=== PATIENT | male | born 1960 | race African-American/Black ===

== ENCOUNTER 2017-01-01 17:45 | Inpatient (IN) | payer BC, OTHER ==
[~2017-01-01] VITALS: Ht 170.2 cm; Wt 61.2 kg
[2017-01-01] MEDS ORDERED: ALBUTEROL 0.5% (NEB) 2.5 MG/0.5 ML AMP INH STA (18:22)
[2017-01-01] MEDS ORDERED: SOD CHLORIDE 0.9% 1,000 ML IV STA (18:22)
[2017-01-01 18:44] LABS: AADO2 Arterial 109.5 mmHg (7.0-24.0); Allen Test ACCEPTAB; Arterial Base Excess -2.8 mmol/L (-3.0-3); Arterial COHb 2.3 % (0.0-3.0); Arterial HCO3 20.5 mmol/L (22.0-26.0); Arterial MetHb 0.3 % (0.0-1.5); Arterial Total Hemglobin 8.3 g/dl (12.0-18.0); MODE NASAL CANNULA
[2017-01-01 18:56] LABS: BASOPHIL # 0.1 10^3/ul (0.0-0.1); BASOPHILS % 0.5 % (0.0-2.0); EOSINOPHILS # 1.6 10^3/ul (0.0-0.5); EOSINOPHILS % 9.8 % (0.0-7.0); HEMATOCRIT 24.6 % (42.0-52.0); HEMOGLOBIN 7.2 g/dl (14.0-18.0); LYMPHOCYTES # 1.1 10^3/ul (0.8-2.9); LYMPHOCYTES % 6.4 % (15.0-51.0); MEAN CORPUSCULAR HGB CONC 29.3 g/dl (32.0-37.0); MEAN CORPUSCULAR VOLUME 65.1 fl (82.0-101.0); MEAN PLATELET VOLUME 8.7 fl (7.4-10.4); MONOCYTE # 0.8 10^3/ul (0.3-0.9); MONOCYTES % 4.8 % (0.0-11.0); NEUTROPHIL # 13.1 10^3/ul (1.6-7.5); NUCLEATED RED BLOOD CELLS% 0.2 /100WBC (0.0-0.0); PLATELET COUNT 503 10^3/UL (140-415); RED BLOOD COUNT 3.78 10^6/ul (4.70-6.10); WHITE BLOOD COUNT 16.8 10^3/ul (4.8-10.8)
--- NOTE | 2017-01-01 19:08 | RADRPT ---
PROCEDURE: US DVT. CLINICAL INDICATION: Right lower extremity pain and swelling. TECHNIQUE: Multiple longitudinal and transverse images of the right lower extremity veins were obt ained with hare scale and color Doppler imaging. 2D grayscale measurements with compression, color Doppler flow, and augmentation was performed. The calf veins were interrogated as well. COMPARISON: No prior studies are available for comparison. FINDINGS: The right common femoral, superficial femoral and popliteal veins are normally compressible througho ut. Color flow demonstrates normal filling of the vessel. Normal waveforms are visualized and ther e is normal response to augmentation. The calf veins are visualized and are equally unremarkable. IMPRESSION: 1. No evidence of a deep vein thrombosis involving the right lower extremity. RPTAT: HFN .Noam Kirkpatrick MD, Date Time Electronically viewed and signed by .Noam Kirkpatrick MD, MD on 01/01/2017 19:07 .N/
[2017-01-01 19:10] LABS: INR 1.03; PROTIME 13.5 Sec (12.2-14.2); PT RATIO 1.1
[2017-01-01 19:15] LABS: ALANINE AMINOTRANSFERASE 25 IU/L (13-69); ALBUMIN 3.2 g/dl (3.3-4.9); ALKALINE PHOSPHATASE 98 IU/L (42-121); ANION GAP 13 (8-16); ASPARTATE AMINO TRANSFERASE 24 IU/L (15-46); BILIRUBIN,INDIRECT 0.1 mg/dl (0-1.1); BILIRUBIN,TOTAL 0.1 mg/dl (0.2-1.3); BLOOD UREA NITROGEN 18 mg/dl (7-20); CALCIUM 8.8 mg/dl (8.4-10.2); CARBON DIOXIDE 22 mmol/L (21-31); CHLORIDE 104 mmol/L (97-110); CREATININE 0.94 mg/dl (0.61-1.24); GLUCOSE 118 mg/dl (70-220); POTASSIUM 4.9 mmol/L (3.5-5.1); SODIUM 134 mmol/L (135-144); TOTAL PROTEIN 7.2 g/dl (6.1-8.1)
[2017-01-01 19:26] LABS: B-TYPE NATRIURETIC PEPTIDE 937 PG/ML (0-125)
[2017-01-01 19:27] LABS: TROPONIN-I < 0.012 ng/ml (0.00-0.12)
--- NOTE | 2017-01-01 19:37 | RADRPT ---
PROCEDURE: XR Chest. CLINICAL INDICATION: Dyspnea and asthma TECHNIQUE: Single frontal view of the chest COMPARISON: None. FINDINGS: Question left central venous line with tip in superior vena cava. Bilateral pneumothoraces amount 40% on the right and 30% on the right. There may be bilateral apical bulla. This is not clear. There is bilateral atelectasis in the lungs, with somewhat nodular featur es, likely a sequela of pneumothoraces. Recommend repeat frontal view of the chest after placement o f chest tubes. The osseous structures and soft tissues are unremarkable. IMPRESSION: Bilateral pneumothoraces. These findings and impression were discussed with Dr. Lentz of the [facility] emergency department at the conclusion of this examination by the undersigned interpreting radiologi st on 01/01/2017 and 1932 hours. RPTAT: [facility]U Physician Hiram Date Time Electronically viewed and signed by Physician Hiram on 01/01/2017 19:37 RS/
[2017-01-01] MEDS ORDERED: CEFTRIAXONE 1 GM/50 ML (PMX) 50 ML IVPB ONE (20:00)
[2017-01-01] MEDS ORDERED: VANCOMYCIN 1 GM (PMX) 250 ML IVPB SCH (20:00)
[2017-01-01] MEDS ORDERED: PIPER-TAZO 3.375 GM IV (PMX) 100 ML IVPB ONE (20:00)
[2017-01-01] MEDS ORDERED: SOD CHLORIDE 0.9% 1,000 ML IV ONE ×2 (20:00→21:30)
[2017-01-01] MEDS ORDERED: PROPOFOL 100 ML IV ONE (20:00)
[2017-01-01] MEDS ORDERED: FENTAnyl 50 MCG/ML VIAL IV ONE (20:00)
[2017-01-01] MEDS ORDERED: LORAZEPAM 2 MG INJ ONE (20:11)
--- NOTE | 2017-01-01 22:25 | RADRPT ---
PROCEDURE: XR Chest. CLINICAL INDICATION: Chest tubes TECHNIQUE: Single frontal view of the chest. COMPARISON: Today, about 3 hours ago. FINDINGS: New endotracheal intubation is seen with tip about 6 cm above the katherine. New right central venous l ine in place with tip in superior vena cava. Narrow caliber port in place on the left with tip in brown perior vena cava. New bilateral chest tubes in place with interval resolution of bilateral pneumothoraces. The cardiomediastinal silhouette is within normal limits. The lungs are clear. No signs of pleural f luid or pneumothorax are seen. The osseous structures and soft tissues are unremarkable. IMPRESSION: 1. New endotracheal intubation is seen with tip about 6 cm above the katherine. 2. Left central venous port in place with tip in superior vena cava. 3. New right central venous line in place with tip in superior vena cava. 4. New bilateral chest tubes in place with interval resolution of bilateral pneumothoraces. RPTAT: UU Physician Hiram Date Time Electronically viewed and signed by Physician Hiram on 01/01/2017 22:25 RS/
[2017-01-01] MEDS ORDERED: LIDOCAINE 2%/EPI MPF (SDV) 20 ML VIAL INJ ONE (22:30)
--- NOTE | 2017-01-01 22:48 | ERA ---
ER Documentation Chief Complaint Date/Time DATE: 01/01/17 TIME: 22:22 Chief Complaint sobx 4 days HPI 56-year-old man complains of shortness of breath 4 days, he states shortness of breath began suddenly on Thursday and has gradually gotten worse. Patient has a long history of HIV and does not know his CD4 count but states his clinic doctor told him his blood work was recently alarming. 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 Patient denies fevers or chills, no abdominal pain, no headache or blurry vision, no neck stiffness, no recent travel. HPI was limited. ROS All systems reviewed and are negative except as per history of present illness. Allergies Allergies: Coded Allergies: No Known Allergy (Unverified , 01/01/17) PMhx/Soc Hypertension, Kaposi's sarcoma, HIV, current tobacco smoker History of Surgery: Yes (port-a-cath placement) Anesthesia Reaction: No Hx 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 Disorder: No Hx Respiratory Disorders: No Hx Cardiac Disorders: Yes (HTN) Hx Psychiatric Problems: No Hx Miscellaneous Medical Probl: Yes (DM2, kaposi's sarcoma wound to R leg, HIV) Hx Alcohol Use: No Hx Substance Use: No Hx Tobacco Use: No Smoking Status: Never smoker FmHx Family History: No diabetes Physical Exam Vitals Vital Signs Date Time Temp Pulse Resp B/P Pulse Ox O2 Delivery O2 Flow Rate FiO2 01/01/17 21:00 132 14 100 100 01/01/17 19:18 Nasal Cannula 2.0 01/01/17 19:05 98.6 116 22 140/68 96 Nasal Cannula 01/01/17 19:00 115 24 99 Nasal Cannula 3.0 01/01/17 18:00 98.7 120 20 113/61 95 01/01/17 18:00 Nasal Cannula 2 Physical Exam GENERAL: Well-developed, appears dehydrated, tachypneic, dyspneic, afebrile HEENT: Moist mucous membranes, pink conjunctiva, no cervical spine tenderness or step-off deformities, no goiter, no jaundice or icterus, extraocular movements intact without pain. No submandibular induration, and no pharyngeal erythema NEURO: Alert and oriented 3, cranial nerves II through XII intact bilaterally, pupils equal round reactive to light, no focal deficits or facial asymmetry, sensation intact distally Strength 5/5 in upper and lower extremities bilaterally CARDIAC: Tachycardic and regular, no murmurs rubs or gallops LUNGS: Poor breath sounds bilaterally, no crackles or wheezing ABDOMEN: Soft nontender, no guarding, no rigidity, no rebound, no psoas sign no obturator sign. Normoactive bowel sounds SKIN: Warm and dry to touch, deep purulent malodorous skin ulcerations to the right thigh and lower leg EXTREMITIES: Swollen edematous right lower extremity with large diffuse deep purulent ulcerations to the right thigh and leg mostly medially, malodorous discharge, purulent, with surrounding erythematous skin. No eschar formation distal pulses equal and bilateral PSYCH: Normal affect without agitation or irritability Result Diagram: 01/01/17182901/01/171829 Results 24 hrs Laboratory Tests Test 01/01/17 18:20 01/01/17 18:30 Blood Gas Specimen Source Blood arterial Arterial Blood Date Drawn 01/01/2017 6:31:08 PM Arterial Blood pH (Temp corrected) 7.460 Arterial Blood pCO2 (Temp correct) 29.5mmhg Arterial Blood pO2 (Temp corrected) 69.7mmHG Arterial Blood HCO3 20.5mmol/L Arterial Blood Base Excess -2.8mmol/L Arterial Blood Oxygen Saturation 94.5mmHG [place] Test ACCEPTAB Arterial Blood Gas Puncture Site Right Radial Arterial Blood Carboxyhemoglobin 2.3% Arterial Blood Methemoglobin 0.3% Blood Gas A-a O2 Differential 109.5mmHg Oxyhemoglobin Percent 92.0% Total Hemoglobin 8.3g/dl Blood Gas Temperature 37.0C Blood Gas Modality NASAL CANNULA FiO2 30.0% Blood Gas Notified Whom Sadi Blood Gas Notified Time 01/01/2017 6:43:54 PM White Blood Count 16.810^3/ul Red Blood Count 3.7810^6/ul Hemoglobin 7.2g/dl Hematocrit 24.6% Mean Corpuscular Volume 65.1fl Mean Corpuscular Hemoglobin 19.0pg Mean Corpuscular Hemoglobin Concent 29.3g/dl Red Cell Distribution Width 19.0% Platelet Count 56105^3/UL Mean Platelet Volume 8.7fl Neutrophils % 78.0% Lymphocytes % 6.4% Monocytes % 4.8% Eosinophils % 9.8% Basophils % 0.5% Nucleated Red Blood Cells % 0.2/100WBC Neutrophils # 13.110^3/ul Lymphocytes # 1.110^3/ul Monocytes # 0.810^3/ul Eosinophils # 1.610^3/ul Basophils # 0.110^3/ul Nucleated Red Blood Cells # 0.010^3/ul Prothrombin Time 13.5Sec Prothrombin Time Ratio 1.1 INR International Normalized Ratio 1.03 Sodium Level 134mmol/L Potassium Level 4.9mmol/L Chloride Level 104mmol/L Carbon Dioxide Level 22mmol/L Anion Gap 13 Blood Urea Nitrogen 18mg/dl Creatinine 0.94mg/dl Glucose Level 118mg/dl Calcium Level 8.8mg/dl Total Bilirubin 0.1mg/dl Direct Bilirubin 0.00mg/dl Indirect Bilirubin 0.1mg/dl Aspartate Amino Transf (AST/SGOT) 24IU/L Alanine Aminotransferase (ALT/SGPT) 25IU/L Alkaline Phosphatase 98IU/L Troponin I < 0.012ng/ml B-Type Natriuretic Peptide 937PG/ML Total Protein 7.2g/dl Albumin 3.2g/dl Globulin 4.00g/dl Albumin/Globulin Ratio 0.80 Lipase 26U/L Current Medications Medications (Trade) Dose Ordered Sig/Sathish Route PRN Reason Start Time Stop Time Status Last Admin Dose Admin Sodium Chloride (NS) 1,000 ml @ 1,000 mls/hr Q1H STAT IV 01/01/17 18:22 01/01/17 19:21 DC 01/01/17 19:17 Albuterol 10 mg 10 mg ONCE STAT INH 01/01/17 18:22 01/01/17 18:26 DC 01/01/17 19:00 Propofol (Diprivan) 100 ml @ 0 mls/hr TITRATE ONCE IV 01/01/17 20:00 01/01/17 20:01 DC Fentanyl 100 mcg 100 mcg ONCE ONCE IV 01/01/17 20:00 01/01/17 20:01 DC Piperacillin Sod/ Tazobactam Sod 100 ml @ 200 mls/hr ONCE ONCE IVPB 01/01/17 20:00 01/01/17 20:29 DC Ceftriaxone Sodium 50 ml @ 100 mls/hr ONCE ONCE IVPB 01/01/17 20:00 01/01/17 20:29 DC Vancomycin HCl 250 ml @ 125 mls/hr ONCE IVPB 10/12/17 20:00 01/01/17 21:59 DC Sodium Chloride (NS) 1,000 ml @ 1,000 mls/hr Q1H ONCE IV 01/01/17 20:00 01/01/17 20:59 DC Lorazepam 2 mg 2 mg STK-MED ONCE .ROUTE 01/01/17 20:11 01/01/17 20:12 DC Sodium Chloride (NS) 1,000 ml @ 1,000 mls/hr Q1H ONCE IV 01/01/17 21:30 01/01/17 22:29 Procedures/MDM IV line was established patient was placed on monitoring and evaluation advisor rhythm strip revealed a sinus tachycardia at 120 bpm. Respiratory rate was 40 breaths per minute. Patient was afebrile. I do not suspect sepsis. EKG performed, read by me revealed a sinus tachycardia at 116 bpm, normal axis, narrow QRS complex, no concerning ST elevations or depressions noted. Right lower extremity Doppler ultrasound was performed it was negative for deep vein thrombosis. I initially treated the patient with albuterol 10 mg via nebulizer, he also received lorazepam 0.5 mg IV for anxiety. One view chest x-ray performed, read by me there is atelectatic changes bilaterally and large bilateral pneumothoraces. I administered 2 L normal saline intravenously, ceftriaxone 1 g IV, Zosyn 3.375 g IV, vancomycin 1 g IV. Endotracheal Intubation by me: Pre assessment performed. Etomidate and rocuronium for sedation and paralysis Pre-oxygenation performed with 100% oxygen RSI: Performed w/o complication or hypoxic events. Medications as ordered. Blade: Mac 4 ET Tube: 7.5 cm Depth: 24 cm at the lip Intubation confirmed by colorimetric CO2, equal breath sounds, quiet over the stomach. Right sided chest Tube Placement by me: Patient consented, sterilely draped, full prep, gown, glove, mask, time out performed. Anesthesia: 1% lidocaine locally Location: Mid-Anterior Axillary Line, approximate 5th intercostal Device: 32 [place] chest tube Technique: Vertical incision, blunt dissection above the superior rib border , tactile confirmation Results: Chest tube fogging Secured with suture and taping. No complications. Attached to waterseal. Left sided chest Tube Placement by me: Patient consented, sterilely draped, full prep, gown, glove, mask, time out performed. Anesthesia: 1% lidocaine locally Location: Mid-Anterior Axillary Line, approximate 5th intercostal Device: 32 [place] chest tube Technique: Vertical incision, blunt dissection above the superior rib border , tactile confirmation Results: Chest tube fogging Secured with suture and taping. No complications. Attached to waterseal. Central Line Placement by me: Patient consented, sterilely draped, full prep, gown, glove, mask, time out performed. Anesthesia: 1% lidocaine locally Location: Right subclavian vein Device: Multiple lumen Technique: Seldinger technique. Secured with suture. Results: Venous return from all ports with easy saline flush. No complications. The entire Guide wire retrieved and disposed of. Repeat chest X-ray 1V Interpreted by me: Central line in SVC appears to be in place. There is bilateral pulmonary expansion with bilateral chest tubes in place both of which are directed caudad above the diaphragm. ET tube in place in the trachea about 4 cm above katherine. There is atelectatic changes bilaterally. Critical Care: Time: 58 minutes, this was time separate from other billable procedures. Treatments/Evaluations: Close monitoring and treatment of unstable vital signs, cardiorespiratory, and neurologic status, while maintaining tight balance of fluid, respiratory, and cardiac interventions. Patient was placed on propofol drip for continued sedation CBC revealed a leukocytosis of 17, anemia with hemoglobin of 7.2, electrolytes were unremarkable, liver function tests normal, troponin negative. BNP was elevated above 900. I order transfusion 1 unit PRBC IV as the patient did lose some blood with bilateral chest tube placement and has continued dyspnea and tachycardia. ABG performed, read by me revealed a pH of 7.46, p.o. CO2 30, PO2 70 revealing respiratory alkalosis. Minute intensive care unit for continued medical management, infectious disease and pulmonary management. Departure Diagnosis: Primary Impression: Acute respiratory failure Qualified Code: J96.01 - Acute respiratory failure with hypoxia and hypercapnia Additional Impressions: Bilateral pneumothorax Kaposis sarcoma HIV (human immunodeficiency virus infection) Heavy tobacco smoker Ulcer of right lower extremity Qualified Code: L97.912 - Ulcer of right lower extremity with fat layer exposed Cellulitis of right lower extremity Anemia Qualified Code: D64.9 - Anemia, unspecified type Condition: Serious LEON CARRERO MD Jan 01, 2017 22:32
[2017-01-01 22:59] LABS: AADO2 Arterial 506.3 mmHg (7.0-24.0); Arterial Base Excess -7.2 mmol/L (-3.0-3); Arterial COHb 1.1 % (0.0-3.0); Arterial Fraction of Oxyhgb 97.9 % (93.0-99.0); Arterial HCO3 18.7 mmol/L (22.0-26.0); Arterial MetHb 0 % (0.0-1.5); Arterial Total Hemglobin 8.4 g/dl (12.0-18.0); MODE VENT - AC
[2017-01-01] MEDS ORDERED: GABA300C16 PO (23:10)
[2017-01-01] MEDS ORDERED: BUPR1TAB34 SL (23:10)
[2017-01-01] MEDS ORDERED: NAPR-688 PO (23:10)
[2017-01-01] MEDS ORDERED: TEMA7.5C PO (23:10)
[2017-01-01] MEDS ORDERED: DULO30CA47 PO (23:10)
[2017-01-01] MEDS ORDERED: [UNRECOGNIZED DRUG - CODE] PO (23:10)
[2017-01-01] MEDS ORDERED: MORP15TA92 PO (23:10)
[2017-01-01] MEDS ORDERED: ABAC1TAB12 PO (23:10)
[2017-01-01] MEDS ORDERED: NAPR-260 PO (23:10)
[2017-01-01 23:59] VITALS: TEMP 98.6
[2017-01-02] VITALS (50 sets, daily range): BP systolic 96–136; BP diastolic 48–84; PULSE 93–113; RESP 18–34; Ht 170.2 cm; Wt 61.2 kg
[2017-01-02] MEDS ORDERED: ONDANSETRON 4 MG INJ IV PRN
[2017-01-02] MEDS ORDERED: morphine 2 MG INJ IV PRN
[2017-01-02] MEDS ORDERED: ACETAMINOPHEN 650 MG SUPP PR PRN
[2017-01-02] MEDS ORDERED: LORAZEPAM 2 MG INJ IV PRN
[2017-01-02] MEDS ORDERED: IPRATROPIUM (HFA) 12.9 GM INHALER INH PRN
[2017-01-02] MEDS ORDERED: ALBUTEROL 18 GM INHALER INH PRN
[2017-01-02] MEDS ORDERED: morphine 2 MG INJ ONE (00:54)
[2017-01-02] MEDS ORDERED: FENTAnyl (DRIP) 1000 mcg/100mL 100 ML IV ONE (01:09)
[2017-01-02] MEDS: FENTAnyl (DRIP) 1000 mcg/100mL 100 ML IV SCH ×3 (01:22→23:53)
[2017-01-02] MEDS: DEXTROSE 5%-0.45% NACL 1,000 ML IV SCH ×3 (01:43→19:30)
[2017-01-02] MEDS: MIDAZOLAM (DRIP) 50 mg/50 mL 50 ML IV SCH ×4 (02:43→19:15)
[2017-01-02] MEDS: PROPOFOL 100 ML IV SCH ×5 (05:10→23:53)
[2017-01-02 05:36] LABS: Allen Test ACCEPTAB; Arterial Base Excess -2.3 mmol/L (-3.0-3); Arterial COHb 1.1 % (0.0-3.0); Arterial Fraction of Oxyhgb 98.4 % (93.0-99.0); Arterial HCO3 22.6 mmol/L (22.0-26.0); Arterial MetHb 0.2 % (0.0-1.5); Arterial Total Hemglobin 6.9 g/dl (12.0-18.0); MODE VENT - AC
--- NOTE | 2017-01-02 05:46 | HP ---
Date/Time of Note Date/Time of Note DATE: 01/02/17 TIME: 05:26 Assessment/Plan VTE Prophylaxis VTE Prophylaxis Intervention: SCD's Lines/Catheters IV Catheter Type (from Nrs): Central Line Central line still needed: Yes Urinary Cath still in place: Yes Reason Cath still needed: terminal illness/intractable pain Assessment/Plan Assessment/Plan 1. Bilateral pneumothoraces - s/p bilateral chest tube placement with resolution of pneumothoraces -Pulmonary consult 2. Acute hypoxic respiratory failure, secondary to above, s/p intubation -Continue vent support -Repeat ABG -Breathing treatments -Pulmonary consult 3. Sepsis, as evidenced by leukocytosis and tachycardia, secondary to right foot wound/infection -IV antibiotic -Follow-up culture results -ID consult 4. Kaposi's sarcoma of right lower extremity -Continue HIV medications -Oncology consult 5. History of HIV -Check CD4 count and viral load -Continue home meds 6. Microcytic anemia -Evaluate for iron deficiency and GI bleed -GI consult 7. Probable history of type 2 diabetes -Check A1c -ISS for now HPI/ROS Admit Date/Time Admit Date/Time Jan 01, 2017 at 21:48 Hx of Present Illness This is a 56-year-old male with a history of HIV, Kaposi's sarcoma right foot wound and probable type 2 diabetes who presented to the ER complaining of progressively worsening shortness of breath. When he presented to the ER, chest x-ray showed bilateral pneumothoraces, 40% on the right and 30% on the left with probable bilateral apical bulla. Bilateral chest tube was placed with repeat chest x-ray showing resolution of pneumothoraces. Patient is currently intubated and as such information was gathered from chart review and ER physician. Reportedly when he initially presented to the ER he was alert and oriented 4 with obvious sign of respiratory distress. Labs shows WBC of 17 ,000, hemoglobin 7.2 with MCV of 65. Currently he is receiving a blood transfusion. PMH/Family/Social Social History Smoking Status: Never smoker Exam/Review of Systems Vital Signs Vitals Vital Signs Date Time Temp Pulse Resp B/P Pulse Ox O2 Delivery O2 Flow Rate FiO2 01/02/17 04:00 96 01/02/17 03:00 25 129/72 100 Mechanical Ventilator 01/02/17 02:00 97.7 01/02/17 01:30 100 01/01/17 23:59 15.0 Intake and Output 01/01/17 01/01/17 01/02/17 15:00 23:00 07:00 Intake Total 0 ml Output Total 570 ml Balance -570 ml Exam Constitutional: other (Intubated, looks comfortable on vent) Head: atraumatic, normocephalic Eyes: PERRL Respiratory: diminished breath sounds Cardiovascular: other (Tachycardic with regular rhythm) Gastrointestinal: soft Extremities: other (There is a foul-smelling wound on the distal part of the right lower extremity with swelling of the right foot) Labs Result Diagram: 01/01/17 1830 01/01/17 1830 Medications Medications Current Medications Dextrose/Sodium Chloride (D5-1/2ns) 1,000 ml @ 100 mls/hr Q10H IV Last administered on 01/02/17 01:43; Admin Dose 100 MLS/HR; Start 01/01/17 at 23: 31 Ondansetron HCl (Zofran Inj) 4 mg Q6H PRN IV NAUSEA AND/OR VOMITING Last administered on 01/02/17 01:44; Admin Dose 4 MG; Start 01/02/17 at 00:00 Acetaminophen (Tylenol Liquid) 650 mg Q6H PRN PO PAIN LEVEL 1-3 OR FEVER; Start 01/02/17 at 00:00 Acetaminophen (Tylenol Supp) 650 mg Q4H PRN OR PAIN LEVEL 1-3 OR FEVER; Start 01/02/17 at 00:00 Morphine Sulfate (morphine) 2 mg Q4H PRN IV PAIN LEVEL 7-10 Last administered on 01/02/17 01:44; Admin Dose 2 MG; Start 01/02/17 at 00:00 Lorazepam (Ativan) 1 mg Q2H PRN IV ANXIETY; Start 01/02/17 at 00:00 Pantoprazole 40 mg 40 mg DAILY@06 IV ; Start 01/02/17 at 06:00 Fentanyl 100 ml @ 2.5 mls/hr TITRATE IV Last administered on 01/02/17 01:22 ; Admin Dose 2.5 MLS/HR; Start 01/02/17 at 01:30 Midazolam HCl 50 ml @ 1 mls/hr TITRATE IV Last administered on 01/02/17 02:43 ; Admin Dose 1 MLS/HR; Start 01/02/17 at 01:30 Propofol (Diprivan) 100 ml @ 2.045 mls/ hr Q12H IV Last administered on 05:10; Admin Dose 16.363 MLS/HR; Start 01/02/17 at 02:30 NICHOLE GARCIA MD Jan 02, 2017 05:39
[2017-01-02] MEDS ORDERED: VANCOMYCIN IV PER PHARMACY XX SCH (06:00)
[2017-01-02] MEDS ORDERED: PANTOPRAZOLE 40 MG INJ IV SCH (06:00)
[2017-01-02 06:39] LABS: ABNORMAL IP MESSAGE 1; BASOPHILS % 0.3 % (0.0-2.0); EOSINOPHILS # 0.6 10^3/ul (0.0-0.5); EOSINOPHILS % 4.7 % (0.0-7.0); HEMATOCRIT 20.6 % (42.0-52.0); LYMPHOCYTES # 0.8 10^3/ul (0.8-2.9); LYMPHOCYTES % 5.9 % (15.0-51.0); MEAN CORPUSCULAR HEMOGLOBIN 20.9 pg (29.0-33.0); MEAN CORPUSCULAR HGB CONC 30.1 g/dl (32.0-37.0); MEAN CORPUSCULAR VOLUME 69.6 fl (82.0-101.0); MEAN PLATELET VOLUME 8.2 fl (7.4-10.4); MONOCYTES % 7.6 % (0.0-11.0); NEUTROPHIL # 10.6 10^3/ul (1.6-7.5); NEUTROPHILS % 80.9 % (39.0-77.0); PLATELET COUNT 320 10^3/UL (140-415); POSITIVE DIFF @See below; RED BLOOD COUNT 2.96 10^6/ul (4.70-6.10); RED CELL DISTRIBUTION WIDTH 20.6 % (11.5-14.5); WHITE BLOOD COUNT 13.2 10^3/ul (4.8-10.8)
[2017-01-02 06:43] LABS: HEMOGLOBIN 6.2 g/dl (14.0-18.0)
[2017-01-02 06:44] LABS: PATH REVIEW? YES
[2017-01-02 07:04] LABS: ALBUMIN 2.3 g/dl (3.3-4.9); ALBUMIN/GLOBULIN RATIO 0.71; BILIRUBIN,INDIRECT 0.1 mg/dl (0-1.1); BILIRUBIN,TOTAL 0.1 mg/dl (0.2-1.3); CREATININE 0.78 mg/dl (0.61-1.24); POTASSIUM 4.8 mmol/L (3.5-5.1); TOTAL PROTEIN 5.5 g/dl (6.1-8.1)
[2017-01-02 07:06] LABS: IRON 14 ug/dl (35-150)
[2017-01-02 07:16] LABS: TOTAL IRON BINDING CAPACITY 188 ug/dl (241-421)
[2017-01-02 07:19] LABS: ANISOCYTOSIS 1+ (0-0); EOSINOPHILS % (M) 1 % (0-7); HYPOCHROMASIA 3+ (0-0); MICROCYTOSIS 1+ (0-0); MONOCYTES % (M) 2 % (0-11); PLATELET ESTIMATE NORMAL; POLYCHROMASIA 3+ (0-0)
--- NOTE | 2017-01-02 08:56 | CONS ---
Date/Time of Note Date/Time of Note DATE: 01/02/17 TIME: 08:50 Assessment/Plan Assessment/Plan Additional Assessment/Plan Respiratory failure Bilateral pneumothorax History of Kaposi's sarcoma HIV Anemia chronic disease Possible pneumocystis pneumonia Incomplete database That is post placement and Port-A-Cath prior to this admission We will continue with current pain control and sedation .I will not address issues of palliative care with family members primarily because patient is expected to improve and I will refrain from speaking with anyone else other than patient at this time. Consultation Date/Type/Reason Admit Date/Time Jan 01, 2017 at 21:48 Reason for Consultation Pain management/ Hx of Present Illness Brief pain management note 56-year-old gentleman admitted to the intensive care unit with a history of HIV , [place], increasing shortness of breath now with bilateral chest tubes placed secondary to 30% and 40% pneumothorax. We do not have a complete database and there are no family members available at this time. Further I will not contact family members until patient is awake and unless patient has a deterioration in his overall clinical condition. Patient was found to have a Port-A-Cath placed currently is nonverbal sedated and on propofol and fentanyl drips per protocol. Social History Smoking Status: Never smoker Exam/Review of Systems Vital Signs Vitals Vital Signs Date Time Temp Pulse Resp B/P Pulse Ox O2 Delivery O2 Flow Rate FiO2 01/02/17 07:00 97 18 104/67 100 Mechanical Ventilator 01/02/17 05:47 50 01/02/17 04:00 98.1 01/01/17 23:59 15.0 Intake and Output 01/01/17 01/01/17 01/02/17 15:00 23:00 07:00 Intake Total 1065.126 ml Output Total 940 ml Balance 125.126 ml Results Result Diagram: 01/02/17 0624 01/02/17 0624 Results 24 hrs Laboratory Tests Test 01/01/17 18:20 01/01/17 18:30 01/01/17 22:29 01/02/17 05:30 Blood Gas Specimen Source Blood arterial Blood arterial Blood arterial Arterial Blood Date Drawn 01/01/2017 6:31:08 PM 01/01/2017 10:45:25 PM 01/02/2017 5:28:17 AM Arterial Blood pH (Temp corrected) 7.460 H 7.300 L 7.380 Arterial Blood pCO2 (Temp correct) 29.5 L 38.8 39.1 Arterial Blood pO2 (Temp corrected) 69.7 L 167.9 H 418.9 H Arterial Blood HCO3 20.5 L 18.7 L 22.6 Arterial Blood Base Excess -2.8 -7.2 L -2.3 Arterial Blood Oxygen Saturation 94.5 L 99.0 H 99.7 H Austin Test ACCEPTAB N/A ACCEPTAB Arterial Blood Gas Puncture Site Right Radial Right Brachial Right Radial Arterial Blood Carboxyhemoglobin 2.3 1.1 1.1 Arterial Blood Methemoglobin 0.3 0 0.2 Blood Gas A-a O2 Differential 109.5 H 506.3 H 255.0 H Oxyhemoglobin Percent 92.0 L 97.9 98.4 Total Hemoglobin 8.3 L 8.4 L 6.9 L Blood Gas Temperature 37.0 37.0 37.0 Blood Gas Modality NASAL CANNULA VENT - AC VENT - AC FiO2 30.0 100.0 100.0 Blood Gas Notified Michell ROONEY Blood Gas Notified Time 01/01/2017 6:43:54 PM 01/01/2017 10:59:22 PM 01/02/2017 5:35:59 AM White Blood Count 16.8 H Red Blood Count 3.78 L Hemoglobin 7.2 L Hematocrit 24.6 L Mean Corpuscular Volume 65.1 L Mean Corpuscular Hemoglobin 19.0 L Mean Corpuscular Hemoglobin Concent 29.3 L Red Cell Distribution Width 19.0 H Platelet Count 503 H Mean Platelet Volume 8.7 Neutrophils % 78.0 H Lymphocytes % 6.4 L Monocytes % 4.8 Eosinophils % 9.8 H Basophils % 0.5 Nucleated Red Blood Cells % 0.2 H Neutrophils # 13.1 H Lymphocytes # 1.1 Monocytes # 0.8 Eosinophils # 1.6 H Basophils # 0.1 Nucleated Red Blood Cells # 0.0 Prothrombin Time 13.5 Prothrombin Time Ratio 1.1 INR International Normalized Ratio 1.03 Sodium Level 134 L Potassium Level 4.9 Chloride Level 104 Carbon Dioxide Level 22 Anion Gap 13 Blood Urea Nitrogen 18 Creatinine 0.94 Glucose Level 118 Calcium Level 8.8 Total Bilirubin 0.1 L Direct Bilirubin 0.00 Indirect Bilirubin 0.1 Aspartate Amino Transf (AST/SGOT) 24 Alanine Aminotransferase (ALT/SGPT) 25 Alkaline Phosphatase 98 Troponin I < 0.012 B-Type Natriuretic Peptide 937 H Total Protein 7.2 Albumin 3.2 L Globulin 4.00 H Albumin/Globulin Ratio 0.80 Lipase 26 Blood Gas Respiration Rate 14.0 14.0 Blood Gas Actual Respiration Rate 22 23 Blood Gas Tidal Volume 500.0 500.0 Blood Gas Low PEEP Setting 5.0 5.0 Blood Gas Inspiratory Pressure 22.0 21.0 Test 01/02/17 06:24 01/02/17 06:59 White Blood Count 13.2 #H Red Blood Count 2.96 #L Hemoglobin 6.2 *L Hematocrit 20.6 L Mean Corpuscular Volume 69.6 L Mean Corpuscular Hemoglobin 20.9 L Mean Corpuscular Hemoglobin Concent 30.1 L Red Cell Distribution Width 20.6 H Platelet Count 320 # Mean Platelet Volume 8.2 Neutrophils % 80.9 H Segmented Neutrophils % (Manual) 83 H Band Neutrophils % (Manual) 8 H Lymphocytes % 5.9 L Lymphocytes % (Manual) 6 L Monocytes % 7.6 Monocytes % (Manual) 2 Eosinophils % 4.7 Eosinophils % (Manual) 1 Basophils % 0.3 Nucleated Red Blood Cells % 0.0 Neutrophils # 10.6 H Neutrophils # (Manual) 11.1 H Band Neutrophils # 1.0 H Absolute Lymphocytes (Manual) 0.7 L Lymphocytes # 0.8 Monocytes # 1.0 H Absolute Monocytes (Manual) 0.2 L Eosinophils # 0.6 H Basophils # 0.0 Nucleated Red Blood Cells # 0.0 Pathologist Review (Hematology) YES Platelet Estimate NORMAL Polychromasia 3+ Hypochromasia 3+ Anisocytosis 1+ Microcytosis 1+ Sodium Level 138 Potassium Level 4.8 Chloride Level 110 Carbon Dioxide Level 23 Anion Gap 10 Blood Urea Nitrogen 14 Creatinine 0.78 Glucose Level 156 Lactic Acid Level 0.9 Calcium Level 8.0 L Iron Level 14 L Total Iron Binding Capacity 188 L Percent Iron Saturation 7 L Ferritin 165.0 Total Bilirubin 0.1 L Direct Bilirubin 0.00 Indirect Bilirubin 0.1 Aspartate Amino Transf (AST/SGOT) 20 Alanine Aminotransferase (ALT/SGPT) 25 Alkaline Phosphatase 67 Lactate Dehydrogenase 1041 H Total Protein 5.5 #L Albumin 2.3 L Globulin 3.20 Albumin/Globulin Ratio 0.71 Bedside Glucose 169 Medications Medications Current Medications Dextrose/Sodium Chloride (D5-1/2ns) 1,000 ml @ 100 mls/hr Q10H IV Last administered on 01/02/17 01:43; Admin Dose 100 MLS/HR; Start 01/01/17 at 23: 31 Ondansetron HCl (Zofran Inj) 4 mg Q6H PRN IV NAUSEA AND/OR VOMITING Last administered on 01/02/17 01:44; Admin Dose 4 MG; Start 01/02/17 at 00:00 Acetaminophen (Tylenol Liquid) 650 mg Q6H PRN PO PAIN LEVEL 1-3 OR FEVER; Start 01/02/17 at 00:00 Acetaminophen (Tylenol Supp) 650 mg Q4H PRN [place] PAIN LEVEL 1-3 OR FEVER; Start 01/02/17 at 00:00 Morphine Sulfate (morphine) 2 mg Q4H PRN IV PAIN LEVEL 7-10 Last administered on 01/02/17 01:44; Admin Dose 2 MG; Start 01/02/17 at 00:00 Lorazepam (Ativan) 1 mg Q2H PRN IV ANXIETY; Start 01/02/17 at 00:00 Pantoprazole 40 mg 40 mg DAILY@06 IV Last administered on 01/02/17 06:20; Admin Dose 40 MG; Start 01/02/17 at 06:00 Fentanyl 100 ml @ 2.5 mls/hr TITRATE IV Last administered on 01/02/17 01:22 ; Admin Dose 2.5 MLS/HR; Start 01/02/17 at 01:30 Midazolam HCl 50 ml @ 1 mls/hr TITRATE IV Last administered on 01/02/17 06:20 ; Admin Dose 8 MLS/HR; Start 01/02/17 at 01:30 Propofol 100 ml @ 2.045 mls/ hr Q12H IV Last administered on 01/02/17 05:10 ; Admin Dose 16.363 MLS/HR; Start 01/02/17 at 02:30 Cefepime HCl 50 ml @ 100 mls/hr Q12 IVPB ; Start 01/02/17 at 09:00 Vancomycin HCl (Vancocin) 250 ml @ 125 mls/hr Q12H IVPB ; Start 01/02/17 at 10 :00 PETER DIAS Jan 02, 2017 08:56
[2017-01-02 08:57] LABS: HEMATOCRIT 20.1 % (42.0-52.0)
--- NOTE | 2017-01-02 09:04 | RADRPT ---
PROCEDURE: XR Chest. CLINICAL INDICATION: ETT placement TECHNIQUE: AP view of the chest were obtained. COMPARISON: Prior day FINDINGS: The endotracheal tube is in the junction of the trachea and left mainstem bronchus and should be pul led back 3 cm. There is a right-sided central venous catheter with the tip in the SVC. There is mult ifocal bilateral airspace disease. There is a right-sided chest tube without evidence of pneumothora x. There is a small left-sided effusion. IMPRESSION: Endotracheal tube at the junction of the trachea and left mainstem bronchus and should be pulled verenice k 3 cm. Right-sided central venous catheter with the tip in the SVC. Right-sided chest tube without evidence of pneumothorax. Multifocal bilateral airspace disease. Small left-sided effusion. RPTAT: GG .Sonu Nix MD, MD Date Time Electronically viewed and signed by .Sonu Nix MD, on 01/02/2017 09:04 .G/
[2017-01-02] MEDS: CEFEPIME 1GM/50 ML (PMX) 50 ML IVPB SCH ×2 (09:33→20:58)
[2017-01-02] MEDS: VANCOMYCIN 1 GM in NS 250 ML IVPB SCH ×2 (09:33→22:52)
[2017-01-02 09:48] LABS: HEMOGLOBIN 6.1 g/dl (14.0-18.0)
--- NOTE | 2017-01-02 10:27 | RADRPT ---
PROCEDURE: Chest radiograph CLINICAL INDICATION: Endotracheal tube placement. COMPARISON: Radiograph 01/02/2017. TECHNIQUE: Single frontal chest radiograph. FINDINGS: The endotracheal tube terminates approximately at the centimeter above the katherine. The right subclavian line terminates in the superior vena cava. Right external jugular venous catheter. The left subclavian port catheter terminates in the superior vena cava. Right chest tube terminates on the mediastinal pleura at the right lung base. Left chest tube terminates along the lateral pleura of the left lung base. Bilateral pneumothoraces, left greater than right. Bilateral upper and lower lobe are alveolar opacities. Small left pleural effusion. The cardiomediastinal silhouette is normal. No suspicious bone lesion. IMPRESSION: 1. The endotracheal tube terminates approximately 1/2 cm of the katherine. Repositioning should be con sidered. 2. Bilateral pneumothoraces which are similar to 01/01/2017. 3. Bilateral upper and lower lobe opacities. While this could represent a pneumonia, given the hist ory of Kaposi sarcoma metastases is also on the differential. Chest CT could be considered for furth er evaluation. RPTAT: AA Physician James Date Time Electronically viewed and signed by Physician James on 01/02/2017 10:27 LG/
[2017-01-02] MEDS ORDERED: SOD CHLORIDE 0.9% 250 ML IV* ONE (11:00)
--- NOTE | 2017-01-02 11:14 | CONS ---
Date/Time of Note Date/Time of Note DATE: 01/02/17 TIME: 11:08 Assessment/Plan Assessment/Plan Additional Assessment/Plan Chest x-ray was reviewed from admission which is showing bilateral pneumothoraces. Postintubation and post-chest tube placement x-ray showing bilateral lung reexpansion. Endotracheal tube is at an adequate level. No acute infiltrates identified. Patient is currently on fentanyl 50 mics per hour, propofol 40 mics per kilogram per minute. Current ventilator setting; AC of 14, tidal volume 500, PEEP of 5, 50% FiO2. Assessment and recommendations; 1. Patient admitted with bilateral pneumothoraces likely from underlying COPD. 2. Respiratory failure. 3. HIV. 4. Kaposi's sarcoma with right lower extremity involvement. 5. Severe anemia. 6. Sepsis. Continue current supportive care. Transfuse packed RBCs. Continue current antibiotics. Once clinically stable patient will need to have a CT of the chest done. Consultation Date/Type/Reason Admit Date/Time Jan 01, 2017 at 21:48 Date of Consultation: Jan 02, 2017 Type of Consultation: Pulmonary/critical care Reason for Consultation Pulmonary consultation requested for evaluation of respiratory failure. History of presenting illness; patient is a 56-year-old male who came into the emergency room with complaints of shortness of breath. Upon evaluation chest x- ray was done which showed bilateral pneumothoraces. Patient underwent bilateral chest tube placement as well as intubation for respiratory failure. By the time I saw the patient in ICU, the patient is orally intubated sedated. History was obtained from medical records. Past medical history; 1. Patient with history of AIDS. 2. History of Kaposi's sarcoma involving right lower extremity. Medications; reviewed. Allergies; none. Social history; no show any smoking. Family history: Not available. Occupation history; patient apparently on disability. Next Review systems; unable to be obtained. General exam; middle-aged male, orally intubated, sedated, currently in no distress. Social History Smoking Status: Never smoker Exam/Review of Systems Vital Signs Vitals Vital Signs Date Time Temp Pulse Resp B/P Pulse Ox O2 Delivery O2 Flow Rate FiO2 01/02/17 10:00 102 21 122/59 100 Mechanical Ventilator 01/02/17 08:00 50 01/02/17 08:00 97.6 01/01/17 23:59 15.0 Intake and Output 01/01/17 01/01/17 01/02/17 15:00 23:00 07:00 Intake Total 1065.126 ml Output Total 940 ml Balance 125.126 ml Exam HEENT exam; supple neck, no JVD. No lymphadenopathy. Midline trachea. No thyromegaly. Patient has multiple carious teeth. Pupils are equal and reactive to light. Orally intubated. Chest exam; diminished breath sounds bilaterally. Bilateral chest tubes in place. S1-S2 audible, no murmurs. Regular rhythm. Abdomen exam; soft, nondistended. Bowel sounds are sluggish. No organomegaly. Extremity exam; there is a dressing applied over the right lower extremity. No significant edema present. Left lower extremity without any peripheral edema. 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 Results Result Diagram: 01/02/17 0837 01/02/17 0624 Results 24 hrs Laboratory Tests Test 01/01/17 18:20 01/01/17 18:30 01/01/17 22:29 01/02/17 05:30 Blood Gas Specimen Source Blood arterial Blood arterial Blood arterial Arterial Blood Date Drawn 01/01/2017 6:31:08 PM 01/01/2017 10:45:25 PM 01/02/2017 5:28:17 AM Arterial Blood pH (Temp corrected) 7.460 H 7.300 L 7.380 Arterial Blood pCO2 (Temp correct) 29.5 L 38.8 39.1 Arterial Blood pO2 (Temp corrected) 69.7 L 167.9 H 418.9 H Arterial Blood HCO3 20.5 L 18.7 L 22.6 Arterial Blood Base Excess -2.8 -7.2 L -2.3 Arterial Blood Oxygen Saturation 94.5 L 99.0 H 99.7 H Austin Test ACCEPTAB N/A ACCEPTAB Arterial Blood Gas Puncture Site Right Radial Right Brachial Right Radial Arterial Blood Carboxyhemoglobin 2.3 1.1 1.1 Arterial Blood Methemoglobin 0.3 0 0.2 Blood Gas A-a O2 Differential 109.5 H 506.3 H 255.0 H Oxyhemoglobin Percent 92.0 L 97.9 98.4 Total Hemoglobin 8.3 L 8.4 L 6.9 L Blood Gas Temperature 37.0 37.0 37.0 Blood Gas Modality NASAL CANNULA VENT - AC VENT - AC FiO2 30.0 100.0 100.0 Blood Gas Notified Whom M.D. AA BR Blood Gas Notified Time 01/01/2017 6:43:54 PM 01/01/2017 10:59:22 PM 01/02/2017 5:35:59 AM White Blood Count 16.8 H Red Blood Count 3.78 L Hemoglobin 7.2 L Hematocrit 24.6 L Mean Corpuscular Volume 65.1 L Mean Corpuscular Hemoglobin 19.0 L Mean Corpuscular Hemoglobin Concent 29.3 L Red Cell Distribution Width 19.0 H Platelet Count 503 H Mean Platelet Volume 8.7 Neutrophils % 78.0 H Lymphocytes % 6.4 L Monocytes % 4.8 Eosinophils % 9.8 H Basophils % 0.5 Nucleated Red Blood Cells % 0.2 H Neutrophils # 13.1 H Lymphocytes # 1.1 Monocytes # 0.8 Eosinophils # 1.6 H Basophils # 0.1 Nucleated Red Blood Cells # 0.0 Prothrombin Time 13.5 Prothrombin Time Ratio 1.1 INR International Normalized Ratio 1.03 Sodium Level 134 L Potassium Level 4.9 Chloride Level 104 Carbon Dioxide Level 22 Anion Gap 13 Blood Urea Nitrogen 18 Creatinine 0.94 Glucose Level 118 Calcium Level 8.8 Total Bilirubin 0.1 L Direct Bilirubin 0.00 Indirect Bilirubin 0.1 Aspartate Amino Transf (AST/SGOT) 24 Alanine Aminotransferase (ALT/SGPT) 25 Alkaline Phosphatase 98 Troponin I < 0.012 B-Type Natriuretic Peptide 937 H Total Protein 7.2 Albumin 3.2 L Globulin 4.00 H Albumin/Globulin Ratio 0.80 Lipase 26 Blood Gas Respiration Rate 14.0 14.0 Blood Gas Actual Respiration Rate 22 23 Blood Gas Tidal Volume 500.0 500.0 Blood Gas Low PEEP Setting 5.0 5.0 Blood Gas Inspiratory Pressure 22.0 21.0 Test 01/02/17 06:24 01/02/17 06:59 01/02/17 08:37 White Blood Count 13.2 #H Red Blood Count 2.96 #L Hemoglobin 6.2 *L 6.1 *L Hematocrit 20.6 L 20.1 L Mean Corpuscular Volume 69.6 L Mean Corpuscular Hemoglobin 20.9 L Mean Corpuscular Hemoglobin Concent 30.1 L Red Cell Distribution Width 20.6 H Platelet Count 320 # Mean Platelet Volume 8.2 Neutrophils % 80.9 H Segmented Neutrophils % (Manual) 83 H Band Neutrophils % (Manual) 8 H Lymphocytes % 5.9 L Lymphocytes % (Manual) 6 L Monocytes % 7.6 Monocytes % (Manual) 2 Eosinophils % 4.7 Eosinophils % (Manual) 1 Basophils % 0.3 Nucleated Red Blood Cells % 0.0 Neutrophils # 10.6 H Neutrophils # (Manual) 11.1 H Band Neutrophils # 1.0 H Absolute Lymphocytes (Manual) 0.7 L Lymphocytes # 0.8 Monocytes # 1.0 H Absolute Monocytes (Manual) 0.2 L Eosinophils # 0.6 H Basophils # 0.0 Nucleated Red Blood Cells # 0.0 Pathologist Review (Hematology) YES Platelet Estimate NORMAL Polychromasia 3+ Hypochromasia 3+ Anisocytosis 1+ Microcytosis 1+ Sodium Level 138 Potassium Level 4.8 Chloride Level 110 Carbon Dioxide Level 23 Anion Gap 10 Blood Urea Nitrogen 14 Creatinine 0.78 Glucose Level 156 Lactic Acid Level 0.9 Calcium Level 8.0 L Iron Level 14 L Total Iron Binding Capacity 188 L Percent Iron Saturation 7 L Ferritin 165.0 Total Bilirubin 0.1 L Direct Bilirubin 0.00 Indirect Bilirubin 0.1 Aspartate Amino Transf (AST/SGOT) 20 Alanine Aminotransferase (ALT/SGPT) 25 Alkaline Phosphatase 67 Lactate Dehydrogenase 1041 H Total Protein 5.5 #L Albumin 2.3 L Globulin 3.20 Albumin/Globulin Ratio 0.71 Bedside Glucose 169 Medications Medications Current Medications Dextrose/Sodium Chloride (D5-1/2ns) 1,000 ml @ 100 mls/hr Q10H IV Last administered on 01/02/17 01:43; Admin Dose 100 MLS/HR; Start 01/01/17 at 23: 31 Ondansetron HCl (Zofran Inj) 4 mg Q6H PRN IV NAUSEA AND/OR VOMITING Last administered on 01/02/17 01:44; Admin Dose 4 MG; Start 01/02/17 at 00:00 Acetaminophen (Tylenol Liquid) 650 mg Q6H PRN PO PAIN LEVEL 1-3 OR FEVER; Start 01/02/17 at 00:00 Acetaminophen (Tylenol Supp) 650 mg Q4H PRN [place] PAIN LEVEL 1-3 OR FEVER; Start 01/02/17 at 00:00 Pantoprazole 40 mg 40 mg DAILY@06 IV Last administered on 01/02/17 06:20; Admin Dose 40 MG; Start 01/02/17 at 06:00 Fentanyl 100 ml @ 2.5 mls/hr TITRATE IV Last administered on 01/02/17 01:22 ; Admin Dose 2.5 MLS/HR; Start 01/02/17 at 01:30 Midazolam HCl 50 ml @ 1 mls/hr TITRATE IV Last administered on 01/02/17 06:20 ; Admin Dose 8 MLS/HR; Start 01/02/17 at 01:30 Propofol 100 ml @ 2.045 mls/ hr Q12H IV Last administered on 01/02/17 10:26 ; Admin Dose 16.363 MLS/HR; Start 01/02/17 at 02:30 Cefepime HCl 50 ml @ 100 mls/hr Q12 IVPB Last administered on 01/02/17 09:33 ; Admin Dose 100 MLS/HR; Start 01/02/17 at 09:00 Vancomycin HCl (Vancocin) 250 ml @ 125 mls/hr Q12H IVPB Last administered on 01/02/17 09:33; Admin Dose 125 MLS/HR; Start 01/02/17 at 10:00 Miscellaneous Information (*Rx Drug Level Order Reminder*) VANCO TROUGH @ 0, 900 ON ... ONCE ONCE XX ; Start 01/03/17 at 09:00; Stop 01/03/17 at 09:01 Diagnostic Test (Pha) (Accu-Chek) 1 ea 02 XX ; Start 01/03/17 at 02:00 Insulin Aspart (Novolog Insulin Pen) NOVOLOG *MILD* ALGORI... Q4 SC ; Start at 13:00 Miscellaneous Information 1 ea NOTE XX ; Start 01/02/17 at 11:30 Glucose (Glutose) 15 gm Q15M PRN PO DECREASED GLUCOSE; Start 01/02/17 at 11:30 Glucose (Glutose) 22.5 gm Q15M PRN PO DECREASED GLUCOSE; Start 01/02/17 at 11: 30 Dextrose (D50w Syringe) 25 ml Q15M PRN IV DECREASED GLUCOSE; Start 01/02/17 at 11:30 Dextrose (D50w Syringe) 50 ml Q15M PRN IV DECREASED GLUCOSE; Start 01/02/17 at 11:30 Glucagon (Glucagen) 1 mg Q15M PRN IM DECREASED GLUCOSE; Start 01/02/17 at 11: 30 Glucose (Glutose) 15 gm Q15M PRN BUCCAL DECREASED GLUCOSE; Start 01/02/17 at 11:30 FRANCES HATFIELD Jan 02, 2017 11:14
[2017-01-02] MEDS ORDERED: GLUCOSE GEL 15 GRAM TUBE PO PRN ×2 (11:30)
[2017-01-02] MEDS ORDERED: DEXTROSE 50% 50 ML SYRINGE IV PRN ×2 (11:30)
[2017-01-02] MEDS ORDERED: GLUCOSE GEL 15 GRAM TUBE BUCCAL PRN (11:30)
[2017-01-02] MEDS ORDERED: GLUCAGON 1 MG INJ IM PRN (11:30)
[2017-01-02] MEDS: INSULIN ASPART [NOVOLOG] 3 ML PEN SC SCH ×3 (13:00→21:00)
--- NOTE | 2017-01-02 18:09 | CONS ---
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 Padron Chief Complaint/Reason for Visit: Severe anemia HGB 6.1 (after transfusion) History of Present Illness: 56-year-old male presented to the emergency department for shortness of breath. Chest x-ray was done which showed bilateral pneumothoraces, bilateral chest tubes were placed, and currently draining sanguineous fluid. Upon admission HGB 7.2 1 unit of blood given hgb rechecked and dropped to 6.2. Patient has not had any overt signs of GI bleed, melena, diarrhea, or hematemesis as reported by nurse. Pt is currently in the ICU sedated and intubated. History was obtained from medical records. Past Medical History: HIV Kaposi's Sarcoma HTN Allergies: No known allergies Problems: Consultation Date/Type/Reason Admit Date/Time Jan 01, 2017 at 21:48 Date of Consultation: Jan 02, 2017 Reason for Consultation Severe anemia Hx of Present Illness Not obtainable Subjective hx not possible: pt critical Social History Smoking Status: Never smoker Exam/Review of Systems Vital Signs Vitals Vital Signs Date Time Temp Pulse Resp B/P Pulse Ox O2 Delivery O2 Flow Rate FiO2 01/02/17 16:00 106 01/02/17 16:00 98.1 21 118/68 100 Mechanical Ventilator 01/02/17 15:30 50 01/01/17 23:59 15.0 Intake and Output 01/01/17 01/01/17 01/02/17 15:00 23:00 07:00 Intake Total 1065.126 ml Output Total 940 ml Balance 125.126 ml Exam Constitutional: other (Intubated and sedated) Head: atraumatic, normocephalic Respiratory: crackles/rales Gastrointestinal: bowel sounds, nl liver, spleen, soft, No ascites, No distended, No firm, No mass, No non-tender, No rebound or guarding Musculoskeletal: nl extremities to inspection Lymph: No enlarged, No nl lymph nodes, No nontender, No other Results Result Diagram: 01/02/17 0837 01/02/17 0624 Results 24 hrs Laboratory Tests Test 01/01/17 18:20 01/01/17 18:30 01/01/17 22:29 01/02/17 05:30 Blood Gas Specimen Source Blood arterial Blood arterial Blood arterial Arterial Blood Date Drawn 01/01/2017 6:31:08 PM 01/01/2017 10:45:25 PM 01/02/2017 5:28:17 AM Arterial Blood pH (Temp corrected) 7.460 H 7.300 L 7.380 Arterial Blood pCO2 (Temp correct) 29.5 L 38.8 39.1 Arterial Blood pO2 (Temp corrected) 69.7 L 167.9 H 418.9 H Arterial Blood HCO3 20.5 L 18.7 L 22.6 Arterial Blood Base Excess -2.8 -7.2 L -2.3 Arterial Blood Oxygen Saturation 94.5 L 99.0 H 99.7 H Austin Test ACCEPTAB N/A ACCEPTAB Arterial Blood Gas Puncture Site Right Radial Right Brachial Right Radial Arterial Blood Carboxyhemoglobin 2.3 1.1 1.1 Arterial Blood Methemoglobin 0.3 0 0.2 Blood Gas A-a O2 Differential 109.5 H 506.3 H 255.0 H Oxyhemoglobin Percent 92.0 L 97.9 98.4 Total Hemoglobin 8.3 L 8.4 L 6.9 L Blood Gas Temperature 37.0 37.0 37.0 Blood Gas Modality NASAL CANNULA VENT - AC VENT - AC FiO2 30.0 100.0 100.0 Blood Gas Notified Michell ROONEY Blood Gas Notified Time 01/01/2017 6:43:54 PM 01/01/2017 10:59:22 PM 01/02/2017 5:35:59 AM White Blood Count 16.8 H Red Blood Count 3.78 L Hemoglobin 7.2 L Hematocrit 24.6 L Mean Corpuscular Volume 65.1 L Mean Corpuscular Hemoglobin 19.0 L Mean Corpuscular Hemoglobin Concent 29.3 L Red Cell Distribution Width 19.0 H Platelet Count 503 H Mean Platelet Volume 8.7 Neutrophils % 78.0 H Lymphocytes % 6.4 L Monocytes % 4.8 Eosinophils % 9.8 H Basophils % 0.5 Nucleated Red Blood Cells % 0.2 H Neutrophils # 13.1 H Lymphocytes # 1.1 Monocytes # 0.8 Eosinophils # 1.6 H Basophils # 0.1 Nucleated Red Blood Cells # 0.0 Prothrombin Time 13.5 Prothrombin Time Ratio 1.1 INR International Normalized Ratio 1.03 Sodium Level 134 L Potassium Level 4.9 Chloride Level 104 Carbon Dioxide Level 22 Anion Gap 13 Blood Urea Nitrogen 18 Creatinine 0.94 Glucose Level 118 Calcium Level 8.8 Total Bilirubin 0.1 L Direct Bilirubin 0.00 Indirect Bilirubin 0.1 Aspartate Amino Transf (AST/SGOT) 24 Alanine Aminotransferase (ALT/SGPT) 25 Alkaline Phosphatase 98 Troponin I < 0.012 B-Type Natriuretic Peptide 937 H Total Protein 7.2 Albumin 3.2 L Globulin 4.00 H Albumin/Globulin Ratio 0.80 Lipase 26 Blood Gas Respiration Rate 14.0 14.0 Blood Gas Actual Respiration Rate 22 23 Blood Gas Tidal Volume 500.0 500.0 Blood Gas Low PEEP Setting 5.0 5.0 Blood Gas Inspiratory Pressure 22.0 21.0 Test 01/02/17 06:24 01/02/17 06:59 01/02/17 08:37 01/02/17 13:24 White Blood Count 13.2 #H Red Blood Count 2.96 #L Hemoglobin 6.2 *L 6.1 *L Hematocrit 20.6 L 20.1 L Mean Corpuscular Volume 69.6 L Mean Corpuscular Hemoglobin 20.9 L Mean Corpuscular Hemoglobin Concent 30.1 L Red Cell Distribution Width 20.6 H Platelet Count 320 # Mean Platelet Volume 8.2 Neutrophils % 80.9 H Segmented Neutrophils % (Manual) 83 H Band Neutrophils % (Manual) 8 H Lymphocytes % 5.9 L Lymphocytes % (Manual) 6 L Monocytes % 7.6 Monocytes % (Manual) 2 Eosinophils % 4.7 Eosinophils % (Manual) 1 Basophils % 0.3 Nucleated Red Blood Cells % 0.0 Neutrophils # 10.6 H Neutrophils # (Manual) 11.1 H Band Neutrophils # 1.0 H Absolute Lymphocytes (Manual) 0.7 L Lymphocytes # 0.8 Monocytes # 1.0 H Absolute Monocytes (Manual) 0.2 L Eosinophils # 0.6 H Basophils # 0.0 Nucleated Red Blood Cells # 0.0 Pathologist Review (Hematology) YES Platelet Estimate NORMAL Polychromasia 3+ Hypochromasia 3+ Anisocytosis 1+ Microcytosis 1+ Sodium Level 138 Potassium Level 4.8 Chloride Level 110 Carbon Dioxide Level 23 Anion Gap 10 Blood Urea Nitrogen 14 Creatinine 0.78 Glucose Level 156 Lactic Acid Level 0.9 Calcium Level 8.0 L Iron Level 14 L Total Iron Binding Capacity 188 L Percent Iron Saturation 7 L Ferritin 165.0 Total Bilirubin 0.1 L Direct Bilirubin 0.00 Indirect Bilirubin 0.1 Aspartate Amino Transf (AST/SGOT) 20 Alanine Aminotransferase (ALT/SGPT) 25 Alkaline Phosphatase 67 Lactate Dehydrogenase 1041 H Total Protein 5.5 #L Albumin 2.3 L Globulin 3.20 Albumin/Globulin Ratio 0.71 Bedside Glucose 169 118 Test 01/02/17 17:11 Bedside Glucose 139 Medications Medications Current Medications Dextrose/Sodium Chloride (D5-1/2ns) 1,000 ml @ 100 mls/hr Q10H IV Last administered on 01/02/17 01:43; Admin Dose 100 MLS/HR; Start 01/01/17 at 23: 31 Ondansetron HCl (Zofran Inj) 4 mg Q6H PRN IV NAUSEA AND/OR VOMITING Last administered on 01/02/17 01:44; Admin Dose 4 MG; Start 01/02/17 at 00:00 Acetaminophen (Tylenol Liquid) 650 mg Q6H PRN PO PAIN LEVEL 1-3 OR FEVER; Start 01/02/17 at 00:00 Acetaminophen 650 mg 650 mg Q4H PRN DE PAIN LEVEL 1-3 OR FEVER; Start at 00:00 Fentanyl 100 ml @ 2.5 mls/hr TITRATE IV Last administered on 01/02/17 11:11 ; Admin Dose 8 MLS/HR; Start 01/02/17 at 01:30 Midazolam HCl 50 ml @ 1 mls/hr TITRATE IV Last administered on 01/02/17 13:28 ; Admin Dose 8 MLS/HR; Start 01/02/17 at 01:30 Propofol 100 ml @ 2.045 mls/ hr Q12H IV Last administered on 01/02/17 16:37 ; Admin Dose 16.363 MLS/HR; Start 01/02/17 at 02:30 Cefepime HCl 50 ml @ 100 mls/hr Q12 IVPB Last administered on 10/13/17at 09:33 ; Admin Dose 100 MLS/HR; Start 01/02/17 at 09:00 Vancomycin HCl (Vancocin) 250 ml @ 125 mls/hr Q12H IVPB Last administered on 01/02/17t 09:33; Admin Dose 125 MLS/HR; Start 01/02/17 at 10:00 Miscellaneous Information (*Rx Drug Level Order Reminder*) VANCO TROUGH @ 0, 900 ON ... ONCE ONCE XX ; Start 01/03/17 at 09:00; Stop 01/03/17 at 09:01 Diagnostic Test (Pha) (Accu-Chek) 1 ea 02 XX ; Start 01/03/17 at 02:00 Insulin Aspart (Novolog Insulin Pen) NOVOLOG *MILD* ALGORI... Q4 SC ; Start at 13:00 Miscellaneous Information 1 ea NOTE XX ; Start 01/02/17 at 11:30 Glucose (Glutose) 15 gm Q15M PRN PO DECREASED GLUCOSE; Start 01/02/17 at 11:30 Glucose (Glutose) 22.5 gm Q15M PRN PO DECREASED GLUCOSE; Start 01/02/17 at 11: 30 Dextrose (D50w Syringe) 25 ml Q15M PRN IV DECREASED GLUCOSE; Start 01/02/17 at 11:30 Dextrose (D50w Syringe) 50 ml Q15M PRN IV DECREASED GLUCOSE; Start 01/02/17 at 11:30 Glucagon (Glucagen) 1 mg Q15M PRN IM DECREASED GLUCOSE; Start 01/02/17 at 11: 30 Glucose (Glutose) 15 gm Q15M PRN BUCCAL DECREASED GLUCOSE; Start 01/02/17 at 11:30 Famotidine (Pepcid Iv) 20 mg BID IV ; Start 01/03/17 at 09:00 Copies To: CC: SANDI PADRON MD, VICTORIA Jan 02, 2017 17:53
--- NOTE | 2017-01-02 18:50 | CONS ---
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 Padron Consultation Date/Type/Reason Admit Date/Time Jan 01, 2017 at 21:48 Date of Consultation: Jan 02, 2017 Type of Consultation: GI Reason for Consultation Anemia Hx of Present Illness 56-year-old male presented to the emergency department for shortness of breath. Chest x-ray was done which showed bilateral pneumothoraces, bilateral chest tubes were placed, and currently draining sanguineous fluid. Upon admission HGB 7.2 1 unit of blood given hgb rechecked and dropped to 6.2. Patient has not had any overt signs of GI bleed, melena, diarrhea, or hematemesis as reported by nurse. Pt is currently in the ICU sedated and intubated. History was obtained from medical records. Not obtainable Past Medical History HIV Kaposi's Sarcoma HTN Past Surgical History Past Surgical Hx: no surgical history Family History Significant Family History: no pertinent family hx Social History Smoking Status: Never smoker Drug Use: none Exam/Review of Systems Vital Signs Vitals Vital Signs Date Time Temp Pulse Resp B/P Pulse Ox O2 Delivery O2 Flow Rate FiO2 01/02/17 17:30 107 20 100 50 01/02/17 17:30 120/56 01/02/17 17:00 Mechanical Ventilator 01/02/17 16:00 98.1 01/01/17 23:59 15.0 Intake and Output 01/01/17 01/01/17 01/02/17 15:00 23:00 07:00 Intake Total 1065.126 ml Output Total 940 ml Balance 125.126 ml Exam PHYSICAL EXAMINATION: GENERAL: Well developed, well nourished, intubated and sedated SKIN: KS lesions present. Otherwise no lesions, no stigmata chronic liver disease, no evidence of bleeding diathesis LYMPHATIC: No palpable lymphadenopathy. HEAD: Normocephalic, atraumatic, no tenderness. NECK: Supple, no masses, thyroid normal, JVP within normal limits, carotids normal without bruits. CHEST: Bilateral chest tubes CARDIOVASCULAR: Heart: Regular rate and rhythm, no murmurs, gallops or rubs. Peripheral pulses present within normal limits, no cyanosis, clubbing or edemas. No pulsatile abdominal mass RESPIRATORY: R crackles, decreased breath sounds bilaterally GASTROINTESTINAL AND LIVER: Abdomen: Soft, non tenderness, non-distended, no hernias, no masses, no organomegaly, no ascites, no guarding, no rebound tenderness, normoactive bowel sounds. Rectal: Deferred. GENITOURINARY: [Male genitalia within normal limits.] EXTREMITIES: No cyanosis, clubbing or edema. Results Result Diagram: 01/02/17 0837 01/02/17 0624 Results 24 hrs Laboratory Tests Test 01/01/17 22:29 01/02/17 05:30 01/02/17 06:24 01/02/17 06:59 Blood Gas Specimen Source Blood arterial Blood arterial Arterial Blood Date Drawn 01/01/2017 10:45:25 PM 01/02/2017 5:28:17 AM Arterial Blood pH (Temp corrected) 7.300 L 7.380 Arterial Blood pCO2 (Temp correct) 38.8 39.1 Arterial Blood pO2 (Temp corrected) 167.9 H 418.9 H Arterial Blood HCO3 18.7 L 22.6 Arterial Blood Base Excess -7.2 L -2.3 Arterial Blood Oxygen Saturation 99.0 H 99.7 H Austin Test N/A ACCEPTAB Arterial Blood Gas Puncture Site Right Brachial Right Radial Arterial Blood Carboxyhemoglobin 1.1 1.1 Arterial Blood Methemoglobin 0 0.2 Blood Gas A-a O2 Differential 506.3 H 255.0 H Oxyhemoglobin Percent 97.9 98.4 Total Hemoglobin 8.4 L 6.9 L Blood Gas Temperature 37.0 37.0 Blood Gas Respiration Rate 14.0 14.0 Blood Gas Actual Respiration Rate 22 23 Blood Gas Modality VENT - AC VENT - AC FiO2 100.0 100.0 Blood Gas Tidal Volume 500.0 500.0 Blood Gas Low PEEP Setting 5.0 5.0 Blood Gas Inspiratory Pressure 22.0 21.0 Blood Gas Notified Whom AA BR Blood Gas Notified Time 01/01/2017 10:59:22 PM 01/02/2017 5:35:59 AM White Blood Count 13.2 #H Red Blood Count 2.96 #L Hemoglobin 6.2 *L Hematocrit 20.6 L Mean Corpuscular Volume 69.6 L Mean Corpuscular Hemoglobin 20.9 L Mean Corpuscular Hemoglobin Concent 30.1 L Red Cell Distribution Width 20.6 H Platelet Count 320 # Mean Platelet Volume 8.2 Neutrophils % 80.9 H Segmented Neutrophils % (Manual) 83 H Band Neutrophils % (Manual) 8 H Lymphocytes % 5.9 L Lymphocytes % (Manual) 6 L Monocytes % 7.6 Monocytes % (Manual) 2 Eosinophils % 4.7 Eosinophils % (Manual) 1 Basophils % 0.3 Nucleated Red Blood Cells % 0.0 Neutrophils # 10.6 H Neutrophils # (Manual) 11.1 H Band Neutrophils # 1.0 H Absolute Lymphocytes (Manual) 0.7 L Lymphocytes # 0.8 Monocytes # 1.0 H Absolute Monocytes (Manual) 0.2 L Eosinophils # 0.6 H Basophils # 0.0 Nucleated Red Blood Cells # 0.0 Pathologist Review (Hematology) YES Platelet Estimate NORMAL Polychromasia 3+ Hypochromasia 3+ Anisocytosis 1+ Microcytosis 1+ Sodium Level 138 Potassium Level 4.8 Chloride Level 110 Carbon Dioxide Level 23 Anion Gap 10 Blood Urea Nitrogen 14 Creatinine 0.78 Glucose Level 156 Lactic Acid Level 0.9 Calcium Level 8.0 L Iron Level 14 L Total Iron Binding Capacity 188 L Percent Iron Saturation 7 L Ferritin 165.0 Total Bilirubin 0.1 L Direct Bilirubin 0.00 Indirect Bilirubin 0.1 Aspartate Amino Transf (AST/SGOT) 20 Alanine Aminotransferase (ALT/SGPT) 25 Alkaline Phosphatase 67 Lactate Dehydrogenase 1041 H Total Protein 5.5 #L Albumin 2.3 L Globulin 3.20 Albumin/Globulin Ratio 0.71 Bedside Glucose 169 Test 01/02/17 08:37 01/02/17 13:24 01/02/17 17:11 Hemoglobin 6.1 *L Hematocrit 20.1 L Bedside Glucose 118 139 Medications Medications Current Medications Dextrose/Sodium Chloride (D5-1/2ns) 1,000 ml @ 100 mls/hr Q10H IV Last administered on 01/02/17 01:43; Admin Dose 100 MLS/HR; Start 01/01/17 at 23: 31 Ondansetron HCl (Zofran Inj) 4 mg Q6H PRN IV NAUSEA AND/OR VOMITING Last administered on 01/02/17 01:44; Admin Dose 4 MG; Start 01/02/17 at 00:00 Acetaminophen (Tylenol Liquid) 650 mg Q6H PRN PO PAIN LEVEL 1-3 OR FEVER; Start 01/02/17 at 00:00 Acetaminophen 650 mg [address] PAIN LEVEL 1-3 OR FEVER; Start at 00:00 Fentanyl 100 ml @ 2.5 mls/hr TITRATE IV Last administered on 01/02/17 11:11 ; Admin Dose 8 MLS/HR; Start 01/02/17 at 01:30 Midazolam HCl 50 ml @ 1 mls/hr TITRATE IV Last administered on 01/02/17 13:28 ; Admin Dose 8 MLS/HR; Start 01/02/17 at 01:30 Propofol 100 ml @ 2.045 mls/ hr Q12H IV Last administered on 01/02/17 16:37 ; Admin Dose 16.363 MLS/HR; Start 01/02/17 at 02:30 Cefepime HCl 50 ml @ 100 mls/hr Q12 IVPB Last administered on 01/02/17 09:33 ; Admin Dose 100 MLS/HR; Start 01/02/17 at 09:00 Vancomycin HCl (Vancocin) 250 ml @ 125 mls/hr Q12H IVPB Last administered on 01/02/17 09:33; Admin Dose 125 MLS/HR; Start 01/02/17 at 10:00 Miscellaneous Information (*Rx Drug Level Order Reminder*) VANCO TROUGH @ 0, 900 ON ... ONCE ONCE XX ; Start 01/03/17 at 09:00; Stop 01/03/17 at 09:01 Diagnostic Test (Pha) (Accu-Chek) 1 ea 02 XX ; Start 01/03/17 at 02:00 Insulin Aspart (Novolog Insulin Pen) NOVOLOG *MILD* ALGORI... Q4 SC ; Start at 13:00 Miscellaneous Information 1 ea NOTE XX ; Start 01/02/17 at 11:30 Glucose (Glutose) 15 gm Q15M PRN PO DECREASED GLUCOSE; Start 01/02/17 at 11:30 Glucose (Glutose) 22.5 gm Q15M PRN PO DECREASED GLUCOSE; Start 01/02/17 at 11: 30 Dextrose (D50w Syringe) 25 ml Q15M PRN IV DECREASED GLUCOSE; Start 01/02/17 at 11:30 Dextrose (D50w Syringe) 50 ml Q15M PRN IV DECREASED GLUCOSE; Start 01/02/17 at 11:30 Glucagon (Glucagen) 1 mg Q15M PRN IM DECREASED GLUCOSE; Start 01/02/17 at 11: 30 Glucose (Glutose) 15 gm Q15M PRN BUCCAL DECREASED GLUCOSE; Start 01/02/17 at 11:30 Famotidine (Pepcid Iv) 20 mg BID IV ; Start 01/03/17 at 09:00 Pantoprazole (Protonix Iv) 40 mg DAILY@06 IV ; Start 01/03/17 at 06:00 SANDI PADRON MD Jan 02, 2017 18:50
[2017-01-03] VITALS (58 sets, daily range): BP systolic 93–141; BP diastolic 52–75; PULSE 95–108; RESP 14–25
[2017-01-03] MEDS: INSULIN ASPART [NOVOLOG] 3 ML PEN SC SCH ×6 (00:05→22:15)
[2017-01-03 01:24] LABS: HEMATOCRIT 24.6 % (42.0-52.0); HEMOGLOBIN 7.7 g/dl (14.0-18.0)
[2017-01-03] MEDS: MIDAZOLAM (DRIP) 50 mg/50 mL 50 ML IV SCH ×4 (02:26→19:37)
[2017-01-03] MEDS: ACCU-CHEK XX SCH (02:34)
[2017-01-03] MEDS: PROPOFOL 100 ML IV SCH ×5 (04:30→23:35)
[2017-01-03] MEDS: DEXTROSE 5%-0.45% NACL 1,000 ML IV SCH ×2 (05:30→16:06)
--- NOTE | 2017-01-03 05:39 | CONS ---
DATE OF ADMISSION: 01/01/2017 DATE OF CONSULTATION: 01/02/2017 TYPE OF CONSULTATION: Infectious disease. REASON FOR CONSULTATION: Antibiotic management. HISTORY OF PRESENT ILLNESS: Hudson Jo is a 56-year-old male with a history of HIV and Kaposi sarcoma of the right foot, who presents to the emergency room complaining of progressive shortness of breath. His past problems include: 1. HIV. 2. Kaposi sarcoma of the right foot. 2. Adult onset diabetes mellitus. Acutely, his chest x-ray showed bilateral pneumothoraces, 40% on the right and 30% on the left with probable bilateral apical bullae, bilateral chest tubes were placed with chest x-ray showing resolut ion of pneumothoraces. He is intubated on a respirator. He was alert and oriented x4 in the emerge ncy room. On admission, his white count was 16.8, H and H is up and going to 24.6, platelet count 5 03,000. BUN and creatinine 18/0.94. PAST MEDICAL HISTORY: Operations as outlined. FAMILY HISTORY: Noncontributory. SOCIAL HISTORY: Is not obtainable. MEDICATIONS: Per chart review. REVIEW OF SYSTEMS: As per HPI. PHYSICAL EXAMINATION: GENERAL: The patient is intubated on a respirator. VITAL SIGNS: Stable. He is afebrile. SKIN: Without generalized rash. HEENT: Within normal limits. NECK: Supple. LYMPH NODES: None palpable. CHEST: Decreased breath sounds at the bases. HEART: Tachycardic with regular rhythm. ABDOMEN: Soft, nontender, without organosplenomegaly or masses. EXTREMITIES: There is foul smelling wound on the distal part of the right lower extremity with swel ling of the right foot. RECTAL AND GENITAL: Deferred. NEUROLOGIC: The patient is currently intubated on a respirator. His DVT study is negative. Chest x-ray: Endotracheal tube is in place, bilateral pneumothoraces, b ilateral upper and lower lobe opacities which could represent pneumonia or Kaposi sarcoma. A CT sca n should be considered. IMPRESSION AND PLAN: The patient was started on vancomycin and cefepime. He is on propofol as well . He has MRSA screen, respiratory culture, wound cultures pending. We will continue him on current therapy. I will dictate my findings to the hospitalist and also to Dr. Clay and Dr. Phillips. We have to also find out what his CD4 count is, what his viral load is and also what medication he is taking, which we should be able to get the information as soon as he is off the respirator. Dictated By: SOLE CHILD MD, JD/MELANIE Conf#: [id number] DID#: [id number]
[2017-01-03 05:52] LABS: BASOPHIL # 0.1 10^3/ul (0.0-0.1); BASOPHILS % 0.6 % (0.0-2.0); EOSINOPHILS # 1.6 10^3/ul (0.0-0.5); EOSINOPHILS % 12.7 % (0.0-7.0); LYMPHOCYTES # 1.2 10^3/ul (0.8-2.9); LYMPHOCYTES % 9.3 % (15.0-51.0); MEAN CORPUSCULAR HEMOGLOBIN 23.1 pg (29.0-33.0); MEAN PLATELET VOLUME 8.8 fl (7.4-10.4); MONOCYTE # 1.3 10^3/ul (0.3-0.9); MONOCYTES % 9.9 % (0.0-11.0); NEUTROPHIL # 8.4 10^3/ul (1.6-7.5); NEUTROPHILS % 66.6 % (39.0-77.0); NUCLEATED RED BLOOD CELLS% 0.2 /100WBC (0.0-0.0); PLATELET COUNT 335 10^3/UL (140-415); RED BLOOD COUNT 3.47 10^6/ul (4.70-6.10); RED CELL DISTRIBUTION WIDTH 20.9 % (11.5-14.5); WHITE BLOOD COUNT 12.6 10^3/ul (4.8-10.8)
[2017-01-03] MEDS ORDERED: PENDING SANTYL ORDER FOR WOUND CARE XX PRN (06:00)
[2017-01-03 06:40] LABS: CREATININE 0.75 mg/dl (0.61-1.24); PHOSPHORUS 3.1 mg/dl (2.5-4.9); POTASSIUM 4.1 mmol/L (3.5-5.1)
[2017-01-03] MEDS: PANTOPRAZOLE 40 MG INJ IV SCH (07:02)
[2017-01-03] MEDS: CEFEPIME 1GM/50 ML (PMX) 50 ML IVPB SCH ×2 (08:16→22:07)
[2017-01-03] MEDS ORDERED: FAMOTIDINE 20 MG INJ IV SCH (09:00)
--- NOTE | 2017-01-03 09:09 | CONS ---
Date/Time of Note Date/Time of Note DATE: 01/03/17 TIME: 09:09 Assessment/Plan Assessment/Plan Chief Complaint/Hosp Course ID PROGRESS NOTE CURRENT ABX: DAY # => Vanco IV, Cefepime 24H INTERVAL SUMMARY * Non-communicative on the Vent, restless, bilateral chest tubes * Respiratory cx: RESPIRATORY CULTURE Preliminary NO GROWTH AFTER 1 DAY * CXR 01/02/17: IMPRESSION: * 1. The endotracheal tube terminates approximately 1/2 cm of the katherine. Repositioning should be considered. 2. Bilateral pneumothoraces which are similar to 01/01/2017. * 3. Bilateral upper and lower lobe opacities. While this could represent a pneumonia, given the history of Kaposi sarcoma metastases is also on the differential. Chest CT could be considered for further evaluation. Physical Exam Physical Exam Constitutional: Critically ill, orally intubated/vented, somewhat restless, non- communicative, HEENT: ETT-> Secure to Vent Neck: Supple, no JVD Respiratory: Equal chest rise bilaterally, coarse Cardiovascular: nl pulses, regular rate and rhythm, tachy Gastrointestinal: Soft, NT Extremities: Warm, extensive RLEXT open wound thigh to foot ID ASSESSMENT 56 yo M admit with: 1. HIV(+) => AIDS * Current ARV medications unknown ? * Per admission notes patient was told by HIV provider that his "blood work was alarming" => QUERY ARV MED RESISTANCE 2. Bilateral pneumothoraces => CXR w/suspicion Kaposi's metastases to lung * - s/p bilateral chest tube placement with resolution of pneumothoraces 3. Acute hypoxic respiratory failure, secondary to above, s/p intubation 4. Sepsis, as evidenced by leukocytosis w/bandemia, tachycardia, secondary to right foot wound/infection 5. RLEXT cellulitis w/extensive diabetic RLEXT & foot ulcer w/exposed fat 6. Kaposi's sarcoma of right lower extremity 7. Probable history of type 2 diabetes 8. Microcytic anemia -> s/p PRBCs Tx 9. COPD 10. Heavy Tobacco user (- )MRSA Nares INVASIVES: Port-A-Cath, ETT, OGT, FC, bilateral chest tubes ABX ALLERGIES: Sulfa/Iodine CURRENT ABX: DAY # => Vanco IV, Cefepime ID RECOMMENDATIONS 1. Continue current ABX 2. Recommend obtain medical record from [facility] -- including current ARV medications, Advanced Directive may be on file there. * Per notes, patient reported his HIV provider told him "blood work was alarming" => QUERY ARV MED RESISTANCE 3. Swab wound for C&S 4. Sputum for C&S 5. Check CD4# & HIV VL 6. KEEP OFF ARV MEDS until his current ARV medications from his HIV Provider can be obtained * AIDS, suspect ARV med resistance, not in his best interest to start empiric ARV meds unless his HIV resistance panel, integrase inhibitor genotype is known. 7. Obtain names of ARV meds if possible. 8. Send pleural fluid for cytology ? . Problems: Consultation Date/Type/Reason Admit Date/Time Jan 01, 2017 at 21:48 Initial Consult Date 01/02/17 Type of Consultation: ID Exam/Review of Systems Vital Signs Vitals Vital Signs Date Time Temp Pulse Resp B/P Pulse Ox O2 Delivery O2 Flow Rate FiO2 01/03/17 08:00 102 01/03/17 07:00 21 134/62 99 Mechanical Ventilator 01/03/17 05:49 35 01/03/17 04:00 99.0 01/01/17 23:59 15.0 Intake and Output 01/02/17 01/02/17 01/03/17 15:00 23:00 07:00 Intake Total 1358.88 ml 1477.08 ml 1209.3 ml Output Total 585 ml 445 ml 315 ml Balance 773.88 ml 1032.08 ml 894.3 ml Results Result Diagram: 01/03/17 0430 01/03/17 0430 Results 24 hrs Laboratory Tests Test 01/02/17 13:24 01/02/17 17:11 01/02/17 20:53 01/02/17 23:58 Bedside Glucose 118 139 174 152 Test 01/03/17 00:28 01/03/17 02:32 01/03/17 04:30 01/03/17 05:02 Hemoglobin 7.7 #L 8.0 L Hematocrit 24.6 #L 25.0 L Bedside Glucose 99 White Blood Count 12.6 H Red Blood Count 3.47 L Mean Corpuscular Volume 72.0 L Mean Corpuscular Hemoglobin 23.1 L Mean Corpuscular Hemoglobin Concent 32.0 Red Cell Distribution Width 20.9 H Platelet Count 335 Mean Platelet Volume 8.8 Neutrophils % 66.6 Lymphocytes % 9.3 L Monocytes % 9.9 Eosinophils % 12.7 H Basophils % 0.6 Nucleated Red Blood Cells % 0.2 H Neutrophils # 8.4 H Lymphocytes # 1.2 Monocytes # 1.3 H Eosinophils # 1.6 H Basophils # 0.1 Nucleated Red Blood Cells # 0.0 Sodium Level 137 Potassium Level 4.1 Chloride Level 109 Carbon Dioxide Level 24 Anion Gap 8 Blood Urea Nitrogen 7 Creatinine 0.75 Glucose Level 136 Calcium Level 8.0 L Phosphorus Level 3.1 Magnesium Level 2.0 Lab Scanned Report BLOOD TRANSFUSION Test 01/03/17 05:45 01/03/17 08:14 Bedside Glucose 137 96 Medications Medications Current Medications Dextrose/Sodium Chloride (D5-1/2ns) 1,000 ml @ 100 mls/hr Q10H IV Last administered on 01/03/17 05:30; Admin Dose 100 MLS/HR; Start 01/01/17 at 23: 31 Ondansetron HCl (Zofran Inj) 4 mg Q6H PRN IV NAUSEA AND/OR VOMITING Last administered on 01/02/17 01:44; Admin Dose 4 MG; Start 01/02/17 at 00:00 Acetaminophen (Tylenol Liquid) 650 mg Q6H PRN PO PAIN LEVEL 1-3 OR FEVER; Start 01/02/17 at 00:00 Acetaminophen 650 mg 650 mg Q4H PRN [place] PAIN LEVEL 1-3 OR FEVER; Start at 00:00 Fentanyl 100 ml @ 2.5 mls/hr TITRATE IV Last administered on 01/02/17 23:53 ; Admin Dose 8 MLS/HR; Start 01/02/17 at 01:30 Midazolam HCl 50 ml @ 1 mls/hr TITRATE IV Last administered on 01/03/17 08:15 ; Admin Dose 9 MLS/HR; Start 01/02/17 at 01:30 Propofol 100 ml @ 2.045 mls/ hr Q12H IV Last administered on 01/03/17 04:30 ; Admin Dose 20.454 MLS/HR; Start 01/02/17 at 02:30 Cefepime HCl 50 ml @ 100 mls/hr Q12 IVPB Last administered on 01/03/17 08:16 ; Admin Dose 100 MLS/HR; Start 01/02/17 at 09:00 Vancomycin HCl (Vancocin) 250 ml @ 125 mls/hr Q12H IVPB Last administered on 01/02/17 22:52; Admin Dose 125 MLS/HR; Start 01/02/17 at 10:00 Diagnostic Test (Pha) (Accu-Chek) 1 ea 02 XX Last administered on 01/03/17 02 :34; Admin Dose 1 EA; Start 01/03/17 at 02:00 Insulin Aspart (Novolog Insulin Pen) NOVOLOG *MILD* ALGORI... Q4 SC Last administered on 01/03/17 00:05; Admin Dose 1 UNIT; Start 01/02/17 at 13:00 Miscellaneous Information 1 ea NOTE XX ; Start 01/02/17 at 11:30 Glucose (Glutose) 15 gm Q15M PRN PO DECREASED GLUCOSE; Start 01/02/17 at 11:30 Glucose (Glutose) 22.5 gm Q15M PRN PO DECREASED GLUCOSE; Start 01/02/17 at 11: 30 Dextrose (D50w Syringe) 25 ml Q15M PRN IV DECREASED GLUCOSE; Start 01/02/17 at 11:30 Dextrose (D50w Syringe) 50 ml Q15M PRN IV DECREASED GLUCOSE; Start 01/02/17 at 11:30 Glucagon (Glucagen) 1 mg Q15M PRN IM DECREASED GLUCOSE; Start 01/02/17 at 11: 30 Glucose (Glutose) 15 gm Q15M PRN BUCCAL DECREASED GLUCOSE; Start 01/02/17 at 11:30 Famotidine (Pepcid Iv) 20 mg BID IV ; Start 01/03/17 at 09:00 Pantoprazole (Protonix Iv) 40 mg DAILY@06 IV Last administered on 01/03/17 07 :02; Admin Dose 40 MG; Start 01/03/17 at 06:00 Miscellaneous Information (Pending [facility]yl Order For Wound Care) This patient morley... PRN PRN XX WOUND CARE; Start 01/03/17 at 06:00 SABINE LUNA NP Jan 03, 2017 09:09
--- NOTE | 2017-01-03 10:01 | CONS ---
Date/Time of Note Date/Time of Note DATE: 01/03/17 TIME: 10:00 Consultation Date/Type/Reason Admit Date/Time Jan 01, 2017 at 21:48 Initial Consult Date 01/02/17 Type of Consultation: pulm/cc 24 HR Interval Summary Free Text/Dictation dictated [id number] Exam/Review of Systems Vital Signs Vitals Vital Signs Date Time Temp Pulse Resp B/P Pulse Ox O2 Delivery O2 Flow Rate FiO2 01/03/17 08:00 102 01/03/17 07:00 21 134/62 99 Mechanical Ventilator 01/03/17 05:49 35 01/03/17 04:00 99.0 01/01/17 23:59 15.0 Intake and Output 01/02/17 01/02/17 01/03/17 15:00 23:00 07:00 Intake Total 1358.88 ml 1477.08 ml 1209.3 ml Output Total 585 ml 445 ml 315 ml Balance 773.88 ml 1032.08 ml 894.3 ml Results Result Diagram: 01/03/17 0430 01/03/17 0430 Results 24 hrs Laboratory Tests Test 01/02/17 13:24 01/02/17 17:11 01/02/17 20:53 01/02/17 23:58 Bedside Glucose 118 139 174 152 Test 01/03/17 00:28 01/03/17 02:32 01/03/17 04:30 01/03/17 05:02 Hemoglobin 7.7 #L 8.0 L Hematocrit 24.6 #L 25.0 L Bedside Glucose 99 White Blood Count 12.6 H Red Blood Count 3.47 L Mean Corpuscular Volume 72.0 L Mean Corpuscular Hemoglobin 23.1 L Mean Corpuscular Hemoglobin Concent 32.0 Red Cell Distribution Width 20.9 H Platelet Count 335 Mean Platelet Volume 8.8 Neutrophils % 66.6 Lymphocytes % 9.3 L Monocytes % 9.9 Eosinophils % 12.7 H Basophils % 0.6 Nucleated Red Blood Cells % 0.2 H Neutrophils # 8.4 H Lymphocytes # 1.2 Monocytes # 1.3 H Eosinophils # 1.6 H Basophils # 0.1 Nucleated Red Blood Cells # 0.0 Sodium Level 137 Potassium Level 4.1 Chloride Level 109 Carbon Dioxide Level 24 Anion Gap 8 Blood Urea Nitrogen 7 Creatinine 0.75 Glucose Level 136 Calcium Level 8.0 L Phosphorus Level 3.1 Magnesium Level 2.0 Lab Scanned Report BLOOD TRANSFUSION Test 01/03/17 05:45 01/03/17 08:14 01/03/17 09:00 Bedside Glucose 137 96 Vancomycin Level Trough 10.2 Medications Medications Current Medications Dextrose/Sodium Chloride (D5-1/2ns) 1,000 ml @ 100 mls/hr Q10H IV Last administered on 01/03/17 05:30; Admin Dose 100 MLS/HR; Start 01/01/17 at 23: 31 Ondansetron HCl (Zofran Inj) 4 mg Q6H PRN IV NAUSEA AND/OR VOMITING Last administered on 01/02/17 01:44; Admin Dose 4 MG; Start 01/02/17 at 00:00 Acetaminophen (Tylenol Liquid) 650 mg Q6H PRN PO PAIN LEVEL 1-3 OR FEVER; Start 01/02/17 at 00:00 Acetaminophen 650 mg 650 mg Q4H PRN [place] PAIN LEVEL 1-3 OR FEVER; Start at 00:00 Fentanyl 100 ml @ 2.5 mls/hr TITRATE IV Last administered on 01/02/17 23:53 ; Admin Dose 8 MLS/HR; Start 01/02/17 at 01:30 Midazolam HCl 50 ml @ 1 mls/hr TITRATE IV Last administered on 01/03/17 08:15 ; Admin Dose 9 MLS/HR; Start 01/02/17 at 01:30 Propofol 100 ml @ 2.045 mls/ hr Q12H IV Last administered on 01/03/17 04:30 ; Admin Dose 20.454 MLS/HR; Start 01/02/17 at 02:30 Cefepime HCl 50 ml @ 100 mls/hr Q12 IVPB Last administered on 01/03/17 08:16 ; Admin Dose 100 MLS/HR; Start 01/02/17 at 09:00 Vancomycin HCl (Vancocin) 250 ml @ 125 mls/hr Q12H IVPB Last administered on 01/02/17 22:52; Admin Dose 125 MLS/HR; Start 01/02/17 at 10:00 Diagnostic Test (Pha) (Accu-Chek) 1 ea 02 XX Last administered on 01/03/17 02 :34; Admin Dose 1 EA; Start 01/03/17 at 02:00 Insulin Aspart (Novolog Insulin Pen) NOVOLOG *MILD* ALGORI... Q4 SC Last administered on 01/03/17 00:05; Admin Dose 1 UNIT; Start 01/02/17 at 13:00 Miscellaneous Information 1 ea NOTE XX ; Start 01/02/17 at 11:30 Glucose (Glutose) 15 gm Q15M PRN PO DECREASED GLUCOSE; Start 01/02/17 at 11:30 Glucose (Glutose) 22.5 gm Q15M PRN PO DECREASED GLUCOSE; Start 01/02/17 at 11: 30 Dextrose (D50w Syringe) 25 ml Q15M PRN IV DECREASED GLUCOSE; Start 01/02/17 at 11:30 Dextrose (D50w Syringe) 50 ml Q15M PRN IV DECREASED GLUCOSE; Start 01/02/17 at 11:30 Glucagon (Glucagen) 1 mg Q15M PRN IM DECREASED GLUCOSE; Start 01/02/17 at 11: 30 Glucose (Glutose) 15 gm Q15M PRN BUCCAL DECREASED GLUCOSE; Start 01/02/17 at 11:30 Famotidine (Pepcid Iv) 20 mg BID IV ; Start 01/03/17 at 09:00 Pantoprazole (Protonix Iv) 40 mg DAILY@06 IV Last administered on 01/03/17 07 :02; Admin Dose 40 MG; Start 01/03/17 at 06:00 [facility] This patient morley... PRN PRN XX WOUND CARE; Start 01/03/17 at 06:00 FRANCES HATFIELD Jan 03, 2017 10:01
[2017-01-03] MEDS: VANCOMYCIN 1 GM in NS 250 ML IVPB SCH ×2 (10:38→22:07)
[2017-01-03] MEDS: METHYLPREDNISOLONE 40 MG INJ IV SCH ×2 (11:31→17:43)
--- NOTE | 2017-01-03 12:18 | RADRPT ---
PROCEDURE: XR Chest. CLINICAL INDICATION: Respiratory distress. TECHNIQUE: AP view of the chest was performed. COMPARISON: January 02, 2017 FINDINGS: There is an ET tube of 5 cm above the katherine. There is an NG tube with the port at the GE junction, and tip in the body of the stomach. The right PICC line remains in good positioning. The left Port-A -Cath is also stable. There are stable, trace, bilateral pneumothoraces. Bilateral, diffuse lung infiltrates also appear u nchanged. The heart size is stable. IMPRESSION: Support lines and tubes in good positioning. Stable, trace, bilateral pneumothoraces and bilateral d iffuse lung infiltrates. Overall, no interval change. RPTAT: QQ. .Stephanie Concepcion MD, Date Time Electronically viewed and signed by .Stephanie Concepcion MD, on 01/03/2017 12:18 .F/
[2017-01-03 12:21] LABS: HEMATOCRIT 25.9 % (42.0-52.0); HEMOGLOBIN 8.2 g/dl (14.0-18.0)
[2017-01-03 12:36] LABS: LYMPHOCYTE - % CD4 (HELPER) 9 % (30-61); LYMPHOCYTE - %CD8 (SUPPRESSOR) 47 % (12-42); LYMPHOCYTE - ABSOLUTE CD4 69 cells/uL (490-1740); LYMPHOCYTE - ABSOLUTE CD8 384 cells/uL (180-1170); LYMPHOCYTE - CD4/CD8 RATIO 0.18 (0.86-5.00)
[2017-01-03] MEDS: FENTAnyl (DRIP) 1000 mcg/100mL 100 ML IV SCH (12:40)
--- NOTE | 2017-01-03 13:37 | PN ---
Date/Time of Note Date/Time of Note DATE: 01/03/17 TIME: 13:34 Assessment/Plan VTE Prophylaxis VTE Prophylaxis Intervention: SCD's Lines/Catheters IV [facility] Saline Lock Assessment/Plan Chief Complaint/Hosp Course 1. Bilateral pneumothoraces - s/p bilateral chest tube placement with resolution of pneumothoraces -Pulmonary consult appreciated 2. Acute hypoxic respiratory failure, secondary to above, s/p intubation -Continue vent support 3. Sepsis, as evidenced by leukocytosis and tachycardia, secondary to right foot wound/infection -IV antibiotic -Follow-up culture results -ID consult 4. Kaposi's sarcoma of right lower extremity -Continue HIV medications -Oncology consult 5. History of HIV-patient has AIDS based on CD4 level -CD4 level at 69, follow-up on viral load -ID consultation appreciated 6. Microcytic anemia secondary to anemia of chronic disease-improved with 2 units of packed red blood cells -Follow-up on stool occult blood to rule out GI bleed, there is no evidence of GI bleed at this time 7. Probable history of type 2 diabetes -Check A1c -ISS for now Prophylaxis: SCDs Problems: Subjective 24 Hr Interval Summary Subjective hx not possible: pt non-verbal Exam/Review of Systems Vital Signs Vitals Vital Signs Date Time Temp Pulse Resp B/P Pulse Ox O2 Delivery O2 Flow Rate FiO2 01/03/17 12:00 99 01/03/17 11:00 21 125/62 100 01/03/17 08:00 97.7 Mechanical Ventilator 01/03/17 08:00 35 01/01/17 23:59 15.0 Intake and Output 01/02/17 01/02/17 01/03/17 15:00 23:00 07:00 Intake Total 1358.88 ml 1477.08 ml 1346.7 ml Output Total 585 ml 445 ml 365 ml Balance 773.88 ml 1032.08 ml 981.7 ml Exam Constitutional: non-verbal ENMT: intubated Respiratory: clear to auscultation Cardiovascular: regular rate and rhythm Gastrointestinal: soft, No distended Musculoskeletal: No nl extremities to inspection Results Result Diagram: 01/03/17 1212 01/03/17 0430 Results 24 hrs Laboratory Tests Test 01/02/17 17:11 01/02/17 20:53 01/02/17 23:58 01/03/17 00:28 Bedside Glucose 139 174 152 Hemoglobin 7.7 #L Hematocrit 24.6 #L Test 01/03/17 02:32 01/03/17 04:30 01/03/17 05:02 01/03/17 05:45 Bedside Glucose 99 137 White Blood Count 12.6 H Red Blood Count 3.47 L Hemoglobin 8.0 L Hematocrit 25.0 L Mean Corpuscular Volume 72.0 L Mean Corpuscular Hemoglobin 23.1 L Mean Corpuscular Hemoglobin Concent 32.0 Red Cell Distribution Width 20.9 H Platelet Count 335 Mean Platelet Volume 8.8 Neutrophils % 66.6 Lymphocytes % 9.3 L Monocytes % 9.9 Eosinophils % 12.7 H Basophils % 0.6 Nucleated Red Blood Cells % 0.2 H Neutrophils # 8.4 H Lymphocytes # 1.2 Monocytes # 1.3 H Eosinophils # 1.6 H Basophils # 0.1 Nucleated Red Blood Cells # 0.0 Sodium Level 137 Potassium Level 4.1 Chloride Level 109 Carbon Dioxide Level 24 Anion Gap 8 Blood Urea Nitrogen 7 Creatinine 0.75 Glucose Level 136 Calcium Level 8.0 L Phosphorus Level 3.1 Magnesium Level 2.0 Lab Scanned Report BLOOD TRANSFUSION Test 01/03/17 08:14 01/03/17 09:00 01/03/17 12:12 01/03/17 12:33 Bedside Glucose 96 76 Vancomycin Level Trough 10.2 Hemoglobin 8.2 L Hematocrit 25.9 L Medications Medications Current Medications Dextrose/Sodium Chloride (D5-1/2ns) 1,000 ml @ 100 mls/hr Q10H IV Last administered on 01/03/17 05:30; Admin Dose 100 MLS/HR; Start 01/01/17 at 23: 31 Ondansetron HCl (Zofran Inj) 4 mg Q6H PRN IV NAUSEA AND/OR VOMITING Last administered on 01/02/17 01:44; Admin Dose 4 MG; Start 01/02/17 at 00:00 Acetaminophen (Tylenol Liquid) 650 mg Q6H PRN PO PAIN LEVEL 1-3 OR FEVER; Start 01/02/17 at 00:00 Acetaminophen 650 mg 650 mg Q4H PRN [place] PAIN LEVEL 1-3 OR FEVER; Start at 00:00 Fentanyl 100 ml @ 2.5 mls/hr TITRATE IV Last administered on 01/03/17 12:40 ; Admin Dose 8 MLS/HR; Start 01/02/17 at 01:30 Midazolam HCl 50 ml @ 1 mls/hr TITRATE IV Last administered on 01/03/17 08:15 ; Admin Dose 9 MLS/HR; Start 01/02/17 at 01:30 Propofol 100 ml @ 2.045 mls/ hr Q12H IV Last administered on 01/03/17 11:31 ; Admin Dose 20.454 MLS/HR; Start 01/02/17 at 02:30 Cefepime HCl 50 ml @ 100 mls/hr Q12 IVPB Last administered on 01/03/17 08:16 ; Admin Dose 100 MLS/HR; Start 01/02/17 at 09:00 Vancomycin HCl (Vancocin) 250 ml @ 125 mls/hr Q12H IVPB Last administered on 01/03/17 10:38; Admin Dose 125 MLS/HR; Start 01/02/17 at 10:00 Diagnostic Test (Pha) (Accu-Chek) 1 ea 02 XX Last administered on 01/03/17 02 :34; Admin Dose 1 EA; Start 01/03/17 at 02:00 Insulin Aspart (Novolog Insulin Pen) NOVOLOG *MILD* ALGORI... Q4 SC Last administered on 01/03/17 00:05; Admin Dose 1 UNIT; Start 01/02/17 at 13:00 Miscellaneous Information 1 ea NOTE XX ; Start 01/02/17 at 11:30 Glucose (Glutose) 15 gm Q15M PRN PO DECREASED GLUCOSE; Start 01/02/17 at 11:30 Glucose (Glutose) 22.5 gm Q15M PRN PO DECREASED GLUCOSE; Start 01/02/17 at 11: 30 Dextrose (D50w Syringe) 25 ml Q15M PRN IV DECREASED GLUCOSE; Start 01/02/17 at 11:30 Dextrose (D50w Syringe) 50 ml Q15M PRN IV DECREASED GLUCOSE; Start 01/02/17 at 11:30 Glucagon (Glucagen) 1 mg Q15M PRN IM DECREASED GLUCOSE; Start 01/02/17 at 11: 30 Glucose (Glutose) 15 gm Q15M PRN BUCCAL DECREASED GLUCOSE; Start 01/02/17 at 11:30 Famotidine (Pepcid Iv) 20 mg BID IV ; Start 01/03/17 at 09:00 Pantoprazole (Protonix Iv) 40 mg DAILY@06 IV Last administered on 01/03/17 07 :02; Admin Dose 40 MG; Start 01/03/17 at 06:00 Misc[facility] This patient morley... PRN PRN XX WOUND CARE; Start 01/03/17 at 06:00 Methylprednisolone Sodium Succinate (Solu-Medrol) 40 mg Q6 IV Last administered on 01/03/17 11:31; Admin Dose 40 MG; Start 01/03/17 at 12:00 ALBERT NGUYỄN Jan 03, 2017 13:37
--- NOTE | 2017-01-03 14:09 | CONS ---
DATE OF ADMISSION: 01/01/2017 DATE OF CONSULTATION: 01/03/2017 PULMONARY CRITICAL CARE PROGRESS NOTE The patient's condition remains critical. He is requiring full ventilator support. The patient has been sedated with a combination of propofol and fentanyl drip and has remained hemodynamically stab le. PHYSICAL EXAMINATION: GENERAL: Middle-aged male, orally intubated, and sedated, currently in no distress. VITAL SIGNS: Temperature 98 degree Fahrenheit, respiratory rate is 16 to 18 per minute, heart rate 80 per minute, blood pressure 130/70, O2 sat is 98%. Current ventilator settings are AC of 14, tida l volume 500, PEEP of 5 and 35% FIO2. HEENT: Supple neck, no JVD, no lymphadenopathy, midline trachea, no thyromegaly. Patient has small pupils. There is mild subconjunctival edema present bilaterally. Dentition is fair. CHEST: Diminished breath sounds bilaterally, bilateral chest tubes are in place. HEART: S1, S2 audible. No murmurs, regular rhythm. ABDOMEN: Soft. No organomegaly. Bowel sounds are audible. EXTREMITIES: There is a dressing applied over the right lower extremity with significant edema due to underlying Kaposi sarcoma. There is no edema involving left lower extremity. NEUROLOGIC: The patient is sedated. The patient is currently on Versed 9 mg per hour, propofol at 50 mcg/kg per minute and fentanyl 50 mcg per hour. LABORATORY DATA: Today, sodium 137, potassium 4.1, chloride 109, bicarbonate 24, BUN 7, creatinine 0.7. White count 12.6, hemoglobin 8, platelet count of 335. MEDICATIONS: The patient is on: 1. Versed and propofol as well fentanyl as outlined above. 2. Cefepime 1 gram q.12h. 3. D5 half normal saline at 100 per hour. 4. Vancomycin 1 gram q.12h. 5. Acetaminophen on a p.r.n. basis. 6. Albuterol q.6h. 7. Pepcid 20 mg IV q.12h. 6. Sliding scale insulin. 7. Protonix 40 mg IV daily. 8. Vancomycin intravenously being dosed by the pharmacy. ASSESSMENT AND PLAN: 1. Patient admitted for bilateral pneumothorax is likely from underlying chronic obstructive pulmon heydi disease, possibly underlying asthma. 2. Respiratory failure. 3. History of being human immunodeficiency virus positive with history of Kaposi sarcoma involving right lower extremity. 3. Severe anemia, status post blood transfusion. 4. Possibly underlying sepsis. RECOMMENDATIONS: Hold sedation. Once the patient is off sedation, he will be evaluated for possibl e weaning from ventilator. Meanwhile, I would recommend adding Solu-Medrol 40 mg q. 6 hours if the patient does have bilateral wheezing. Once the patient is off sedation, he will be evaluated. Abou t 35 minutes of critical care time was spent evaluating the patient. Dictated By: FRANCES GUDINO/MELANIE Conf#: [id number] DID#: [id number]
[2017-01-03 18:13] LABS: HEMATOCRIT 26.3 % (42.0-52.0); HEMOGLOBIN 8.3 g/dl (14.0-18.0)
[2017-01-04] VITALS (52 sets, daily range): BP systolic 90–133; BP diastolic 50–80; PULSE 77–103; RESP 14–26
[2017-01-04] MEDS: FENTAnyl (DRIP) 1000 mcg/100mL 100 ML IV SCH ×3 (00:33→23:03)
[2017-01-04] MEDS: METHYLPREDNISOLONE 40 MG INJ IV SCH ×5 (00:36→23:22)
[2017-01-04] MEDS: INSULIN ASPART [NOVOLOG] 3 ML PEN SC SCH ×4 (00:47→12:55)
[2017-01-04 01:01] LABS: HEMATOCRIT 25.1 % (42.0-52.0); HEMOGLOBIN 7.9 g/dl (14.0-18.0)
[2017-01-04] MEDS: MIDAZOLAM (DRIP) 50 mg/50 mL 50 ML IV SCH ×4 (01:11→19:18)
[2017-01-04] MEDS: ACCU-CHEK XX SCH (02:09)
[2017-01-04] MEDS: DEXTROSE 5%-0.45% NACL 1,000 ML IV SCH ×3 (02:09→16:30)
[2017-01-04] MEDS: PROPOFOL 100 ML IV SCH ×5 (03:52→23:31)
[2017-01-04] MEDS: PANTOPRAZOLE 40 MG INJ IV SCH (05:47)
[2017-01-04 06:39] LABS: ABNORMAL IP MESSAGE 1; BASOPHILS % 0.1 % (0.0-2.0); HEMATOCRIT 25.1 % (42.0-52.0); HEMOGLOBIN 7.7 g/dl (14.0-18.0); LYMPHOCYTES # 0.8 10^3/ul (0.8-2.9); LYMPHOCYTES % 7.9 % (15.0-51.0); MEAN CORPUSCULAR HEMOGLOBIN 22.3 pg (29.0-33.0); MEAN CORPUSCULAR HGB CONC 30.7 g/dl (32.0-37.0); MEAN CORPUSCULAR VOLUME 72.8 fl (82.0-101.0); MEAN PLATELET VOLUME 8.8 fl (7.4-10.4); MONOCYTE # 0.5 10^3/ul (0.3-0.9); MONOCYTES % 5.4 % (0.0-11.0); NEUTROPHIL # 8.2 10^3/ul (1.6-7.5); NEUTROPHILS % 85.8 % (39.0-77.0); PLATELET COUNT 340 10^3/UL (140-415); POSITIVE DIFF @See below; RED BLOOD COUNT 3.45 10^6/ul (4.70-6.10); RED CELL DISTRIBUTION WIDTH 22.3 % (11.5-14.5); WHITE BLOOD COUNT 9.6 10^3/ul (4.8-10.8)
[2017-01-04 07:24] LABS: CALCIUM 8.6 mg/dl (8.4-10.2); CREATININE 0.67 mg/dl (0.61-1.24); POTASSIUM 4.6 mmol/L (3.5-5.1)
[2017-01-04] MEDS: CEFEPIME 1GM/50 ML (PMX) 50 ML IVPB SCH ×2 (08:55→21:14)
[2017-01-04] MEDS: VANCOMYCIN 1 GM in NS 250 ML IVPB SCH (08:59)
--- NOTE | 2017-01-04 09:48 | PN ---
Date/Time of Note Date/Time of Note DATE: 01/04/17 TIME: 09:44 Assessment/Plan Lines/Catheters IV Catheter Type (from Nrsg): Saline Lock [place] in Place (from Nrsg): Yes Assessment/Plan Chief Complaint/Hosp Course Bilateral PTX with air leaks Left CT pulled out will reinsert CT will check CXR Problems: Subjective 24 Hr Interval Summary Constitutional: improved Pain Control: mild Exam/Review of Systems Vital Signs Vitals Vital Signs Date Time Temp Pulse Resp B/P Pulse Ox O2 Delivery O2 Flow Rate FiO2 01/04/17 08:00 95 01/04/17 06:00 24 119/67 100 Mechanical Ventilator 01/04/17 05:25 35 01/04/17 04:00 98.4 01/01/17 23:59 15.0 Intake and Output 01/03/17 01/03/17 01/04/17 15:00 23:00 07:00 Intake Total 1009.6 ml 708.816 ml 1248.631 ml Output Total 825 ml 595 ml 450 ml Balance 184.6 ml 113.816 ml 798.631 ml Exam Neck: non-tender, supple Respiratory: clear to auscultation, normal air movement Cardiovascular: nl pulses, regular rate and rhythm Gastrointestinal: nl liver, spleen, non-tender, soft Results Result Diagram: 01/04/17 0601/04/17599 MALEJANIE CROCKETT MD Jan 04, 2017 09:48
--- NOTE | 2017-01-04 09:51 | RADRPT ---
PROCEDURE: XR Chest. CLINICAL INDICATION: Follow-up pneumothorax TECHNIQUE: Single frontal view of the chest. COMPARISON: 01/03/2017 and additional priors FINDINGS: Left-sided chest tube is retracted outside of the thorax. Larger left pneumothorax of approximately 20% measuring 3.5 cm at the lung base. Stable position of a right-sided chest tube. Right apical pne umothorax measures 8 mm, previously 2 mm. Endotracheal tube tip well positioned over the mid trachea l shadow. Enteric tube tip passes below the diaphragm and below the field of view. Right subclavian line with the tip over the cavoatrial junction. Left subclavian port tip over the distal SVC. Stab le cardiomediastinal silhouette. Similar patchy bilateral airspace opacities. Similar appearance of nodular densities in the left lung base. No significant pleural effusion. IMPRESSION: 1. Left-sided chest tube is retracted with larger left pneumothorax. 2. Stable appearance of right chest tube with slow larger right pneumothorax. 3. Appropriate position of central lines, endotracheal tube and enteric tube. 4. Similar patchy bilateral air space opacities. 5. Nodular opacities in the left lung base may represent malignancy. Recommend CT chest to further e valuate. Results called to Dr. Tatum at 01/04/2017 9:43:41 AM. RPTAT:AAJJ Physician Mone Date Time Electronically viewed and signed by Physician Mone on 01/04/2017 09:51 /
--- NOTE | 2017-01-04 10:32 | CONS ---
Date/Time of Note Date/Time of Note DATE: 01/04/17 TIME: 10:27 Assessment/Plan Assessment/Plan Additional Assessment/Plan Ventilator setting; AC of 14, tidal volume 500, PEEP of 5, 35% FiO2. Chest x-ray was reviewed from today which is showing increasing left pneumothorax which is loculated in the left lower lobe.. Chest tube appears to be out of the pleural cavity. Patient is currently on propofol 50 mics per kilogram per minute, Versed 9 mg/h , fentanyl 50 mics per hour. Assessment and recommendations; 1. Patient admitted with shortness of breath with bilateral pneumothoraces likely from underlying COPD/asthma. 2. 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 3. Anemia. 4. Patient requiring high-dose sedation and is unable to handle any sedation vacation at this point. Decrease PEEP to 0. Left side chest tube needs to be repositioned. Obtain MRI of the brain. Continue current antibiotics and other supportive measures. 35 minutes of critical care time was spent evaluating the patient. Consultation Date/Type/Reason Admit Date/Time Jan 01, 2017 at 21:48 Initial Consult Date 01/02/17 Type of Consultation: pulm/cc 24 HR Interval Summary Free Text/Dictation Patient's condition remains critical. Patient has been unable to handle being on sedation resulting in severe agitation. General exam; middle-aged male, orally intubated, sedated, currently in no distress. Exam/Review of Systems Vital Signs Vitals Vital Signs Date Time Temp Pulse Resp B/P Pulse Ox O2 Delivery O2 Flow Rate FiO2 01/04/17 09:30 91 19 100/60 100 01/04/17 08:00 97.4 01/04/17 07:00 Mechanical Ventilator 01/04/17 05:25 35 01/01/17 23:59 15.0 Intake and Output 01/03/17 01/03/17 01/04/17 15:00 23:00 07:00 Intake Total 1009.6 ml 708.816 ml 1248.631 ml Output Total 825 ml 595 ml 450 ml Balance 184.6 ml 113.816 ml 798.631 ml Exam HEENT exam; supple neck, no JVD. No lymphadenopathy. Midline trachea. No thyromegaly. Orally intubated. Patient has fair dentition. Pupils are small bilaterally. Chest exam; diminished but clear breath sounds. Bilateral chest tubes are in place. S1-S2 audible, no murmurs. Regular rhythm. Abdomen exam; soft, non-distended. Bowel sounds audible. No organomegaly. Extremity exam; right lower extremity wrapped in dressing. With significant edema. [employer] exam; patient is sedated. Results Result Diagram: 01/04/17 0600 01/04/17 0600 Results 24 hrs Laboratory Tests Test 01/03/17 12:12 01/03/17 12:33 01/03/17 17:02 01/03/17 18:03 Hemoglobin 8.2 L 8.3 L Hematocrit 25.9 L 26.3 L Bedside Glucose 76 190 Test 01/03/17 22:10 01/04/17 00:42 01/04/17 00:45 01/04/17 05:43 Bedside Glucose 200 145 179 Hemoglobin 7.9 L Hematocrit 25.1 L Test 01/04/17 06:00 01/04/17 08:53 White Blood Count 9.6 # Red Blood Count 3.45 L Hemoglobin 7.7 L Hematocrit 25.1 L Mean Corpuscular Volume 72.8 L Mean Corpuscular Hemoglobin 22.3 L Mean Corpuscular Hemoglobin Concent 30.7 L Red Cell Distribution Width 22.3 H Platelet Count 340 Mean Platelet Volume 8.8 Neutrophils % 85.8 H Lymphocytes % 7.9 L Monocytes % 5.4 Eosinophils % 0.0 Basophils % 0.1 Nucleated Red Blood Cells % 0.0 Neutrophils # 8.2 H Lymphocytes # 0.8 Monocytes # 0.5 Eosinophils # 0.0 Basophils # 0.0 Nucleated Red Blood Cells # 0.0 Sodium Level 137 Potassium Level 4.6 Chloride Level 108 Carbon Dioxide Level 25 Anion Gap 9 Blood Urea Nitrogen 9 Creatinine 0.67 Glucose Level 168 Hemoglobin A1c 5.4 Calcium Level 8.6 Bedside Glucose 187 Medications Medications Current Medications Dextrose/Sodium Chloride (D5-1/2ns) 1,000 ml @ 100 mls/hr Q10H IV Last administered on 01/04/17 02:09; Admin Dose 100 MLS/HR; Start 01/01/17 at 23: 31 Ondansetron HCl (Zofran Inj) 4 mg Q6H PRN IV NAUSEA AND/OR VOMITING Last administered on 01/02/17 01:44; Admin Dose 4 MG; Start 01/02/17 at 00:00 Acetaminophen (Tylenol Liquid) 650 mg Q6H PRN PO PAIN LEVEL 1-3 OR FEVER; Start 01/02/17 at 00:00 Acetaminophen 650 mg 650 mg Q4H PRN [place] PAIN LEVEL 1-3 OR FEVER; Start at 00:00 Fentanyl 100 ml @ 2.5 mls/hr TITRATE IV Last administered on 01/04/17 00:33 ; Admin Dose 8 MLS/HR; Start 01/02/17 at 01:30 Midazolam HCl 50 ml @ 1 mls/hr TITRATE IV Last administered on 01/04/17 07:25 ; Admin Dose 9 MLS/HR; Start 01/02/17 at 01:30 Propofol 100 ml @ 2.045 mls/ hr Q12H IV Last administered on 01/04/17 07:18 ; Admin Dose 20.454 MLS/HR; Start 01/02/17 at 02:30 Cefepime HCl 50 ml @ 100 mls/hr Q12 IVPB Last administered on 01/04/17 08:55 ; Admin Dose 100 MLS/HR; Start 01/02/17 at 09:00 Vancomycin HCl (Vancocin) 250 ml @ 125 mls/hr Q12H IVPB Last administered on 01/04/17 08:59; Admin Dose 125 MLS/HR; Start 01/02/17 at 10:00 Diagnostic Test (Pha) (Accu-Chek) 1 ea 02 XX Last administered on 01/04/17 02 :09; Admin Dose 1 EA; Start 01/03/17 at 02:00 Insulin Aspart (Novolog Insulin Pen) NOVOLOG *MILD* ALGORI... Q4 SC Last administered on 01/04/17 08:57; Admin Dose 2 UNIT; Start 01/02/17 at 13:00 Miscellaneous Information 1 ea NOTE XX ; Start 01/02/17 at 11:30 Glucose (Glutose) 15 gm Q15M PRN PO DECREASED GLUCOSE; Start 01/02/17 at 11:30 Glucose (Glutose) 22.5 gm Q15M PRN PO DECREASED GLUCOSE; Start 01/02/17 at 11: 30 Dextrose (D50w Syringe) 25 ml Q15M PRN IV DECREASED GLUCOSE; Start 10/13/17 at 11:30 Dextrose (D50w Syringe) 50 ml Q15M PRN IV DECREASED GLUCOSE; Start 01/02/17 at 11:30 Glucagon (Glucagen) 1 mg Q15M PRN IM DECREASED GLUCOSE; Start 01/02/17 at 11: 30 Glucose (Glutose) 15 gm Q15M PRN BUCCAL DECREASED GLUCOSE; Start 01/02/17 at 11:30 Pantoprazole (Protonix Iv) 40 mg DAILY@06 IV Last administered on 01/04/17 05 :47; Admin Dose 40 MG; Start 01/03/17 at 06:00 Miscellaneous Information (Pending [facility] Order For Wound Care) This patient morley... PRN PRN XX WOUND CARE; Start 01/03/17 at 06:00 Methylprednisolone Sodium Succinate (Solu-Medrol) 40 mg Q6 IV Last administered on 01/04/17 05:47; Admin Dose 40 MG; Start 01/03/17 at 12:00 FRANCES HATFIELD Jan 04, 2017 10:32
--- NOTE | 2017-01-04 11:20 | CONS ---
DATE OF ADMISSION: 01/01/2017 DATE OF CONSULTATION: REASON FOR CONSULTATION: Pneumothorax, continuous air leak. HISTORY OF PRESENT ILLNESS: This is a 56-year-old male admitted through the emergency room with com plaints of shortness of breath. Chest x-ray showed bilateral pneumothoraces. The patient received chest tubes bilaterally. He continues to have an air leak on the left side. His last chest x-ray h as shown bilateral pneumothoraces with diffuse lung infiltrates. The patient has minimal drainage f rom the chest tubes. PAST MEDICAL HISTORY: Significant for Kaposi sarcoma lower extremity, HIV and AIDS, microcytic anem ia. PAST SURGICAL HISTORY: None. ALLERGIES: NONE. SOCIAL HISTORY: Unknown at the present time. PHYSICAL EXAMINATION: VITAL SIGNS: Blood pressure is 110/66, pulse is 103, respirations 23, saturations 100% on 35% FIO2. IMPRESSION: Respiratory failure with pneumothoraces. The patient continues to have an air leak. I f his air leak does not stop, he will be a candidate to undergo a video-assisted thoracic surgery an d possible bleb resection. He will need a CAT scan prior to surgery if possible. Will discuss with the referring physicians. Dictated By: JANIE BASILIO MD FM/NTS Conf#: [id number] DID#: [id number] CC: NICHOLE GARCIA MD;*EndCC*
--- NOTE | 2017-01-04 11:35 | CONS ---
Date/Time of Note Date/Time of Note DATE: 01/04/17 TIME: 11:18 Assessment/Plan Assessment/Plan Chief Complaint/Hosp Course ID PROGRESS NOTE CURRENT ABX: DAY # => Vanco IV, Cefepime, Diflucan, Bactrim 24H INTERVAL SUMMARY * Family and close friend here today and bring in home meds & state disability forms, report patient has been working up until last THU. * CURRENT ARV MEDS: Triumeq (600mg/50mg/300mg) + Viracept 625mg (Nelfinavir mesylate) * Patient also on Bactrim DS 1tab po daily for PJC/PCP Prophy, Gabapentin, Naprosyn, Morphine * AIDS patient w/multiple medical problems due to this condition -> 01/02/17 CD4 # 69 w/ CD4% 9, HIV VL pending * We don't know the name of his ARV meds -- suspect ARV med resistance and hx of non-adherence. * Large open wound RLEXT thigh to foot -> complication of DM non-healing wound superimposed on Kaposi's Sarcoma * WOUND CULTURE Preliminary Organism 1 PROTEUS MIRABILIS QUANTITY SCANT GROWTH Organism 2 GRAM NEGATIVE LUCILA QUANTITY SCANT GROWTH Organism 3 ENTEROCOCCUS SPECIES QUANTITY ISOLATED FROM BROTH ONLY * Non-communicative on the Vent, restless, bilateral chest tubes * Respiratory cx: RESPIRATORY CULTURE Final NO GROWTH AFTER 2 DAY * CXR 01/04/17 IMPRESSION: * 1. Left-sided chest tube is retracted with larger left pneumothorax. * 2. Stable appearance of right chest tube with slow larger right pneumothorax. * 3. Appropriate position of central lines, endotracheal tube and enteric tube. * 4. Similar patchy bilateral air space opacities. * 5. Nodular opacities in the left lung base may represent malignancy. Recommend CT chest to further evaluate. Physical Exam Physical Exam Constitutional: Critically ill, orally intubated/vented, somewhat restless, non- communicative, HEENT: ETT-> Secure to Vent Neck: Supple, no JVD Respiratory: Equal chest rise bilaterally, coarse Cardiovascular: nl pulses, regular rate and rhythm, tachy Gastrointestinal: Soft, NT Extremities: Warm, extensive RLEXT open wound thigh to foot ID ASSESSMENT 56 yo M admit with: 1. (+) AIDS w/01/02/17 T-cells: 69 CD4# & 9 CD4%, HIV VL Pending * CURRENT ARV MEDS: Triumeq (600mg/50mg/300mg) + Viracept 625mg (Nelfinavir mesylate) 2. Bilateral pneumothoraces => CXR w/suspicion Kaposi's metastases to lung * - s/p bilateral chest tube placement with resolution of pneumothoraces 3. Acute hypoxic respiratory failure, secondary to above, s/p intubation 4. Sepsis, as evidenced by leukocytosis w/bandemia, tachycardia, secondary to right foot wound/infection 5. RLEXT cellulitis w/extensive diabetic RLEXT & foot ulcer w/exposed fat * 01/02/17 Wound Cx: WOUND CULTURE Preliminary Organism 1 PROTEUS MIRABILIS Organism 2 GRAM NEGATIVE LUCILA Organism 3 ENTEROCOCCUS SPECIES 6. Kaposi's sarcoma of right lower extremity 7. Probable history of type 2 diabetes 8. Microcytic anemia -> s/p PRBCs Tx 9. COPD 10. Heavy Tobacco user (- )MRSA Nares INVASIVES: Port-A-Cath, ETT, OGT, FC, bilateral chest tubes ABX ALLERGIES: Sulfa/Iodine CURRENT ABX: DAY # => Vanco IV, Cefepime, , Diflucan, Bactrim ID RECOMMENDATIONS 1. Continue current ABX * Vanco + Cefepime for RLEXT infected wound * Diflucan fungal prophy * Bactrim 1 tab GT daily (PJP/PCP Prophy) * No need for MAIC prophy unless CD4# falls below 50 (currently at 69#) 2. CURRENT ARV MEDS: Triumeq (600mg/50mg/300mg) + Viracept 625mg (Nelfinavir mesylate) * Order placed to pharmacy to please start ARV meds, family does not have adequate supply and there are NO refills on medication bottles from home. 3. Send pleural fluid for cytology ? 4. CT Chest when stable 5. Sister here with [place] State [employer] form requesting physician apply for state disability. . . Problems: Consultation Date/Type/Reason Admit Date/Time Jan 01, 2017 at 21:48 Initial Consult Date 01/02/17 Type of Consultation: ID Exam/Review of Systems Vital Signs Vitals Vital Signs Date Time Temp Pulse Resp B/P Pulse Ox O2 Delivery O2 Flow Rate FiO2 01/04/17 09:30 91 19 100/60 100 01/04/17 08:00 97.4 01/04/17 07:00 Mechanical Ventilator 01/04/17 05:25 35 01/01/17 23:59 15.0 Intake and Output 01/03/17 01/03/17 01/04/17 15:00 23:00 07:00 Intake Total 1009.6 ml 708.816 ml 1248.631 ml Output Total 825 ml 595 ml 450 ml Balance 184.6 ml 113.816 ml 798.631 ml Results Result Diagram: 01/04/17 0600 01/04/17 0600 Results 24 hrs Laboratory Tests Test 01/03/17 12:12 01/03/17 12:33 01/03/17 17:02 01/03/17 18:03 Hemoglobin 8.2 L 8.3 L Hematocrit 25.9 L 26.3 L Bedside Glucose 76 190 Test 01/03/17 22:10 01/04/17 00:42 01/04/17 00:45 01/04/17 05:43 Bedside Glucose 200 145 179 Hemoglobin 7.9 L Hematocrit 25.1 L Test 01/04/17 06:00 01/04/17 08:53 White Blood Count 9.6 # Red Blood Count 3.45 L Hemoglobin 7.7 L Hematocrit 25.1 L Mean Corpuscular Volume 72.8 L Mean Corpuscular Hemoglobin 22.3 L Mean Corpuscular Hemoglobin Concent 30.7 L Red Cell Distribution Width 22.3 H Platelet Count 340 Mean Platelet Volume 8.8 Neutrophils % 85.8 H Lymphocytes % 7.9 L Monocytes % 5.4 Eosinophils % 0.0 Basophils % 0.1 Nucleated Red Blood Cells % 0.0 Neutrophils # 8.2 H Lymphocytes # 0.8 Monocytes # 0.5 Eosinophils # 0.0 Basophils # 0.0 Nucleated Red Blood Cells # 0.0 Sodium Level 137 Potassium Level 4.6 Chloride Level 108 Carbon Dioxide Level 25 Anion Gap 9 Blood Urea Nitrogen 9 Creatinine 0.67 Glucose Level 168 Hemoglobin A1c 5.4 Calcium Level 8.6 Bedside Glucose 187 Medications Medications Current Medications Dextrose/Sodium Chloride (D5-1/2ns) 1,000 ml @ 100 mls/hr Q10H IV Last administered on 01/04/17t 02:09; Admin Dose 100 MLS/HR; Start 01/01/17 at 23: 31 Ondansetron HCl (Zofran Inj) 4 mg Q6H PRN IV NAUSEA AND/OR VOMITING Last administered on 01/02/17 01:44; Admin Dose 4 MG; Start 01/02/17 at 00:00 Acetaminophen (Tylenol Liquid) 650 mg Q6H PRN PO PAIN LEVEL 1-3 OR FEVER; Start 01/02/17 at 00:00 Acetaminophen 650 mg 650 mg Q4H PRN [place] PAIN LEVEL 1-3 OR FEVER; Start at 00:00 Fentanyl 100 ml @ 2.5 mls/hr TITRATE IV Last administered on 01/04/17 00:33 ; Admin Dose 8 MLS/HR; Start 01/02/17 at 01:30 Midazolam HCl 50 ml @ 1 mls/hr TITRATE IV Last administered on 01/04/17 07:25 ; Admin Dose 9 MLS/HR; Start 01/02/17 at 01:30 Propofol 100 ml @ 2.045 mls/ hr Q12H IV Last administered on 01/04/17 07:18 ; Admin Dose 20.454 MLS/HR; Start 01/02/17 at 02:30 Cefepime HCl 50 ml @ 100 mls/hr Q12 IVPB Last administered on 01/04/17 08:55 ; Admin Dose 100 MLS/HR; Start 01/02/17 at 09:00 Vancomycin HCl (Vancocin) 250 ml @ 125 mls/hr Q12H IVPB Last administered on 01/04/17 08:59; Admin Dose 125 MLS/HR; Start 01/02/17 at 10:00 Diagnostic Test (Pha) (Accu-Chek) 1 ea 02 XX Last administered on 01/04/17 02 :09; Admin Dose 1 EA; Start 01/03/17 at 02:00 Insulin Aspart (Novolog Insulin Pen) NOVOLOG *MILD* ALGORI... Q4 SC Last administered on 01/04/17 08:57; Admin Dose 2 UNIT; Start 01/02/17 at 13:00 Miscellaneous Information 1 ea NOTE XX ; Start 01/02/17 at 11:30 Glucose (Glutose) 15 gm Q15M PRN PO DECREASED GLUCOSE; Start 01/02/17 at 11:30 Glucose (Glutose) 22.5 gm Q15M PRN PO DECREASED GLUCOSE; Start 01/02/17 at 11: 30 Dextrose (D50w Syringe) 25 ml Q15M PRN IV DECREASED GLUCOSE; Start 01/02/17 at 11:30 Dextrose (D50w Syringe) 50 ml Q15M PRN IV DECREASED GLUCOSE; Start 01/02/17 at 11:30 Glucagon (Glucagen) 1 mg Q15M PRN IM DECREASED GLUCOSE; Start 01/02/17 at 11: 30 Glucose (Glutose) 15 gm Q15M PRN BUCCAL DECREASED GLUCOSE; Start 01/02/17 at 11:30 Pantoprazole (Protonix Iv) 40 mg DAILY@06 IV Last administered on 01/04/17 05 :47; Admin Dose 40 MG; Start 01/03/17 at 06:00 [facility]iscellaneous [facility] This patient morley... PRN PRN XX WOUND CARE; Start 01/03/17 at 06:00 Methylprednisolone Sodium Succinate (Solu-Medrol) 40 mg Q6 IV Last administered on 01/04/17 05:47; Admin Dose 40 MG; Start 01/03/17 at 12:00 SABINE LUNA NP Jan 04, 2017 11:28
[2017-01-04 12:18] LABS: HEMATOCRIT 25.6 % (42.0-52.0); HEMOGLOBIN 8.1 g/dl (14.0-18.0)
[2017-01-04] MEDS: FLUCONAZOLE 100 MG/NS (PMX) 50 ML IVPB SCH (12:55)
[2017-01-04] MEDS: TRIMETHOPRIM/SULFAMETHOX (DS) TAB GTB SCH (12:55)
--- NOTE | 2017-01-04 13:12 | PN ---
Date/Time of Note Date/Time of Note DATE: 01/04/17 TIME: 13:03 Assessment/Plan VTE Prophylaxis VTE Prophylaxis Intervention: SCD's Lines/Catheters IV Catheter Type (from Nrs): Peripheral IV Urinary Cath still in place: Yes Reason Cath still needed: terminal illness/intractable pain Assessment/Plan Chief Complaint/Hosp Course Assessment: Severe anemia/improved Respiratory failure * Bilateral pneumothoraces * Plan for VATS HIV Kaposi's sarcoma with right lower extremity involvement Sepsis Plan: Will change serial h/h to q12 Transfuse if hgb less than 7.5 Continue PPI therapy Patient seen in collaboration with Dr. Padron Subjective: Course reviewed with nursing staff Patient interviewed and examined All labs, imaging and other results reviewed The patient remains intubated and sedated Family and friend at bedside Anemia stable- will continue to monitor Pt to have VATS in near future Problems: Exam/Review of Systems Vital Signs Vitals Vital Signs Date Time Temp Pulse Resp B/P Pulse Ox O2 Delivery O2 Flow Rate FiO2 01/04/17 12:00 97.9 86 14 92/50 100 01/04/17 11:30 35 01/04/17 07:00 Mechanical Ventilator 01/01/17 23:59 15.0 Intake and Output 01/03/17 01/03/17 01/04/17 15:00 23:00 07:00 Intake Total 1009.6 ml 708.816 ml 1248.631 ml Output Total 825 ml 595 ml 525 ml Balance 184.6 ml 113.816 ml 723.631 ml Results Result Diagram: 01/04/17 1202 01/04/17 0600 Results 24 hrs Laboratory Tests Test 01/03/17 17:02 01/03/17 18:03 01/03/17 22:10 01/04/17 00:42 Bedside Glucose 190 200 Hemoglobin 8.3 L 7.9 L Hematocrit 26.3 L 25.1 L Test 01/04/17 00:45 01/04/17 05:43 01/04/17 06:00 01/04/17 08:53 Bedside Glucose 145 179 187 White Blood Count 9.6 # Red Blood Count 3.45 L Hemoglobin 7.7 L Hematocrit 25.1 L Mean Corpuscular Volume 72.8 L Mean Corpuscular Hemoglobin 22.3 L Mean Corpuscular Hemoglobin Concent 30.7 L Red Cell Distribution Width 22.3 H Platelet Count 340 Mean Platelet Volume 8.8 Neutrophils % 85.8 H Lymphocytes % 7.9 L Monocytes % 5.4 Eosinophils % 0.0 Basophils % 0.1 Nucleated Red Blood Cells % 0.0 Neutrophils # 8.2 H Lymphocytes # 0.8 Monocytes # 0.5 Eosinophils # 0.0 Basophils # 0.0 Nucleated Red Blood Cells # 0.0 Sodium Level 137 Potassium Level 4.6 Chloride Level 108 Carbon Dioxide Level 25 Anion Gap 9 Blood Urea Nitrogen 9 Creatinine 0.67 Glucose Level 168 Hemoglobin A1c 5.4 Calcium Level 8.6 Test 01/04/17 12:02 Hemoglobin 8.1 L Hematocrit 25.6 L Medications Medications Current Medications Dextrose/Sodium Chloride (D5-1/2ns) 1,000 ml @ 100 mls/hr Q10H IV Last administered on 01/04/17 02:09; Admin Dose 100 MLS/HR; Start 01/01/17 at 23: 31 Ondansetron HCl (Zofran Inj) 4 mg Q6H PRN IV NAUSEA AND/OR VOMITING Last administered on 01/02/17 01:44; Admin Dose 4 MG; Start 01/02/17 at 00:00 Acetaminophen (Tylenol Liquid) 650 mg Q6H PRN PO PAIN LEVEL 1-3 OR FEVER; Start 01/02/17 at 00:00 Acetaminophen 650 mg 650 mg Q4H PRN [place] PAIN LEVEL 1-3 OR FEVER; Start at 00:00 Fentanyl 100 ml @ 2.5 mls/hr TITRATE IV Last administered on 01/04/17 00:33 ; Admin Dose 8 MLS/HR; Start 01/02/17 at 01:30 Midazolam HCl 50 ml @ 1 mls/hr TITRATE IV Last administered on 01/04/17 07:25 ; Admin Dose 9 MLS/HR; Start 01/02/17 at 01:30 Propofol 100 ml @ 2.045 mls/ hr Q12H IV Last administered on 01/04/17 07:18 ; Admin Dose 20.454 MLS/HR; Start 01/02/17 at 02:30 Cefepime HCl (Maxipime 1gm/50 ml (Pmx)) 50 ml @ 100 mls/hr Q12 IVPB Last administered on 01/04/17 08:55; Admin Dose 100 MLS/HR; Start 01/02/17 at 09: 00 Diagnostic Test (Pha) (Accu-Chek) 1 ea 02 XX Last administered on 01/04/17 02 :09; Admin Dose 1 EA; Start 01/03/17 at 02:00 Insulin Aspart (Novolog Insulin Pen) NOVOLOG *MILD* ALGORI... Q4 SC Last administered on 01/04/17 08:57; Admin Dose 2 UNIT; Start 01/02/17 at 13:00 Miscellaneous Information 1 ea NOTE XX ; Start 01/02/17 at 11:30 Glucose (Glutose) 15 gm Q15M PRN PO DECREASED GLUCOSE; Start 01/02/17 at 11:30 Glucose (Glutose) 22.5 gm Q15M PRN PO DECREASED GLUCOSE; Start 01/02/17 at 11: 30 Dextrose (D50w Syringe) 25 ml Q15M PRN IV DECREASED GLUCOSE; Start 01/02/17 at 11:30 Dextrose (D50w Syringe) 50 ml Q15M PRN IV DECREASED GLUCOSE; Start 01/02/17 at 11:30 Glucagon (Glucagen) 1 mg Q15M PRN IM DECREASED GLUCOSE; Start 01/02/17 at 11: 30 Glucose (Glutose) 15 gm Q15M PRN BUCCAL DECREASED GLUCOSE; Start 01/02/17 at 11:30 Pantoprazole (Protonix Iv) 40 mg DAILY@06 IV Last administered on 01/04/17 05 :47; Admin Dose 40 MG; Start 01/03/17 at 06:00 Miscellaneous Information (Pending [facility] Order For Wound Care) This patient morley... PRN PRN XX WOUND CARE; Start 01/03/17 at 06:00 Methylprednisolone Sodium Succinate 40 mg 40 mg Q6 IV Last administered on 12:52; Admin Dose 40 MG; Start 01/03/17 at 12:00 Vancomycin HCl 1.25 gm/Sodium Chloride 250 ml @ 83.333 mls/ hr Q12H IVPB ; Start 01/04/17 at 22:00 Fluconazole/ Sodium Chloride (Diflucan 100 Mg/ NS (Pmx)) 50 ml @ 50 mls/hr Q24H IVPB Last administered on 01/04/17 12:55; Admin Dose 50 MLS/HR; Start at 13:00 Trimethoprim/ Sulfamethoxazole (Bactrim (Ds)) 1 tab DAILY GTB Last administered on 01/04/17t 12:55; Admin Dose 1 TAB; Start 01/04/17 at 13:00 JORDAN HAHN Jan 04, 2017 13:12
[2017-01-04] MEDS ORDERED: [UNRECOGNIZED DRUG - OTHER] PO SCH (14:00)
[2017-01-04] MEDS: [UNRECOGNIZED DRUG - REMARK] XX SCH ×2 (14:00→20:00)
[2017-01-04] MEDS ORDERED: SPECIAL NON-STANDARD MEDICATION NGT SCH (14:00)
--- NOTE | 2017-01-04 17:24 | PN ---
Date/Time of Note Date/Time of Note DATE: 01/04/17 TIME: 17:21 Assessment/Plan VTE Prophylaxis VTE Prophylaxis Intervention: SCD's Lines/Catheters IV [facility] Peripheral IV Assessment/Plan Chief Complaint/Hosp Course 1. Bilateral pneumothoraces - s/p bilateral chest tube placement with resolution of pneumothoraces -Pulmonary consult appreciated -CT surgery has adjusted the chest tubes 2. Acute hypoxic respiratory failure, secondary to above, s/p intubation -Continue vent support 3. Sepsis, as evidenced by leukocytosis and tachycardia, secondary to right foot wound/infection -IV antibiotic -Follow-up culture results -ID consult appreciated 4. Kaposi's sarcoma of right lower extremity -Continue HIV medications -Oncology consult 5. History of HIV-patient has AIDS based on CD4 level -CD4 level at 69, follow-up on viral load -ID consultation appreciated, patient resumed on HIV medications 6. Microcytic anemia secondary to anemia of chronic disease-improved with 2 units of packed red blood cells -Follow-up on stool occult blood to rule out GI bleed, there is no evidence of GI bleed at this time -GI consultation appreciated Prophylaxis: SCDs Problems: Subjective 24 Hr Interval Summary Subjective hx not possible: pt non-verbal Exam/Review of Systems Vital Signs Vitals Vital Signs Date Time Temp Pulse Resp B/P Pulse Ox O2 Delivery O2 Flow Rate FiO2 01/04/17 16:00 80 01/04/17 14:50 20 100 35 01/04/17 12:00 97.9 92/50 01/04/17 07:00 Mechanical Ventilator 01/01/17 23:59 15.0 Intake and Output 01/03/17 01/03/17 01/04/17 15:00 23:00 07:00 Intake Total 1009.6 ml 708.816 ml 1248.631 ml Output Total 825 ml 595 ml 525 ml Balance 184.6 ml 113.816 ml 723.631 ml Exam Constitutional: non-verbal ENMT: intubated Respiratory: clear to auscultation Cardiovascular: regular rate and rhythm Gastrointestinal: soft, No distended Musculoskeletal: nl extremities to inspection Results Result Diagram: 01/04/17 1202 01/04/17 0600 Results 24 hrs Laboratory Tests Test 01/03/17 18:03 01/03/17 22:10 01/04/17 00:42 01/04/17 00:45 Hemoglobin 8.3 L 7.9 L Hematocrit 26.3 L 25.1 L Bedside Glucose 200 145 Test 01/04/17 05:43 01/04/17 06:00 01/04/17 08:53 01/04/17 12:02 Bedside Glucose 179 187 White Blood Count 9.6 # Red Blood Count 3.45 L Hemoglobin 7.7 L 8.1 L Hematocrit 25.1 L 25.6 L Mean Corpuscular Volume 72.8 L Mean Corpuscular Hemoglobin 22.3 L Mean Corpuscular Hemoglobin Concent 30.7 L Red Cell Distribution Width 22.3 H Platelet Count 340 Mean Platelet Volume 8.8 Neutrophils % 85.8 H Lymphocytes % 7.9 L Monocytes % 5.4 Eosinophils % 0.0 Basophils % 0.1 Nucleated Red Blood Cells % 0.0 Neutrophils # 8.2 H Lymphocytes # 0.8 Monocytes # 0.5 Eosinophils # 0.0 Basophils # 0.0 Nucleated Red Blood Cells # 0.0 Sodium Level 137 Potassium Level 4.6 Chloride Level 108 Carbon Dioxide Level 25 Anion Gap 9 Blood Urea Nitrogen 9 Creatinine 0.67 Glucose Level 168 Hemoglobin A1c 5.4 Calcium Level 8.6 Test 01/04/17 12:51 Bedside Glucose 86 Medications Medications Current Medications Dextrose/Sodium Chloride (D5-1/2ns) 1,000 ml @ 100 mls/hr Q10H IV Last administered on 01/04/17 02:09; Admin Dose 100 MLS/HR; Start 01/01/17 at 23: 31 Ondansetron HCl (Zofran Inj) 4 mg Q6H PRN IV NAUSEA AND/OR VOMITING Last administered on 01/02/17 01:44; Admin Dose 4 MG; Start 01/02/17 at 00:00 Acetaminophen (Tylenol Liquid) 650 mg Q6H PRN PO PAIN LEVEL 1-3 OR FEVER; Start 01/02/17 at 00:00 Acetaminophen 650 mg 650 mg Q4H PRN [place] PAIN LEVEL 1-3 OR FEVER; Start at 00:00 Fentanyl 100 ml @ 2.5 mls/hr TITRATE IV Last administered on 01/04/17 13:31 ; Admin Dose 10 MLS/HR; Start 01/02/17 at 01:30 Midazolam HCl 50 ml @ 1 mls/hr TITRATE IV Last administered on 01/04/17 13:32 ; Admin Dose 10 MLS/HR; Start 01/02/17 at 01:30 Propofol 100 ml @ 2.045 mls/ hr Q12H IV Last administered on 01/04/17 16:29 ; Admin Dose 20.454 MLS/HR; Start 01/02/17 at 02:30 Cefepime HCl (Maxipime 1gm/50 ml (Pmx)) 50 ml @ 100 mls/hr Q12 IVPB Last administered on 01/04/17 08:55; Admin Dose 100 MLS/HR; Start 01/02/17 at 09: 00 Diagnostic Test (Pha) (Accu-Chek) 1 ea 02 XX Last administered on 01/04/17 02 :09; Admin Dose 1 EA; Start 01/03/17 at 02:00 Insulin Aspart (Novolog Insulin Pen) NOVOLOG *MILD* ALGORI... Q4 SC Last administered on 01/04/17 08:57; Admin Dose 2 UNIT; Start 01/02/17 at 13:00 Miscellaneous Information 1 ea NOTE XX ; Start 01/02/17 at 11:30 Glucose (Glutose) 15 gm Q15M PRN PO DECREASED GLUCOSE; Start 01/02/17 at 11:30 Glucose (Glutose) 22.5 gm Q15M PRN PO DECREASED GLUCOSE; Start 01/02/17 at 11: 30 Dextrose (D50w Syringe) 25 ml Q15M PRN IV DECREASED GLUCOSE; Start 01/02/17 at 11:30 Dextrose (D50w Syringe) 50 ml Q15M PRN IV DECREASED GLUCOSE; Start 01/02/17 at 11:30 Glucagon (Glucagen) 1 mg Q15M PRN IM DECREASED GLUCOSE; Start 01/02/17 at 11: 30 Glucose (Glutose) 15 gm Q15M PRN BUCCAL DECREASED GLUCOSE; Start 01/02/17 at 11:30 Pantoprazole (Protonix Iv) 40 mg DAILY@06 IV Last administered on 01/04/17 05 :47; Admin Dose 40 MG; Start 01/03/17 at 06:00 Miscellaneous Information (Pending [facility] Order For Wound Care) This patient morley... PRN PRN XX WOUND CARE; Start 01/03/17 at 06:00 Methylprednisolone Sodium Succinate 40 mg 40 mg Q6 IV Last administered on 12:52; Admin Dose 40 MG; Start 01/03/17 at 12:00 Vancomycin HCl 1.25 gm/Sodium Chloride 250 ml @ 83.333 mls/ hr Q12H IVPB ; Start 01/04/17 at 22:00 Fluconazole/ Sodium Chloride (Diflucan 100 Mg/ NS (Pmx)) 50 ml @ 50 mls/hr Q24H IVPB Last administered on 01/04/17 12:55; Admin Dose 50 MLS/HR; Start at 13:00 Trimethoprim/ Sulfamethoxazole (Bactrim (Ds)) 1 tab DAILY GTB Last administered on 01/04/17 12:55; Admin Dose 1 TAB; Start 01/04/17 at 13:00 Morphine Sulfate (morphine) 2 mg Q3 PRN IV pain; Start 01/04/17 at 14:00 Miscellaneous Information (*Order Clarification Bulletin) MEDICATION REQUIRES CLARIFICATION: Q6H XX Last administered on 01/04/17 14:00; Admin Dose 1 EA; Start 01/04/17 at 14:00 Non-Formulary Medication 2 ea BID PO ; Start 01/04/17 at 21:00 Non-Formulary Medication 1 ea DAILY PO ; Start 01/05/17 at 09:00 ALBERT NGUYỄN Jan 04, 2017 17:24
[2017-01-04] MEDS: morphine 2 MG INJ IV PRN (21:02)
[2017-01-04] MEDS: VIRACEPT PO SCH (21:13)
[2017-01-04] MEDS: VANCOMYCIN 1.25 GM in SOD CHLORIDE 0.9% 250 ML IVPB SCH (22:38)
[2017-01-05] VITALS (43 sets, daily range): BP systolic 102–142; BP diastolic 7–74; PULSE 81–110; RESP 12–41
[2017-01-05] MEDS: MIDAZOLAM (DRIP) 50 mg/50 mL 50 ML IV SCH ×2 (01:36→06:00)
[2017-01-05] MEDS: ACCU-CHEK XX SCH (01:48)
[2017-01-05 01:51] LABS: HEMOGLOBIN 8.9 g/dl (14.0-18.0)
[2017-01-05] MEDS: [UNRECOGNIZED DRUG - REMARK] XX SCH ×3 (02:00→14:26)
[2017-01-05] MEDS: PROPOFOL 100 ML IV SCH (04:27)
[2017-01-05] MEDS: PANTOPRAZOLE 40 MG INJ IV SCH (06:00)
[2017-01-05] MEDS: METHYLPREDNISOLONE 40 MG INJ IV SCH ×4 (06:00→23:22)
[2017-01-05] MEDS: DEXTROSE 5%-0.45% NACL 1,000 ML IV SCH ×2 (06:17→17:40)
[2017-01-05 06:59] LABS: ABNORMAL IP MESSAGE 1; BASOPHILS % 0.2 % (0.0-2.0); HEMOGLOBIN 8.6 g/dl (14.0-18.0); LYMPHOCYTES # 0.8 10^3/ul (0.8-2.9); LYMPHOCYTES % 6.3 % (15.0-51.0); MEAN CORPUSCULAR HEMOGLOBIN 23.8 pg (29.0-33.0); MEAN CORPUSCULAR HGB CONC 31.9 g/dl (32.0-37.0); MEAN CORPUSCULAR VOLUME 74.8 fl (82.0-101.0); MEAN PLATELET VOLUME 8.7 fl (7.4-10.4); MONOCYTE # 0.6 10^3/ul (0.3-0.9); MONOCYTES % 4.9 % (0.0-11.0); NEUTROPHIL # 11.4 10^3/ul (1.6-7.5); NEUTROPHILS % 87.6 % (39.0-77.0); NUCLEATED RED BLOOD CELLS% 0.2 /100WBC (0.0-0.0); PLATELET COUNT 354 10^3/UL (140-415); POSITIVE DIFF @See below; RED BLOOD COUNT 3.61 10^6/ul (4.70-6.10); RED CELL DISTRIBUTION WIDTH 22.4 % (11.5-14.5)
[2017-01-05 07:08] LABS: CALCIUM 8.2 mg/dl (8.4-10.2); CREATININE 0.72 mg/dl (0.61-1.24); POTASSIUM 4.3 mmol/L (3.5-5.1)
[2017-01-05] MEDS: FENTAnyl (DRIP) 1000 mcg/100mL 100 ML IV SCH (09:16)
--- NOTE | 2017-01-05 09:22 | RADRPT ---
PROCEDURE: Chest x-ray CLINICAL INDICATION: Pneumothorax TECHNIQUE: Chest single view COMPARISON: 01/04/2017 FINDINGS: Endotracheal tube, nasogastric tube and right subclavian venous line remain in good position. There is interval placement of a new left-sided chest tube patchy atelectasis and consolidation is noted t hroughout both lungs. IMPRESSION: 1. Endotracheal tube, nasogastric tube and right subclavian venous line remain in good position. 2. Interval placement of left-sided chest tube with near complete resolution of the left pneumothor ax. A tiny sub pulmonic component remain. 3. Right-sided chest tube remains in place. There is stable small right apical pneumothorax. 4. Persistent bilateral patchy atelectasis/infiltrate RPTAT: HH .Warren Caba MD, Date Time Electronically viewed and signed by .Warren Caba MD, on 01/05/2017 09:22 .W/
--- NOTE | 2017-01-05 09:27 | CONS ---
Date/Time of Note Date/Time of Note DATE: 01/05/17 TIME: 09:24 Consult Date/Type/Reason Admit Date/Time Jan 01, 2017 at 21:48 Initial Consult Date 01/02/17 Type of Consultation: Pulmonary Subjective Remains hemodynamically stable. Left chest tube repositioned last night. Repeat chest x-ray this morning shows good placement with no pneumothorax. Patient remains agitated this morning. Objective Vital Signs Date Time Temp Pulse Resp B/P Pulse Ox O2 Delivery O2 Flow Rate FiO2 01/05/17 08:00 82 01/05/17 07:55 22 100 35 01/05/17 05:00 109/56 Mechanical Ventilator 01/05/17 04:00 97.8 01/01/17 23:59 15.0 Intake and Output 01/04/17 01/04/17 01/05/17 15:00 23:00 07:00 Intake Total 1096.2 ml 1332.924 ml 926.952 ml Output Total 785 ml 2790 ml 955 ml Balance 311.2 ml -1457.076 ml -28.048 ml Exam PHYSICAL EXAMINATION GENERAL: A chronically ill-appearing -[place] gentleman agitated on mechanical ventilation VITAL SIGNS: see below. HEENT: Pupils equal, round, and reactive to light. Dry mucous membranes CARDIAC: S1, S2, 1/6 systolic ejection murmur CHEST: Diminished air entry bilaterally. Bilateral chest tubes in place to suction ABDOMEN: Mildly distended. Bowel sounds present no guarding or rebound EXTREMITIES: No cyanosis, clubbing edema +1 NEUROLOGIC: Generalized weakness Results/Medications Result Diagram: 01/05/17 0530 01/05/17 0530 Results 24 hrs Chest x-ray Resolved left pneumothorax chest tubes in place. Laboratory Tests Test 01/04/17 12:02 01/04/17 12:51 01/04/17 21:06 01/05/17 01:40 Hemoglobin 8.1 L 8.9 L Hematocrit 25.6 L 28.0 L Bedside Glucose 86 155 Test 01/05/17 05:30 01/05/17 05:35 White Blood Count 13.0 #H Red Blood Count 3.61 L Hemoglobin 8.6 L Hematocrit 27.0 L Mean Corpuscular Volume 74.8 L Mean Corpuscular Hemoglobin 23.8 L Mean Corpuscular Hemoglobin Concent 31.9 L Red Cell Distribution Width 22.4 H Platelet Count 354 Mean Platelet Volume 8.7 Neutrophils % 87.6 H Lymphocytes % 6.3 L Monocytes % 4.9 Eosinophils % 0.0 Basophils % 0.2 Nucleated Red Blood Cells % 0.2 H Neutrophils # 11.4 H Lymphocytes # 0.8 Monocytes # 0.6 Eosinophils # 0.0 Basophils # 0.0 Nucleated Red Blood Cells # 0.0 Sodium Level 139 Potassium Level 4.3 Chloride Level 109 Carbon Dioxide Level 26 Anion Gap 8 Blood Urea Nitrogen 13 Creatinine 0.72 Glucose Level 179 Calcium Level 8.2 L Lab Scanned Report BLOOD TRANSFUSION Medications Current Medications Dextrose/Sodium Chloride (D5-1/2ns) 1,000 ml @ 100 mls/hr Q10H IV Last administered on 01/05/17 06:17; Admin Dose 100 MLS/HR; Start 01/01/17 at 23: 31 Ondansetron HCl (Zofran Inj) 4 mg Q6H PRN IV NAUSEA AND/OR VOMITING Last administered on 01/02/17 01:44; Admin Dose 4 MG; Start 01/02/17 at 00:00 Acetaminophen (Tylenol Liquid) 650 mg Q6H PRN PO PAIN LEVEL 1-3 OR FEVER; Start 01/02/17 at 00:00 Acetaminophen 650 mg 650 mg Q4H PRN [place] PAIN LEVEL 1-3 OR FEVER; Start at 00:00 Fentanyl 100 ml @ 2.5 mls/hr TITRATE IV Last administered on 01/05/17 09:16 ; Admin Dose 5 MLS/HR; Start 01/02/17 at 01:30 Midazolam HCl 50 ml @ 1 mls/hr TITRATE IV Last administered on 01/05/17 06:00 ; Admin Dose 8 MLS/HR; Start 01/02/17 at 01:30 Propofol 100 ml @ 2.045 mls/ hr Q12H IV Last administered on 01/05/17 04:27 ; Admin Dose 20.454 MLS/HR; Start 01/02/17 at 02:30 Cefepime HCl (Maxipime 1gm/50 ml (Pmx)) 50 ml @ 100 mls/hr Q12 IVPB Last administered on 01/04/17 21:14; Admin Dose 100 MLS/HR; Start 01/02/17 at 09: 00 Diagnostic Test (Pha) (Accu-Chek) 1 ea 02 XX Last administered on 01/04/17 02 :09; Admin Dose 1 EA; Start 01/03/17 at 02:00 Miscellaneous Information 1 ea NOTE XX ; Start 01/02/17 at 11:30 Dextrose (D50w Syringe) 25 ml Q15M PRN IV DECREASED GLUCOSE; Start 01/02/17 at 11:30 Pantoprazole (Protonix Iv) 40 mg DAILY@06 IV Last administered on 01/05/17 06 :00; Admin Dose 40 MG; Start 01/03/17 at 06:00 Miscellaneous Information (Pending Santyl Order For Wound Care) This patient morley... PRN PRN XX WOUND CARE; Start 01/03/17 at 06:00 Methylprednisolone Sodium Succinate 40 mg 40 mg Q6 IV Last administered on 06:00; Admin Dose 40 MG; Start 01/03/17 at 12:00 Vancomycin HCl 1.25 gm/Sodium Chloride 250 ml @ 83.333 mls/ hr Q12H IVPB Last administered on 01/04/17 22:38; Admin Dose 83.333 MLS/HR; Start 01/04/17 at 22:00 Fluconazole/ Sodium Chloride (Diflucan 100 Mg/ NS (Pmx)) 50 ml @ 50 mls/hr Q24H IVPB Last administered on 01/04/17 12:55; Admin Dose 50 MLS/HR; Start at 13:00 Trimethoprim/ Sulfamethoxazole (Bactrim (Ds)) 1 tab DAILY GTB Last administered on 01/04/17 12:55; Admin Dose 1 TAB; Start 01/04/17 at 13:00 Morphine Sulfate (morphine) 2 mg Q3 PRN IV pain Last administered on 21:02; Admin Dose 2 MG; Start 01/04/17 at 14:00 Miscellaneous Information (*Order Clarification Bulletin) MEDICATION REQUIRES CLARIFICATION: Q6H XX Last administered on 01/04/17 14:00; Admin Dose 1 EA; Start 01/04/17 at 14:00 Non-Formulary Medication 2 ea BID PO Last administered on 01/04/17 21:13; Admin Dose 2 EA; Start 01/04/17 at 21:00 Non-Formulary Medication 1 ea DAILY PO ; Start 01/05/17 at 09:00 Assessment/Plan Chief Complaint/Hosp Course Assessment 1. Hypoxemic respiratory failure 2. History of HIV 3. Likely pneumocystis pneumonia with bilateral pneumothoraces. Chest tubes in place. 4. Delirium. Plan 1. CPAP weaning trial hopefully safely extubate 2. Continue pain control and sedatives. 3. Continue chest tube to suction 4. DVT GI prophylaxis 5. ID recommendations Disposition continue ICU care Ventilator setting; AC of 14, tidal volume 500, PEEP of 5, 35% FiO2. Chest x-ray was reviewed from today which is showing increasing left pneumothorax which is loculated in the left lower lobe.. Chest tube appears to be out of the pleural cavity. Patient is currently on propofol 50 mics per kilogram per minute, Versed 9 mg/h , fentanyl 50 mics per hour. Assessment and recommendations; 1. Patient admitted with shortness of breath with bilateral pneumothoraces likely from underlying COPD/asthma. 2. 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 3. Anemia. 4. Patient requiring high-dose sedation and is unable to handle any sedation vacation at this point. Decrease PEEP to 0. Left side chest tube needs to be repositioned. Obtain MRI of the brain. Continue current antibiotics and other supportive measures. 35 minutes of critical care time was spent evaluating the patient. Problems: DANI LOPEZ MD, [facility] Jan 05, 2017 09:27
[2017-01-05] MEDS: TRIUMEQ PO SCH (09:31)
[2017-01-05] MEDS: CEFEPIME 1GM/50 ML (PMX) 50 ML IVPB SCH (09:31)
[2017-01-05] MEDS: TRIMETHOPRIM/SULFAMETHOX (DS) TAB GTB SCH (09:31)
[2017-01-05] MEDS: VIRACEPT PO SCH ×2 (09:31→20:19)
[2017-01-05 11:57] LABS: AADO2 Arterial 93.4 mmHg (7.0-24.0); Allen Test ACCEPTAB; Arterial Base Excess -1.4 mmol/L (-3.0-3); Arterial COHb 0.3 % (0.0-3.0); Arterial Fraction of Oxyhgb 95.3 % (93.0-99.0); Arterial HCO3 22.1 mmol/L (22.0-26.0); Arterial MetHb 0.3 % (0.0-1.5); Arterial Total Hemglobin 11.1 g/dl (12.0-18.0); Blood Gas PS 10; MODE VENT - CPAP/PS
[2017-01-05] MEDS: VANCOMYCIN 1.25 GM in SOD CHLORIDE 0.9% 250 ML IVPB SCH (12:39)
[2017-01-05] MEDS: ALBUTEROL 0.083% (NEB) 2.5 MG/3 ML AMP HHN SCH ×2 (12:58→20:36)
[2017-01-05] MEDS ORDERED: ALBUTEROL 0.083% (NEB) 2.5 MG/3 ML AMP HHN PRN (13:00)
[2017-01-05] MEDS: PIPER-TAZO 3.375 GM IV (PMX) 100 ML IVPB SCH ×2 (13:48→21:18)
[2017-01-05] MEDS: FLUCONAZOLE 100 MG/NS (PMX) 50 ML IVPB SCH (14:25)
[2017-01-05] MEDS: AZITHROMYCIN 600 MG TAB PO SCH (14:25)
[2017-01-05] MEDS: TRIMETHOPRIM/SULFAMETHOXAZOLE 20 ML in DEXTROSE 5% 500 ML IVPB SCH ×2 (14:26→22:19)
--- NOTE | 2017-01-05 14:47 | PN ---
DATE: 01/05/2017 SUBJECTIVE: No events overnight per RN. The patient is awake, restless, currently on CPAP. He is in no distress. VITAL SIGNS: Temperature 97.8, pulse 97, respirations 23, blood pressure 130/70, saturation 100 on 35 FIO2. WBC 13, H and H 8.6 and 27, platelets 354, neutrophils 87.6, BUN 13, creatinine 0.72. ABNER ROBIOLOGY: Right lower extremity wound culture grew Proteus mirabilis, E. coli and enterococcus spe cies. INDWELLINGS: Endotracheal tube, NG tube. Bilateral chest tube, Bailey catheter, right chest triple- lumen catheter. ANTIMICROBIALS: The patient is on 1. Vancomycin. 2. Fluconazole. 3. Bactrim daily for PCP prophylaxis. 4. Cefepime. DIAGNOSTICS: Chest x-ray this morning revealed near complete resolution of left pneumothorax and st able small right apical pneumothoraces, persistent bilateral patchy atelectasis/infiltrates. PHYSICAL EXAMINATION: GENERAL: This is a well-developed, middle-aged man who is awake, in no distress. HEENT: Head atraumatic, normocephalic. Sclerae anicteric. Buccal mucosa dry. NECK: Supple. CHEST: Rise symmetrical. Breath sounds diminished to bases. HEART: S1, S2. ABDOMEN: Soft, bowel sounds present. EXTREMITIES: With right lower extremity dressing with drainage. SKIN: No jaundice, no cyanosis. ASSESSMENT: 1. Acute hypoxemic respiratory failure. 2. Acquired immunodeficiency syndrome. 3. Pneumonia, possibly pneumocystis. 4. 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 5. Chronic obstructive pulmonary disease. 6. Anemia. 7. Bilateral pneumothorax, status post chest tube placement. PLAN: 1. The patient is hemodynamically stable. We are going to change Bactrim to IV, discontinue vancom ycin and start the patient on IV ampicillin. 2. We will continue him on Cefepime, fluconazole and add Zithromax weekly. 3. Send sputum for Pneumocystis carinii pneumonia by direct fluorescent antibody and cultures. C ontinue local wound care. Follow recommendations of consultants. Monitor renal function closely. Dictated By: ANDREY ENCINAS PAINT [employer]OTH OPERATOR for [employer] CH[employer] MD NI/NTS Conf#: [id number] DID#: [id number]
--- NOTE | 2017-01-05 15:00 | PN ---
Date/Time of Note Date/Time of Note DATE: 01/05/17 TIME: 14:57 Assessment/Plan VTE Prophylaxis VTE Prophylaxis Intervention: LMWH Lines/Catheters IV Catheter Type (from Nrs): Saline Lock Central line still needed: Yes Urinary Cath still in place: Yes Reason Cath still needed: urinary retention Assessment/Plan Chief Complaint/Hosp Course 56 yo male wtih HIV/AIDS, [place] of leg, COPD, who presentd with bilateral pneumothoraces causing acute respiratory failure Pneumothorax: - Chest tube and intubation managemetn per pulm and CV surgery AIDS/HIV: - ARVs - PPx with bactrim, fluc, azithro Cellulitis: - Cefepime/vanco Kaposi sarcoma DMII: - basal/bolus insulin Critial care time > 35 min Problems: Subjective 24 Hr Interval Summary Free Text/Dictation Intubated, was on CPAP trial this AM, seemed to be doing well L chest tube in placed Exam/Review of Systems Vital Signs Vitals Vital Signs Date Time Temp Pulse Resp B/P Pulse Ox O2 Delivery O2 Flow Rate FiO2 01/05/17 14:00 106 23 125/62 100 01/05/17 13:00 Nasal Cannula 01/05/17 12:58 3.0 01/05/17 12:00 98.0 01/05/17 09:27 35 Intake and Output 01/04/17 01/04/17 01/05/17 15:00 23:00 07:00 Intake Total 1096.2 ml 1332.924 ml 1026.952 ml Output Total 785 ml 2790 ml 1055 ml Balance 311.2 ml -1457.076 ml -28.048 ml Results Result Diagram: 01/05/17 0530 01/05/17 0530 Results 24 hrs Laboratory Tests Test 01/04/17 21:06 01/05/17 01:40 01/05/17 05:30 01/05/17 05:35 Bedside Glucose 155 Hemoglobin 8.9 L 8.6 L Hematocrit 28.0 L 27.0 L White Blood Count 13.0 #H Red Blood Count 3.61 L Mean Corpuscular Volume 74.8 L Mean Corpuscular Hemoglobin 23.8 L Mean Corpuscular Hemoglobin Concent 31.9 L Red Cell Distribution Width 22.4 H Platelet Count 354 Mean Platelet Volume 8.7 Neutrophils % 87.6 H Lymphocytes % 6.3 L Monocytes % 4.9 Eosinophils % 0.0 Basophils % 0.2 Nucleated Red Blood Cells % 0.2 H Neutrophils # 11.4 H Lymphocytes # 0.8 Monocytes # 0.6 Eosinophils # 0.0 Basophils # 0.0 Nucleated Red Blood Cells # 0.0 Sodium Level 139 Potassium Level 4.3 Chloride Level 109 Carbon Dioxide Level 26 Anion Gap 8 Blood Urea Nitrogen 13 Creatinine 0.72 Glucose Level 179 Calcium Level 8.2 L Lab Scanned Report BLOOD TRANSFUSION Test 01/05/17 11:30 Blood Gas Specimen Source Blood arterial Arterial Blood Date Drawn 01/05/2017 11:42:47 AM Arterial Blood pH (Temp corrected) 7.447 Arterial Blood pCO2 (Temp correct) 32.7 L Arterial Blood pO2 (Temp corrected) 82.1 Arterial Blood HCO3 22.1 Arterial Blood Base Excess -1.4 Arterial Blood Oxygen Saturation 95.9 [place] Test ACCEPTAB Arterial Blood Gas Puncture Site Left Radial Arterial Blood Carboxyhemoglobin 0.3 Arterial Blood Methemoglobin 0.3 Blood Gas A-a O2 Differential 93.4 H Oxyhemoglobin Percent 95.3 Total Hemoglobin 11.1 L Blood Gas Temperature 37.0 Blood Gas Actual Respiration Rate 15 Blood Gas Modality VENT - CPAP/PS FiO2 30.0 Blood Gas Pressure Support 10 Blood Gas Notified Whom [facility] Blood Gas Notified Time 01/05/2017 11:57:12 AM Medications Medications Current Medications Dextrose/Sodium Chloride (D5-1/2ns) 1,000 ml @ 100 mls/hr Q10H IV Last administered on 01/05/17 06:17; Admin Dose 100 MLS/HR; Start 01/01/17 at 23: 31 Ondansetron HCl (Zofran Inj) 4 mg Q6H PRN IV NAUSEA AND/OR VOMITING Last administered on 01/02/17 01:44; Admin Dose 4 MG; Start 01/02/17 at 00:00 Acetaminophen (Tylenol Liquid) 650 mg Q6H PRN PO PAIN LEVEL 1-3 OR FEVER; Start 01/02/17 at 00:00 Acetaminophen (Tylenol Supp) 650 mg Q4H PRN [place] PAIN LEVEL 1-3 OR FEVER; Start 01/02/17 at 00:00 Diagnostic Test (Pha) (Accu-Chek) 1 ea 02 XX Last administered on 01/04/17 02 :09; Admin Dose 1 EA; Start 01/03/17 at 02:00 Miscellaneous Information 1 ea NOTE XX ; Start 01/02/17 at 11:30 Dextrose (D50w Syringe) 25 ml Q15M PRN IV DECREASED GLUCOSE; Start 01/02/17 at 11:30 Pantoprazole (Protonix Iv) 40 mg DAILY@06 IV Last administered on 01/05/17 06 :00; Admin Dose 40 MG; Start 01/03/17 at 06:00 Miscellaneous Information (Pending Santyl Order For Wound Care) This patient morley... PRN PRN XX WOUND CARE; Start 01/03/17 at 06:00 Methylprednisolone Sodium Succinate 40 mg 40 mg Q6 IV Last administered on 12:38; Admin Dose 40 MG; Start 01/03/17 at 12:00 Fluconazole/ Sodium Chloride (Diflucan 100 Mg/ NS (Pmx)) 50 ml @ 50 mls/hr Q24H IVPB Last administered on 01/05/17 14:25; Admin Dose 50 MLS/HR; Start at 13:00 Morphine Sulfate (morphine) 2 mg Q3 PRN IV pain Last administered on 21:02; Admin Dose 2 MG; Start 01/04/17 at 14:00 Miscellaneous Information (*Order Clarification Bulletin) MEDICATION REQUIRES CLARIFICATION: Q6H XX Last administered on 01/05/17 14:26; Admin Dose 1 EA; Start 01/04/17 at 14:00 Non-Formulary Medication 2 ea BID PO Last administered on 01/05/17 09:31; Admin Dose 2 EA; Start 01/04/17 at 21:00 Non-Formulary Medication 1 ea 1 ea DAILY PO Last administered on 01/05/17 09: 31; Admin Dose 1 EA; Start 01/05/17 at 09:00 Trimethoprim/ Sulfamethoxazole 20 ml/Dextrose 520 ml @ 350 mls/hr Q8 IVPB Last administered on 01/05/17 14:26; Admin Dose 350 MLS/HR; Start 01/05/17 at 14:00 Piperacillin Sod/ Tazobactam Sod (Zosyn 3.375gm/ 100 ml (Pmx)) 100 ml @ 200 mls /hr Q8 IVPB Last administered on 01/05/17 13:48; Admin Dose 200 MLS/HR; Start 01/05/17 at 14:00 Azithromycin (Zithromax) 1,200 mg Q7D PO Last administered on 01/05/17 14:25 ; Admin Dose 1,200 MG; Start 01/05/17 at 13:00 Acyclovir (Zovirax) 400 mg BID PO ; Start 01/05/17 at 21:00 ALEX BULLARD MD Jan 05, 2017 15:00
[2017-01-05 15:03] LABS: HEMOGLOBIN 9.6 g/dl (14.0-18.0)
[2017-01-05] MEDS: morphine 2 MG INJ IV PRN ×3 (15:20→23:22)
--- NOTE | 2017-01-05 15:47 | OPR ---
DATE OF OPERATION: 01/04/2017 PREOPERATIVE DIAGNOSIS: Left pneumothorax. POSTOPERATIVE DIAGNOSIS: Left pneumothorax. OPERATION PERFORMED: Left chest tube placement. SURGEON: Janie Rogel MD ANESTHESIA: Local. CONSENT: Risks, benefits, complications, alternative therapies explained to the patient and the [facility], consent obtained. OPERATIVE TECHNIQUE: The patient was placed in supine position, prepped and draped in usual sterile fashion, 1% lidocaine was used throughout the operation for local anesthesia. A timeout was called . I made the previous chest incision larger. Access was gained into the pleural cavity. A 28 Fren ch chest tube was advanced into the pleural cavity, secured to skin using silk sutures. Patient ariel erated the procedure well. Dictated By: JANIE RUIZ/MELANIE Conf#: [id number] DID#: [id number]
--- NOTE | 2017-01-05 18:53 | PN ---
Date/Time of Note Date/Time of Note DATE: 01/05/17 TIME: 18:52 Assessment/Plan Lines/Catheters IV Catheter Type (from Nrsg): Central Line Bailey in Place (from Nrsg): Yes Assessment/Plan Chief Complaint/Hosp Course Bilateral PTX with air leaks SP BL CT placement will continue CT sxn will check CXR Problems: Subjective 24 Hr Interval Summary Constitutional: improved Pain Control: mild Exam/Review of Systems Vital Signs Vitals Vital Signs Date Time Temp Pulse Resp B/P Pulse Ox O2 Delivery O2 Flow Rate FiO2 01/05/17 18:07 100 2.0 01/05/17 18:00 100 23 128/68 Nasal Cannula 01/05/17 17:00 98.7 01/05/17 09:27 35 Intake and Output 01/04/17 01/04/17 01/05/17 14:59 22:59 06:59 Intake Total 955.8 ml 1334.870 ml 1065.406 ml Output Total 810 ml 2690 ml 1105 ml Balance 145.8 ml -1355.130 ml -39.594 ml Exam Neck: non-tender, supple Respiratory: clear to auscultation, normal air movement Cardiovascular: nl pulses, regular rate and rhythm Gastrointestinal: nl liver, spleen, non-tender, soft Results Result Diagram: 01/05/17 1442 01/05/17 0530 JANIE BASILIO MD Jan 05, 2017 18:53
[2017-01-05] MEDS: ACYCLOVIR 400 MG TAB PO SCH (20:19)
[2017-01-05] MEDS: ACETAMINOPHEN 650MG/20.3ML CUP PO PRN (21:14)
[2017-01-06] VITALS (27 sets, daily range): BP systolic 117–143; BP diastolic 48–67; PULSE 84–103; RESP 15–37
[2017-01-06 01:15] LABS: HEMATOCRIT 29.7 % (42.0-52.0); HEMOGLOBIN 9.3 g/dl (14.0-18.0)
[2017-01-06] MEDS: ACCU-CHEK XX SCH (02:00)
[2017-01-06] MEDS: ALBUTEROL 0.083% (NEB) 2.5 MG/3 ML AMP HHN SCH ×3 (02:40→20:37)
[2017-01-06] MEDS: morphine 2 MG INJ IV PRN ×5 (02:50→21:53)
[2017-01-06] MEDS: DEXTROSE 5%-0.45% NACL 1,000 ML IV SCH ×3 (03:31→23:41)
[2017-01-06 05:56] LABS: ABNORMAL IP MESSAGE 1; BASOPHILS % 0.1 % (0.0-2.0); HEMATOCRIT 26.2 % (42.0-52.0); HEMOGLOBIN 8.2 g/dl (14.0-18.0); LYMPHOCYTES # 1.1 10^3/ul (0.8-2.9); LYMPHOCYTES % 7.6 % (15.0-51.0); MEAN CORPUSCULAR HGB CONC 31.3 g/dl (32.0-37.0); MEAN CORPUSCULAR VOLUME 73.4 fl (82.0-101.0); MEAN PLATELET VOLUME 8.3 fl (7.4-10.4); MONOCYTE # 1.1 10^3/ul (0.3-0.9); MONOCYTES % 8.1 % (0.0-11.0); NEUTROPHIL # 11.7 10^3/ul (1.6-7.5); NEUTROPHILS % 83.1 % (39.0-77.0); NUCLEATED RED BLOOD CELLS% 0.3 /100WBC (0.0-0.0); PLATELET COUNT 304 10^3/UL (140-415); POSITIVE DIFF @See below; RED BLOOD COUNT 3.57 10^6/ul (4.70-6.10); RED CELL DISTRIBUTION WIDTH 22.8 % (11.5-14.5)
[2017-01-06] MEDS: TRIMETHOPRIM/SULFAMETHOXAZOLE 20 ML in DEXTROSE 5% 500 ML IVPB SCH ×3 (06:03→21:30)
[2017-01-06] MEDS: PIPER-TAZO 3.375 GM IV (PMX) 100 ML IVPB SCH ×3 (06:04→21:30)
[2017-01-06] MEDS: METHYLPREDNISOLONE 40 MG INJ IV SCH ×4 (06:04→23:47)
[2017-01-06] MEDS: PANTOPRAZOLE 40 MG INJ IV SCH (06:04)
[2017-01-06 06:46] LABS: CALCIUM 8.1 mg/dl (8.4-10.2); CREATININE 0.85 mg/dl (0.61-1.24); MAGNESIUM 2.1 mg/dl (1.7-2.5); PHOSPHORUS 3.1 mg/dl (2.5-4.9); POTASSIUM 3.5 mmol/L (3.5-5.1)
[2017-01-06 07:07] LABS: ABNORMAL IP MESSAGE 1; BASOPHILS % 0.1 % (0.0-2.0); HEMATOCRIT 29.3 % (42.0-52.0); HEMOGLOBIN 9.2 g/dl (14.0-18.0); LYMPHOCYTES % 7.4 % (15.0-51.0); MEAN CORPUSCULAR HEMOGLOBIN 23.1 pg (29.0-33.0); MEAN CORPUSCULAR HGB CONC 31.4 g/dl (32.0-37.0); MEAN CORPUSCULAR VOLUME 73.4 fl (82.0-101.0); MEAN PLATELET VOLUME 8.1 fl (7.4-10.4); MONOCYTE # 1.3 10^3/ul (0.3-0.9); MONOCYTES % 9.1 % (0.0-11.0); NEUTROPHIL # 11.6 10^3/ul (1.6-7.5); NEUTROPHILS % 82.3 % (39.0-77.0); NUCLEATED RED BLOOD CELLS # 0.1 10^3/ul (0.0-0.0); NUCLEATED RED BLOOD CELLS% 0.4 /100WBC (0.0-0.0); PLATELET COUNT 334 10^3/UL (140-415); POSITIVE DIFF @See below; RED BLOOD COUNT 3.99 10^6/ul (4.70-6.10); RED CELL DISTRIBUTION WIDTH 22.6 % (11.5-14.5); WHITE BLOOD COUNT 14.1 10^3/ul (4.8-10.8)
[2017-01-06] MEDS: [UNRECOGNIZED DRUG - REMARK] XX SCH ×2 (08:00→20:00)
[2017-01-06 08:53] LABS: AADO2 Arterial 110.8 mmHg (7.0-24.0); Allen Test ACCEPTAB; Arterial Base Excess -1.5 mmol/L (-3.0-3); Arterial COHb 0.3 % (0.0-3.0); Arterial Fraction of Oxyhgb 89.5 % (93.0-99.0); Arterial HCO3 20.8 mmol/L (22.0-26.0); Arterial MetHb 0.3 % (0.0-1.5); Arterial Total Hemglobin 9.4 g/dl (12.0-18.0); MODE NASAL CANNULA
--- NOTE | 2017-01-06 09:09 | RADRPT ---
PROCEDURE: XR Chest. CLINICAL INDICATION: Pneumonia, CHF TECHNIQUE: AP Portable chest. COMPARISON: CHEST 01/05/2017; CHEST 01/04/2017 FINDINGS: The endotracheal tube has been removed. NG tube, right central line and bilateral chest tubes remain in place. No pneumothorax is seen. The cardiomediastinal silhouette is markedly enlarged. Bilateral interstitial densities, nodular opacities, and small pleural effusions are similar in appearance. T he osseous structures are intact. IMPRESSION: Interval removal of the endotracheal tube. ET tube, right central line and bilateral chest tubes rem ain in place. No pneumothorax is seen. Bilateral interstitial infiltrates or edema , nodular opacities and small pleural effusions are unch anged. Physician Mandy Date Time Electronically viewed and signed by Jose Mccord Physician on 01/06/2017 09:08 /
[2017-01-06] MEDS: ACYCLOVIR 400 MG TAB PO SCH ×2 (09:38→20:24)
[2017-01-06] MEDS: TRIUMEQ PO SCH (09:38)
[2017-01-06] MEDS: VIRACEPT PO SCH ×2 (09:38→20:24)
--- NOTE | 2017-01-06 11:17 | CONS ---
Date/Time of Note Date/Time of Note DATE: 01/06/17 TIME: 11:15 Assessment/Plan Assessment/Plan Additional Assessment/Plan Chest x-ray was reviewed from today which is showing patchy bilateral infiltrates with a nodular pattern. Bilateral chest tubes are in place. No pneumothoraces on either side. Assessment and recommendations; 1. Patient admitted with sepsis and pneumonia with bilateral pneumothoraces possibly underlying PCP. 2. History of Kaposi's sarcoma involving right lower extremity. 3. Status post respiratory failure, patient extubated yesterday with marked overall clinical improvement. 4. Mild anemia. Continue current supportive care. Consultation Date/Type/Reason Admit Date/Time Jan 01, 2017 at 21:48 Initial Consult Date 01/02/17 Type of Consultation: Pulmonary 24 HR Interval Summary Free Text/Dictation Patient's condition is markedly improved. He was extubated yesterday and exhibiting excellent overall clinical status. Denies any shortness of breath, chest pain. General exam; middle-aged male, awake alert, currently in no distress. Exam/Review of Systems Vital Signs Vitals Vital Signs Date Time Temp Pulse Resp B/P Pulse Ox O2 Delivery O2 Flow Rate FiO2 01/06/17 09:00 100 20 117/48 94 Room Air 01/06/17 08:00 98.8 01/06/17 07:55 21 01/05/17 20:00 2.0 Intake and Output 01/05/17 01/05/17 01/06/17 15:00 23:00 07:00 Intake Total 980 ml 620 ml 1100 ml Output Total 1470 ml 1100 ml 560 ml Balance -490 ml -480 ml 540 ml Exam HEENT exam; supple neck, no JVD. No lymphadenopathy. Midline trachea. No thyromegaly. Pharynx is clear. Patient has fair dentition. No oral thrush. Pupils are midsize and reactive to light. Neck Chest exam; clear to auscultation. S1-S2 audible, no murmurs. Regular rhythm. Bilateral chest tubes are in place. Abdomen exam; soft, nontender. No organomegaly. Bowel sounds audible. Extremity exam; no peripheral edema involving upper and left lower extremities. Right lower extremity has 2+ edema with chronic skin changes consistent with history of Kaposi's sarcoma. BUNDLE BREAKER exam; no focal deficit. Results Result Diagram: 01/06/17 0625 01/06/17 0530 Results 24 hrs Laboratory Tests Test 01/05/17 11:30 01/05/17 14:42 01/05/17 16:02 01/06/17 01:02 Blood Gas Specimen Source Blood arterial Arterial Blood Date Drawn 01/05/2017 11:42:47 AM Arterial Blood pH (Temp corrected) 7.447 Arterial Blood pCO2 (Temp correct) 32.7 L Arterial Blood pO2 (Temp corrected) 82.1 Arterial Blood HCO3 22.1 Arterial Blood Base Excess -1.4 Arterial Blood Oxygen Saturation 95.9 Austin Test ACCEPTAB Arterial Blood Gas Puncture Site Left Radial Arterial Blood Carboxyhemoglobin 0.3 Arterial Blood Methemoglobin 0.3 Blood Gas A-a O2 Differential 93.4 H Oxyhemoglobin Percent 95.3 Total Hemoglobin 11.1 L Blood Gas Temperature 37.0 Blood Gas Actual Respiration Rate 15 Blood Gas Modality VENT - CPAP/PS FiO2 30.0 Blood Gas Pressure Support 10 Blood Gas Notified Whom AKA Blood Gas Notified Time 01/05/2017 11:57:12 AM Hemoglobin 9.6 L 9.3 L Hematocrit 30.0 L 29.7 L Stool Occult Blood NEGATIVE Test 01/06/17 01:43 01/06/17 05:30 01/06/17 06:25 01/06/17 07:00 Bedside Glucose 229 H White Blood Count 14.0 H 14.1 H Red Blood Count 3.57 L 3.99 L Hemoglobin 8.2 L 9.2 L Hematocrit 26.2 L 29.3 L Mean Corpuscular Volume 73.4 L 73.4 L Mean Corpuscular Hemoglobin 23.0 L 23.1 L Mean Corpuscular Hemoglobin Concent 31.3 L 31.4 L Red Cell Distribution Width 22.8 H 22.6 H Platelet Count 304 334 Mean Platelet Volume 8.3 8.1 Neutrophils % 83.1 H 82.3 H Lymphocytes % 7.6 L 7.4 L Monocytes % 8.1 9.1 Eosinophils % 0.0 0.0 Basophils % 0.1 0.1 Nucleated Red Blood Cells % 0.3 H 0.4 H Neutrophils # 11.7 H 11.6 H Lymphocytes # 1.1 1.0 Monocytes # 1.1 H 1.3 H Eosinophils # 0.0 0.0 Basophils # 0.0 0.0 Nucleated Red Blood Cells # 0.0 0.1 H Sodium Level 139 Potassium Level 3.5 Chloride Level 108 Carbon Dioxide Level 21 Anion Gap 14 Blood Urea Nitrogen 14 Creatinine 0.85 Glucose Level 163 Calcium Level 8.1 L Phosphorus Level 3.1 Magnesium Level 2.1 Blood Gas Specimen Source Blood arterial Arterial Blood Date Drawn 01/06/2017 8:45:12 AM Arterial Blood pH (Temp corrected) 7.509 H Arterial Blood pCO2 (Temp correct) 26.7 L Arterial Blood pO2 (Temp corrected) 57.3 L Arterial Blood HCO3 20.8 L Arterial Blood Base Excess -1.5 Arterial Blood Oxygen Saturation 90.0 L Austin Test ACCEPTAB Arterial Blood Gas Puncture Site Right Radial Arterial Blood Carboxyhemoglobin 0.3 Arterial Blood Methemoglobin 0.3 Blood Gas A-a O2 Differential 110.8 H Oxyhemoglobin Percent 89.5 L Total Hemoglobin 9.4 L Blood Gas Temperature 37.0 Blood Gas Modality NASAL CANNULA FiO2 28.0 Blood Gas Notified Whom CHATO DICKINSON Blood Gas Notified Time 01/06/2017 8:53:19 AM Medications Medications Current Medications Dextrose/Sodium Chloride (D5-1/2ns) 1,000 ml @ 100 mls/hr Q10H IV Last administered on 01/06/17 03:31; Admin Dose 100 MLS/HR; Start 01/01/17 at 23: 31 Ondansetron HCl (Zofran Inj) 4 mg Q6H PRN IV NAUSEA AND/OR VOMITING Last administered on 01/02/17 01:44; Admin Dose 4 MG; Start 01/02/17 at 00:00 Acetaminophen (Tylenol Liquid) 650 mg Q6H PRN PO PAIN LEVEL 1-3 OR FEVER Last administered on 01/05/17 21:14; Admin Dose 650 MG; Start 01/02/17 at 00:00 Acetaminophen (Tylenol Supp) 650 mg Q4H PRN [place] PAIN LEVEL 1-3 OR FEVER; Start 01/02/17 at 00:00 Diagnostic Test (Pha) (Accu-Chek) 1 ea 02 XX Last administered on 01/06/17 02 :00; Admin Dose 1 EA; Start 01/03/17 at 02:00 Miscellaneous Information 1 ea NOTE XX ; Start 01/02/17 at 11:30 Dextrose (D50w Syringe) 25 ml Q15M PRN IV DECREASED GLUCOSE; Start 01/02/17 at 11:30 Pantoprazole (Protonix Iv) 40 mg DAILY@06 IV Last administered on 01/06/17 06 :04; Admin Dose 40 MG; Start 01/03/17 at 06:00 Miscellaneous Information (Pending [facility] Order For Wound Care) This patient morley... PRN PRN XX WOUND CARE; Start 01/03/17 at 06:00 Methylprednisolone Sodium Succinate 40 mg 40 mg Q6 IV Last administered on 06:04; Admin Dose 40 MG; Start 01/03/17 at 12:00 Fluconazole/ Sodium Chloride (Diflucan 100 Mg/ NS (Pmx)) 50 ml @ 50 mls/hr Q24H IVPB Last administered on 01/05/17 14:25; Admin Dose 50 MLS/HR; Start at 13:00 Morphine Sulfate (morphine) 2 mg Q3 PRN IV pain Last administered on 09:38; Admin Dose 2 MG; Start 01/04/17 at 14:00 Miscellaneous Information (*Order Clarification Bulletin) MEDICATION REQUIRES CLARIFICATION: Q6H XX Last administered on 01/06/17 08:00; Admin Dose 1 EA; Start 01/04/17 at 14:00 Non-Formulary Medication 2 ea BID PO Last administered on 01/06/17 09:38; Admin Dose 2 EA; Start 01/04/17 at 21:00 Non-Formulary Medication 1 ea 1 ea DAILY PO Last administered on 01/06/17 09: 38; Admin Dose 1 EA; Start 01/05/17 at 09:00 Trimethoprim/ Sulfamethoxazole 20 ml/Dextrose 520 ml @ 350 mls/hr Q8 IVPB Last administered on 01/06/17 06:03; Admin Dose 350 MLS/HR; Start 01/05/17 at 14:00 Piperacillin Sod/ Tazobactam Sod (Zosyn 3.375gm/ 100 ml (Pmx)) 100 ml @ 200 mls /hr Q8 IVPB Last administered on 01/06/17 06:04; Admin Dose 200 MLS/HR; Start 01/05/17 at 14:00 Azithromycin (Zithromax) 1,200 mg Q7D PO Last administered on 01/05/17 14:25 ; Admin Dose 1,200 MG; Start 01/05/17 at 13:00 Acyclovir (Zovirax) 400 mg BID PO Last administered on 01/06/17t 09:38; Admin Dose 400 MG; Start 01/05/17 at 21:00 FRANCES HATFIELD Jan 06, 2017 11:17
[2017-01-06] MEDS: FLUCONAZOLE 100 MG/NS (PMX) 50 ML IVPB SCH (12:32)
[2017-01-06] MEDS ORDERED: GLUCOSE GEL 15 GRAM TUBE PO PRN ×2 (14:00)
[2017-01-06] MEDS ORDERED: GLUCOSE GEL 15 GRAM TUBE BUCCAL PRN (14:00)
[2017-01-06] MEDS ORDERED: DEXTROSE 50% 50 ML SYRINGE IV PRN ×2 (14:00)
[2017-01-06] MEDS ORDERED: GLUCAGON 1 MG INJ IM PRN (14:00)
--- NOTE | 2017-01-06 14:18 | PN ---
Date/Time of Note Date/Time of Note DATE: 01/06/17 TIME: 14:13 Assessment/Plan VTE Prophylaxis VTE Prophylaxis Intervention: SCD's Lines/Catheters IV C[facility] ([facility] Central Line Central line still needed: Yes (antibiotics ) Urinary Cath still in place: Yes Reason Cath still needed: other (indicate) (moniotr output) Assessment/Plan Chief Complaint/Hosp Course Assessment: Severe anemia/now stable Respiratory failure * Bilateral pneumothoraces * Plan for VATS HIV Kaposi's sarcoma with right lower extremity Sepsis Plan: HGB stable monitor daily Continue PPI therapy Stool OB negative- no evidence of GI bleed Pt to follow with GI as an out pt for colonoscopy Patient seen in collaboration with Dr. Padron Subjective: Course reviewed with nursing staff Patient interviewed and examined All labs, imaging and other results reviewed The patient was extubated- denies previous episodes of hematemesis or rectal bleeding Has never had an endoscopy, and does have a family history of colon ca i.e. brother Will need a colonoscopy as an out-patient Anemia not likely related to GI bleed Anemia stable- will continue to monitor Problems: Exam/Review of Systems Vital Signs Vitals Vital Signs Date Time Temp Pulse Resp B/P Pulse Ox O2 Delivery O2 Flow Rate FiO2 01/06/17 12:00 93 01/06/17 11:00 15 121/55 94 Room Air 01/06/17 08:00 98.8 01/06/17 07:55 21 01/05/17 20:00 2.0 Intake and Output 01/05/17 01/05/17 01/06/17 15:00 23:00 07:00 Intake Total 980 ml 620 ml 1100 ml Output Total 1470 ml 1100 ml 560 ml Balance -490 ml -480 ml 540 ml Results Result Diagram: 01/06/17 0625 01/06/17 0530 Results 24 hrs Laboratory Tests Test 01/05/17 14:42 01/05/17 16:02 01/06/17 01:02 01/06/17 01:43 Hemoglobin 9.6 L 9.3 L Hematocrit 30.0 L 29.7 L Stool Occult Blood NEGATIVE Bedside Glucose 229 H Test 01/06/17 05:30 01/06/17 06:25 01/06/17 07:00 01/06/17 13:19 White Blood Count 14.0 H 14.1 H Red Blood Count 3.57 L 3.99 L Hemoglobin 8.2 L 9.2 L Hematocrit 26.2 L 29.3 L Mean Corpuscular Volume 73.4 L 73.4 L Mean Corpuscular Hemoglobin 23.0 L 23.1 L Mean Corpuscular Hemoglobin Concent 31.3 L 31.4 L Red Cell Distribution Width 22.8 H 22.6 H Platelet Count 304 334 Mean Platelet Volume 8.3 8.1 Neutrophils % 83.1 H 82.3 H Lymphocytes % 7.6 L 7.4 L Monocytes % 8.1 9.1 Eosinophils % 0.0 0.0 Basophils % 0.1 0.1 Nucleated Red Blood Cells % 0.3 H 0.4 H Neutrophils # 11.7 H 11.6 H Lymphocytes # 1.1 1.0 Monocytes # 1.1 H 1.3 H Eosinophils # 0.0 0.0 Basophils # 0.0 0.0 Nucleated Red Blood Cells # 0.0 0.1 H Sodium Level 139 Potassium Level 3.5 Chloride Level 108 Carbon Dioxide Level 21 Anion Gap 14 Blood Urea Nitrogen 14 Creatinine 0.85 Glucose Level 163 Calcium Level 8.1 L Phosphorus Level 3.1 Magnesium Level 2.1 Blood Gas Specimen Source Blood arterial Arterial Blood Date Drawn 01/06/2017 8:45:12 AM Arterial Blood pH (Temp corrected) 7.509 H Arterial Blood pCO2 (Temp correct) 26.7 L Arterial Blood pO2 (Temp corrected) 57.3 L Arterial Blood HCO3 20.8 L Arterial Blood Base Excess -1.5 Arterial Blood Oxygen Saturation 90.0 L Austin Test ACCEPTAB Arterial Blood Gas Puncture Site Right Radial Arterial Blood Carboxyhemoglobin 0.3 Arterial Blood Methemoglobin 0.3 Blood Gas A-a O2 Differential 110.8 H Oxyhemoglobin Percent 89.5 L Total Hemoglobin 9.4 L Blood Gas Temperature 37.0 Blood Gas Modality NASAL CANNULA FiO2 28.0 Blood Gas Notified Whom CHATO DICKINSON Blood Gas Notified Time 01/06/2017 8:53:19 AM Bedside Glucose 182 Medications Medications Current Medications Dextrose/Sodium Chloride (D5-1/2ns) 1,000 ml @ 100 mls/hr Q10H IV Last administered on 01/06/17t 12:33; Admin Dose 100 MLS/HR; Start 01/01/17 at 23: 31 Ondansetron HCl (Zofran Inj) 4 mg Q6H PRN IV NAUSEA AND/OR VOMITING Last administered on 01/02/17 01:44; Admin Dose 4 MG; Start 01/02/17 at 00:00 Acetaminophen (Tylenol Liquid) 650 mg Q6H PRN PO PAIN LEVEL 1-3 OR FEVER Last administered on 01/05/17 21:14; Admin Dose 650 MG; Start 01/02/17 at 00:00 Acetaminophen (Tylenol Supp) 650 mg Q4H PRN [place] PAIN LEVEL 1-3 OR FEVER; Start 01/02/17 at 00:00 Miscellaneous Information 1 ea NOTE XX ; Start 01/02/17 at 11:30 Pantoprazole (Protonix Iv) 40 mg DAILY@06 IV Last administered on 01/06/17 06 :04; Admin Dose 40 MG; Start 01/03/17 at 06:00 Miscellaneous Information This patient morley... PRN PRN XX WOUND CARE; Start at 06:00 Fluconazole/ Sodium Chloride (Diflucan 100 Mg/ NS (Pmx)) 50 ml @ 50 mls/hr Q24H IVPB Last administered on 01/06/17 12:32; Admin Dose 50 MLS/HR; Start at 13:00 Morphine Sulfate (morphine) 2 mg Q3 PRN IV pain Last administered on 12:32; Admin Dose 2 MG; Start 01/04/17 at 14:00 Miscellaneous Information (*Order Clarification Bulletin) MEDICATION REQUIRES CLARIFICATION: Q6H XX Last administered on 01/06/17 08:00; Admin Dose 1 EA; Start 01/04/17 at 14:00 Non-Formulary Medication 2 ea BID PO Last administered on 01/06/17 09:38; Admin Dose 2 EA; Start 01/04/17 at 21:00 Non-Formulary Medication 1 ea 1 ea DAILY PO Last administered on 01/06/17 09: 38; Admin Dose 1 EA; Start 01/05/17 at 09:00 Trimethoprim/ Sulfamethoxazole 20 ml/Dextrose 520 ml @ 350 mls/hr Q8 IVPB Last administered on 01/06/17 06:03; Admin Dose 350 MLS/HR; Start 01/05/17 at 14:00 Piperacillin Sod/ Tazobactam Sod (Zosyn 3.375gm/ 100 ml (Pmx)) 100 ml @ 200 mls /hr Q8 IVPB Last administered on 01/06/17 06:04; Admin Dose 200 MLS/HR; Start 01/05/17 at 14:00 Azithromycin (Zithromax) 1,200 mg Q7D PO Last administered on 01/05/17 14:25 ; Admin Dose 1,200 MG; Start 01/05/17 at 13:00 Acyclovir (Zovirax) 400 mg BID PO Last administered on 01/06/17 09:38; Admin Dose 400 MG; Start 01/05/17 at 21:00 Methylprednisolone Sodium Succinate (Solu-Medrol) 40 mg Q6 IV Last administered on 01/06/17 12:32; Admin Dose 40 MG; Start 01/06/17 at 12:00 Diagnostic Test (Pha) (Accu-Chek) 1 ea 02 XX ; Start 01/07/17 at 02:00 Diagnostic Test (Pha) (Accu-Chek) 1 ea 02 XX ; Start 01/07/17 at 02:00 Miscellaneous Information 1 ea NOTE XX ; Start 01/06/17 at 14:00 Glucose (Glutose) 15 gm Q15M PRN PO DECREASED GLUCOSE; Start 01/06/17 at 14:00 Glucose (Glutose) 22.5 gm Q15M PRN PO DECREASED GLUCOSE; Start 01/06/17 at 14: 00 Dextrose (D50w Syringe) 25 ml Q15M PRN IV DECREASED GLUCOSE; Start 01/06/17 at 14:00 Dextrose (D50w Syringe) 50 ml Q15M PRN IV DECREASED GLUCOSE; Start 01/06/17 at 14:00 Glucagon (Glucagen) 1 mg Q15M PRN IM DECREASED GLUCOSE; Start 01/06/17 at 14: 00 Glucose (Glutose) 15 gm Q15M PRN BUCCAL DECREASED GLUCOSE; Start 01/06/17 at 14:00 JORDAN HAHN Jan 06, 2017 14:18
--- NOTE | 2017-01-06 14:27 | PN ---
DATE: 01/06/2017 INFECTIOUS DISEASE PROGRESS NOTE SUBJECTIVE: The patient was extubated. He is alert, looks comfortable, complaining of pain, no fevers. Sister at bedside. VITAL SIGNS: Temperature 98.8, pulse 97, respirations 15, blood pressure 121/55 , saturation 94 on room air. WBC 14.1, H and H 9.2 and 29.3, platelets 334, neutrophils 82.3, BUN 14, creatinine 0.85. DIAGNOSTICS: Chest x-ray this morning revealed bilateral interstitial infiltrates or edema, nodular opacities and small pleural effusions are unchanged. INDWELLINGS: The patient has bilateral chest tube, right chest triple lumen catheter, Bailey catheter. ANTIMICROBIALS: 1. Bactrim. 2. Zosyn. 3. Acyclovir 400 mg twice a day. 4. Zithromax 1200 mg weekly. 5. Fluconazole. 6. Triumeq and Viracept for HIV. MICROBIOLOGY: Right lower extremity wound culture grew Proteus mirabilis, E. coli and enterococcus species. PHYSICAL EXAMINATION: GENERAL: This is a well-developed, well-nourished, middle-aged man who is alert, in no distress. HEENT: Head atraumatic, normocephalic. Sclerae anicteric. Buccal mucosa pink , dry. NECK: Supple. CHEST: Rise symmetrical. Breath sounds diminished to bases. HEART: S1, S2. ABDOMEN: Soft, bowel tones present. EXTREMITIES: With right lower extremity dressing with drainage with significant swelling. ASSESSMENT: 1. Acute hypoxemic respiratory failure, status post extubated. 2. 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 3. Acquired immunodeficiency syndrome. 4. 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 5. Bilateral pneumothorax, status post chest tube placement. 6. Chronic obstructive pulmonary disease. 7. Anemia. PLAN: The patient remains stable post-extubation on appropriate antimicrobials. Continue present care. Continue steroid taper as per pulmonary recommendations. Await for sputum for PCP by direct fluorescent antibody. Continue local wound care and consider podiatry evaluation. Dictated By: ANDREY ENCINAS HEM MARKER for [employer] CH[employer] MD NI/NTS Conf#: [id number] DID#: [id number] [facility]
--- NOTE | 2017-01-06 15:52 | PN ---
Date/Time of Note Date/Time of Note DATE: 01/06/17 TIME: 15:50 Assessment/Plan VTE Prophylaxis VTE Prophylaxis Intervention: LMWH Lines/Catheters IV Catheter Type (from Nrsg): Central Line Central line still needed: Yes Urinary Cath still in place: Yes Reason Cath still needed: urinary retention Assessment/Plan Chief Complaint/Hosp Course 56 yo male wtih HIV/AIDS, [place] of leg, COPD, who presented with bilateral pneumothoraces causing acute respiratory failure B/l Pneumothorax: - Chest tube and intubation managemetn per pulm and CV surgery, surgery per CV surgery AIDS/HIV: - ARVs - PPx with bactrim, fluc, azithro Pneumonia: - Cefepime/vanco - Await sputum results Kaposi sarcoma DMII: - basal/bolus insulin Critial care time > 35 min Problems: Subjective 24 Hr Interval Summary Free Text/Dictation Extubated, breathing comfortably on RA Only complaint is of mild pain at chest tube site Exam/Review of Systems Vital Signs Vitals Vital Signs Date Time Temp Pulse Resp B/P Pulse Ox O2 Delivery O2 Flow Rate FiO2 01/06/17 14:00 98 18 126/57 97 Room Air 01/06/17 12:00 98.9 01/06/17 07:55 21 01/05/17 20:00 2.0 Intake and Output 01/05/17 01/05/17 01/06/17 15:00 23:00 07:00 Intake Total 980 ml 620 ml 1100 ml Output Total 1470 ml 1100 ml 560 ml Balance -490 ml -480 ml 540 ml Exam Constitutional: alert, oriented, well developed Psych: nl mood/affect, no complaints Head: atraumatic, normocephalic Eyes: EOMI, PERRL, nl conjunctiva, nl lids, nl sclera ENMT: nl external ears & nose, nl lips & teeth, nl nasal mucosa & septum Neck: non-tender, supple Respiratory: clear to auscultation, normal air movement Cardiovascular: nl pulses, regular rate and rhythm Gastrointestinal: nl liver, spleen, non-tender, soft Musculoskeletal: nl extremities to inspection, nl gait and stance Extremities: normal pulses 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: NEWSWRITER 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, nl mental status, nl speech, nl strength Skin: nl turgor, No rash or lesions Lymph: nl lymph nodes Results Result Diagram: 01/06/17 0625 01/06/17 0530 Results 24 hrs Laboratory Tests Test 01/05/17 16:02 01/06/17 01:02 01/06/17 01:43 01/06/17 05:30 Stool Occult Blood NEGATIVE Hemoglobin 9.3 L 8.2 L Hematocrit 29.7 L 26.2 L Bedside Glucose 229 H White Blood Count 14.0 H Red Blood Count 3.57 L Mean Corpuscular Volume 73.4 L Mean Corpuscular Hemoglobin 23.0 L Mean Corpuscular Hemoglobin Concent 31.3 L Red Cell Distribution Width 22.8 H Platelet Count 304 Mean Platelet Volume 8.3 Neutrophils % 83.1 H Lymphocytes % 7.6 L Monocytes % 8.1 Eosinophils % 0.0 Basophils % 0.1 Nucleated Red Blood Cells % 0.3 H Neutrophils # 11.7 H Lymphocytes # 1.1 Monocytes # 1.1 H Eosinophils # 0.0 Basophils # 0.0 Nucleated Red Blood Cells # 0.0 Sodium Level 139 Potassium Level 3.5 Chloride Level 108 Carbon Dioxide Level 21 Anion Gap 14 Blood Urea Nitrogen 14 Creatinine 0.85 Glucose Level 163 Calcium Level 8.1 L Phosphorus Level 3.1 Magnesium Level 2.1 Test 01/06/17 06:25 01/06/17 07:00 01/06/17 13:19 White Blood Count 14.1 H Red Blood Count 3.99 L Hemoglobin 9.2 L Hematocrit 29.3 L Mean Corpuscular Volume 73.4 L Mean Corpuscular Hemoglobin 23.1 L Mean Corpuscular Hemoglobin Concent 31.4 L Red Cell Distribution Width 22.6 H Platelet Count 334 Mean Platelet Volume 8.1 Neutrophils % 82.3 H Lymphocytes % 7.4 L Monocytes % 9.1 Eosinophils % 0.0 Basophils % 0.1 Nucleated Red Blood Cells % 0.4 H Neutrophils # 11.6 H Lymphocytes # 1.0 Monocytes # 1.3 H Eosinophils # 0.0 Basophils # 0.0 Nucleated Red Blood Cells # 0.1 H Blood Gas Specimen Source Blood arterial Arterial Blood Date Drawn 01/06/2017 8:45:12 AM Arterial Blood pH (Temp corrected) 7.509 H Arterial Blood pCO2 (Temp correct) 26.7 L Arterial Blood pO2 (Temp corrected) 57.3 L Arterial Blood HCO3 20.8 L Arterial Blood Base Excess -1.5 Arterial Blood Oxygen Saturation 90.0 L Austin Test ACCEPTAB Arterial Blood Gas Puncture Site Right Radial Arterial Blood Carboxyhemoglobin 0.3 Arterial Blood Methemoglobin 0.3 Blood Gas A-a O2 Differential 110.8 H Oxyhemoglobin Percent 89.5 L Total Hemoglobin 9.4 L Blood Gas Temperature 37.0 Blood Gas Modality NASAL CANNULA FiO2 28.0 Blood Gas Notified Whom CHATO DICKINSON Blood Gas Notified Time 01/06/2017 8:53:19 AM Bedside Glucose 182 Medications Medications Current Medications Dextrose/Sodium Chloride (D5-1/2ns) 1,000 ml @ 100 mls/hr Q10H IV Last administered on 01/06/17 12:33; Admin Dose 100 MLS/HR; Start 01/01/17 at 23: 31 Ondansetron HCl (Zofran Inj) 4 mg Q6H PRN IV NAUSEA AND/OR VOMITING Last administered on 01/02/17 01:44; Admin Dose 4 MG; Start 01/02/17 at 00:00 Acetaminophen (Tylenol Liquid) 650 mg Q6H PRN PO PAIN LEVEL 1-3 OR FEVER Last administered on 01/05/17 21:14; Admin Dose 650 MG; Start 01/02/17 at 00:00 Acetaminophen (Tylenol Supp) 650 mg Q4H PRN [place] PAIN LEVEL 1-3 OR FEVER; Start 01/02/17 at 00:00 Pantoprazole (Protonix Iv) 40 mg DAILY@06 IV Last administered on 01/06/17 06 :04; Admin Dose 40 MG; Start 01/03/17 at 06:00 Miscellaneous Information This patient morley... PRN PRN XX WOUND CARE; Start at 06:00 Fluconazole/ Sodium Chloride (Diflucan 100 Mg/ NS (Pmx)) 50 ml @ 50 mls/hr Q24H IVPB Last administered on 01/06/17 12:32; Admin Dose 50 MLS/HR; Start at 13:00 Morphine Sulfate (morphine) 2 mg Q3 PRN IV pain Last administered on 12:32; Admin Dose 2 MG; Start 01/04/17 at 14:00 Miscellaneous Information (*Order Clarification Bulletin) MEDICATION REQUIRES CLARIFICATION: Q6H XX Last administered on 01/06/17 08:00; Admin Dose 1 EA; Start 01/04/17 at 14:00 Non-Formulary Medication 2 ea BID PO Last administered on 01/06/17 09:38; Admin Dose 2 EA; Start 01/04/17 at 21:00 Non-Formulary Medication 1 ea 1 ea DAILY PO Last administered on 01/06/17 09: 38; Admin Dose 1 EA; Start 01/05/17 at 09:00 Trimethoprim/ Sulfamethoxazole 20 ml/Dextrose 520 ml @ 350 mls/hr Q8 IVPB Last administered on 01/06/17 15:12; Admin Dose 350 MLS/HR; Start 01/05/17 at 14:00 Piperacillin Sod/ Tazobactam Sod (Zosyn 3.375gm/ 100 ml (Pmx)) 100 ml @ 200 mls /hr Q8 IVPB Last administered on 01/06/17 15:11; Admin Dose 200 MLS/HR; Start 01/05/17 at 14:00 Azithromycin (Zithromax) 1,200 mg Q7D PO Last administered on 01/05/17 14:25 ; Admin Dose 1,200 MG; Start 01/05/17 at 13:00 Acyclovir (Zovirax) 400 mg BID PO Last administered on 01/06/17 09:38; Admin Dose 400 MG; Start 01/05/17 at 21:00 Methylprednisolone Sodium Succinate (Solu-Medrol) 40 mg Q6 IV Last administered on 01/06/17 12:32; Admin Dose 40 MG; Start 01/06/17 at 12:00 Diagnostic Test (Pha) (Accu-Chek) 1 ea 02 XX ; Start 01/07/17 at 02:00 Miscellaneous Information 1 ea NOTE XX ; Start 01/06/17 at 14:00 Glucose (Glutose) 15 gm Q15M PRN PO DECREASED GLUCOSE; Start 01/06/17 at 14:00 Glucose (Glutose) 22.5 gm Q15M PRN PO DECREASED GLUCOSE; Start 01/06/17 at 14: 00 Dextrose (D50w Syringe) 25 ml Q15M PRN IV DECREASED GLUCOSE; Start 01/06/17 at 14:00 Dextrose (D50w Syringe) 50 ml Q15M PRN IV DECREASED GLUCOSE; Start 01/06/17 at 14:00 Glucagon (Glucagen) 1 mg Q15M PRN IM DECREASED GLUCOSE; Start 01/06/17 at 14: 00 Glucose (Glutose) 15 gm Q15M PRN BUCCAL DECREASED GLUCOSE; Start 01/06/17 at 14:00 ALEX BULLARD MD Jan 06, 2017 15:52
--- NOTE | 2017-01-06 16:45 | PN ---
Date/Time of Note Date/Time of Note DATE: 01/06/17 TIME: 16:44 Assessment/Plan Lines/Catheters IV Catheter Type (from Nrsg): Central Line Bailey in Place (from Nrsg): Yes Assessment/Plan Chief Complaint/Hosp Course Bilateral PTX with air leaks SP BL CT placement PTX Resolved will continue CT sxn will check CXR Problems: Subjective 24 Hr Interval Summary Constitutional: improved Pain Control: mild Exam/Review of Systems Vital Signs Vitals Vital Signs Date Time Temp Pulse Resp B/P Pulse Ox O2 Delivery O2 Flow Rate FiO2 01/06/17 14:00 98 18 126/57 97 Room Air 01/06/17 12:00 98.9 01/06/17 07:55 21 01/05/17 20:00 2.0 Intake and Output 01/05/17 01/05/17 01/06/17 15:00 23:00 07:00 Intake Total 980 ml 620 ml 1100 ml Output Total 1470 ml 1100 ml 560 ml Balance -490 ml -480 ml 540 ml Exam Eyes: EOMI, nl conjunctiva, nl lids, nl sclera ENMT: mucosa pink and moist, nl external ears & nose, nl lips & teeth, nl nasal mucosa & septum Neck: non-tender, supple Respiratory: clear to auscultation, normal air movement Cardiovascular: nl pulses, regular rate and rhythm Results Result Diagram: 01/06/17 0625 01/06/17 0530 JANIE BASILIO MD Jan 06, 2017 16:45
[2017-01-06] MEDS: INSULIN ASPART [NOVOLOG] 3 ML PEN SC SCH ×2 (17:11→20:37)
[2017-01-07] VITALS (12 sets, daily range): BP systolic 117–137; BP diastolic 58–67; PULSE 93–103; RESP 18–21
[2017-01-07] MEDS: morphine 2 MG INJ IV PRN ×4 (01:00→21:53)
[2017-01-07] MEDS: [UNRECOGNIZED DRUG - REMARK] XX SCH ×4 (02:00→20:00)
[2017-01-07] MEDS: ACCU-CHEK XX SCH (02:00)
[2017-01-07] MEDS ORDERED: ACCU-CHEK XX SCH (02:00)
[2017-01-07] MEDS: ALBUTEROL 0.083% (NEB) 2.5 MG/3 ML AMP HHN SCH ×4 (02:37→20:05)
[2017-01-07] MEDS: METHYLPREDNISOLONE 40 MG INJ IV SCH ×4 (05:34→23:36)
[2017-01-07] MEDS: PIPER-TAZO 3.375 GM IV (PMX) 100 ML IVPB SCH ×3 (05:35→22:52)
[2017-01-07] MEDS: PANTOPRAZOLE 40 MG INJ IV SCH (05:35)
[2017-01-07] MEDS: TRIMETHOPRIM/SULFAMETHOXAZOLE 20 ML in DEXTROSE 5% 500 ML IVPB SCH ×3 (06:36→21:47)
[2017-01-07 07:29] LABS: ABNORMAL IP MESSAGE 1; BASOPHILS % 0.1 % (0.0-2.0); HEMATOCRIT 26.5 % (42.0-52.0); HEMOGLOBIN 8.2 g/dl (14.0-18.0); LYMPHOCYTES # 0.8 10^3/ul (0.8-2.9); LYMPHOCYTES % 4.6 % (15.0-51.0); MEAN CORPUSCULAR HEMOGLOBIN 22.6 pg (29.0-33.0); MEAN CORPUSCULAR HGB CONC 30.9 g/dl (32.0-37.0); MEAN PLATELET VOLUME 8.5 fl (7.4-10.4); MONOCYTE # 0.8 10^3/ul (0.3-0.9); MONOCYTES % 4.9 % (0.0-11.0); NEUTROPHIL # 14.6 10^3/ul (1.6-7.5); NEUTROPHILS % 89.4 % (39.0-77.0); PLATELET COUNT 317 10^3/UL (140-415); POSITIVE DIFF @See below; RED BLOOD COUNT 3.63 10^6/ul (4.70-6.10); RED CELL DISTRIBUTION WIDTH 23.1 % (11.5-14.5); WHITE BLOOD COUNT 16.4 10^3/ul (4.8-10.8)
[2017-01-07] MEDS: INSULIN ASPART [NOVOLOG] 3 ML PEN SC SCH ×4 (07:53→21:00)
[2017-01-07 07:55] LABS: ALBUMIN 2.4 g/dl (3.3-4.9); ALBUMIN/GLOBULIN RATIO 0.82; BILIRUBIN,INDIRECT 0.1 mg/dl (0-1.1); BILIRUBIN,TOTAL 0.1 mg/dl (0.2-1.3); CREATININE 0.9 mg/dl (0.61-1.24); POTASSIUM 3.8 mmol/L (3.5-5.1); TOTAL PROTEIN 5.3 g/dl (6.1-8.1)
[2017-01-07] MEDS: VIRACEPT PO SCH ×2 (08:26→17:33)
[2017-01-07] MEDS: ACYCLOVIR 400 MG TAB PO SCH ×2 (08:26→21:05)
[2017-01-07] MEDS: TRIUMEQ PO SCH (08:27)
[2017-01-07] MEDS: DEXTROSE 5%-0.45% NACL 1,000 ML IV SCH (09:31)
--- NOTE | 2017-01-07 11:49 | PN ---
Date/Time of Note Date/Time of Note DATE: 01/07/17 TIME: 11:44 Assessment/Plan VTE Prophylaxis VTE Prophylaxis Intervention: SCD's Lines/Catheters IV Catheter Type (from Nrsg): Central Line Central line still needed: No Urinary Cath still in place: Yes Reason Cath still needed: other (indicate) (monitor out put) Assessment/Plan Chief Complaint/Hosp Course Assessment: Severe anemia/now stable Respiratory failure * Bilateral pneumothoraces/ resolved- bilateral chest tube in place HIV Kaposi's sarcoma with right lower extremity Sepsis Plan: Monitor CBC daily Continue PPI therapy Stool OB negative- no evidence of GI bleed Pt to follow with GI as an out pt for colonoscopy Patient seen in collaboration with Dr. Padron Subjective: Course reviewed with nursing staff Patient interviewed and examined All labs, imaging and other results reviewed The patient down graded to tele, feeling better Trying to increase po intake chest tubes in place Anemia not likely related to GI bleed Anemia stable- will continue to monitor Problems: Exam/Review of Systems Vital Signs Vitals Vital Signs Date Time Temp Pulse Resp B/P Pulse Ox O2 Delivery O2 Flow Rate FiO2 01/07/17 11:36 98.5 95 20 117/63 94 01/07/17 02:37 21 01/06/17 23:00 Room Air 01/05/17 20:00 2.0 Intake and Output 01/06/17 01/06/17 01/07/17 15:00 23:00 07:00 Intake Total 50 ml 2540 ml 685 ml Output Total 1225 ml 1280 ml 900 ml Balance -1175 ml 1260 ml -215 ml Exam Constitutional: alert, oriented Psych: no complaints Head: atraumatic Eyes: nl conjunctiva Neck: supple Respiratory: crackles/rales, other (Bilateral chest tubes in palce) Gastrointestinal: bowel sounds, nl liver, spleen, non-tender, soft, No ascites, No distended, No firm, No hepatomegaly, No mass, No rebound or guarding, No splenomegaly, No tender Genitourinary - Male: nl penis 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: other (Right lower leg wounds - dressing intact) Results Result Diagram: 01/07/17 0656 01/07/17 0656 Results 24 hrs Laboratory Tests Test 01/06/17 13:19 01/06/17 17:08 01/06/17 20:32 01/07/17 06:56 Bedside Glucose 182 228 H 179 White Blood Count 16.4 H Red Blood Count 3.63 L Hemoglobin 8.2 L Hematocrit 26.5 L Mean Corpuscular Volume 73.0 L Mean Corpuscular Hemoglobin 22.6 L Mean Corpuscular Hemoglobin Concent 30.9 L Red Cell Distribution Width 23.1 H Platelet Count 317 Mean Platelet Volume 8.5 Neutrophils % 89.4 H Lymphocytes % 4.6 L Monocytes % 4.9 Eosinophils % 0.0 Basophils % 0.1 Nucleated Red Blood Cells % 0.0 Neutrophils # 14.6 H Lymphocytes # 0.8 Monocytes # 0.8 Eosinophils # 0.0 Basophils # 0.0 Nucleated Red Blood Cells # 0.0 Sodium Level 138 Potassium Level 3.8 Chloride Level 107 Carbon Dioxide Level 22 Anion Gap 13 Blood Urea Nitrogen 13 Creatinine 0.90 Glucose Level 162 Calcium Level 8.0 L Total Bilirubin 0.1 L Direct Bilirubin 0.00 Indirect Bilirubin 0.1 Aspartate Amino Transf (AST/SGOT) 22 Alanine Aminotransferase (ALT/SGPT) 26 Alkaline Phosphatase 53 Total Protein 5.3 L Albumin 2.4 L Globulin 2.90 Albumin/Globulin Ratio 0.82 Test 01/07/17 07:47 Bedside Glucose 177 Medications Medications Current Medications Dextrose/Sodium Chloride (D5-1/2ns) 1,000 ml @ 100 mls/hr Q10H IV Last administered on 01/06/17 23:41; Admin Dose 100 MLS/HR; Start 01/01/17 at 23: 31 Ondansetron HCl (Zofran Inj) 4 mg Q6H PRN IV NAUSEA AND/OR VOMITING Last administered on 01/02/17 01:44; Admin Dose 4 MG; Start 01/02/17 at 00:00 Acetaminophen (Tylenol Liquid) 650 mg Q6H PRN PO PAIN LEVEL 1-3 OR FEVER Last administered on 01/05/17 21:14; Admin Dose 650 MG; Start 01/02/17 at 00:00 Acetaminophen (Tylenol Supp) 650 mg Q4H PRN [place] PAIN LEVEL 1-3 OR FEVER; Start 01/02/17 at 00:00 Pantoprazole (Protonix Iv) 40 mg DAILY@06 IV Last administered on 01/07/17 05 :35; Admin Dose 40 MG; Start 01/03/17 at 06:00 Miscellaneous Information This patient morley... PRN PRN XX WOUND CARE; Start at 06:00 Fluconazole/ Sodium Chloride (Diflucan 100 Mg/ NS (Pmx)) 50 ml @ 50 mls/hr Q24H IVPB Last administered on 01/06/17 12:32; Admin Dose 50 MLS/HR; Start at 13:00 Morphine Sulfate (morphine) 2 mg Q3 PRN IV pain Last administered on 04:30; Admin Dose 2 MG; Start 01/04/17 at 14:00 Miscellaneous Information (*Order Clarification Bulletin) MEDICATION REQUIRES CLARIFICATION: Q6H XX Last administered on 01/06/17 08:00; Admin Dose 1 EA; Start 01/04/17 at 14:00 Non-Formulary Medication 1 ea 1 ea DAILY PO Last administered on 01/07/17 08: 27; Admin Dose 1 EA; Start 01/05/17 at 09:00 Trimethoprim/ Sulfamethoxazole 20 ml/Dextrose 520 ml @ 350 mls/hr Q8 IVPB Last administered on 01/07/17 06:36; Admin Dose 350 MLS/HR; Start 01/05/17 at 14:00 Piperacillin Sod/ Tazobactam Sod (Zosyn 3.375gm/ 100 ml (Pmx)) 100 ml @ 200 mls /hr Q8 IVPB Last administered on 01/07/17 05:35; Admin Dose 200 MLS/HR; Start 01/05/17 at 14:00 Azithromycin (Zithromax) 1,200 mg Q7D PO Last administered on 01/05/17 14:25 ; Admin Dose 1,200 MG; Start 01/05/17 at 13:00 Acyclovir (Zovirax) 400 mg BID PO Last administered on 01/07/17 08:26; Admin Dose 400 MG; Start 01/05/17 at 21:00 Methylprednisolone Sodium Succinate (Solu-Medrol) 40 mg Q6 IV Last administered on 01/07/17 05:34; Admin Dose 40 MG; Start 01/06/17 at 12:00 Diagnostic Test (Pha) (Accu-Chek) 1 ea 02 XX ; Start 01/07/17 at 02:00 Miscellaneous Information 1 ea NOTE XX ; Start 01/06/17 at 14:00 Glucose (Glutose) 15 gm Q15M PRN PO DECREASED GLUCOSE; Start 01/06/17 at 14:00 Glucose (Glutose) 22.5 gm Q15M PRN PO DECREASED GLUCOSE; Start 01/06/17 at 14: 00 Dextrose (D50w Syringe) 25 ml Q15M PRN IV DECREASED GLUCOSE; Start 01/06/17 at 14:00 Dextrose (D50w Syringe) 50 ml Q15M PRN IV DECREASED GLUCOSE; Start 01/06/17 at 14:00 Glucagon (Glucagen) 1 mg Q15M PRN IM DECREASED GLUCOSE; Start 01/06/17 at 14: 00 Glucose (Glutose) 15 gm Q15M PRN BUCCAL DECREASED GLUCOSE; Start 01/06/17 at 14:00 JORDAN HAHN Jan 07, 2017 11:49
--- NOTE | 2017-01-07 13:02 | CONS ---
Date/Time of Note Date/Time of Note DATE: 01/07/17 TIME: 13:00 Consult Date/Type/Reason Admit Date/Time Jan 01, 2017 at 21:48 Initial Consult Date 01/02/17 Type of Consultation: id Objective Vital Signs Date Time Temp Pulse Resp B/P Pulse Ox O2 Delivery O2 Flow Rate FiO2 01/07/17 12:35 93 01/07/17 11:36 98.5 20 117/63 94 01/07/17 02:37 21 01/06/17 23:00 Room Air 01/05/17 20:00 2.0 Intake and Output 01/06/17 01/06/17 01/07/17 15:00 23:00 07:00 Intake Total 50 ml 2540 ml 685 ml Output Total 1225 ml 1280 ml 900 ml Balance -1175 ml 1260 ml -215 ml Results/Medications Result Diagram: 01/07/17 0656 01/07/17 0656 Results 24 hrs Laboratory Tests Test 01/06/17 13:19 01/06/17 17:08 01/06/17 20:32 01/07/17 06:56 Bedside Glucose 182 228 H 179 White Blood Count 16.4 H Red Blood Count 3.63 L Hemoglobin 8.2 L Hematocrit 26.5 L Mean Corpuscular Volume 73.0 L Mean Corpuscular Hemoglobin 22.6 L Mean Corpuscular Hemoglobin Concent 30.9 L Red Cell Distribution Width 23.1 H Platelet Count 317 Mean Platelet Volume 8.5 Neutrophils % 89.4 H Lymphocytes % 4.6 L Monocytes % 4.9 Eosinophils % 0.0 Basophils % 0.1 Nucleated Red Blood Cells % 0.0 Neutrophils # 14.6 H Lymphocytes # 0.8 Monocytes # 0.8 Eosinophils # 0.0 Basophils # 0.0 Nucleated Red Blood Cells # 0.0 Sodium Level 138 Potassium Level 3.8 Chloride Level 107 Carbon Dioxide Level 22 Anion Gap 13 Blood Urea Nitrogen 13 Creatinine 0.90 Glucose Level 162 Calcium Level 8.0 L Total Bilirubin 0.1 L Direct Bilirubin 0.00 Indirect Bilirubin 0.1 Aspartate Amino Transf (AST/SGOT) 22 Alanine Aminotransferase (ALT/SGPT) 26 Alkaline Phosphatase 53 Total Protein 5.3 L Albumin 2.4 L Globulin 2.90 Albumin/Globulin Ratio 0.82 Test 01/07/17 07:47 01/07/17 12:03 Bedside Glucose 177 168 Medications Current Medications Dextrose/Sodium Chloride (D5-1/2ns) 1,000 ml @ 100 mls/hr Q10H IV Last administered on 01/06/17 23:41; Admin Dose 100 MLS/HR; Start 01/01/17 at 23: 31 Ondansetron HCl (Zofran Inj) 4 mg Q6H PRN IV NAUSEA AND/OR VOMITING Last administered on 01/02/17 01:44; Admin Dose 4 MG; Start 01/02/17 at 00:00 Acetaminophen (Tylenol Liquid) 650 mg Q6H PRN PO PAIN LEVEL 1-3 OR FEVER Last administered on 01/05/17 21:14; Admin Dose 650 MG; Start 01/02/17 at 00:00 Acetaminophen (Tylenol Supp) 650 mg Q4H PRN [place] PAIN LEVEL 1-3 OR FEVER; Start 01/02/17 at 00:00 Pantoprazole (Protonix Iv) 40 mg DAILY@06 IV Last administered on 01/07/17 05 :35; Admin Dose 40 MG; Start 01/03/17 at 06:00 Miscellaneous Information This patient morley... PRN PRN XX WOUND CARE; Start at 06:00 Fluconazole/ Sodium Chloride (Diflucan 100 Mg/ NS (Pmx)) 50 ml @ 50 mls/hr Q24H IVPB Last administered on 01/06/17 12:32; Admin Dose 50 MLS/HR; Start at 13:00 Morphine Sulfate (morphine) 2 mg Q3 PRN IV pain Last administered on 04:30; Admin Dose 2 MG; Start 01/04/17 at 14:00 Miscellaneous Information (*Order Clarification Bulletin) MEDICATION REQUIRES CLARIFICATION: Q6H XX Last administered on 01/06/17 08:00; Admin Dose 1 EA; Start 01/04/17 at 14:00 Non-Formulary Medication 1 ea 1 ea DAILY PO Last administered on 01/07/17 08: 27; Admin Dose 1 EA; Start 01/05/17 at 09:00 Trimethoprim/ Sulfamethoxazole 20 ml/Dextrose 520 ml @ 350 mls/hr Q8 IVPB Last administered on 01/07/17 06:36; Admin Dose 350 MLS/HR; Start 01/05/17 at 14:00 Piperacillin Sod/ Tazobactam Sod (Zosyn 3.375gm/ 100 ml (Pmx)) 100 ml @ 200 mls /hr Q8 IVPB Last administered on 01/07/17 05:35; Admin Dose 200 MLS/HR; Start 01/05/17 at 14:00 Azithromycin (Zithromax) 1,200 mg Q7D PO Last administered on 01/05/17 14:25 ; Admin Dose 1,200 MG; Start 01/05/17 at 13:00 Acyclovir (Zovirax) 400 mg BID PO Last administered on 01/07/17 08:26; Admin Dose 400 MG; Start 01/05/17 at 21:00 Methylprednisolone Sodium Succinate (Solu-Medrol) 40 mg Q6 IV Last administered on 01/07/17 12:17; Admin Dose 40 MG; Start 01/06/17 at 12:00 Diagnostic Test (Pha) (Accu-Chek) 1 ea 02 XX ; Start 01/07/17 at 02:00 Miscellaneous Information 1 ea NOTE XX ; Start 01/06/17 at 14:00 Glucose (Glutose) 15 gm Q15M PRN PO DECREASED GLUCOSE; Start 01/06/17 at 14:00 Glucose (Glutose) 22.5 gm Q15M PRN PO DECREASED GLUCOSE; Start 01/06/17 at 14: 00 Dextrose (D50w Syringe) 25 ml Q15M PRN IV DECREASED GLUCOSE; Start 01/06/17 at 14:00 Dextrose (D50w Syringe) 50 ml Q15M PRN IV DECREASED GLUCOSE; Start 01/06/17 at 14:00 Glucagon (Glucagen) 1 mg Q15M PRN IM DECREASED GLUCOSE; Start 01/06/17 at 14: 00 Glucose (Glutose) 15 gm Q15M PRN BUCCAL DECREASED GLUCOSE; Start 01/06/17 at 14:00 Assessment/Plan Chief Complaint/Hosp Course SUBJECTIVE: Alert, feels good, no fevers. INDWELLINGS: The patient has bilateral chest tube, right chest triple lumen catheter, Bailey catheter. ANTIMICROBIALS: 1. Bactrim. 2. Zosyn. 3. Acyclovir 400 mg twice a day. 4. Zithromax 1200 mg weekly. 5. Fluconazole. 6. Triumeq and Viracept for HIV. MICROBIOLOGY: Right lower extremity wound culture grew Proteus mirabilis, E. coli and enterococcus species. PHYSICAL EXAMINATION: GENERAL: This is a well-developed, well-nourished, middle-aged man who is alert, in no distress. HEENT: Head atraumatic, normocephalic. Sclerae anicteric. Buccal mucosa pink , dry. NECK: Supple. CHEST: Rise symmetrical. Breath sounds diminished to bases. HEART: S1, S2. ABDOMEN: Soft, bowel tones present. EXTREMITIES: With right lower extremity dressing with drainage with significant swelling. ASSESSMENT: 1. Acute hypoxemic respiratory failure, status post extubated. 2. 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 3. Acquired immunodeficiency syndrome. 4. 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 5. Bilateral pneumothorax, status post chest tube placement. 6. Chronic obstructive pulmonary disease. 7. Anemia. PLAN: The patient remains stable. Continue present care, steroids/abx, f/u CTS / pulmonary recommendations. Await for sputum for PCP by direct fluorescent antibody. Continue local wound care and consider podiatry evaluation. Problems: ANDREY ENCINAS NP Jan 07, 2017 13:02
--- NOTE | 2017-01-07 13:06 | CONS ---
Date/Time of Note Date/Time of Note DATE: 01/07/17 TIME: 13:04 Assessment/Plan Assessment/Plan Additional Assessment/Plan Assessment and recommendations; 1. Patient admitted with bilateral pneumothoraces possibly from underlying PCP infection. 2. History of Kaposi's sarcoma. 3. HIV positive. Continue current treatment. Will obtain follow-up chest x-ray. Maintain chest tube for at least another 24 hours. Consultation Date/Type/Reason Admit Date/Time Jan 01, 2017 at 21:48 Initial Consult Date 01/02/17 Type of Consultation: Pulmonary 24 HR Interval Summary Free Text/Dictation Patient's condition is stable. Has been transferred out of ICU to medical floor. He denies any shortness of breath. Complains of very mild chest pain at chest tube insertion sites. General exam; middle-aged male, awake alert, currently in no distress. Exam/Review of Systems Vital Signs Vitals Vital Signs Date Time Temp Pulse Resp B/P Pulse Ox O2 Delivery O2 Flow Rate FiO2 01/07/17 12:35 93 01/07/17 11:36 98.5 20 117/63 94 01/07/17 02:37 21 01/06/17 23:00 Room Air 01/05/17 20:00 2.0 Intake and Output 01/06/17 01/06/17 01/07/17 15:00 23:00 07:00 Intake Total 50 ml 2540 ml 685 ml Output Total 1225 ml 1280 ml 900 ml Balance -1175 ml 1260 ml -215 ml Exam HEENT exam; supple neck, no JVD. No lymphadenopathy. Midline trachea. No thyromegaly. Pharynx is clear. Patient has fair dentition. Chest exam; clear to auscultation. S1-S2 audible, no murmurs. Regular rhythm. Bilateral chest tubes are in place. Abdomen exam; soft, nontender. No organomegaly. Bowel sounds audible. Extremities; severe chronic appearing edema involving right lower extremity. INTERIOR PAINTER exam; no focal deficit. Results Result Diagram: 01/07/17 0656 01/07/17 0656 Results 24 hrs Laboratory Tests Test 01/06/17 13:19 01/06/17 17:08 01/06/17 20:32 01/07/17 06:56 Bedside Glucose 182 228 H 179 White Blood Count 16.4 H Red Blood Count 3.63 L Hemoglobin 8.2 L Hematocrit 26.5 L Mean Corpuscular Volume 73.0 L Mean Corpuscular Hemoglobin 22.6 L Mean Corpuscular Hemoglobin Concent 30.9 L Red Cell Distribution Width 23.1 H Platelet Count 317 Mean Platelet Volume 8.5 Neutrophils % 89.4 H Lymphocytes % 4.6 L Monocytes % 4.9 Eosinophils % 0.0 Basophils % 0.1 Nucleated Red Blood Cells % 0.0 Neutrophils # 14.6 H Lymphocytes # 0.8 Monocytes # 0.8 Eosinophils # 0.0 Basophils # 0.0 Nucleated Red Blood Cells # 0.0 Sodium Level 138 Potassium Level 3.8 Chloride Level 107 Carbon Dioxide Level 22 Anion Gap 13 Blood Urea Nitrogen 13 Creatinine 0.90 Glucose Level 162 Calcium Level 8.0 L Total Bilirubin 0.1 L Direct Bilirubin 0.00 Indirect Bilirubin 0.1 Aspartate Amino Transf (AST/SGOT) 22 Alanine Aminotransferase (ALT/SGPT) 26 Alkaline Phosphatase 53 Total Protein 5.3 L Albumin 2.4 L Globulin 2.90 Albumin/Globulin Ratio 0.82 Test 01/07/17 07:47 01/07/17 12:03 Bedside Glucose 177 168 Medications Medications Current Medications Dextrose/Sodium Chloride (D5-1/2ns) 1,000 ml @ 100 mls/hr Q10H IV Last administered on 01/06/17 23:41; Admin Dose 100 MLS/HR; Start 01/01/17 at 23: 31 Ondansetron HCl (Zofran Inj) 4 mg Q6H PRN IV NAUSEA AND/OR VOMITING Last administered on 01/02/17 01:44; Admin Dose 4 MG; Start 01/02/17 at 00:00 Acetaminophen (Tylenol Liquid) 650 mg Q6H PRN PO PAIN LEVEL 1-3 OR FEVER Last administered on 01/05/17 21:14; Admin Dose 650 MG; Start 01/02/17 at 00:00 Acetaminophen (Tylenol Supp) 650 mg Q4H PRN [place] PAIN LEVEL 1-3 OR FEVER; Start 01/02/17 at 00:00 Pantoprazole (Protonix Iv) 40 mg DAILY@06 IV Last administered on 01/07/17 05 :35; Admin Dose 40 MG; Start 01/03/17 at 06:00 Miscellaneous Information This patient morley... PRN PRN XX WOUND CARE; Start at 06:00 Fluconazole/ Sodium Chloride (Diflucan 100 Mg/ NS (Pmx)) 50 ml @ 50 mls/hr Q24H IVPB Last administered on 01/06/17 12:32; Admin Dose 50 MLS/HR; Start at 13:00 Morphine Sulfate (morphine) 2 mg Q3 PRN IV pain Last administered on 04:30; Admin Dose 2 MG; Start 01/04/17 at 14:00 Miscellaneous Information (*Order Clarification Bulletin) MEDICATION REQUIRES CLARIFICATION: Q6H XX Last administered on 01/06/17 08:00; Admin Dose 1 EA; Start 01/04/17 at 14:00 Non-Formulary Medication 1 ea 1 ea DAILY PO Last administered on 01/07/17 08: 27; Admin Dose 1 EA; Start 01/05/17 at 09:00 Trimethoprim/ Sulfamethoxazole 20 ml/Dextrose 520 ml @ 350 mls/hr Q8 IVPB Last administered on 01/07/17 06:36; Admin Dose 350 MLS/HR; Start 01/05/17 at 14:00 Piperacillin Sod/ Tazobactam Sod (Zosyn 3.375gm/ 100 ml (Pmx)) 100 ml @ 200 mls /hr Q8 IVPB Last administered on 01/07/17 05:35; Admin Dose 200 MLS/HR; Start 01/05/17 at 14:00 Azithromycin (Zithromax) 1,200 mg Q7D PO Last administered on 01/05/17 14:25 ; Admin Dose 1,200 MG; Start 01/05/17 at 13:00 Acyclovir (Zovirax) 400 mg BID PO Last administered on 01/07/17 08:26; Admin Dose 400 MG; Start 01/05/17 at 21:00 Methylprednisolone Sodium Succinate (Solu-Medrol) 40 mg Q6 IV Last administered on 01/07/17 12:17; Admin Dose 40 MG; Start 01/06/17 at 12:00 Diagnostic Test (Pha) (Accu-Chek) 1 ea 02 XX ; Start 01/07/17 at 02:00 Miscellaneous Information 1 ea NOTE XX ; Start 01/06/17 at 14:00 Glucose (Glutose) 15 gm Q15M PRN PO DECREASED GLUCOSE; Start 01/06/17 at 14:00 Glucose (Glutose) 22.5 gm Q15M PRN PO DECREASED GLUCOSE; Start 01/06/17 at 14: 00 Dextrose (D50w Syringe) 25 ml Q15M PRN IV DECREASED GLUCOSE; Start 01/06/17 at 14:00 Dextrose (D50w Syringe) 50 ml Q15M PRN IV DECREASED GLUCOSE; Start 01/06/17 at 14:00 Glucagon (Glucagen) 1 mg Q15M PRN IM DECREASED GLUCOSE; Start 01/06/17 at 14: 00 Glucose (Glutose) 15 gm Q15M PRN BUCCAL DECREASED GLUCOSE; Start 01/06/17 at 14:00 FRANCES HATFIELD Jan 07, 2017 13:06
--- NOTE | 2017-01-07 13:18 | PN ---
Date/Time of Note Date/Time of Note DATE: 01/07/17 TIME: 13:18 Assessment/Plan Lines/Catheters IV Catheter Type (from Nrsg): Central Line Bailey in Place (from Nrsg): Yes Assessment/Plan Chief Complaint/Hosp Course Bilateral PTX with air leaks SP BL CT placement PTX Resolved will continue CT sxn will check CXR Problems: Subjective 24 Hr Interval Summary Constitutional: improved Pain Control: mild Exam/Review of Systems Vital Signs Vitals Vital Signs Date Time Temp Pulse Resp B/P Pulse Ox O2 Delivery O2 Flow Rate FiO2 01/07/17 12:35 93 01/07/17 11:36 98.5 20 117/63 94 01/07/17 02:37 21 01/06/17 23:00 Room Air 01/05/17 20:00 2.0 Intake and Output 01/06/17 01/06/17 01/07/17 15:00 23:00 07:00 Intake Total 50 ml 2540 ml 685 ml Output Total 1225 ml 1280 ml 900 ml Balance -1175 ml 1260 ml -215 ml Exam ENMT: mucosa pink and moist, nl external ears & nose, nl lips & teeth, nl nasal mucosa & septum Neck: non-tender, supple Respiratory: clear to auscultation, normal air movement Cardiovascular: nl pulses, regular rate and rhythm Results Result Diagram: 01/07/17 0656 01/07/17 0656 JANIE BASILIO MD Jan 07, 2017 13:18
[2017-01-07] MEDS: FLUCONAZOLE 100 MG/NS (PMX) 50 ML IVPB SCH (14:34)
--- NOTE | 2017-01-07 16:47 | PN ---
Date/Time of Note Date/Time of Note DATE: 01/07/17 TIME: 16:45 Assessment/Plan VTE Prophylaxis VTE Prophylaxis Intervention: LMWH Lines/Catheters IV Catheter Type (from Nrsg): Central Line Central line still needed: Yes Urinary Cath still in place: Yes Reason Cath still needed: urinary retention Assessment/Plan Chief Complaint/Hosp Course 56 yo male wtih HIV/AIDS, KS of leg, COPD, who presented with bilateral pneumothoraces causing acute respiratory failure B/l Pneumothorax: - Chest tube and management per pulm and CV surgery AIDS/HIV: - ARVs - PPx with bactrim, fluc, azithro Pneumonia: - Cefepime/vanco - Await sputum results concerning for PCP Kaposi sarcoma DMII: - basal/bolus insulin Critial care time > 35 min Problems: Subjective 24 Hr Interval Summary Free Text/Dictation Diarrhea present - c diff negative Major complaint is pain from CT Exam/Review of Systems Vital Signs Vitals Vital Signs Date Time Temp Pulse Resp B/P Pulse Ox O2 Delivery O2 Flow Rate FiO2 01/07/17 15:30 97.6 102 21 137/67 93 01/07/17 14:27 21 01/06/17 23:00 Room Air 01/05/17 20:00 2.0 Intake and Output 01/06/17 01/06/17 01/07/17 15:00 23:00 07:00 Intake Total 50 ml 2540 ml 685 ml Output Total 1225 ml 1280 ml 900 ml Balance -1175 ml 1260 ml -215 ml Results Result Diagram: 01/07/17 0656 01/07/17 0656 Results 24 hrs Laboratory Tests Test 01/06/17 17:08 01/06/17 20:32 01/07/17 06:56 01/07/17 07:47 Bedside Glucose 228 H 179 177 White Blood Count 16.4 H Red Blood Count 3.63 L Hemoglobin 8.2 L Hematocrit 26.5 L Mean Corpuscular Volume 73.0 L Mean Corpuscular Hemoglobin 22.6 L Mean Corpuscular Hemoglobin Concent 30.9 L Red Cell Distribution Width 23.1 H Platelet Count 317 Mean Platelet Volume 8.5 Neutrophils % 89.4 H Lymphocytes % 4.6 L Monocytes % 4.9 Eosinophils % 0.0 Basophils % 0.1 Nucleated Red Blood Cells % 0.0 Neutrophils # 14.6 H Lymphocytes # 0.8 Monocytes # 0.8 Eosinophils # 0.0 Basophils # 0.0 Nucleated Red Blood Cells # 0.0 Sodium Level 138 Potassium Level 3.8 Chloride Level 107 Carbon Dioxide Level 22 Anion Gap 13 Blood Urea Nitrogen 13 Creatinine 0.90 Glucose Level 162 Calcium Level 8.0 L Total Bilirubin 0.1 L Direct Bilirubin 0.00 Indirect Bilirubin 0.1 Aspartate Amino Transf (AST/SGOT) 22 Alanine Aminotransferase (ALT/SGPT) 26 Alkaline Phosphatase 53 Total Protein 5.3 L Albumin 2.4 L Globulin 2.90 Albumin/Globulin Ratio 0.82 Test 01/07/17 12:03 Bedside Glucose 168 Medications Medications Current Medications Dextrose/Sodium Chloride (D5-1/2ns) 1,000 ml @ 100 mls/hr Q10H IV Last administered on 01/06/17 23:41; Admin Dose 100 MLS/HR; Start 01/01/17 at 23: 31 Ondansetron HCl (Zofran Inj) 4 mg Q6H PRN IV NAUSEA AND/OR VOMITING Last administered on 01/02/17 01:44; Admin Dose 4 MG; Start 01/02/17 at 00:00 Acetaminophen (Tylenol Liquid) 650 mg Q6H PRN PO PAIN LEVEL 1-3 OR FEVER Last administered on 01/05/17 21:14; Admin Dose 650 MG; Start 01/02/17 at 00:00 Acetaminophen (Tylenol Supp) 650 mg Q4H PRN [place] PAIN LEVEL 1-3 OR FEVER; Start 01/02/17 at 00:00 Miscellaneous Information This patient morley... PRN PRN XX WOUND CARE; Start at 06:00 Fluconazole/ Sodium Chloride (Diflucan 100 Mg/ NS (Pmx)) 50 ml @ 50 mls/hr Q24H IVPB Last administered on 01/07/17 14:34; Admin Dose 50 MLS/HR; Start at 13:00 Morphine Sulfate (morphine) 2 mg Q3 PRN IV pain Last administered on 13:13; Admin Dose 2 MG; Start 01/04/17 at 14:00 Miscellaneous Information (*Order Clarification Bulletin) MEDICATION REQUIRES CLARIFICATION: Q6H XX Last administered on 01/06/17 08:00; Admin Dose 1 EA; Start 01/04/17 at 14:00 Non-Formulary Medication 1 ea 1 ea DAILY PO Last administered on 01/07/17 08: 27; Admin Dose 1 EA; Start 01/05/17 at 09:00 Trimethoprim/ Sulfamethoxazole 20 ml/Dextrose 520 ml @ 350 mls/hr Q8 IVPB Last administered on 01/07/17 14:39; Admin Dose 350 MLS/HR; Start 01/05/17 at 14:00 Piperacillin Sod/ Tazobactam Sod (Zosyn 3.375gm/ 100 ml (Pmx)) 100 ml @ 200 mls /hr Q8 IVPB Last administered on 01/07/17 13:10; Admin Dose 200 MLS/HR; Start 01/05/17 at 14:00 Azithromycin (Zithromax) 1,200 mg Q7D PO Last administered on 01/05/17 14:25 ; Admin Dose 1,200 MG; Start 01/05/17 at 13:00 Acyclovir (Zovirax) 400 mg BID PO Last administered on 01/07/17 08:26; Admin Dose 400 MG; Start 01/05/17 at 21:00 Methylprednisolone Sodium Succinate (Solu-Medrol) 40 mg Q6 IV Last administered on 01/07/17 12:17; Admin Dose 40 MG; Start 01/06/17 at 12:00 Diagnostic Test (Pha) (Accu-Chek) 1 ea 02 XX ; Start 01/07/17 at 02:00 Miscellaneous Information 1 ea NOTE XX ; Start 01/06/17 at 14:00 Glucose (Glutose) 15 gm Q15M PRN PO DECREASED GLUCOSE; Start 01/06/17 at 14:00 Glucose (Glutose) 22.5 gm Q15M PRN PO DECREASED GLUCOSE; Start 01/06/17 at 14: 00 Dextrose (D50w Syringe) 25 ml Q15M PRN IV DECREASED GLUCOSE; Start 01/06/17 at 14:00 Dextrose (D50w Syringe) 50 ml Q15M PRN IV DECREASED GLUCOSE; Start 01/06/17 at 14:00 Glucagon (Glucagen) 1 mg Q15M PRN IM DECREASED GLUCOSE; Start 01/06/17 at 14: 00 Glucose (Glutose) 15 gm Q15M PRN BUCCAL DECREASED GLUCOSE; Start 01/06/17 at 14:00 Pantoprazole (Protonix Tab) 40 mg DAILY@06 PO ; Start 01/08/17 at 06:00 ALEX BULLARD MD Jan 07, 2017 16:47
--- NOTE | 2017-01-07 22:52 | RADRPT ---
PROCEDURE: XR Chest. CLINICAL INDICATION: Shortness of breath. History of pneumothorax. TECHNIQUE: Single frontal view. COMPARISON: 01/06/2017. FINDINGS: There is a right pneumothorax measuring approximately 40%. There is no left pneumothorax. The bilateral chest tubes, left subclavian vein implanted port central venous catheter, and right brown bclavian vein catheter remain in satisfactory position. The nasogastric tube has been removed. The heart size is normal. There are multiple bilateral pulmonary nodules, unchanged. There is no pleural effusion. IMPRESSION: 1. Right pneumothorax measuring approximate 40%. 2. Nasogastric tube removed. 3. No other change from the prior study dated 01/06/2017. Call report: A call report of the findings was made to Dr. Salas Beck on 01/07/2017 at 2240 radha rs. RPTAT: QQ .Sergio Bergeron MD, Date Time Electronically viewed and signed by .Sergio Bergeron MD, on 01/07/2017 22:52 .R/
[2017-01-08] VITALS (12 sets, daily range): BP systolic 120–151; BP diastolic 56–72; PULSE 90–102; RESP 18–20
[2017-01-08] MEDS: morphine 2 MG INJ IV PRN ×2 (00:58→04:22)
[2017-01-08] MEDS: ALBUTEROL 0.083% (NEB) 2.5 MG/3 ML AMP HHN SCH ×5 (01:17→20:11)
[2017-01-08] MEDS: ACCU-CHEK XX SCH (02:00)
[2017-01-08] MEDS: [UNRECOGNIZED DRUG - REMARK] XX SCH ×4 (02:00→20:00)
--- NOTE | 2017-01-08 02:06 | EN ---
Date/Time of Note Date/Time of Note DATE: 01/08/17 TIME: 02:03 Event Note Medicine Medicine Event Note Patient seen and examined at the bedside. Was called by the radiologist in regard to the right sided pneumothorax. Patient stable at the bedside and no respiratory distress. Chest tubes assessed. Right sided wall suction tubing appeared kinked in between the bed. Tubing adjusted and low wall suction continued. Bilateral chest tubes in place. Will repeat chest xray to assess pnemothorax. If any worsening of symptoms or no improvement of pneumothorax, will place call to CT surgery. SAIRA LAI Jan 08, 2017 02:06
[2017-01-08] MEDS: METHYLPREDNISOLONE 40 MG INJ IV SCH ×3 (05:40→17:37)
[2017-01-08] MEDS: PIPER-TAZO 3.375 GM IV (PMX) 100 ML IVPB SCH ×3 (05:41→22:39)
[2017-01-08] MEDS: PANTOPRAZOLE (EC) 40 MG TAB PO SCH (05:41)
[2017-01-08] MEDS: TRIMETHOPRIM/SULFAMETHOXAZOLE 20 ML in DEXTROSE 5% 500 ML IVPB SCH ×3 (06:09→21:38)
--- NOTE | 2017-01-08 07:19 | RADRPT ---
PROCEDURE: XR Chest. CLINICAL INDICATION: Follow-up right pneumothorax. . TECHNIQUE: Single frontal chest x-ray. COMPARISON: 01/07/2017 FINDINGS: There is a right-sided chest tube in place with tip near the cardiophrenic angle. Left-sided chest t ube in place with tip near the apex. There is a right arm PICC line and left-sided Port-A-Cath in pl [facility] with tip in the superior vena cava. There is resolution of previous right-sided pneumothorax. Th ere is no evidence of left pneumothorax. Multiple bilateral pulmonary masses are again noted. .. Th e cardiomediastinal silhouette is unremarkable. The osseous structures are intact. IMPRESSION: Bilateral chest tubes, left-sided Port-A-Cath and right arm PICC line in place. Resolution of previous right pneumothorax. Multiple bilateral pulmonary masses or metastases unchanged.. RPTAT: QQ .Nakul Burnham MD, MD Date Time Electronically viewed and signed by .Nakul Burnham MD, on 01/08/2017 07:18 .L/
[2017-01-08] MEDS: INSULIN ASPART [NOVOLOG] 3 ML PEN SC SCH ×4 (07:42→20:28)
[2017-01-08] MEDS: ACYCLOVIR 400 MG TAB PO SCH ×2 (08:38→20:29)
[2017-01-08] MEDS: TRIUMEQ PO SCH (08:38)
[2017-01-08] MEDS: VIRACEPT PO SCH ×2 (08:39→17:36)
[2017-01-08] MEDS: FLUCONAZOLE 100 MG/NS (PMX) 50 ML IVPB SCH (12:18)
--- NOTE | 2017-01-08 12:34 | PN ---
Date/Time of Note Date/Time of Note DATE: 01/08/17 TIME: 12:33 Assessment/Plan VTE Prophylaxis VTE Prophylaxis Intervention: other Lines/Catheters IV Catheter Type (from Nrs): Central line still needed: No Urinary Cath still in place: No Assessment/Plan Chief Complaint/Hosp Course Bilateral PTX with air leaks SP BL CT placement PTX Resolved will continue CT sxn will check CXR Problems: Subjective 24 Hr Interval Summary Genitourinary: no complaints Musculoskeletal: no complaints Skin: no complaints Exam/Review of Systems Vital Signs Vitals Vital Signs Date Time Temp Pulse Resp B/P Pulse Ox O2 Delivery O2 Flow Rate FiO2 01/08/17 12:04 98.3 92 19 124/59 93 01/08/17 09:28 2.0 01/08/17 09:28 Nasal Cannula 01/08/17 01:26 21 Intake and Output 01/07/17 01/07/17 01/08/17 15:00 23:00 07:00 Intake Total 1290 ml 320 ml Output Total 0 ml 1920 ml 870 ml Balance 0 ml -630 ml -550 ml Exam ENMT: nl external ears & nose, nl lips & teeth, nl nasal mucosa & septum Neck: non-tender, supple Respiratory: clear to auscultation, normal air movement Cardiovascular: nl pulses, regular rate and rhythm Results Result Diagram: 01/07/17 0656 01/07/17 0656 Results 24 hrs Laboratory Tests Test 01/07/17 17:22 01/07/17 21:03 01/08/17 07:27 01/08/17 12:03 Bedside Glucose 206 178 188 119 Medications Medications Current Medications Ondansetron HCl (Zofran Inj) 4 mg Q6H PRN IV NAUSEA AND/OR VOMITING Last administered on 01/02/17 01:44; Admin Dose 4 MG; Start 01/02/17 at 00:00 Acetaminophen (Tylenol Liquid) 650 mg Q6H PRN PO PAIN LEVEL 1-3 OR FEVER Last administered on 01/05/17 21:14; Admin Dose 650 MG; Start 01/02/17 at 00:00 Acetaminophen (Tylenol Supp) 650 mg Q4H PRN [place] PAIN LEVEL 1-3 OR FEVER; Start 01/02/17 at 00:00 Miscellaneous Information This patient morley... PRN PRN XX WOUND CARE; Start at 06:00 Fluconazole/ Sodium Chloride (Diflucan 100 Mg/ NS (Pmx)) 50 ml @ 50 mls/hr Q24H IVPB Last administered on 01/08/17 12:18; Admin Dose 50 MLS/HR; Start at 13:00 Morphine Sulfate (morphine) 2 mg Q3 PRN IV pain Last administered on 04:22; Admin Dose 2 MG; Start 01/04/17 at 14:00 Miscellaneous Information (*Order Clarification Bulletin) MEDICATION REQUIRES CLARIFICATION: Q6H XX Last administered on 01/08/17 08:31; Admin Dose 1 EA; Start 01/04/17 at 14:00 Non-Formulary Medication 1 ea 1 ea DAILY PO Last administered on 01/08/17 08: 38; Admin Dose 1 EA; Start 01/05/17 at 09:00 Trimethoprim/ Sulfamethoxazole 20 ml/Dextrose 520 ml @ 350 mls/hr Q8 IVPB Last administered on 01/08/17 06:09; Admin Dose 350 MLS/HR; Start 01/05/17 at 14:00 Piperacillin Sod/ Tazobactam Sod (Zosyn 3.375gm/ 100 ml (Pmx)) 100 ml @ 200 mls /hr Q8 IVPB Last administered on 01/08/17 05:41; Admin Dose 200 MLS/HR; Start 01/05/17 at 14:00 Azithromycin (Zithromax) 1,200 mg Q7D PO Last administered on 01/05/17 14:25 ; Admin Dose 1,200 MG; Start 01/05/17 at 13:00 Acyclovir (Zovirax) 400 mg BID PO Last administered on 01/08/17 08:38; Admin Dose 400 MG; Start 01/05/17 at 21:00 Methylprednisolone Sodium Succinate (Solu-Medrol) 40 mg Q6 IV Last administered on 01/08/17 12:06; Admin Dose 40 MG; Start 01/06/17 at 12:00 Diagnostic Test (Pha) (Accu-Chek) 1 ea 02 XX ; Start 01/07/17 at 02:00 Miscellaneous Information 1 ea NOTE XX ; Start 01/06/17 at 14:00 Glucose (Glutose) 15 gm Q15M PRN PO DECREASED GLUCOSE; Start 01/06/17 at 14:00 Glucose (Glutose) 22.5 gm Q15M PRN PO DECREASED GLUCOSE; Start 01/06/17 at 14: 00 Dextrose (D50w Syringe) 25 ml Q15M PRN IV DECREASED GLUCOSE; Start 01/06/17 at 14:00 Dextrose (D50w Syringe) 50 ml Q15M PRN IV DECREASED GLUCOSE; Start 01/06/17 at 14:00 Glucagon (Glucagen) 1 mg Q15M PRN IM DECREASED GLUCOSE; Start 01/06/17 at 14: 00 Glucose (Glutose) 15 gm Q15M PRN BUCCAL DECREASED GLUCOSE; Start 01/06/17 at 14:00 Pantoprazole (Protonix Tab) 40 mg DAILY@06 PO Last administered on 01/08/17t 05:41; Admin Dose 40 MG; Start 01/08/17 at 06:00 JANIE BASILIO MD Jan 08, 2017 12:34
--- NOTE | 2017-01-08 12:43 | CONS ---
Date/Time of Note Date/Time of Note DATE: 01/08/17 TIME: 12:39 Assessment/Plan Assessment/Plan Additional Assessment/Plan Chest x-ray was reviewed from today which is showing bilateral chest tubes in place. Bilateral patchy ill without infiltrates are present. Chest x-ray also was reviewed from late last night which is showing a 30% right pneumothorax. Assessment and recommendations; 1. Patient admitted with bilateral pneumothoraces likely from underlying PCP infection. Currently on appropriate antibiotic regimen. 2. History of Kaposi's sarcoma involving right lower extremity. 3. Interval resolution of right pneumothorax which was seen on last night's chest x-ray. 4. Patient is HIV positive. Continue current treatment. Obtain follow-up chest x-ray tomorrow morning. Patient would need to have CT imaging of the chest done however on account of recurrent bilateral pneumothoraces on any movement it would be high risk to move the patient for CT imaging. Will wait at least a couple of days until there are no further episodes of pneumothoraces. Consultation Date/Type/Reason Admit Date/Time Jan 01, 2017 at 21:48 Initial Consult Date 01/02/17 Type of Consultation: Pulmonary 24 HR Interval Summary Free Text/Dictation Patient's condition is stable. Denies any shortness of breath, chest pain, coughing or wheezing. General exam; middle-aged male, awake alert, currently in no distress. Exam/Review of Systems Vital Signs Vitals Vital Signs Date Time Temp Pulse Resp B/P Pulse Ox O2 Delivery O2 Flow Rate FiO2 01/08/17 12:33 102 01/08/17 12:04 98.3 19 124/59 93 01/08/17 09:28 2.0 01/08/17 09:28 Nasal Cannula 01/08/17 01:26 21 Intake and Output 01/07/17 01/07/17 01/08/17 15:00 23:00 07:00 Intake Total 1290 ml 320 ml Output Total 0 ml 1920 ml 870 ml Balance 0 ml -630 ml -550 ml Exam HEENT exam; supple neck, no JVD. No lymphadenopathy. Midline trachea. No thyromegaly. Patient has fair dentition. No oral thrush. Chest exam; clear to auscultation. Bilateral chest tubes are in place. S1-S2 audible, no murmurs. Regular rhythm. Abdomen exam; soft, nontender. No organomegaly. Bowel sounds audible. Extremity exam; no peripheral edema. [employer]OR [employer] exam; no focal deficit. Results Result Diagram: 01/07/17 0656 01/07/17 0656 Results 24 hrs Laboratory Tests Test 01/07/17 17:22 01/07/17 21:03 01/08/17 07:27 01/08/17 12:03 Bedside Glucose 206 178 188 119 Medications Medications Current Medications Ondansetron HCl (Zofran Inj) 4 mg Q6H PRN IV NAUSEA AND/OR VOMITING Last administered on 01/02/17 01:44; Admin Dose 4 MG; Start 01/02/17 at 00:00 Acetaminophen (Tylenol Liquid) 650 mg Q6H PRN PO PAIN LEVEL 1-3 OR FEVER Last administered on 01/05/17 21:14; Admin Dose 650 MG; Start 01/02/17 at 00:00 Acetaminophen (Tylenol Supp) 650 mg Q4H PRN [place] PAIN LEVEL 1-3 OR FEVER; Start 01/02/17 at 00:00 Miscellaneous Information This patient morley... PRN PRN XX WOUND CARE; Start at 06:00 Fluconazole/ Sodium Chloride (Diflucan 100 Mg/ NS (Pmx)) 50 ml @ 50 mls/hr Q24H IVPB Last administered on 01/08/17 12:18; Admin Dose 50 MLS/HR; Start at 13:00 Morphine Sulfate (morphine) 2 mg Q3 PRN IV pain Last administered on 04:22; Admin Dose 2 MG; Start 01/04/17 at 14:00 Miscellaneous Information (*Order Clarification Bulletin) MEDICATION REQUIRES CLARIFICATION: Q6H XX Last administered on 01/08/17 08:31; Admin Dose 1 EA; Start 01/04/17 at 14:00 Non-Formulary Medication 1 ea 1 ea DAILY PO Last administered on 01/08/17 08: 38; Admin Dose 1 EA; Start 01/05/17 at 09:00 Trimethoprim/ Sulfamethoxazole 20 ml/Dextrose 520 ml @ 350 mls/hr Q8 IVPB Last administered on 01/08/17 06:09; Admin Dose 350 MLS/HR; Start 01/05/17 at 14:00 Piperacillin Sod/ Tazobactam Sod (Zosyn 3.375gm/ 100 ml (Pmx)) 100 ml @ 200 mls /hr Q8 IVPB Last administered on 01/08/17 05:41; Admin Dose 200 MLS/HR; Start 01/05/17 at 14:00 Azithromycin (Zithromax) 1,200 mg Q7D PO Last administered on 01/05/17 14:25 ; Admin Dose 1,200 MG; Start 01/05/17 at 13:00 Acyclovir (Zovirax) 400 mg BID PO Last administered on 01/08/17 08:38; Admin Dose 400 MG; Start 01/05/17 at 21:00 Methylprednisolone Sodium Succinate (Solu-Medrol) 40 mg Q6 IV Last administered on 01/08/17 12:06; Admin Dose 40 MG; Start 01/06/17 at 12:00 Diagnostic Test (Pha) (Accu-Chek) 1 ea 02 XX ; Start 01/07/17 at 02:00 Miscellaneous Information 1 ea NOTE XX ; Start 01/06/17 at 14:00 Glucose (Glutose) 15 gm Q15M PRN PO DECREASED GLUCOSE; Start 01/06/17 at 14:00 Glucose (Glutose) 22.5 gm Q15M PRN PO DECREASED GLUCOSE; Start 01/06/17 at 14: 00 Dextrose (D50w Syringe) 25 ml Q15M PRN IV DECREASED GLUCOSE; Start 01/06/17 at 14:00 Dextrose (D50w Syringe) 50 ml Q15M PRN IV DECREASED GLUCOSE; Start 01/06/17 at 14:00 Glucagon (Glucagen) 1 mg Q15M PRN IM DECREASED GLUCOSE; Start 01/06/17 at 14: 00 Glucose (Glutose) 15 gm Q15M PRN BUCCAL DECREASED GLUCOSE; Start 01/06/17 at 14:00 Pantoprazole (Protonix Tab) 40 mg DAILY@06 PO Last administered on 01/08/17 05:41; Admin Dose 40 MG; Start 01/08/17 at 06:00 FRANCES HATFIELD Jan 08, 2017 12:42
--- NOTE | 2017-01-08 14:31 | CONS ---
Date/Time of Note Date/Time of Note DATE: 01/08/17 TIME: 14:18 Assessment/Plan Assessment/Plan Chief Complaint/Hosp Course Problems: Additional Assessment/Plan Acute pain syndrome Bilateral chest tubes Aids Sepsis Kaposi's sarcoma Acute and chronic pain syndrome. Patient was on morphine immediate release prior to hospitalization I will restart that for moderate pain and continued IV Dilaudid for severe pain. When patient is scheduled for discharge suggest not prescribing opioids but follow up with his regular pain management physician. Consultation Date/Type/Reason Admit Date/Time Jan 01, 2017 at 21:48 Initial Consult Date 01/02/17 Type of Consultation: Pain management Exam/Review of Systems Vital Signs Vitals Vital Signs Date Time Temp Pulse Resp B/P Pulse Ox O2 Delivery O2 Flow Rate FiO2 01/08/17 12:33 102 01/08/17 12:04 98.3 19 124/59 93 01/08/17 09:28 2.0 01/08/17 09:28 Nasal Cannula 01/08/17 01:26 21 Intake and Output 01/07/17 01/07/17 01/08/17 15:00 23:00 07:00 Intake Total 1290 ml 320 ml Output Total 0 ml 1920 ml 870 ml Balance 0 ml -630 ml -550 ml Exam Constitutional: alert, oriented, well developed Psych: nl mood/affect, no complaints Eyes: EOMI, PERRL, nl conjunctiva, nl lids, nl sclera, No fundi, disc, No icteric, No other 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, nl mental status, nl speech, nl strength Results Result Diagram: 01/07/17 0656 01/07/17 0656 Results 24 hrs Laboratory Tests Test 01/07/17 17:22 01/07/17 21:03 01/08/17 07:27 01/08/17 12:03 Bedside Glucose 206 178 188 119 Medications Medications Current Medications Ondansetron HCl (Zofran Inj) 4 mg Q6H PRN IV NAUSEA AND/OR VOMITING Last administered on 01/02/17 01:44; Admin Dose 4 MG; Start 01/02/17 at 00:00 Acetaminophen (Tylenol Liquid) 650 mg Q6H PRN PO PAIN LEVEL 1-3 OR FEVER Last administered on 01/05/17 21:14; Admin Dose 650 MG; Start 01/02/17 at 00:00 Acetaminophen (Tylenol Supp) 650 mg Q4H PRN [place] PAIN LEVEL 1-3 OR FEVER; Start 01/02/17 at 00:00 Miscellaneous Information This patient morley... PRN PRN XX WOUND CARE; Start at 06:00 Fluconazole/ Sodium Chloride (Diflucan 100 Mg/ NS (Pmx)) 50 ml @ 50 mls/hr Q24H IVPB Last administered on 01/08/17 12:18; Admin Dose 50 MLS/HR; Start at 13:00 Morphine Sulfate (morphine) 2 mg Q3 PRN IV pain Last administered on 04:22; Admin Dose 2 MG; Start 01/04/17 at 14:00 Miscellaneous Information (*Order Clarification Bulletin) MEDICATION REQUIRES CLARIFICATION: Q6H XX Last administered on 01/08/17 08:31; Admin Dose 1 EA; Start 01/04/17 at 14:00 Non-Formulary Medication 1 ea 1 ea DAILY PO Last administered on 01/08/17 08: 38; Admin Dose 1 EA; Start 01/05/17 at 09:00 Trimethoprim/ Sulfamethoxazole 20 ml/Dextrose 520 ml @ 350 mls/hr Q8 IVPB Last administered on 01/08/17 06:09; Admin Dose 350 MLS/HR; Start 01/05/17 at 14:00 Piperacillin Sod/ Tazobactam Sod (Zosyn 3.375gm/ 100 ml (Pmx)) 100 ml @ 200 mls /hr Q8 IVPB Last administered on 01/08/17 05:41; Admin Dose 200 MLS/HR; Start 01/05/17 at 14:00 Azithromycin (Zithromax) 1,200 mg Q7D PO Last administered on 01/05/17 14:25 ; Admin Dose 1,200 MG; Start 01/05/17 at 13:00 Acyclovir (Zovirax) 400 mg BID PO Last administered on 01/08/17 08:38; Admin Dose 400 MG; Start 01/05/17 at 21:00 Methylprednisolone Sodium Succinate (Solu-Medrol) 40 mg Q6 IV Last administered on 01/08/17 12:06; Admin Dose 40 MG; Start 01/06/17 at 12:00 Diagnostic Test (Pha) (Accu-Chek) 1 ea 02 XX ; Start 01/07/17 at 02:00 Miscellaneous Information 1 ea NOTE XX ; Start 01/06/17 at 14:00 Glucose (Glutose) 15 gm Q15M PRN PO DECREASED GLUCOSE; Start 01/06/17 at 14:00 Glucose (Glutose) 22.5 gm Q15M PRN PO DECREASED GLUCOSE; Start 01/06/17 at 14: 00 Dextrose (D50w Syringe) 25 ml Q15M PRN IV DECREASED GLUCOSE; Start 01/06/17 at 14:00 Dextrose (D50w Syringe) 50 ml Q15M PRN IV DECREASED GLUCOSE; Start 01/06/17 at 14:00 Glucagon (Glucagen) 1 mg Q15M PRN IM DECREASED GLUCOSE; Start 01/06/17 at 14: 00 Glucose (Glutose) 15 gm Q15M PRN BUCCAL DECREASED GLUCOSE; Start 01/06/17 at 14:00 Pantoprazole (Protonix Tab) 40 mg DAILY@06 PO Last administered on 01/08/17 05:41; Admin Dose 40 MG; Start 01/08/17 at 06:00 PETER DIAS Jan 08, 2017 14:31 Glucagon (Glucagen) 1 mg Q15M PRN IM DECREASED GLUCOSE; Start 01/06/17 at 14: 00 Glucose (Glutose) 15 gm Q15M PRN BUCCAL DECREASED GLUCOSE; Start 01/06/17 at 14:00 Pantoprazole (Protonix Tab) 40 mg DAILY@06 PO Last administered on 01/08/17 05:41; Admin Dose 40 MG; Start 01/08/17 at 06:00 PETER DIAS Jan 08, 2017 14:31
[2017-01-08] MEDS ORDERED: morphine LIQ (20 MG/ML PO SYG) SL PRN (15:00)
--- NOTE | 2017-01-08 15:37 | PN ---
Date/Time of Note Date/Time of Note DATE: 01/08/17 TIME: 15:34 Assessment/Plan VTE Prophylaxis VTE Prophylaxis Intervention: SCD's Lines/Catheters IV Catheter Type (from Nrs): Urinary Cath still in place: No Assessment/Plan Chief Complaint/Hosp Course Assessment: Severe anemia/now stable Respiratory failure * Bilateral pneumothoraces/ resolved- bilateral chest tube in place HIV Kaposi's sarcoma with right lower extremity Sepsis Plan: Monitor CBC daily Continue PPI therapy Stool OB negative- no evidence of GI bleed Patient had loose sttol x1- sample sent in - neg for c-diff Pt to follow with GI as an out pt for colonoscopy Patient seen in collaboration with Dr. Padron Subjective: Course reviewed with nursing staff Patient interviewed and examined All labs, imaging and other results reviewed Feeling better x1 loose stool- sample negative for c-diff chest tubes in place Anemia not likely related to GI bleed Anemia stable- will continue to monitor Problems: Exam/Review of Systems Vital Signs Vitals Vital Signs Date Time Temp Pulse Resp B/P Pulse Ox O2 Delivery O2 Flow Rate FiO2 01/08/17 12:33 102 01/08/17 12:04 98.3 19 124/59 93 01/08/17 09:28 2.0 01/08/17 09:28 Nasal Cannula 01/08/17 01:26 21 Intake and Output 01/07/17 01/07/17 01/08/17 14:59 22:59 06:59 Intake Total 1290 ml 320 ml Output Total 0 ml 1920 ml 870 ml Balance 0 ml -630 ml -550 ml Results Result Diagram: 01/07/17 0656 01/07/17 0656 Results 24 hrs Laboratory Tests Test 01/07/17 17:22 01/07/17 21:03 01/08/17 07:27 01/08/17 12:03 Bedside Glucose 206 178 188 119 Medications Medications Current Medications Ondansetron HCl (Zofran Inj) 4 mg Q6H PRN IV NAUSEA AND/OR VOMITING Last administered on 01/02/17 01:44; Admin Dose 4 MG; Start 01/02/17 at 00:00 Acetaminophen (Tylenol Liquid) 650 mg Q6H PRN PO PAIN LEVEL 1-3 OR FEVER Last administered on 01/05/17 21:14; Admin Dose 650 MG; Start 01/02/17 at 00:00 Acetaminophen (Tylenol Supp) 650 mg Q4H PRN [place] PAIN LEVEL 1-3 OR FEVER; Start 01/02/17 at 00:00 Miscellaneous Information This patient morley... PRN PRN XX WOUND CARE; Start at 06:00 Fluconazole/ Sodium Chloride (Diflucan 100 Mg/ NS (Pmx)) 50 ml @ 50 mls/hr Q24H IVPB Last administered on 01/08/17 12:18; Admin Dose 50 MLS/HR; Start at 13:00 Miscellaneous Information (*Order Clarification Bulletin) MEDICATION REQUIRES CLARIFICATION: Q6H XX Last administered on 01/08/17 14:27; Admin Dose 1 EA; Start 01/04/17 at 14:00 Non-Formulary Medication 1 ea 1 ea DAILY PO Last administered on 01/08/17 08: 38; Admin Dose 1 EA; Start 01/05/17 at 09:00 Trimethoprim/ Sulfamethoxazole 20 ml/Dextrose 520 ml @ 350 mls/hr Q8 IVPB Last administered on 01/08/17 15:28; Admin Dose 350 MLS/HR; Start 01/05/17 at 14:00 Piperacillin Sod/ Tazobactam Sod (Zosyn 3.375gm/ 100 ml (Pmx)) 100 ml @ 200 mls /hr Q8 IVPB Last administered on 01/08/17 14:27; Admin Dose 200 MLS/HR; Start 01/05/17 at 14:00 Azithromycin (Zithromax) 1,200 mg Q7D PO Last administered on 01/05/17 14:25 ; Admin Dose 1,200 MG; Start 01/05/17 at 13:00 Acyclovir (Zovirax) 400 mg BID PO Last administered on 01/08/17 08:38; Admin Dose 400 MG; Start 01/05/17 at 21:00 Methylprednisolone Sodium Succinate (Solu-Medrol) 40 mg Q6 IV Last administered on 01/08/17 12:06; Admin Dose 40 MG; Start 01/06/17 at 12:00 Diagnostic Test (Pha) (Accu-Chek) 1 ea 02 XX ; Start 01/07/17 at 02:00 Miscellaneous Information 1 ea NOTE XX ; Start 01/06/17 at 14:00 Glucose (Glutose) 15 gm Q15M PRN PO DECREASED GLUCOSE; Start 01/06/17 at 14:00 Glucose (Glutose) 22.5 gm Q15M PRN PO DECREASED GLUCOSE; Start 01/06/17 at 14: 00 Dextrose (D50w Syringe) 25 ml Q15M PRN IV DECREASED GLUCOSE; Start 01/06/17 at 14:00 Dextrose (D50w Syringe) 50 ml Q15M PRN IV DECREASED GLUCOSE; Start 01/06/17 at 14:00 Glucagon (Glucagen) 1 mg Q15M PRN IM DECREASED GLUCOSE; Start 01/06/17 at 14: 00 Glucose (Glutose) 15 gm Q15M PRN BUCCAL DECREASED GLUCOSE; Start 01/06/17 at 14:00 Pantoprazole (Protonix Tab) 40 mg DAILY@06 PO Last administered on 01/08/17t 05:41; Admin Dose 40 MG; Start 01/08/17 at 06:00 Hydromorphone HCl (Dilaudid) 2 mg Q4H PRN IV PAIN LEVEL 6-10; Start 01/08/17 at 15:00 Morphine Sulfate (Roxanol) 5 mg Q4H PRN SL PAIN LEVEL 1-5; Start 01/08/17 at 15:00 JORDAN HAHN Jan 08, 2017 15:37
--- NOTE | 2017-01-08 16:17 | PN ---
Date/Time of Note Date/Time of Note DATE: 01/08/17 TIME: 16:16 Assessment/Plan VTE Prophylaxis VTE Prophylaxis Intervention: LMWH Lines/Catheters IV C[facility]ter Type (from [facility]): Urinary Cath still in place: No Assessment/Plan Chief Complaint/Hosp Course 56 yo male wtih HIV/AIDS, KS of leg, COPD, who presented with bilateral pneumothoraces causing acute respiratory failure B/l Pneumothorax: - Chest tube and management per pulm and CV surgery AIDS/HIV: - ARVs - PPx with bactrim, fluc, azithro Pneumonia: - Cefepime/vanco - Await sputum results concerning for PCP - Empirically treating for PCP w steroids and therapeutic dose bactrim Kaposi sarcoma DMII: - basal/bolus insulin Problems: Subjective 24 Hr Interval Summary Free Text/Dictation XR overnight showed recurrence of pneumothorax, CT repositioned and resolved Patient feels well Stable no cmoplaints Exam/Review of Systems Vital Signs Vitals Vital Signs Date Time Temp Pulse Resp B/P Pulse Ox O2 Delivery O2 Flow Rate FiO2 01/08/17 15:53 96 18 93 Nasal Cannula 2.0 01/08/17 15:43 98.1 151/72 01/08/17 01:26 21 Intake and Output 01/07/17 01/07/17 01/08/17 15:00 23:00 07:00 Intake Total 1290 ml 320 ml Output Total 0 ml 1920 ml 870 ml Balance 0 ml -630 ml -550 ml Exam Constitutional: alert, oriented, well developed Psych: nl mood/affect, no complaints Head: atraumatic, normocephalic Eyes: EOMI, PERRL, nl conjunctiva, nl lids, nl sclera ENMT: nl external ears & nose, nl lips & teeth, nl nasal mucosa & septum Neck: non-tender, supple Respiratory: clear to auscultation, normal air movement Cardiovascular: nl pulses, regular rate and rhythm Gastrointestinal: nl liver, spleen, non-tender, soft Musculoskeletal: nl extremities to inspection, nl gait and stance Extremities: normal pulses 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: 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, nl mental status, nl speech, nl strength Skin: nl turgor, No rash or lesions Lymph: nl lymph nodes Results Result Diagram: 01/07/17 0656 01/07/17 0656 Results 24 hrs Laboratory Tests Test 01/07/17 17:22 01/07/17 21:03 01/08/17 07:27 01/08/17 12:03 Bedside Glucose 206 178 188 119 Medications Medications Current Medications Ondansetron HCl (Zofran Inj) 4 mg Q6H PRN IV NAUSEA AND/OR VOMITING Last administered on 01/02/17 01:44; Admin Dose 4 MG; Start 01/02/17 at 00:00 Acetaminophen (Tylenol Liquid) 650 mg Q6H PRN PO PAIN LEVEL 1-3 OR FEVER Last administered on 01/05/17 21:14; Admin Dose 650 MG; Start 01/02/17 at 00:00 Acetaminophen (Tylenol Supp) 650 mg Q4H PRN [place] PAIN LEVEL 1-3 OR FEVER; Start 01/02/17 at 00:00 Miscellaneous Information This patient morley... PRN PRN XX WOUND CARE; Start at 06:00 Fluconazole/ Sodium Chloride (Diflucan 100 Mg/ NS (Pmx)) 50 ml @ 50 mls/hr Q24H IVPB Last administered on 01/08/17 12:18; Admin Dose 50 MLS/HR; Start at 13:00 Miscellaneous Information (*Order Clarification Bulletin) MEDICATION REQUIRES CLARIFICATION: Q6H XX Last administered on 01/08/17 14:27; Admin Dose 1 EA; Start 01/04/17 at 14:00 Non-Formulary Medication 1 ea 1 ea DAILY PO Last administered on 01/08/17 08: 38; Admin Dose 1 EA; Start 01/05/17 at 09:00 Trimethoprim/ Sulfamethoxazole 20 ml/Dextrose 520 ml @ 350 mls/hr Q8 IVPB Last administered on 01/08/17 15:28; Admin Dose 350 MLS/HR; Start 01/05/17 at 14:00 Piperacillin Sod/ Tazobactam Sod (Zosyn 3.375gm/ 100 ml (Pmx)) 100 ml @ 200 mls /hr Q8 IVPB Last administered on 01/08/17 14:27; Admin Dose 200 MLS/HR; Start 01/05/17 at 14:00 Azithromycin (Zithromax) 1,200 mg Q7D PO Last administered on 01/05/17 14:25 ; Admin Dose 1,200 MG; Start 01/05/17 at 13:00 Acyclovir (Zovirax) 400 mg BID PO Last administered on 01/08/17 08:38; Admin Dose 400 MG; Start 01/05/17 at 21:00 Methylprednisolone Sodium Succinate (Solu-Medrol) 40 mg Q6 IV Last administered on 01/08/17 12:06; Admin Dose 40 MG; Start 01/06/17 at 12:00 Diagnostic Test (Pha) (Accu-Chek) 1 ea 02 XX ; Start 01/07/17 at 02:00 Miscellaneous Information 1 ea NOTE XX ; Start 01/06/17 at 14:00 Glucose (Glutose) 15 gm Q15M PRN PO DECREASED GLUCOSE; Start 01/06/17 at 14:00 Glucose (Glutose) 22.5 gm Q15M PRN PO DECREASED GLUCOSE; Start 01/06/17 at 14: 00 Dextrose (D50w Syringe) 25 ml Q15M PRN IV DECREASED GLUCOSE; Start 01/06/17 at 14:00 Dextrose (D50w Syringe) 50 ml Q15M PRN IV DECREASED GLUCOSE; Start 01/06/17 at 14:00 Glucagon (Glucagen) 1 mg Q15M PRN IM DECREASED GLUCOSE; Start 01/06/17 at 14: 00 Glucose (Glutose) 15 gm Q15M PRN BUCCAL DECREASED GLUCOSE; Start 01/06/17 at 14:00 Pantoprazole (Protonix Tab) 40 mg DAILY@06 PO Last administered on 01/08/17 05:41; Admin Dose 40 MG; Start 01/08/17 at 06:00 Hydromorphone HCl (Dilaudid) 2 mg Q4H PRN IV PAIN LEVEL 6-10; Start 01/08/17 at 15:00 Morphine Sulfate (Roxanol) 5 mg Q4H PRN SL PAIN LEVEL 1-5; Start 01/08/17 at 15:00 ALEX BULLARD MD Jan 08, 2017 16:17
[2017-01-08] MEDS: HYDROmorphONE 2 MG/ML SYG IV PRN (20:33)
--- NOTE | 2017-01-08 22:07 | CONS ---
Date/Time of Note Date/Time of Note DATE: 01/08/17 TIME: 22:05 Consult Date/Type/Reason Admit Date/Time Jan 01, 2017 at 21:48 Initial Consult Date 01/02/17 Type of Consultation: ID Objective Vital Signs Date Time Temp Pulse Resp B/P Pulse Ox O2 Delivery O2 Flow Rate FiO2 01/08/17 20:21 2.0 01/08/17 20:21 104 20 97 Nasal Cannula 01/08/17 19:16 99.2 121/60 01/08/17 01:26 21 Intake and Output 01/07/17 01/07/17 01/08/17 15:00 23:00 07:00 Intake Total 1290 ml 320 ml Output Total 0 ml 1920 ml 870 ml Balance 0 ml -630 ml -550 ml Results/Medications Result Diagram: 01/07/17 0656 01/07/17 0656 Results 24 hrs Laboratory Tests Test 01/08/17 07:27 01/08/17 12:03 01/08/17 17:35 01/08/17 20:28 Bedside Glucose 188 119 200 165 Medications Current Medications Ondansetron HCl (Zofran Inj) 4 mg Q6H PRN IV NAUSEA AND/OR VOMITING Last administered on 01/02/17 01:44; Admin Dose 4 MG; Start 01/02/17 at 00:00 Acetaminophen (Tylenol Liquid) 650 mg Q6H PRN PO PAIN LEVEL 1-3 OR FEVER Last administered on 01/05/17 21:14; Admin Dose 650 MG; Start 01/02/17 at 00:00 Acetaminophen (Tylenol Supp) 650 mg Q4H PRN [place] PAIN LEVEL 1-3 OR FEVER; Start 01/02/17 at 00:00 Miscellaneous Information This patient morley... PRN PRN XX WOUND CARE; Start at 06:00 Fluconazole/ Sodium Chloride (Diflucan 100 Mg/ NS (Pmx)) 50 ml @ 50 mls/hr Q24H IVPB Last administered on 01/08/17 12:18; Admin Dose 50 MLS/HR; Start at 13:00 Miscellaneous Information (*Order Clarification Bulletin) MEDICATION REQUIRES CLARIFICATION: Q6H XX Last administered on 01/08/17 14:27; Admin Dose 1 EA; Start 01/04/17 at 14:00 Non-Formulary Medication 1 ea 1 ea DAILY PO Last administered on 01/08/17 08: 38; Admin Dose 1 EA; Start 01/05/17 at 09:00 Trimethoprim/ Sulfamethoxazole 20 ml/Dextrose 520 ml @ 350 mls/hr Q8 IVPB Last administered on 01/08/17 21:38; Admin Dose 350 MLS/HR; Start 01/05/17 at 14:00 Piperacillin Sod/ Tazobactam Sod (Zosyn 3.375gm/ 100 ml (Pmx)) 100 ml @ 200 mls /hr Q8 IVPB Last administered on 01/08/17 14:27; Admin Dose 200 MLS/HR; Start 01/05/17 at 14:00 Azithromycin (Zithromax) 1,200 mg Q7D PO Last administered on 01/05/17 14:25 ; Admin Dose 1,200 MG; Start 01/05/17 at 13:00 Acyclovir (Zovirax) 400 mg BID PO Last administered on 01/08/17 20:29; Admin Dose 400 MG; Start 01/05/17 at 21:00 Methylprednisolone Sodium Succinate (Solu-Medrol) 40 mg Q6 IV Last administered on 01/08/17 17:37; Admin Dose 40 MG; Start 01/06/17 at 12:00 Diagnostic Test (Pha) (Accu-Chek) 1 ea 02 XX ; Start 01/07/17 at 02:00 Miscellaneous Information 1 ea NOTE XX ; Start 01/06/17 at 14:00 Glucose (Glutose) 15 gm Q15M PRN PO DECREASED GLUCOSE; Start 01/06/17 at 14:00 Glucose (Glutose) 22.5 gm Q15M PRN PO DECREASED GLUCOSE; Start 01/06/17 at 14: 00 Dextrose (D50w Syringe) 25 ml Q15M PRN IV DECREASED GLUCOSE; Start 01/06/17 at 14:00 Dextrose (D50w Syringe) 50 ml Q15M PRN IV DECREASED GLUCOSE; Start 01/06/17 at 14:00 Glucagon (Glucagen) 1 mg Q15M PRN IM DECREASED GLUCOSE; Start 01/06/17 at 14: 00 Glucose (Glutose) 15 gm Q15M PRN BUCCAL DECREASED GLUCOSE; Start 01/06/17 at 14:00 Pantoprazole (Protonix Tab) 40 mg DAILY@06 PO Last administered on 01/08/17 05:41; Admin Dose 40 MG; Start 01/08/17 at 06:00 Hydromorphone HCl (Dilaudid) 2 mg Q4H PRN IV PAIN LEVEL 6-10 Last administered on 01/08/17 20:33; Admin Dose 2 MG; Start 01/08/17 at 15:00 Morphine Sulfate (Roxanol) 5 mg Q4H PRN SL PAIN LEVEL 1-5; Start 01/08/17 at 15:00 Assessment/Plan Chief Complaint/Hosp Course SUBJECTIVE: Alert, feels good, no fevers. INDWELLINGS: Bilateral chest tube, right chest triple lumen catheter ANTIMICROBIALS: 1. Bactrim. 2. Zosyn. 3. Acyclovir 400 mg twice a day. 4. Zithromax 1200 mg weekly. 5. Fluconazole. 6. Triumeq and Viracept for HIV. MICROBIOLOGY: Right lower extremity wound culture grew Proteus mirabilis, E. coli and enterococcus species. PHYSICAL EXAMINATION: GENERAL: This is a well-developed, well-nourished, middle-aged man who is alert, in no distress. HEENT: Head atraumatic, normocephalic. Sclerae anicteric. Buccal mucosa pink , dry. NECK: Supple. CHEST: Rise symmetrical. Breath sounds diminished to bases. HEART: S1, S2. ABDOMEN: Soft, bowel tones present. EXTREMITIES: With right lower extremity dressing with drainage with significant swelling. ASSESSMENT: 1. S/p acute hypoxemic respiratory failure==>extubated. 2. 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 3. Acquired immunodeficiency syndrome. 4. 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 5. Bilateral pneumothorax, status post chest tube placement. 6. Chronic obstructive pulmonary disease. 7. Anemia. PLAN: The patient remains stable. Continue present care, steroids/abx, f/u CTS / pulmonary recommendations. Await for sputum for PCP by direct fluorescent antibody. Continue local wound care, pending podiatry alexandr DRAPER pt/staff Problems: ANDREY ENCINAS NP Jan 08, 2017 22:07
[2017-01-09] VITALS (40 sets, daily range): BP systolic 121–175; BP diastolic 58–117; PULSE 86–121; RESP 16–67
[2017-01-09] MEDS: METHYLPREDNISOLONE 40 MG INJ IV SCH ×4 (00:14→18:08)
[2017-01-09] MEDS: ALBUTEROL 0.083% (NEB) 2.5 MG/3 ML AMP HHN SCH ×4 (01:21→20:03)
[2017-01-09] MEDS: [UNRECOGNIZED DRUG - REMARK] XX SCH ×4 (02:00→20:00)
[2017-01-09] MEDS: ACCU-CHEK XX SCH (02:00)
[2017-01-09] MEDS: HYDROmorphONE 2 MG/ML SYG IV PRN ×2 (03:40→15:13)
[2017-01-09] MEDS: PIPER-TAZO 3.375 GM IV (PMX) 100 ML IVPB SCH ×3 (05:49→21:17)
[2017-01-09] MEDS: PANTOPRAZOLE (EC) 40 MG TAB PO SCH (05:50)
[2017-01-09] MEDS: TRIMETHOPRIM/SULFAMETHOXAZOLE 20 ML in DEXTROSE 5% 500 ML IVPB SCH ×2 (07:02→15:15)
--- NOTE | 2017-01-09 08:12 | RADRPT ---
PROCEDURE: XR Chest. CLINICAL INDICATION: Shortness of breath. Right pneumothorax. TECHNIQUE: Single frontal view. COMPARISON: 01/08/2017. FINDINGS: There is a right pneumothorax measuring approximately 50%. There is no left pneumothorax. The bilateral chest tubes, left subclavian vein implanted port central venous catheter, and right brown bclavian vein catheter remain in satisfactory position. The heart size is normal. There are multiple bilateral pulmonary nodules, unchanged. There is bilate ral pulmonary consolidation, worse than seen previously. There is no pleural effusion IMPRESSION: 1. Right pneumothorax measuring approximate 50%. 2. Worse appearance of the lungs. 3. No other change from the prior study dated 01/08/2017. Call report: A call report of the findings was made to Clifford Romano on 01/09/2017 at 0810 hours. RPTAT: QQ .Sergio Bergeron MD, Date Time Electronically viewed and signed by .Sergio Bergeron MD, on 01/09/2017 08:12 .R/
[2017-01-09] MEDS: INSULIN ASPART [NOVOLOG] 3 ML PEN SC SCH ×4 (10:17→21:00)
[2017-01-09] MEDS: VIRACEPT PO SCH ×2 (10:19→17:58)
[2017-01-09] MEDS: ACYCLOVIR 400 MG TAB PO SCH ×2 (10:19→21:14)
[2017-01-09] MEDS: TRIUMEQ PO SCH (10:19)
--- NOTE | 2017-01-09 11:47 | CONS ---
Date/Time of Note Date/Time of Note DATE: 01/09/17 TIME: 11:45 Assessment/Plan Assessment/Plan Additional Assessment/Plan Chest x-ray from today showing left-sided chest tube in place with full left lung reexpansion. Right tracheostomy in place as well with 50% pneumothorax. There is significant worsening in bilateral alveolar infiltrates. Assessment and recommendations; 1. Patient admitted with spontaneous bilateral pneumothoraces was in respiratory failure, was extubated transferred to the medical floor with the patient was recovering well until this morning with the patient has now again started to complain of shortness of breath. Chest x-ray showing increasing bilateral infiltrates with increasing right pneumothorax. 2. HIV positive. 3. Prior history of Kaposi's sarcoma. Increased suction through chest tube. Levaquin has been added by the infectious disease team. Continue other antibiotics and other supportive measures. Continue current Solu-Medrol dosing. If the patient's condition worsens, he may require reintubation. Consultation Date/Type/Reason Admit Date/Time Jan 01, 2017 at 21:48 Initial Consult Date 01/02/17 Type of Consultation: Pulmonary 24 HR Interval Summary Free Text/Dictation Patient's complaining of mild shortness of breath. A chest x-ray was done today which is showing 50% right pneumothorax despite adequate chest tube placement. Patient has been transferred to ICU for closer observation. General exam; middle-aged male, awake, currently in no distress. Exam/Review of Systems Vital Signs Vitals Vital Signs Date Time Temp Pulse Resp B/P Pulse Ox O2 Delivery O2 Flow Rate FiO2 01/09/17 11:15 96 30 127/65 100 Room Air 01/09/17 09:00 10.0 01/09/17 07:43 98.3 01/08/17 01:26 21 Intake and Output 01/08/17 01/08/17 01/09/17 15:00 23:00 07:00 Intake Total 1150 ml 620 ml Output Total 860 ml 120 ml Balance 290 ml 500 ml Exam HEENT exam; supple neck, no JVD. No lymphadenopathy. Midline trachea. No thyromegaly. Patient has fair dentition. No oral thrush. Chest exam; bilateral chest tubes are in place. Diminished breath sounds right lung. S1-S2 audible, no murmurs. Regular rhythm. Abdomen exam; soft, nontender. No organomegaly. Bowel sounds audible. Extremity exam; chronic appearing lower extremity skin changes from prior Kaposi 's sarcoma. No peripheral edema involving left lower extremity. EDUCATIONAL DIRECTOR exam; no focal deficit. Results Result Diagram: 01/07/17 0656 01/07/17 0656 Results 24 hrs Laboratory Tests Test 01/08/17 12:03 01/08/17 17:35 01/08/17 20:28 01/09/17 09:01 Bedside Glucose 119 200 165 261 H Test 01/09/17 09:48 Bedside Glucose 231 H Medications Medications Current Medications Ondansetron HCl (Zofran Inj) 4 mg Q6H PRN IV NAUSEA AND/OR VOMITING Last administered on 01/02/17 01:44; Admin Dose 4 MG; Start 01/02/17 at 00:00 Acetaminophen (Tylenol Liquid) 650 mg Q6H PRN PO PAIN LEVEL 1-3 OR FEVER Last administered on 01/05/17 21:14; Admin Dose 650 MG; Start 01/02/17 at 00:00 Acetaminophen (Tylenol Supp) 650 mg Q4H PRN [place] PAIN LEVEL 1-3 OR FEVER; Start 01/02/17 at 00:00 Miscellaneous Information This patient morley... PRN PRN XX WOUND CARE; Start at 06:00 Fluconazole/ Sodium Chloride (Diflucan 100 Mg/ NS (Pmx)) 50 ml @ 50 mls/hr Q24H IVPB Last administered on 01/08/17 12:18; Admin Dose 50 MLS/HR; Start at 13:00 Miscellaneous Information (*Order Clarification Bulletin) MEDICATION REQUIRES CLARIFICATION: Q6H XX Last administered on 01/09/17 10:00; Admin Dose 1 EA; Start 01/04/17 at 14:00 Non-Formulary Medication 1 ea 1 ea DAILY PO Last administered on 01/09/17 10: 19; Admin Dose 1 EA; Start 01/05/17 at 09:00 Trimethoprim/ Sulfamethoxazole 20 ml/Dextrose 520 ml @ 350 mls/hr Q8 IVPB Last administered on 01/09/17 07:02; Admin Dose 350 MLS/HR; Start 01/05/17 at 14:00 Piperacillin Sod/ Tazobactam Sod (Zosyn 3.375gm/ 100 ml (Pmx)) 100 ml @ 200 mls /hr Q8 IVPB Last administered on 01/09/17 05:49; Admin Dose 200 MLS/HR; Start 01/05/17 at 14:00 Azithromycin (Zithromax) 1,200 mg Q7D PO Last administered on 01/05/17 14:25 ; Admin Dose 1,200 MG; Start 01/05/17 at 13:00 Acyclovir (Zovirax) 400 mg BID PO Last administered on 01/09/17 10:19; Admin Dose 400 MG; Start 01/05/17 at 21:00 Methylprednisolone Sodium Succinate (Solu-Medrol) 40 mg Q6 IV Last administered on 01/09/17 05:49; Admin Dose 40 MG; Start 01/06/17 at 12:00 Diagnostic Test (Pha) (Accu-Chek) 1 ea 02 XX ; Start 01/07/17 at 02:00 Miscellaneous Information 1 ea NOTE XX ; Start 01/06/17 at 14:00 Glucose (Glutose) 15 gm Q15M PRN PO DECREASED GLUCOSE; Start 01/06/17 at 14:00 Glucose (Glutose) 22.5 gm Q15M PRN PO DECREASED GLUCOSE; Start 01/06/17 at 14: 00 Dextrose (D50w Syringe) 25 ml Q15M PRN IV DECREASED GLUCOSE; Start 01/06/17 at 14:00 Dextrose (D50w Syringe) 50 ml Q15M PRN IV DECREASED GLUCOSE; Start 01/06/17 at 14:00 Glucagon (Glucagen) 1 mg Q15M PRN IM DECREASED GLUCOSE; Start 01/06/17 at 14: 00 Glucose (Glutose) 15 gm Q15M PRN BUCCAL DECREASED GLUCOSE; Start 01/06/17 at 14:00 Pantoprazole (Protonix Tab) 40 mg DAILY@06 PO Last administered on 01/09/17 05:50; Admin Dose 40 MG; Start 01/08/17 at 06:00 Hydromorphone HCl (Dilaudid) 2 mg Q4H PRN IV PAIN LEVEL 6-10 Last administered on 01/09/17 03:40; Admin Dose 2 MG; Start 01/08/17 at 15:00 Morphine Sulfate 5 mg 5 mg Q4H PRN SL PAIN LEVEL 1-5; Start 01/08/17 at 15:00 Levofloxacin/ Dextrose (Levaquin 500mg/ D5W 100 ml (Pmx)) 100 ml @ 100 mls/hr Q24H IVPB ; Start 01/09/17 at 11:00 FRANCES HATFIELD Jan 09, 2017 11:47
[2017-01-09] MEDS: LEVOFLOXACIN 500MG/D5W (PMX) 100 ML IVPB SCH (12:41)
[2017-01-09] MEDS: FLUCONAZOLE 100 MG/NS (PMX) 50 ML IVPB SCH (12:45)
--- NOTE | 2017-01-09 13:31 | PN ---
Date/Time of Note Date/Time of Note DATE: 01/09/17 TIME: 13:29 Assessment/Plan VTE Prophylaxis VTE Prophylaxis Intervention: LMWH Lines/Catheters IV Catheter Type (from Nrsg): Central Line Central line still needed: Yes Urinary Cath still in place: Yes Reason Cath still needed: urinary retention Assessment/Plan Chief Complaint/Hosp Course 56 yo male wtih HIV/AIDS, KS of leg, COPD, who presented with bilateral pneumothoraces causing acute respiratory failure B/l Pneumothorax: - Chest tube and management per pulm and CV surgery AIDS/HIV: - ARVs - PPx with bactrim, fluc, azithro Pneumonia: - Cefepime/vanco/levaquin - Await sputum results concerning for PCP, empirically treating for PCP w steroids and therapeutic dose bactrim Kaposi sarcoma DMII: - basal/bolus insulin cc time 35 minutes Problems: Subjective 24 Hr Interval Summary Free Text/Dictation Transferred to ICU for continued pneumothorax to 50% on R Worsening infiltrate, hypoxia Exam/Review of Systems Vital Signs Vitals Vital Signs Date Time Temp Pulse Resp B/P Pulse Ox O2 Delivery O2 Flow Rate FiO2 01/09/17 11:15 96 30 127/65 100 Room Air 01/09/17 09:00 10.0 01/09/17 07:43 98.3 01/08/17 01:26 21 Intake and Output 01/08/17 01/08/17 01/09/17 15:00 23:00 07:00 Intake Total 1150 ml 620 ml Output Total 860 ml 120 ml Balance 290 ml 500 ml Exam Constitutional: alert, oriented, well developed Psych: nl mood/affect, no complaints Head: atraumatic, normocephalic Eyes: EOMI, PERRL, nl conjunctiva, nl lids, nl sclera ENMT: nl external ears & nose, nl lips & teeth, nl nasal mucosa & septum Neck: non-tender, supple Respiratory: clear to auscultation, normal air movement Cardiovascular: nl pulses, regular rate and rhythm Gastrointestinal: nl liver, spleen, non-tender, soft Musculoskeletal: nl extremities to inspection, nl gait and stance Extremities: normal pulses 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: 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, nl mental status, nl speech, nl strength Skin: nl turgor, No rash or lesions Lymph: nl lymph nodes Results Result Diagram: 01/07/17 0656 01/07/17 0656 Results 24 hrs Laboratory Tests Test 01/08/17 17:35 01/08/17 20:28 01/09/17 09:01 01/09/17 09:48 Bedside Glucose 200 165 261 H 231 H Test 01/09/17 12:47 Bedside Glucose 161 Medications Medications Current Medications Ondansetron HCl (Zofran Inj) 4 mg Q6H PRN IV NAUSEA AND/OR VOMITING Last administered on 01/02/17 01:44; Admin Dose 4 MG; Start 01/02/17 at 00:00 Acetaminophen (Tylenol Liquid) 650 mg Q6H PRN PO PAIN LEVEL 1-3 OR FEVER Last administered on 01/05/17 21:14; Admin Dose 650 MG; Start 01/02/17 at 00:00 Acetaminophen (Tylenol Supp) 650 mg Q4H PRN [place] PAIN LEVEL 1-3 OR FEVER; Start 01/02/17 at 00:00 Miscellaneous Information This patient morley... PRN PRN XX WOUND CARE; Start at 06:00 Fluconazole/ Sodium Chloride (Diflucan 100 Mg/ NS (Pmx)) 50 ml @ 50 mls/hr Q24H IVPB Last administered on 01/09/17 12:45; Admin Dose 50 MLS/HR; Start at 13:00 Miscellaneous Information (*Order Clarification Bulletin) MEDICATION REQUIRES CLARIFICATION: Q6H XX Last administered on 01/09/17 10:00; Admin Dose 1 EA; Start 01/04/17 at 14:00 Non-Formulary Medication 1 ea 1 ea DAILY PO Last administered on 01/09/17 10: 19; Admin Dose 1 EA; Start 01/05/17 at 09:00 Trimethoprim/ Sulfamethoxazole 20 ml/Dextrose 520 ml @ 350 mls/hr Q8 IVPB Last administered on 01/09/17 07:02; Admin Dose 350 MLS/HR; Start 01/05/17 at 14:00 Piperacillin Sod/ Tazobactam Sod (Zosyn 3.375gm/ 100 ml (Pmx)) 100 ml @ 200 mls /hr Q8 IVPB Last administered on 01/09/17 05:49; Admin Dose 200 MLS/HR; Start 01/05/17 at 14:00 Azithromycin (Zithromax) 1,200 mg Q7D PO Last administered on 01/05/17 14:25 ; Admin Dose 1,200 MG; Start 01/05/17 at 13:00 Acyclovir (Zovirax) 400 mg BID PO Last administered on 01/09/17 10:19; Admin Dose 400 MG; Start 01/05/17 at 21:00 Methylprednisolone Sodium Succinate (Solu-Medrol) 40 mg Q6 IV Last administered on 01/09/17 12:41; Admin Dose 40 MG; Start 01/06/17 at 12:00 Diagnostic Test (Pha) (Accu-Chek) 1 ea 02 XX ; Start 01/07/17 at 02:00 Miscellaneous Information 1 ea NOTE XX ; Start 01/06/17 at 14:00 Glucose (Glutose) 15 gm Q15M PRN PO DECREASED GLUCOSE; Start 01/06/17 at 14:00 Glucose (Glutose) 22.5 gm Q15M PRN PO DECREASED GLUCOSE; Start 01/06/17 at 14: 00 Dextrose (D50w Syringe) 25 ml Q15M PRN IV DECREASED GLUCOSE; Start 01/06/17 at 14:00 Dextrose (D50w Syringe) 50 ml Q15M PRN IV DECREASED GLUCOSE; Start 01/06/17 at 14:00 Glucagon (Glucagen) 1 mg Q15M PRN IM DECREASED GLUCOSE; Start 01/06/17 at 14: 00 Glucose (Glutose) 15 gm Q15M PRN BUCCAL DECREASED GLUCOSE; Start 01/06/17 at 14:00 Pantoprazole (Protonix Tab) 40 mg DAILY@06 PO Last administered on 01/09/17 05:50; Admin Dose 40 MG; Start 01/08/17 at 06:00 Hydromorphone HCl (Dilaudid) 2 mg Q4H PRN IV PAIN LEVEL 6-10 Last administered on 01/09/17 03:40; Admin Dose 2 MG; Start 01/08/17 at 15:00 Morphine Sulfate 5 mg 5 mg Q4H PRN SL PAIN LEVEL 1-5; Start 01/08/17 at 15:00 Levofloxacin/ Dextrose (Levaquin 500mg/ D5W 100 ml (Pmx)) 100 ml @ 100 mls/hr Q24H IVPB Last administered on 01/09/17 12:41; Admin Dose 100 MLS/HR; Start 01/09/17 at 11:00 ALEX BULLARD MD Jan 09, 2017 13:31
--- NOTE | 2017-01-09 13:48 | PN ---
Date/Time of Note Date/Time of Note DATE: 01/09/17 TIME: 13:44 Assessment/Plan Lines/Catheters IV Catheter Type (from Nrsg): Central Line Bailey in Place (from Nrsg): Yes Assessment/Plan Chief Complaint/Hosp Course Bilateral PTX with air leaks SP BL CT placement PTX 50% right side will continue CT sxn FU CXR may need VATS if PTX does not resolve discussed with the mother, sister and the Pt Problems: Subjective 24 Hr Interval Summary Constitutional: improved Pain Control: mild Exam/Review of Systems Vital Signs Vitals Vital Signs Date Time Temp Pulse Resp B/P Pulse Ox O2 Delivery O2 Flow Rate FiO2 01/09/17 13:30 115 33 175/69 89 Room Air 01/09/17 12:00 97.2 01/09/17 09:00 10.0 01/08/17 01:26 21 Intake and Output 01/08/17 01/08/17 01/09/17 15:00 23:00 07:00 Intake Total 1150 ml 620 ml Output Total 860 ml 120 ml Balance 290 ml 500 ml Exam Neck: non-tender, supple Respiratory: clear to auscultation, normal air movement Cardiovascular: nl pulses, regular rate and rhythm Gastrointestinal: nl liver, spleen, non-tender, soft Results Result Diagram: 01/07/17 0656 01/07/17 0656 JANIE BASILIO MD Jan 09, 2017 13:48
--- NOTE | 2017-01-09 14:10 | CONS ---
Date/Time of Note Date/Time of Note DATE: 01/09/17 TIME: 14:09 Assessment/Plan Assessment/Plan Chief Complaint/Hosp Course Assessment: Severe anemia/now stable Respiratory failure due to PTX, s/p bilateral chest tube in place HIV Kaposi's sarcoma with right lower extremity Sepsis Plan: Monitor CBC daily Continue PPI therapy Stool OB negative- no evidence of GI bleed Patient had loose stool x1- sample sent in - neg for c-diff Pt to follow with GI as an out pt for colonoscopy Patient seen in collaboration with Dr. Padron Problems: Consultation Date/Type/Reason Admit Date/Time Jan 01, 2017 at 21:48 Initial Consult Date 01/02/17 Type of Consultation: GI 24 HR Interval Summary Free Text/Dictation CT repositioned, PTX remains on CXR Constitutional: requiring O2 Exam/Review of Systems Vital Signs Vitals Vital Signs Date Time Temp Pulse Resp B/P Pulse Ox O2 Delivery O2 Flow Rate FiO2 01/09/17 14:06 98 15.0 100 01/09/17 13:30 115 33 175/69 Room Air 01/09/17 12:00 97.2 Intake and Output 01/08/17 01/08/17 01/09/17 15:00 23:00 07:00 Intake Total 1150 ml 620 ml Output Total 860 ml 120 ml Balance 290 ml 500 ml Exam Head: atraumatic, normocephalic Eyes: EOMI, nl conjunctiva, nl lids ENMT: nl external ears & nose, nl lips & teeth, nl nasal mucosa & septum Neck: non-tender, supple Respiratory: clear to auscultation, normal air movement Cardiovascular: nl pulses, regular rate and rhythm Gastrointestinal: bowel sounds, non-tender, soft Results Result Diagram: 01/07/17 0656 01/07/17 0656 Results 24 hrs Laboratory Tests Test 01/08/17 17:35 01/08/17 20:28 01/09/17 09:01 01/09/17 09:48 Bedside Glucose 200 165 261 H 231 H Test 01/09/17 12:47 Bedside Glucose 161 Medications Medications Current Medications Ondansetron HCl (Zofran Inj) 4 mg Q6H PRN IV NAUSEA AND/OR VOMITING Last administered on 01/02/17t 01:44; Admin Dose 4 MG; Start 01/02/17 at 00:00 Acetaminophen (Tylenol Liquid) 650 mg Q6H PRN PO PAIN LEVEL 1-3 OR FEVER Last administered on 01/05/17 21:14; Admin Dose 650 MG; Start 01/02/17 at 00:00 Acetaminophen (Tylenol Supp) 650 mg Q4H PRN OR PAIN LEVEL 1-3 OR FEVER; Start 01/02/17 at 00:00 Miscellaneous Information This patient morley... PRN PRN XX WOUND CARE; Start at 06:00 Fluconazole/ Sodium Chloride (Diflucan 100 Mg/ NS (Pmx)) 50 ml @ 50 mls/hr Q24H IVPB Last administered on 01/09/17 12:45; Admin Dose 50 MLS/HR; Start at 13:00 Miscellaneous Information (*Order Clarification Bulletin) MEDICATION REQUIRES CLARIFICATION: Q6H XX Last administered on 01/09/17 14:06; Admin Dose 1 EA; Start 01/04/17 at 14:00 Non-Formulary Medication 1 ea 1 ea DAILY PO Last administered on 01/09/17 10: 19; Admin Dose 1 EA; Start 01/05/17 at 09:00 Trimethoprim/ Sulfamethoxazole 20 ml/Dextrose 520 ml @ 350 mls/hr Q8 IVPB Last administered on 01/09/17 07:02; Admin Dose 350 MLS/HR; Start 01/05/17 at 14:00 Piperacillin Sod/ Tazobactam Sod (Zosyn 3.375gm/ 100 ml (Pmx)) 100 ml @ 200 mls /hr Q8 IVPB Last administered on 01/09/17 05:49; Admin Dose 200 MLS/HR; Start 01/05/17 at 14:00 Azithromycin (Zithromax) 1,200 mg Q7D PO Last administered on 01/05/17 14:25 ; Admin Dose 1,200 MG; Start 01/05/17 at 13:00 Acyclovir (Zovirax) 400 mg BID PO Last administered on 01/09/17 10:19; Admin Dose 400 MG; Start 01/05/17 at 21:00 Methylprednisolone Sodium Succinate (Solu-Medrol) 40 mg Q6 IV Last administered on 01/09/17 12:41; Admin Dose 40 MG; Start 01/06/17 at 12:00 Diagnostic Test (Pha) (Accu-Chek) 1 ea 02 XX ; Start 01/07/17 at 02:00 Miscellaneous Information 1 ea NOTE XX ; Start 01/06/17 at 14:00 Glucose (Glutose) 15 gm Q15M PRN PO DECREASED GLUCOSE; Start 01/06/17 at 14:00 Glucose (Glutose) 22.5 gm Q15M PRN PO DECREASED GLUCOSE; Start 01/06/17 at 14: 00 Dextrose (D50w Syringe) 25 ml Q15M PRN IV DECREASED GLUCOSE; Start 01/06/17 at 14:00 Dextrose (D50w Syringe) 50 ml Q15M PRN IV DECREASED GLUCOSE; Start 01/06/17 at 14:00 Glucagon (Glucagen) 1 mg Q15M PRN IM DECREASED GLUCOSE; Start 01/06/17 at 14: 00 Glucose (Glutose) 15 gm Q15M PRN BUCCAL DECREASED GLUCOSE; Start 01/06/17 at 14:00 Pantoprazole (Protonix Tab) 40 mg DAILY@06 PO Last administered on 01/09/17 05:50; Admin Dose 40 MG; Start 01/08/17 at 06:00 Hydromorphone HCl (Dilaudid) 2 mg Q4H PRN IV PAIN LEVEL 6-10 Last administered on 01/09/17 03:40; Admin Dose 2 MG; Start 01/08/17 at 15:00 Morphine Sulfate 5 mg 5 mg Q4H PRN SL PAIN LEVEL 1-5; Start 01/08/17 at 15:00 Levofloxacin/ Dextrose (Levaquin 500mg/ D5W 100 ml (Pmx)) 100 ml @ 100 mls/hr Q24H IVPB Last administered on 01/09/17 12:41; Admin Dose 100 MLS/HR; Start 01/09/17 at 11:00 LEON REBOLLEDO MD Jan 09, 2017 14:10
[2017-01-09 20:46] LABS: PNEUM JIROVECCI SRC SPUTUM; PNEUMOCYSTIS JIROVECCI DFA NOT DETECTED
[2017-01-10] VITALS (36 sets, daily range): BP systolic 115–145; BP diastolic 48–100; PULSE 90–112; RESP 17–64
[2017-01-10] MEDS: HYDROmorphONE 2 MG/ML SYG IV PRN ×3 (00:18→18:55)
[2017-01-10] MEDS: METHYLPREDNISOLONE 40 MG INJ IV SCH ×4 (00:25→17:54)
[2017-01-10] MEDS: ALBUTEROL 0.083% (NEB) 2.5 MG/3 ML AMP HHN SCH ×4 (01:30→19:42)
[2017-01-10] MEDS: TRIMETHOPRIM/SULFAMETHOXAZOLE 20 ML in DEXTROSE 5% 500 ML IVPB SCH ×4 (01:46→21:56)
[2017-01-10] MEDS: [UNRECOGNIZED DRUG - REMARK] XX SCH ×4 (02:00→20:00)
[2017-01-10] MEDS: ACCU-CHEK XX SCH (02:00)
[2017-01-10 04:55] LABS: ABNORMAL IP MESSAGE 1; BASOPHILS % 0.1 % (0.0-2.0); HEMATOCRIT 27.4 % (42.0-52.0); HEMOGLOBIN 8.6 g/dl (14.0-18.0); LYMPHOCYTES # 0.4 10^3/ul (0.8-2.9); LYMPHOCYTES % 1.9 % (15.0-51.0); MEAN CORPUSCULAR HEMOGLOBIN 23.2 pg (29.0-33.0); MEAN CORPUSCULAR HGB CONC 31.4 g/dl (32.0-37.0); MEAN CORPUSCULAR VOLUME 74.1 fl (82.0-101.0); MEAN PLATELET VOLUME 8.8 fl (7.4-10.4); MONOCYTE # 0.6 10^3/ul (0.3-0.9); MONOCYTES % 2.8 % (0.0-11.0); NEUTROPHIL # 20.7 10^3/ul (1.6-7.5); NEUTROPHILS % 94.1 % (39.0-77.0); PLATELET COUNT 335 10^3/UL (140-415); POSITIVE DIFF @See below; RED CELL DISTRIBUTION WIDTH 23.8 % (11.5-14.5)
[2017-01-10] MEDS: PANTOPRAZOLE (EC) 40 MG TAB PO SCH (05:14)
[2017-01-10] MEDS: PIPER-TAZO 3.375 GM IV (PMX) 100 ML IVPB SCH ×3 (05:17→21:00)
[2017-01-10 05:41] LABS: CALCIUM 8.9 mg/dl (8.4-10.2); CREATININE 0.81 mg/dl (0.61-1.24); POTASSIUM 4.2 mmol/L (3.5-5.1)
[2017-01-10] MEDS: INSULIN ASPART [NOVOLOG] 3 ML PEN SC SCH ×4 (09:09→20:34)
[2017-01-10] MEDS: VIRACEPT PO SCH ×2 (09:13→17:53)
[2017-01-10] MEDS: ACYCLOVIR 400 MG TAB PO SCH ×2 (09:13→20:28)
[2017-01-10] MEDS: TRIUMEQ PO SCH (09:14)
--- NOTE | 2017-01-10 10:38 | RADRPT ---
PROCEDURE: XR Chest. CLINICAL INDICATION: Right pneumothorax. TECHNIQUE: Single frontal view. COMPARISON: 01/09/2017. FINDINGS: There is a right pneumothorax measuring approximately 30%, which is improved when compared with the prior study. There is no left pneumothorax. The bilateral chest tubes, left subclavian vein implanted port central venous catheter, and right brown bclavian vein catheter remain in satisfactory position. The heart size is normal. There are multiple bilateral pulmonary nodules, unchanged. There is bilate ral pulmonary consolidation, unchanged. There are small bilateral pleural effusions. IMPRESSION: 1. Right pneumothorax measuring approximately 30%, improved. 2. No other change from 01/09/2017. RPTAT: QQ .Sergio Bergeron MD, MD Date Time Electronically viewed and signed by .Sergio Bergeron MD, on 01/10/2017 10:38 .R/
[2017-01-10] MEDS: LEVOFLOXACIN 500MG/D5W (PMX) 100 ML IVPB SCH (11:44)
[2017-01-10] MEDS: FLUCONAZOLE 100 MG/NS (PMX) 50 ML IVPB SCH ×2 (13:00→14:16)
--- NOTE | 2017-01-10 13:14 | CONS ---
Date/Time of Note Date/Time of Note DATE: 01/10/17 TIME: 13:13 Consult Date/Type/Reason Admit Date/Time Jan 01, 2017 at 21:48 Initial Consult Date 01/02/17 Type of Consultation: ID Objective Vital Signs Date Time Temp Pulse Resp B/P Pulse Ox O2 Delivery O2 Flow Rate FiO2 01/10/17 12:00 94 01/10/17 08:06 99 6.0 01/10/17 08:03 32 Simple Mask 01/10/17 07:00 135/69 01/10/17 04:00 97.8 01/09/17 20:03 100 Intake and Output 01/09/17 01/09/17 01/10/17 15:00 23:00 07:00 Intake Total 730 ml 950 ml 1380 ml Output Total 895 ml 470 ml 650 ml Balance -165 ml 480 ml 730 ml Results/Medications Result Diagram: 01/10/17 0400 01/10/17 0400 Results 24 hrs Laboratory Tests Test 01/09/17 17:48 01/09/17 21:12 01/10/17 04:00 01/10/17 08:47 Bedside Glucose 208 171 206 White Blood Count 22.0 #H Red Blood Count 3.70 L Hemoglobin 8.6 L Hematocrit 27.4 L Mean Corpuscular Volume 74.1 L Mean Corpuscular Hemoglobin 23.2 L Mean Corpuscular Hemoglobin Concent 31.4 L Red Cell Distribution Width 23.8 H Platelet Count 335 Mean Platelet Volume 8.8 Neutrophils % 94.1 H Lymphocytes % 1.9 L Monocytes % 2.8 Eosinophils % 0.0 Basophils % 0.1 Nucleated Red Blood Cells % 0.0 Neutrophils # 20.7 H Lymphocytes # 0.4 L Monocytes # 0.6 Eosinophils # 0.0 Basophils # 0.0 Nucleated Red Blood Cells # 0.0 Sodium Level 132 L Potassium Level 4.2 Chloride Level 100 Carbon Dioxide Level 24 Anion Gap 12 Blood Urea Nitrogen 18 Creatinine 0.81 Glucose Level 252 H Calcium Level 8.9 Test 01/10/17 11:58 Bedside Glucose 190 Medications Current Medications Ondansetron HCl (Zofran Inj) 4 mg Q6H PRN IV NAUSEA AND/OR VOMITING Last administered on 01/02/17t 01:44; Admin Dose 4 MG; Start 01/02/17 at 00:00 Acetaminophen (Tylenol Liquid) 650 mg Q6H PRN PO PAIN LEVEL 1-3 OR FEVER Last administered on 01/05/17 21:14; Admin Dose 650 MG; Start 01/02/17 at 00:00 Acetaminophen (Tylenol Supp) 650 mg Q4H PRN [place] PAIN LEVEL 1-3 OR FEVER; Start 01/02/17 at 00:00 Miscellaneous Information This patient morley... PRN PRN XX WOUND CARE; Start at 06:00 Fluconazole/ Sodium Chloride (Diflucan 100 Mg/ NS (Pmx)) 50 ml @ 50 mls/hr Q24H IVPB Last administered on 01/09/17 12:45; Admin Dose 50 MLS/HR; Start at 13:00 Miscellaneous Information (*Order Clarification Bulletin) MEDICATION REQUIRES CLARIFICATION: Q6H XX Last administered on 01/10/17 02:00; Admin Dose 1 EA; Start 01/04/17 at 14:00 Non-Formulary Medication 1 ea 1 ea DAILY PO Last administered on 01/10/17 09: 14; Admin Dose 1 EA; Start 01/05/17 at 09:00 Trimethoprim/ Sulfamethoxazole 20 ml/Dextrose 520 ml @ 350 mls/hr Q8 IVPB Last administered on 01/10/17 06:06; Admin Dose 350 MLS/HR; Start 01/05/17 at 14:00 Piperacillin Sod/ Tazobactam Sod (Zosyn 3.375gm/ 100 ml (Pmx)) 100 ml @ 200 mls /hr Q8 IVPB Last administered on 01/10/17 05:17; Admin Dose 200 MLS/HR; Start 01/05/17 at 14:00 Azithromycin (Zithromax) 1,200 mg Q7D PO Last administered on 01/05/17 14:25 ; Admin Dose 1,200 MG; Start 01/05/17 at 13:00 Acyclovir (Zovirax) 400 mg BID PO Last administered on 01/10/17 09:13; Admin Dose 400 MG; Start 01/05/17 at 21:00 Methylprednisolone Sodium Succinate (Solu-Medrol) 40 mg Q6 IV Last administered on 01/10/17 12:11; Admin Dose 40 MG; Start 01/06/17 at 12:00 Diagnostic Test (Pha) (Accu-Chek) 1 ea 02 XX ; Start 01/07/17 at 02:00 Miscellaneous Information 1 ea NOTE XX ; Start 01/06/17 at 14:00 Glucose (Glutose) 15 gm Q15M PRN PO DECREASED GLUCOSE; Start 01/06/17 at 14:00 Glucose (Glutose) 22.5 gm Q15M PRN PO DECREASED GLUCOSE; Start 01/06/17 at 14: 00 Dextrose (D50w Syringe) 25 ml Q15M PRN IV DECREASED GLUCOSE; Start 01/06/17 at 14:00 Dextrose (D50w Syringe) 50 ml Q15M PRN IV DECREASED GLUCOSE; Start 01/06/17 at 14:00 Glucagon (Glucagen) 1 mg Q15M PRN IM DECREASED GLUCOSE; Start 01/06/17 at 14: 00 Glucose (Glutose) 15 gm Q15M PRN BUCCAL DECREASED GLUCOSE; Start 01/06/17 at 14:00 Pantoprazole (Protonix Tab) 40 mg DAILY@06 PO Last administered on 01/10/17 05:14; Admin Dose 40 MG; Start 01/08/17 at 06:00 Hydromorphone HCl (Dilaudid) 2 mg Q4H PRN IV PAIN LEVEL 6-10 Last administered on 01/10/17 09:28; Admin Dose 2 MG; Start 01/08/17 at 15:00 Morphine Sulfate 5 mg 5 mg Q4H PRN SL PAIN LEVEL 1-5; Start 01/08/17 at 15:00 Levofloxacin/ Dextrose (Levaquin 500mg/ D5W 100 ml (Pmx)) 100 ml @ 100 mls/hr Q24H IVPB Last administered on 01/10/17 11:44; Admin Dose 100 MLS/HR; Start 01/09/17 at 11:00 Assessment/Plan Chief Complaint/Hosp Course SUBJECTIVE: No acute changes overnight. Patient is sleeping, comfortable on nasal cannula, no fevers Temperature 97.8 pulse 94 respirations 30 blood pressure 135/69 saturation 99% INDWELLINGS: Bilateral chest tube, right chest triple lumen catheter ANTIMICROBIALS: 1. Bactrim. 2. Zosyn. 3. Acyclovir 400 mg twice a day. 4. Zithromax 1200 mg weekly. 5. Fluconazole. 6. Triumeq and Viracept for HIV. MICROBIOLOGY: Right lower extremity wound culture grew Proteus mirabilis, E. coli and enterococcus species. PHYSICAL EXAMINATION: GENERAL: This is a well-developed, well-nourished, middle-aged man who is alert, in no distress. HEENT: Head atraumatic, normocephalic. Sclerae anicteric. Buccal mucosa pink , dry. NECK: Supple. CHEST: Rise symmetrical. Breath sounds diminished to bases. HEART: S1, S2. ABDOMEN: Soft, bowel tones present. EXTREMITIES: With right lower extremity dressing with drainage with significant swelling. ASSESSMENT: 1. Acute hypoxemic respiratory failure 2. 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 3. Acquired immunodeficiency syndrome. 4. 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 5. Bilateral pneumothorax, status post chest tubes placement. 6. Chronic obstructive pulmonary disease. 7. Anemia. PLAN: The patient remains stable. Right pneumothorax improving, continue present care, steroids/abx, f/u CTS/ pulmonary recommendations. Await for sputum for PCP by direct fluorescent antibody. Continue local wound care, pending podiatry [facility] staff Problems: ANDREY ENCINAS NP Jan 10, 2017 13:14
--- NOTE | 2017-01-10 14:35 | CONS ---
Date/Time of Note Date/Time of Note DATE: 01/10/17 TIME: 14:29 Consult Date/Type/Reason Admit Date/Time Jan 01, 2017 at 21:48 Initial Consult Date 01/02/17 Type of Consultation: Pulm/CCM Subjective Awake and alert. On 6L O2 via NC Objective Vital Signs Date Time Temp Pulse Resp B/P Pulse Ox O2 Delivery O2 Flow Rate FiO2 01/10/17 14:13 96 34 96 Nasal Cannula 6.0 01/10/17 07:00 135/69 01/10/17 04:00 97.8 01/09/17 20:03 100 Intake and Output 01/09/17 01/09/17 01/10/17 15:00 23:00 07:00 Intake Total 730 ml 950 ml 1380 ml Output Total 895 ml 470 ml 650 ml Balance -165 ml 480 ml 730 ml Exam HEENT: Neck supple; no JVD; no LAD CVS: RRR, S1 and S2 CHEST: Coarse BS and occ rhonchi B/L ABD: Soft, NT, + BS EXT: No c/c/e: LE dressings in place Results/Medications Result Diagram: 01/10/17 0400 01/10/17 0400 Results 24 hrs Laboratory Tests Test 01/09/17 17:48 01/09/17 21:12 01/10/17 04:00 01/10/17 08:47 Bedside Glucose 208 171 206 White Blood Count 22.0 #H Red Blood Count 3.70 L Hemoglobin 8.6 L Hematocrit 27.4 L Mean Corpuscular Volume 74.1 L Mean Corpuscular Hemoglobin 23.2 L Mean Corpuscular Hemoglobin Concent 31.4 L Red Cell Distribution Width 23.8 H Platelet Count 335 Mean Platelet Volume 8.8 Neutrophils % 94.1 H Lymphocytes % 1.9 L Monocytes % 2.8 Eosinophils % 0.0 Basophils % 0.1 Nucleated Red Blood Cells % 0.0 Neutrophils # 20.7 H Lymphocytes # 0.4 L Monocytes # 0.6 Eosinophils # 0.0 Basophils # 0.0 Nucleated Red Blood Cells # 0.0 Sodium Level 132 L Potassium Level 4.2 Chloride Level 100 Carbon Dioxide Level 24 Anion Gap 12 Blood Urea Nitrogen 18 Creatinine 0.81 Glucose Level 252 H Calcium Level 8.9 Test 01/10/17 11:58 Bedside Glucose 190 Medications Current Medications Ondansetron HCl (Zofran Inj) 4 mg Q6H PRN IV NAUSEA AND/OR VOMITING Last administered on 01/02/17 01:44; Admin Dose 4 MG; Start 01/02/17 at 00:00 Acetaminophen (Tylenol Liquid) 650 mg Q6H PRN PO PAIN LEVEL 1-3 OR FEVER Last administered on 01/05/17 21:14; Admin Dose 650 MG; Start 01/02/17 at 00:00 Acetaminophen (Tylenol Supp) 650 mg Q4H PRN [place] PAIN LEVEL 1-3 OR FEVER; Start 01/02/17 at 00:00 Miscellaneous Information This patient morley... PRN PRN XX WOUND CARE; Start at 06:00 Fluconazole/ Sodium Chloride (Diflucan 100 Mg/ NS (Pmx)) 50 ml @ 50 mls/hr Q24H IVPB Last administered on 01/10/17 14:16; Admin Dose 50 MLS/HR; Start at 13:00 Miscellaneous Information (*Order Clarification Bulletin) MEDICATION REQUIRES CLARIFICATION: Q6H XX Last administered on 01/10/17 02:00; Admin Dose 1 EA; Start 01/04/17 at 14:00 Non-Formulary Medication 1 ea 1 ea DAILY PO Last administered on 01/10/17 09: 14; Admin Dose 1 EA; Start 01/05/17 at 09:00 Trimethoprim/ Sulfamethoxazole 20 ml/Dextrose 520 ml @ 350 mls/hr Q8 IVPB Last administered on 01/10/17 06:06; Admin Dose 350 MLS/HR; Start 01/05/17 at 14:00 Piperacillin Sod/ Tazobactam Sod (Zosyn 3.375gm/ 100 ml (Pmx)) 100 ml @ 200 mls /hr Q8 IVPB Last administered on 01/10/17 13:14; Admin Dose 200 MLS/HR; Start 01/05/17 at 14:00 Azithromycin (Zithromax) 1,200 mg Q7D PO Last administered on 01/05/17 14:25 ; Admin Dose 1,200 MG; Start 01/05/17 at 13:00 Acyclovir (Zovirax) 400 mg BID PO Last administered on 01/10/17 09:13; Admin Dose 400 MG; Start 01/05/17 at 21:00 Methylprednisolone Sodium Succinate (Solu-Medrol) 40 mg Q6 IV Last administered on 01/10/17 12:11; Admin Dose 40 MG; Start 01/06/17 at 12:00 Diagnostic Test (Pha) (Accu-Chek) 1 ea 02 XX ; Start 01/07/17 at 02:00 Miscellaneous Information 1 ea NOTE XX ; Start 01/06/17 at 14:00 Glucose (Glutose) 15 gm Q15M PRN PO DECREASED GLUCOSE; Start 01/06/17 at 14:00 Glucose (Glutose) 22.5 gm Q15M PRN PO DECREASED GLUCOSE; Start 01/06/17 at 14: 00 Dextrose (D50w Syringe) 25 ml Q15M PRN IV DECREASED GLUCOSE; Start 01/06/17 at 14:00 Dextrose (D50w Syringe) 50 ml Q15M PRN IV DECREASED GLUCOSE; Start 01/06/17 at 14:00 Glucagon (Glucagen) 1 mg Q15M PRN IM DECREASED GLUCOSE; Start 01/06/17 at 14: 00 Glucose (Glutose) 15 gm Q15M PRN BUCCAL DECREASED GLUCOSE; Start 01/06/17 at 14:00 Pantoprazole (Protonix Tab) 40 mg DAILY@06 PO Last administered on 01/10/17 05:14; Admin Dose 40 MG; Start 01/08/17 at 06:00 Hydromorphone HCl (Dilaudid) 2 mg Q4H PRN IV PAIN LEVEL 6-10 Last administered on 01/10/17 09:28; Admin Dose 2 MG; Start 01/08/17 at 15:00 Morphine Sulfate 5 mg 5 mg Q4H PRN SL PAIN LEVEL 1-5; Start 01/08/17 at 15:00 Levofloxacin/ Dextrose (Levaquin 500mg/ D5W 100 ml (Pmx)) 100 ml @ 100 mls/hr Q24H IVPB Last administered on 01/10/17 11:44; Admin Dose 100 MLS/HR; Start 01/09/17 at 11:00 Assessment/Plan Additional Assessment/Plan IMP: 1. Hypoxemic Resp Insufficiency 2. B/L Pneumothoraces--concern for underlying pneumatoceles associated with prior, or active PJP. 3. Progressive Pulm Parenchymal Opacities--concern for combination of opportunistic infections and KS 4. Persistent R PTX with large airleak 5. KS RECS: 1. CT chest with contrast to better assess underlying lung parenchyma, mediastinum, and pleura 2. Right CT to suction; Left to H20 seal 3. Continue PJP Rx 4. Would consider bronchoscopy in order to fully evaluate for underlying opp infections and pulm KS 35 min cc time KIT JACKSON MD Jan 10, 2017 14:35
--- NOTE | 2017-01-10 16:29 | PN ---
Date/Time of Note Date/Time of Note DATE: 01/10/17 TIME: 16:28 Assessment/Plan VTE Prophylaxis VTE Prophylaxis Intervention: LMWH Lines/Catheters IV Catheter Type (from Nrs): Central Line Central line still needed: Yes Assessment/Plan Chief Complaint/Hosp Course 56 yo male wtih HIV/AIDS, KS of leg, COPD, who presented with bilateral pneumothoraces causing acute respiratory failure B/l Pneumothorax: - Chest tube and management per pulm and CV surgery - CT chest AIDS/HIV: - ARVs - PPx with bactrim, fluc, azithro Pneumonia: - Cefepime/vanco/levaquin - Await sputum results concerning for PCP, empirically treating for PCP w steroids and therapeutic dose bactrim Kaposi sarcoma DMII: - basal/bolus insulin cc time 35 minutes Problems: Subjective 24 Hr Interval Summary Free Text/Dictation Comfortable, no major complaints Continues w CT On 6 L NC Exam/Review of Systems Vital Signs Vitals Vital Signs Date Time Temp Pulse Resp B/P Pulse Ox O2 Delivery O2 Flow Rate FiO2 01/10/17 16:00 Nasal Cannula 4.0 01/10/17 16:00 98.9 105 30 132/59 98 01/09/17 20:03 100 Intake and Output 01/09/17 01/09/17 01/10/17 15:00 23:00 07:00 Intake Total 730 ml 950 ml 1380 ml Output Total 895 ml 470 ml 650 ml Balance -165 ml 480 ml 730 ml Results Result Diagram: 01/10/17 0400 01/10/17 0400 Results 24 hrs Laboratory Tests Test 01/09/17 17:48 01/09/17 21:12 01/10/17 04:00 01/10/17 08:47 Bedside Glucose 208 171 206 White Blood Count 22.0 #H Red Blood Count 3.70 L Hemoglobin 8.6 L Hematocrit 27.4 L Mean Corpuscular Volume 74.1 L Mean Corpuscular Hemoglobin 23.2 L Mean Corpuscular Hemoglobin Concent 31.4 L Red Cell Distribution Width 23.8 H Platelet Count 335 Mean Platelet Volume 8.8 Neutrophils % 94.1 H Lymphocytes % 1.9 L Monocytes % 2.8 Eosinophils % 0.0 Basophils % 0.1 Nucleated Red Blood Cells % 0.0 Neutrophils # 20.7 H Lymphocytes # 0.4 L Monocytes # 0.6 Eosinophils # 0.0 Basophils # 0.0 Nucleated Red Blood Cells # 0.0 Sodium Level 132 L Potassium Level 4.2 Chloride Level 100 Carbon Dioxide Level 24 Anion Gap 12 Blood Urea Nitrogen 18 Creatinine 0.81 Glucose Level 252 H Calcium Level 8.9 Test 01/10/17 11:58 Bedside Glucose 190 Medications Medications Current Medications Ondansetron HCl (Zofran Inj) 4 mg Q6H PRN IV NAUSEA AND/OR VOMITING Last administered on 01/02/17 01:44; Admin Dose 4 MG; Start 01/02/17 at 00:00 Acetaminophen (Tylenol Liquid) 650 mg Q6H PRN PO PAIN LEVEL 1-3 OR FEVER Last administered on 01/05/17 21:14; Admin Dose 650 MG; Start 01/02/17 at 00:00 Acetaminophen (Tylenol Supp) 650 mg Q4H PRN [place] PAIN LEVEL 1-3 OR FEVER; Start 01/02/17 at 00:00 Miscellaneous Information This patient morley... PRN PRN XX WOUND CARE; Start at 06:00 Fluconazole/ Sodium Chloride (Diflucan 100 Mg/ NS (Pmx)) 50 ml @ 50 mls/hr Q24H IVPB Last administered on 01/10/17 14:16; Admin Dose 50 MLS/HR; Start at 13:00 Miscellaneous Information (*Order Clarification Bulletin) MEDICATION REQUIRES CLARIFICATION: Q6H XX Last administered on 01/10/17 02:00; Admin Dose 1 EA; Start 01/04/17 at 14:00 Non-Formulary Medication 1 ea 1 ea DAILY PO Last administered on 01/10/17 09: 14; Admin Dose 1 EA; Start 01/05/17 at 09:00 Trimethoprim/ Sulfamethoxazole 20 ml/Dextrose 520 ml @ 350 mls/hr Q8 IVPB Last administered on 01/10/17 15:57; Admin Dose 350 MLS/HR; Start 01/05/17 at 14:00 Piperacillin Sod/ Tazobactam Sod (Zosyn 3.375gm/ 100 ml (Pmx)) 100 ml @ 200 mls /hr Q8 IVPB Last administered on 01/10/17 13:14; Admin Dose 200 MLS/HR; Start 01/05/17 at 14:00 Azithromycin (Zithromax) 1,200 mg Q7D PO Last administered on 01/05/17 14:25 ; Admin Dose 1,200 MG; Start 01/05/17 at 13:00 Acyclovir (Zovirax) 400 mg BID PO Last administered on 01/10/17 09:13; Admin Dose 400 MG; Start 01/05/17 at 21:00 Methylprednisolone Sodium Succinate (Solu-Medrol) 40 mg Q6 IV Last administered on 01/10/17 12:11; Admin Dose 40 MG; Start 01/06/17 at 12:00 Diagnostic Test (Pha) (Accu-Chek) 1 ea 02 XX ; Start 01/07/17 at 02:00 Miscellaneous Information 1 ea NOTE XX ; Start 01/06/17 at 14:00 Glucose (Glutose) 15 gm Q15M PRN PO DECREASED GLUCOSE; Start 01/06/17 at 14:00 Glucose (Glutose) 22.5 gm Q15M PRN PO DECREASED GLUCOSE; Start 01/06/17 at 14: 00 Dextrose (D50w Syringe) 25 ml Q15M PRN IV DECREASED GLUCOSE; Start 01/06/17 at 14:00 Dextrose (D50w Syringe) 50 ml Q15M PRN IV DECREASED GLUCOSE; Start 01/06/17 at 14:00 Glucagon (Glucagen) 1 mg Q15M PRN IM DECREASED GLUCOSE; Start 01/06/17 at 14: 00 Glucose (Glutose) 15 gm Q15M PRN BUCCAL DECREASED GLUCOSE; Start 01/06/17 at 14:00 Pantoprazole (Protonix Tab) 40 mg DAILY@06 PO Last administered on 01/10/17 05:14; Admin Dose 40 MG; Start 01/08/17 at 06:00 Hydromorphone HCl (Dilaudid) 2 mg Q4H PRN IV PAIN LEVEL 6-10 Last administered on 01/10/17 09:28; Admin Dose 2 MG; Start 01/08/17 at 15:00 Morphine Sulfate 5 mg 5 mg Q4H PRN SL PAIN LEVEL 1-5; Start 01/08/17 at 15:00 Levofloxacin/ Dextrose (Levaquin 500mg/ D5W 100 ml (Pmx)) 100 ml @ 100 mls/hr Q24H IVPB Last administered on 10/21/17at 11:44; Admin Dose 100 MLS/HR; Start 01/09/17 at 11:00 ALEX BULLARD MD Jan 10, 2017 16:29
--- NOTE | 2017-01-10 16:51 | CONS ---
Date/Time of Note Date/Time of Note DATE: 01/10/17 TIME: 16:50 Assessment/Plan Assessment/Plan Chief Complaint/Hosp Course Assessment: Severe anemia/now stable Respiratory failure due to PTX, s/p bilateral chest tube in place HIV Kaposi's sarcoma with right lower extremity Sepsis Plan: Monitor CBC daily Continue PPI therapy Stool OB negative- no evidence of GI bleed Patient had loose stool x1- sample sent in - neg for c-diff Pt to follow with GI as an out pt for colonoscopy Problems: Consultation Date/Type/Reason Admit Date/Time Jan 01, 2017 at 21:48 Initial Consult Date 01/02/17 Type of Consultation: GI 24 HR Interval Summary Free Text/Dictation tolerates po, mildly sob, no abdominal pain Exam/Review of Systems Vital Signs Vitals Vital Signs Date Time Temp Pulse Resp B/P Pulse Ox O2 Delivery O2 Flow Rate FiO2 01/10/17 16:00 Nasal Cannula 4.0 01/10/17 16:00 98.9 105 30 132/59 98 01/09/17 20:03 100 Intake and Output 01/09/17 01/09/17 01/10/17 15:00 23:00 07:00 Intake Total 730 ml 950 ml 1380 ml Output Total 895 ml 470 ml 650 ml Balance -165 ml 480 ml 730 ml Exam Constitutional: alert, oriented, well developed Psych: nl mood/affect, no complaints Head: atraumatic, normocephalic Eyes: EOMI, nl conjunctiva, nl lids ENMT: nl external ears & nose, nl lips & teeth, nl nasal mucosa & septum Neck: non-tender, supple Respiratory: clear to auscultation, normal air movement Cardiovascular: regular rate and rhythm Gastrointestinal: bowel sounds, non-tender, soft Results Result Diagram: 01/10/17 0400 01/10/17 0400 Results 24 hrs Laboratory Tests Test 01/09/17 17:48 01/09/17 21:12 01/10/17 04:00 01/10/17 08:47 Bedside Glucose 208 171 206 White Blood Count 22.0 #H Red Blood Count 3.70 L Hemoglobin 8.6 L Hematocrit 27.4 L Mean Corpuscular Volume 74.1 L Mean Corpuscular Hemoglobin 23.2 L Mean Corpuscular Hemoglobin Concent 31.4 L Red Cell Distribution Width 23.8 H Platelet Count 335 Mean Platelet Volume 8.8 Neutrophils % 94.1 H Lymphocytes % 1.9 L Monocytes % 2.8 Eosinophils % 0.0 Basophils % 0.1 Nucleated Red Blood Cells % 0.0 Neutrophils # 20.7 H Lymphocytes # 0.4 L Monocytes # 0.6 Eosinophils # 0.0 Basophils # 0.0 Nucleated Red Blood Cells # 0.0 Sodium Level 132 L Potassium Level 4.2 Chloride Level 100 Carbon Dioxide Level 24 Anion Gap 12 Blood Urea Nitrogen 18 Creatinine 0.81 Glucose Level 252 H Calcium Level 8.9 Test 01/10/17 11:58 Bedside Glucose 190 Medications Medications Current Medications Ondansetron HCl (Zofran Inj) 4 mg Q6H PRN IV NAUSEA AND/OR VOMITING Last administered on 01/02/17 01:44; Admin Dose 4 MG; Start 01/02/17 at 00:00 Acetaminophen (Tylenol Liquid) 650 mg Q6H PRN PO PAIN LEVEL 1-3 OR FEVER Last administered on 01/05/17 21:14; Admin Dose 650 MG; Start 01/02/17 at 00:00 Acetaminophen (Tylenol Supp) 650 mg Q4H PRN [place] PAIN LEVEL 1-3 OR FEVER; Start 01/02/17 at 00:00 Miscellaneous Information This patient morley... PRN PRN XX WOUND CARE; Start at 06:00 Fluconazole/ Sodium Chloride (Diflucan 100 Mg/ NS (Pmx)) 50 ml @ 50 mls/hr Q24H IVPB Last administered on 01/10/17 14:16; Admin Dose 50 MLS/HR; Start at 13:00 Miscellaneous Information (*Order Clarification Bulletin) MEDICATION REQUIRES CLARIFICATION: Q6H XX Last administered on 01/10/17 02:00; Admin Dose 1 EA; Start 01/04/17 at 14:00 Non-Formulary Medication 1 ea 1 ea DAILY PO Last administered on 01/10/17 09: 14; Admin Dose 1 EA; Start 01/05/17 at 09:00 Trimethoprim/ Sulfamethoxazole 20 ml/Dextrose 520 ml @ 350 mls/hr Q8 IVPB Last administered on 01/10/17 15:57; Admin Dose 350 MLS/HR; Start 01/05/17 at 14:00 Piperacillin Sod/ Tazobactam Sod (Zosyn 3.375gm/ 100 ml (Pmx)) 100 ml @ 200 mls /hr Q8 IVPB Last administered on 01/10/17 13:14; Admin Dose 200 MLS/HR; Start 01/05/17 at 14:00 Azithromycin (Zithromax) 1,200 mg Q7D PO Last administered on 01/05/17 14:25 ; Admin Dose 1,200 MG; Start 01/05/17 at 13:00 Acyclovir (Zovirax) 400 mg BID PO Last administered on 01/10/17 09:13; Admin Dose 400 MG; Start 01/05/17 at 21:00 Methylprednisolone Sodium Succinate (Solu-Medrol) 40 mg Q6 IV Last administered on 01/10/17 12:11; Admin Dose 40 MG; Start 01/06/17 at 12:00 Diagnostic Test (Pha) (Accu-Chek) 1 ea 02 XX ; Start 01/07/17 at 02:00 Miscellaneous Information 1 ea NOTE XX ; Start 01/06/17 at 14:00 Glucose (Glutose) 15 gm Q15M PRN PO DECREASED GLUCOSE; Start 01/06/17 at 14:00 Glucose (Glutose) 22.5 gm Q15M PRN PO DECREASED GLUCOSE; Start 01/06/17 at 14: 00 Dextrose (D50w Syringe) 25 ml Q15M PRN IV DECREASED GLUCOSE; Start 01/06/17 at 14:00 Dextrose (D50w Syringe) 50 ml Q15M PRN IV DECREASED GLUCOSE; Start 01/06/17 at 14:00 Glucagon (Glucagen) 1 mg Q15M PRN IM DECREASED GLUCOSE; Start 01/06/17 at 14: 00 Glucose (Glutose) 15 gm Q15M PRN BUCCAL DECREASED GLUCOSE; Start 01/06/17 at 14:00 Pantoprazole (Protonix Tab) 40 mg DAILY@06 PO Last administered on 01/10/17 05:14; Admin Dose 40 MG; Start 01/08/17 at 06:00 Hydromorphone HCl (Dilaudid) 2 mg Q4H PRN IV PAIN LEVEL 6-10 Last administered on 01/10/17 09:28; Admin Dose 2 MG; Start 01/08/17 at 15:00 Morphine Sulfate 5 mg 5 mg Q4H PRN SL PAIN LEVEL 1-5; Start 01/08/17 at 15:00 Levofloxacin/ Dextrose (Levaquin 500mg/ D5W 100 ml (Pmx)) 100 ml @ 100 mls/hr Q24H IVPB Last administered on 01/10/17t 11:44; Admin Dose 100 MLS/HR; Start 01/09/17 at 11:00 LEON REBOLLEDO MD Jan 10, 2017 16:51
--- NOTE | 2017-01-10 18:07 | PN ---
Date/Time of Note Date/Time of Note DATE: 01/10/17 TIME: 18:06 Assessment/Plan Lines/Catheters IV Catheter Type (from Nrsg): Central Line Assessment/Plan Chief Complaint/Hosp Course Bilateral PTX with air leaks SP BL CT placement PTX improving to 30% right side will continue CT sxn FU CXR may need VATS if PTX does not resolve discussed with the mother, sister and the Pt Problems: Subjective 24 Hr Interval Summary Constitutional: improved Pain Control: mild Exam/Review of Systems Vital Signs Vitals Vital Signs Date Time Temp Pulse Resp B/P Pulse Ox O2 Delivery O2 Flow Rate FiO2 01/10/17 16:00 Nasal Cannula 4.0 01/10/17 16:00 98.9 105 30 132/59 98 01/09/17 20:03 100 Intake and Output 01/09/17 01/09/17 01/10/17 15:00 23:00 07:00 Intake Total 730 ml 950 ml 1380 ml Output Total 895 ml 470 ml 650 ml Balance -165 ml 480 ml 730 ml Exam ENMT: mucosa pink and moist, nl external ears & nose, nl lips & teeth, nl nasal mucosa & septum Neck: non-tender, supple Respiratory: clear to auscultation, normal air movement Cardiovascular: nl pulses, regular rate and rhythm Results Result Diagram: 01/10/1739901/10/17399 JANIE BASILIO MD Jan 10, 2017 18:07
[2017-01-11] VITALS (45 sets, daily range): BP systolic 113–154; BP diastolic 54–78; PULSE 90–118; RESP 16–44
[2017-01-11] MEDS: METHYLPREDNISOLONE 40 MG INJ IV SCH ×4 (00:19→18:08)
[2017-01-11] MEDS: HYDROmorphONE 2 MG/ML SYG IV PRN ×4 (00:23→22:23)
[2017-01-11] MEDS: ACCU-CHEK XX SCH (01:15)
[2017-01-11] MEDS: ALBUTEROL 0.083% (NEB) 2.5 MG/3 ML AMP HHN SCH ×4 (01:27→19:52)
[2017-01-11] MEDS: [UNRECOGNIZED DRUG - REMARK] XX SCH ×4 (02:59→20:00)
[2017-01-11 05:23] LABS: WHITE BLOOD COUNT 21.8 10^3/ul (4.8-10.8)
[2017-01-11 05:24] LABS: ABNORMAL IP MESSAGE 1; BASOPHILS % 0.1 % (0.0-2.0); HEMATOCRIT 25.2 % (42.0-52.0); HEMOGLOBIN 7.8 g/dl (14.0-18.0); LYMPHOCYTES # 0.3 10^3/ul (0.8-2.9); LYMPHOCYTES % 1.5 % (15.0-51.0); MEAN CORPUSCULAR HEMOGLOBIN 22.5 pg (29.0-33.0); MEAN CORPUSCULAR VOLUME 72.6 fl (82.0-101.0); MONOCYTE # 0.7 10^3/ul (0.3-0.9); NEUTROPHIL # 20.6 10^3/ul (1.6-7.5); NEUTROPHILS % 94.4 % (39.0-77.0); PLATELET COUNT 328 10^3/UL (140-415); POSITIVE DIFF @See below; RED BLOOD COUNT 3.47 10^6/ul (4.70-6.10); RED CELL DISTRIBUTION WIDTH 24.2 % (11.5-14.5)
[2017-01-11] MEDS: TRIMETHOPRIM/SULFAMETHOXAZOLE 20 ML in DEXTROSE 5% 500 ML IVPB SCH ×3 (05:48→22:23)
[2017-01-11] MEDS: PIPER-TAZO 3.375 GM IV (PMX) 100 ML IVPB SCH ×3 (05:48→21:04)
[2017-01-11] MEDS: PANTOPRAZOLE (EC) 40 MG TAB PO SCH (05:48)
[2017-01-11 06:00] LABS: CALCIUM 8.9 mg/dl (8.4-10.2); CREATININE 0.86 mg/dl (0.61-1.24); POTASSIUM 4.5 mmol/L (3.5-5.1)
[2017-01-11] MEDS: VIRACEPT PO SCH ×2 (08:09→17:11)
[2017-01-11] MEDS: TRIUMEQ PO SCH (08:09)
[2017-01-11] MEDS: ACYCLOVIR 400 MG TAB PO SCH ×2 (08:09→20:47)
[2017-01-11] MEDS: INSULIN ASPART [NOVOLOG] 3 ML PEN SC SCH ×4 (08:20→20:51)
--- NOTE | 2017-01-11 09:15 | CONS ---
Date/Time of Note Date/Time of Note DATE: 01/11/17 TIME: 09:14 Assessment/Plan Assessment/Plan Chief Complaint/Hosp Course Assessment: Severe anemia/now stable Respiratory failure due to PTX, s/p bilateral chest tube in place HIV Kaposi's sarcoma with right lower extremity Sepsis Plan: Monitor CBC daily Continue PPI therapy Stool OB negative- no evidence of GI bleed Patient had loose stool x1- sample sent in - neg for c-diff Pt to follow with GI as an out pt for colonoscopy Dr. Padron to resume care tomorrow Problems: Consultation Date/Type/Reason Admit Date/Time Jan 01, 2017 at 21:48 Initial Consult Date 01/02/17 Type of Consultation: GI 24 HR Interval Summary Free Text/Dictation mild sob, no n/v Exam/Review of Systems Vital Signs Vitals Vital Signs Date Time Temp Pulse Resp B/P Pulse Ox O2 Delivery O2 Flow Rate FiO2 01/11/17 08:05 101 22 100 Nasal Cannula 5.0 01/11/17 06:30 137/65 01/11/17 04:00 98.9 01/09/17 20:03 100 Intake and Output 01/10/17 01/10/17 01/11/17 15:00 23:00 07:00 Intake Total 200 ml 1090 ml 1220 ml Output Total 800 ml 590 ml 620 ml Balance -600 ml 500 ml 600 ml Exam Constitutional: alert, oriented, well developed Psych: nl mood/affect, no complaints Head: atraumatic, normocephalic Eyes: nl conjunctiva, nl lids, nl sclera ENMT: mucosa pink and moist, nl external ears & nose, nl lips & teeth, nl nasal mucosa & septum Neck: non-tender, supple Respiratory: clear to auscultation, normal air movement Cardiovascular: nl pulses, regular rate and rhythm Gastrointestinal: bowel sounds, non-tender, soft Results Result Diagram: 01/11/17 0438 01/11/178 Results 24 hrs Laboratory Tests Test 01/10/17 11:58 01/10/17 17:48 01/10/17 20:34 01/11/17 04:38 Bedside Glucose 190 153 159 White Blood Count 21.8 H Red Blood Count 3.47 L Hemoglobin 7.8 L Hematocrit 25.2 L Mean Corpuscular Volume 72.6 L Mean Corpuscular Hemoglobin 22.5 L Mean Corpuscular Hemoglobin Concent 31.0 L Red Cell Distribution Width 24.2 H Platelet Count 328 Mean Platelet Volume 9.0 Neutrophils % 94.4 H Lymphocytes % 1.5 L Monocytes % 3.0 Eosinophils % 0.0 Basophils % 0.1 Nucleated Red Blood Cells % 0.0 Neutrophils # 20.6 H Lymphocytes # 0.3 L Monocytes # 0.7 Eosinophils # 0.0 Basophils # 0.0 Nucleated Red Blood Cells # 0.0 Sodium Level 130 L Potassium Level 4.5 Chloride Level 99 Carbon Dioxide Level 23 Anion Gap 13 Blood Urea Nitrogen 22 H Creatinine 0.86 Glucose Level 240 H Calcium Level 8.9 Test 01/11/17 08:13 Bedside Glucose 323 H Medications Medications Current Medications Ondansetron HCl (Zofran Inj) 4 mg Q6H PRN IV NAUSEA AND/OR VOMITING Last administered on 01/02/17 01:44; Admin Dose 4 MG; Start 01/02/17 at 00:00 Acetaminophen (Tylenol Liquid) 650 mg Q6H PRN PO PAIN LEVEL 1-3 OR FEVER Last administered on 01/05/17 21:14; Admin Dose 650 MG; Start 01/02/17 at 00:00 Acetaminophen (Tylenol Supp) 650 mg Q4H PRN [place] PAIN LEVEL 1-3 OR FEVER; Start 01/02/17 at 00:00 Miscellaneous Information This patient morley... PRN PRN XX WOUND CARE; Start at 06:00 Fluconazole/ Sodium Chloride (Diflucan 100 Mg/ NS (Pmx)) 50 ml @ 50 mls/hr Q24H IVPB Last administered on 01/10/17 14:16; Admin Dose 50 MLS/HR; Start at 13:00 Miscellaneous Information (*Order Clarification Bulletin) MEDICATION REQUIRES CLARIFICATION: Q6H XX Last administered on 01/11/17 08:09; Admin Dose 1 EA; Start 01/04/17 at 14:00 Non-Formulary Medication 1 ea 1 ea DAILY PO Last administered on 01/11/17 08: 09; Admin Dose 1 EA; Start 01/05/17 at 09:00 Trimethoprim/ Sulfamethoxazole 20 ml/Dextrose 520 ml @ 350 mls/hr Q8 IVPB Last administered on 01/11/17 05:48; Admin Dose 350 MLS/HR; Start 01/05/17 at 14:00 Piperacillin Sod/ Tazobactam Sod (Zosyn 3.375gm/ 100 ml (Pmx)) 100 ml @ 200 mls /hr Q8 IVPB Last administered on 01/11/17 05:48; Admin Dose 200 MLS/HR; Start 01/05/17 at 14:00 Azithromycin (Zithromax) 1,200 mg Q7D PO Last administered on 01/05/17 14:25 ; Admin Dose 1,200 MG; Start 01/05/17 at 13:00 Acyclovir (Zovirax) 400 mg BID PO Last administered on 01/11/17 08:09; Admin Dose 400 MG; Start 01/05/17 at 21:00 Methylprednisolone Sodium Succinate (Solu-Medrol) 40 mg Q6 IV Last administered on 01/11/17 05:48; Admin Dose 40 MG; Start 01/06/17 at 12:00 Diagnostic Test (Pha) (Accu-Chek) 1 ea 02 XX ; Start 01/07/17 at 02:00 Miscellaneous Information 1 ea NOTE XX ; Start 01/06/17 at 14:00 Glucose (Glutose) 15 gm Q15M PRN PO DECREASED GLUCOSE; Start 01/06/17 at 14:00 Glucose (Glutose) 22.5 gm Q15M PRN PO DECREASED GLUCOSE; Start 01/06/17 at 14: 00 Dextrose (D50w Syringe) 25 ml Q15M PRN IV DECREASED GLUCOSE; Start 01/06/17 at 14:00 Dextrose (D50w Syringe) 50 ml Q15M PRN IV DECREASED GLUCOSE; Start 01/06/17 at 14:00 Glucagon (Glucagen) 1 mg Q15M PRN IM DECREASED GLUCOSE; Start 01/06/17 at 14: 00 Glucose (Glutose) 15 gm Q15M PRN BUCCAL DECREASED GLUCOSE; Start 01/06/17 at 14:00 Pantoprazole (Protonix Tab) 40 mg DAILY@06 PO Last administered on 01/11/17 05:48; Admin Dose 40 MG; Start 01/08/17 at 06:00 Hydromorphone HCl (Dilaudid) 2 mg Q4H PRN IV PAIN LEVEL 6-10 Last administered on 01/11/17 08:08; Admin Dose 2 MG; Start 01/08/17 at 15:00 Morphine Sulfate 5 mg 5 mg Q4H PRN SL PAIN LEVEL 1-5; Start 01/08/17 at 15:00 Levofloxacin/ Dextrose (Levaquin 500mg/ D5W 100 ml (Pmx)) 100 ml @ 100 mls/hr Q24H IVPB Last administered on 01/10/17 11:44; Admin Dose 100 MLS/HR; Start 01/09/17 at 11:00 LEON REBOLLEDO MD Jan 11, 2017 09:15
--- NOTE | 2017-01-11 09:32 | CONS ---
Date/Time of Note Date/Time of Note DATE: 01/11/17 TIME: 09:32 Assessment/Plan Assessment/Plan Problems: (1) Open wound of right lower leg (2) Open wound of left lower leg (3) HIV (human immunodeficiency virus infection) (4) Kaposis sarcoma Additional Assessment/Plan No surgery recommended at this time. Monitor patient and change bandages daily. Thank you again for involving me in the care of this patient. If you have any questions regarding this case, please feel free to contact me at pager: or reach me at mobile: [phone]. Consultation Date/Type/Reason Admit Date/Time Jan 01, 2017 at 21:48 Date of Consultation: Jan 11, 2017 Type of Consultation: Foot and ankle surgery Reason for Consultation Evaluation of bilateral lower extremity wounds Hx of Present Illness Thank you very much for involving me in the care of this patient. As you know this is a 56-year-old male patient with history of HIV, Kaposi's sarcoma of the right foot, multiple wounds on the lower extremities who presented to the emergency room complaining of progressively worsening shortness of breath. Patient currently is in the ICU and I was consulted for evaluation of bilateral lower extremity wounds. Patient reports that his legs have been swelling for the past few days. Denies chest pain and shortness of breath. Denies fever and chills. Constitutional: requiring O2 Genitourinary: no complaints Musculoskeletal: no complaints Skin: no complaints Psychological: nl mood/affect, no complaints Past Medical History As per history of present illness. Past Surgical History As per history of present illness. Past Surgical Hx: no surgical history Social History As per history of present illness. Smoking Status: Never smoker Drug Use: none Exam/Review of Systems Vital Signs Vitals Vital Signs Date Time Temp Pulse Resp B/P Pulse Ox O2 Delivery O2 Flow Rate FiO2 01/11/17 08:05 101 22 100 Nasal Cannula 5.0 01/11/17 06:30 137/65 01/11/17 04:00 98.9 01/09/17 20:03 100 Intake and Output 01/10/17 01/10/17 01/11/17 15:00 23:00 07:00 Intake Total 200 ml 1090 ml 1220 ml Output Total 800 ml 590 ml 620 ml Balance -600 ml 500 ml 600 ml Exam 14 x 5 cm expansile wound noted on the right lower extremity with exposed muscle and fibronecrotic tissue. No pus and no bleeding noted. Posterior heel wound present as well with 100% red glandular tissue at the base. The left lower extremity shows extensive wound on the lateral aspect of the leg and anterolateral ankle areas. Drainage is scant and there is no malodor present. There is no pus noted. Right lower extremity edema noted. Condition is severe. Results Result Diagram: 01/11/17 0438 01/11/17 0438 Results 24 hrs Laboratory Tests Test 01/10/17 11:58 01/10/17 17:48 01/10/17 20:34 01/11/17 04:38 Bedside Glucose 190 153 159 White Blood Count 21.8 H Red Blood Count 3.47 L Hemoglobin 7.8 L Hematocrit 25.2 L Mean Corpuscular Volume 72.6 L Mean Corpuscular Hemoglobin 22.5 L Mean Corpuscular Hemoglobin Concent 31.0 L Red Cell Distribution Width 24.2 H Platelet Count 328 Mean Platelet Volume 9.0 Neutrophils % 94.4 H Lymphocytes % 1.5 L Monocytes % 3.0 Eosinophils % 0.0 Basophils % 0.1 Nucleated Red Blood Cells % 0.0 Neutrophils # 20.6 H Lymphocytes # 0.3 L Monocytes # 0.7 Eosinophils # 0.0 Basophils # 0.0 Nucleated Red Blood Cells # 0.0 Sodium Level 130 L Potassium Level 4.5 Chloride Level 99 Carbon Dioxide Level 23 Anion Gap 13 Blood Urea Nitrogen 22 H Creatinine 0.86 Glucose Level 240 H Calcium Level 8.9 Test 01/11/17 08:13 Bedside Glucose 323 H Medications Medications Current Medications Ondansetron HCl (Zofran Inj) 4 mg Q6H PRN IV NAUSEA AND/OR VOMITING Last administered on 01/02/17 01:44; Admin Dose 4 MG; Start 01/02/17 at 00:00 Acetaminophen (Tylenol Liquid) 650 mg Q6H PRN PO PAIN LEVEL 1-3 OR FEVER Last administered on 01/05/17 21:14; Admin Dose 650 MG; Start 01/02/17 at 00:00 Acetaminophen (Tylenol Supp) 650 mg Q4H PRN [place] PAIN LEVEL 1-3 OR FEVER; Start 01/02/17 at 00:00 Miscellaneous Information This patient morley... PRN PRN XX WOUND CARE; Start at 06:00 Fluconazole/ Sodium Chloride (Diflucan 100 Mg/ NS (Pmx)) 50 ml @ 50 mls/hr Q24H IVPB Last administered on 01/10/17 14:16; Admin Dose 50 MLS/HR; Start at 13:00 Miscellaneous Information (*Order Clarification Bulletin) MEDICATION REQUIRES CLARIFICATION: Q6H XX Last administered on 01/11/17 08:09; Admin Dose 1 EA; Start 01/04/17 at 14:00 Non-Formulary Medication 1 ea 1 ea DAILY PO Last administered on 01/11/17 08: 09; Admin Dose 1 EA; Start 01/05/17 at 09:00 Trimethoprim/ Sulfamethoxazole 20 ml/Dextrose 520 ml @ 350 mls/hr Q8 IVPB Last administered on 01/11/17 05:48; Admin Dose 350 MLS/HR; Start 01/05/17 at 14:00 Piperacillin Sod/ Tazobactam Sod (Zosyn 3.375gm/ 100 ml (Pmx)) 100 ml @ 200 mls /hr Q8 IVPB Last administered on 01/11/17 05:48; Admin Dose 200 MLS/HR; Start 01/05/17 at 14:00 Azithromycin (Zithromax) 1,200 mg Q7D PO Last administered on 01/05/17 14:25 ; Admin Dose 1,200 MG; Start 01/05/17 at 13:00 Acyclovir (Zovirax) 400 mg BID PO Last administered on 01/11/17 08:09; Admin Dose 400 MG; Start 01/05/17 at 21:00 Methylprednisolone Sodium Succinate (Solu-Medrol) 40 mg Q6 IV Last administered on 01/11/17 05:48; Admin Dose 40 MG; Start 01/06/17 at 12:00 Diagnostic Test (Pha) (Accu-Chek) 1 ea 02 XX ; Start 01/07/17 at 02:00 Miscellaneous Information 1 ea NOTE XX ; Start 01/06/17 at 14:00 Glucose (Glutose) 15 gm Q15M PRN PO DECREASED GLUCOSE; Start 01/06/17 at 14:00 Glucose (Glutose) 22.5 gm Q15M PRN PO DECREASED GLUCOSE; Start 01/06/17 at 14: 00 Dextrose (D50w Syringe) 25 ml Q15M PRN IV DECREASED GLUCOSE; Start 01/06/17 at 14:00 Dextrose (D50w Syringe) 50 ml Q15M PRN IV DECREASED GLUCOSE; Start 01/06/17 at 14:00 Glucagon (Glucagen) 1 mg Q15M PRN IM DECREASED GLUCOSE; Start 01/06/17 at 14: 00 Glucose (Glutose) 15 gm Q15M PRN BUCCAL DECREASED GLUCOSE; Start 01/06/17 at 14:00 Pantoprazole (Protonix Tab) 40 mg DAILY@06 PO Last administered on 01/11/17 05:48; Admin Dose 40 MG; Start 01/08/17 at 06:00 Hydromorphone HCl (Dilaudid) 2 mg Q4H PRN IV PAIN LEVEL 6-10 Last administered on 01/11/17 08:08; Admin Dose 2 MG; Start 01/08/17 at 15:00 Morphine Sulfate 5 mg 5 mg Q4H PRN SL PAIN LEVEL 1-5; Start 01/08/17 at 15:00 Levofloxacin/ Dextrose (Levaquin 500mg/ D5W 100 ml (Pmx)) 100 ml @ 100 mls/hr Q24H IVPB Last administered on 01/10/17 11:44; Admin Dose 100 MLS/HR; Start 01/09/17 at 11:00 KADY HECK DPM Jan 11, 2017 09:32
[2017-01-11] MEDS ORDERED: IOHEXOL 300MG/ML 150 ML BTL ONE (10:46)
[2017-01-11] MEDS ORDERED: SOD CHLORIDE 0.9% 100 ML ONE (10:46)
[2017-01-11] MEDS: LEVOFLOXACIN 500MG/D5W (PMX) 100 ML IVPB SCH (12:15)
[2017-01-11] MEDS: FLUCONAZOLE 100 MG/NS (PMX) 50 ML IVPB SCH (12:19)
--- NOTE | 2017-01-11 13:37 | PN ---
Date/Time of Note Date/Time of Note DATE: 01/11/17 TIME: 13:35 Assessment/Plan Lines/Catheters IV Catheter Type (from Nrsg): Central Line Assessment/Plan Chief Complaint/Hosp Course Bilateral PTX with air leaks SP BL CT placement PTX improving to 30% right side will continue CT sxn FU CXR may need VATS if PTX does not resolve discussed with the mother, sister and the Pt Problems: Subjective 24 Hr Interval Summary Constitutional: improved Pain Control: mild Exam/Review of Systems Vital Signs Vitals Vital Signs Date Time Temp Pulse Resp B/P Pulse Ox O2 Delivery O2 Flow Rate FiO2 01/11/17 12:30 100 33 124/59 96 Nasal Cannula 01/11/17 12:00 98.8 6.0 01/09/17 20:03 100 Intake and Output 01/10/17 01/10/17 01/11/17 15:00 23:00 07:00 Intake Total 200 ml 1090 ml 1220 ml Output Total 800 ml 590 ml 620 ml Balance -600 ml 500 ml 600 ml Exam Neck: non-tender, supple Respiratory: clear to auscultation, normal air movement Cardiovascular: nl pulses, regular rate and rhythm Gastrointestinal: nl liver, spleen, non-tender, soft Results Result Diagram: 01/11/17 0438 01/11/17 0438 JANIE BASILIO MD Jan 11, 2017 13:37
--- NOTE | 2017-01-11 13:44 | CONS ---
Date/Time of Note Date/Time of Note DATE: 01/11/17 TIME: 13:37 Consult Date/Type/Reason Admit Date/Time Jan 01, 2017 at 21:48 Initial Consult Date 01/02/17 Type of Consultation: Pulm/CCM Subjective CT thorax reviewed--> see IMP. Overall feeling better. Objective Vital Signs Date Time Temp Pulse Resp B/P Pulse Ox O2 Delivery O2 Flow Rate FiO2 01/11/17 12:30 100 33 124/59 96 Nasal Cannula 01/11/17 12:00 98.8 6.0 01/09/17 20:03 100 Intake and Output 01/10/17 01/10/17 01/11/17 15:00 23:00 07:00 Intake Total 200 ml 1090 ml 1220 ml Output Total 800 ml 590 ml 620 ml Balance -600 ml 500 ml 600 ml Exam HEENT: Neck supple; no JVD; no LAD CVS: RRR, S1 and S2 CHEST: Coarse BS and occ rhonchi B/L ABD: Soft, NT, + BS EXT: No c/c/e: LE dressings in place Results/Medications Result Diagram: 01/11/17 0438 01/11/17 0438 Results 24 hrs Laboratory Tests Test 01/10/17 17:48 01/10/17 20:34 01/11/17 04:38 01/11/17 08:13 Bedside Glucose 153 159 323 H White Blood Count 21.8 H Red Blood Count 3.47 L Hemoglobin 7.8 L Hematocrit 25.2 L Mean Corpuscular Volume 72.6 L Mean Corpuscular Hemoglobin 22.5 L Mean Corpuscular Hemoglobin Concent 31.0 L Red Cell Distribution Width 24.2 H Platelet Count 328 Mean Platelet Volume 9.0 Neutrophils % 94.4 H Lymphocytes % 1.5 L Monocytes % 3.0 Eosinophils % 0.0 Basophils % 0.1 Nucleated Red Blood Cells % 0.0 Neutrophils # 20.6 H Lymphocytes # 0.3 L Monocytes # 0.7 Eosinophils # 0.0 Basophils # 0.0 Nucleated Red Blood Cells # 0.0 Sodium Level 130 L Potassium Level 4.5 Chloride Level 99 Carbon Dioxide Level 23 Anion Gap 13 Blood Urea Nitrogen 22 H Creatinine 0.86 Glucose Level 240 H Calcium Level 8.9 Medications Current Medications Ondansetron HCl (Zofran Inj) 4 mg Q6H PRN IV NAUSEA AND/OR VOMITING Last administered on 01/02/17 01:44; Admin Dose 4 MG; Start 01/02/17 at 00:00 Acetaminophen (Tylenol Liquid) 650 mg Q6H PRN PO PAIN LEVEL 1-3 OR FEVER Last administered on 01/05/17 21:14; Admin Dose 650 MG; Start 01/02/17 at 00:00 Acetaminophen (Tylenol Supp) 650 mg Q4H PRN [place] PAIN LEVEL 1-3 OR FEVER; Start 01/02/17 at 00:00 Miscellaneous Information This patient morley... PRN PRN XX WOUND CARE; Start at 06:00 Fluconazole/ Sodium Chloride (Diflucan 100 Mg/ NS (Pmx)) 50 ml @ 50 mls/hr Q24H IVPB Last administered on 01/11/17 12:19; Admin Dose 50 MLS/HR; Start at 13:00 Miscellaneous Information (*Order Clarification Bulletin) MEDICATION REQUIRES CLARIFICATION: Q6H XX Last administered on 01/11/17 08:09; Admin Dose 1 EA; Start 01/04/17 at 14:00 Non-Formulary Medication 1 ea 1 ea DAILY PO Last administered on 01/11/17 08: 09; Admin Dose 1 EA; Start 01/05/17 at 09:00 Trimethoprim/ Sulfamethoxazole 20 ml/Dextrose 520 ml @ 350 mls/hr Q8 IVPB Last administered on 01/11/17 05:48; Admin Dose 350 MLS/HR; Start 01/05/17 at 14:00 Piperacillin Sod/ Tazobactam Sod (Zosyn 3.375gm/ 100 ml (Pmx)) 100 ml @ 200 mls /hr Q8 IVPB Last administered on 01/11/17 05:48; Admin Dose 200 MLS/HR; Start 01/05/17 at 14:00 Azithromycin (Zithromax) 1,200 mg Q7D PO Last administered on 01/05/17 14:25 ; Admin Dose 1,200 MG; Start 01/05/17 at 13:00 Acyclovir (Zovirax) 400 mg BID PO Last administered on 01/11/17 08:09; Admin Dose 400 MG; Start 01/05/17 at 21:00 Methylprednisolone Sodium Succinate (Solu-Medrol) 40 mg Q6 IV Last administered on 01/11/17 12:18; Admin Dose 40 MG; Start 01/06/17 at 12:00 Diagnostic Test (Pha) (Accu-Chek) 1 ea 02 XX ; Start 01/07/17 at 02:00 Miscellaneous Information 1 ea NOTE XX ; Start 01/06/17 at 14:00 Glucose (Glutose) 15 gm Q15M PRN PO DECREASED GLUCOSE; Start 01/06/17 at 14:00 Glucose (Glutose) 22.5 gm Q15M PRN PO DECREASED GLUCOSE; Start 01/06/17 at 14: 00 Dextrose (D50w Syringe) 25 ml Q15M PRN IV DECREASED GLUCOSE; Start 01/06/17 at 14:00 Dextrose (D50w Syringe) 50 ml Q15M PRN IV DECREASED GLUCOSE; Start 01/06/17 at 14:00 Glucagon (Glucagen) 1 mg Q15M PRN IM DECREASED GLUCOSE; Start 01/06/17 at 14: 00 Glucose (Glutose) 15 gm Q15M PRN BUCCAL DECREASED GLUCOSE; Start 01/06/17 at 14:00 Pantoprazole (Protonix Tab) 40 mg DAILY@06 PO Last administered on 01/11/17 05:48; Admin Dose 40 MG; Start 01/08/17 at 06:00 Hydromorphone HCl (Dilaudid) 2 mg Q4H PRN IV PAIN LEVEL 6-10 Last administered on 01/11/17 08:08; Admin Dose 2 MG; Start 01/08/17 at 15:00 Morphine Sulfate 5 mg 5 mg Q4H PRN SL PAIN LEVEL 1-5; Start 01/08/17 at 15:00 Levofloxacin/ Dextrose (Levaquin 500mg/ D5W 100 ml (Pmx)) 100 ml @ 100 mls/hr Q24H IVPB Last administered on 01/11/17 12:15; Admin Dose 100 MLS/HR; Start 01/09/17 at 11:00 Assessment/Plan Additional Assessment/Plan IMP: 1. Hypoxemic Resp Insufficiency 2. B/L Pneumothoraces--concern for underlying pneumatoceles associated with prior, or active PJP. 3. Progressive Pulm Parenchymal Opacities--with CT showing numerous B/L cysts, some cysts filled with low dense material, appearing mass-like, as well as GGO. Some of these findings are c/w PJP, however, co-existing infections such as crypto as well as lymphoproliferative d/o such as lymphoma can be present. 4. Persistent R and L secondary spontaneous PTX 5. KS RECS: 1. CT chest with contrast to better assess underlying lung parenchyma, mediastinum, and pleura 2. Right CT to suction; Left to suction (20 cm H20) 3. Continue PJP Rx 4. As noted above, I would perform bronchoscopy for airway inspection and completion of infectious w/u. Additionally, I would perform CT-guided bx of the low density mass-like lesions which appear to fill some cysts 5. Send CRAG 35 min cc time KIT JACKSON MD Jan 11, 2017 13:44
--- NOTE | 2017-01-11 14:57 | PN ---
Date/Time of Note Date/Time of Note DATE: 01/11/17 TIME: 14:56 Assessment/Plan VTE Prophylaxis VTE Prophylaxis Intervention: heparin Lines/Catheters IV Catheter Type (from Nrsg): Central Line Central line still needed: Yes Reason Cath still needed: urinary retention Assessment/Plan Chief Complaint/Hosp Course 56 yo male wtih HIV/AIDS, KS of leg, COPD, who presented with bilateral pneumothoraces causing acute respiratory failure Lung disease: - Requires bronch to identify infectious agent and CT guided needle biopys to r/ o malignancy per Dr Siu. Contact IR tomorrow and Dr Willard B/l Pneumothorax: - Chest tube and management per pulm and CV surgery - CT chest AIDS/HIV: - ARVs - PPx with bactrim, fluc, azithro Pneumonia: - Cefepime/vanco/levaquin - Await sputum results concerning for PCP, empirically treating for PCP w steroids and therapeutic dose bactrim Kaposi sarcoma DMII: - basal/bolus insulin cc time 35 minutes Problems: Subjective 24 Hr Interval Summary Free Text/Dictation CT chest performed today, myriad findings Exam/Review of Systems Vital Signs Vitals Vital Signs Date Time Temp Pulse Resp B/P Pulse Ox O2 Delivery O2 Flow Rate FiO2 01/11/17 14:39 106 21 98 Nasal Cannula 4.0 01/11/17 13:30 144/78 01/11/17 12:00 98.8 01/09/17 20:03 100 Intake and Output 01/10/17 01/10/17 01/11/17 15:00 23:00 07:00 Intake Total 200 ml 1090 ml 1220 ml Output Total 800 ml 590 ml 620 ml Balance -600 ml 500 ml 600 ml Results Result Diagram: 01/11/17 0438 01/11/17 0438 Results 24 hrs Laboratory Tests Test 01/10/17 17:48 01/10/17 20:34 01/11/17 04:38 01/11/17 08:13 Bedside Glucose 153 159 323 H White Blood Count 21.8 H Red Blood Count 3.47 L Hemoglobin 7.8 L Hematocrit 25.2 L Mean Corpuscular Volume 72.6 L Mean Corpuscular Hemoglobin 22.5 L Mean Corpuscular Hemoglobin Concent 31.0 L Red Cell Distribution Width 24.2 H Platelet Count 328 Mean Platelet Volume 9.0 Neutrophils % 94.4 H Lymphocytes % 1.5 L Monocytes % 3.0 Eosinophils % 0.0 Basophils % 0.1 Nucleated Red Blood Cells % 0.0 Neutrophils # 20.6 H Lymphocytes # 0.3 L Monocytes # 0.7 Eosinophils # 0.0 Basophils # 0.0 Nucleated Red Blood Cells # 0.0 Sodium Level 130 L Potassium Level 4.5 Chloride Level 99 Carbon Dioxide Level 23 Anion Gap 13 Blood Urea Nitrogen 22 H Creatinine 0.86 Glucose Level 240 H Calcium Level 8.9 Test 01/11/17 14:11 Bedside Glucose 241 H Medications Medications Current Medications Ondansetron HCl (Zofran Inj) 4 mg Q6H PRN IV NAUSEA AND/OR VOMITING Last administered on 01/02/17 01:44; Admin Dose 4 MG; Start 01/02/17 at 00:00 Acetaminophen (Tylenol Liquid) 650 mg Q6H PRN PO PAIN LEVEL 1-3 OR FEVER Last administered on 01/05/17 21:14; Admin Dose 650 MG; Start 01/02/17 at 00:00 Acetaminophen (Tylenol Supp) 650 mg Q4H PRN [place] PAIN LEVEL 1-3 OR FEVER; Start 01/02/17 at 00:00 Miscellaneous Information This patient morley... PRN PRN XX WOUND CARE; Start at 06:00 Fluconazole/ Sodium Chloride (Diflucan 100 Mg/ NS (Pmx)) 50 ml @ 50 mls/hr Q24H IVPB Last administered on 01/11/17 12:19; Admin Dose 50 MLS/HR; Start at 13:00 Miscellaneous Information (*Order Clarification Bulletin) MEDICATION REQUIRES CLARIFICATION: Q6H XX Last administered on 01/11/17 14:21; Admin Dose 1 EA; Start 01/04/17 at 14:00 Non-Formulary Medication 1 ea 1 ea DAILY PO Last administered on 01/11/17 08: 09; Admin Dose 1 EA; Start 01/05/17 at 09:00 Trimethoprim/ Sulfamethoxazole 20 ml/Dextrose 520 ml @ 350 mls/hr Q8 IVPB Last administered on 01/11/17 14:27; Admin Dose 350 MLS/HR; Start 01/05/17 at 14:00 Piperacillin Sod/ Tazobactam Sod (Zosyn 3.375gm/ 100 ml (Pmx)) 100 ml @ 200 mls /hr Q8 IVPB Last administered on 01/11/17 14:27; Admin Dose 200 MLS/HR; Start 01/05/17 at 14:00 Azithromycin (Zithromax) 1,200 mg Q7D PO Last administered on 01/05/17 14:25 ; Admin Dose 1,200 MG; Start 01/05/17 at 13:00 Acyclovir (Zovirax) 400 mg BID PO Last administered on 01/11/17 08:09; Admin Dose 400 MG; Start 01/05/17 at 21:00 Methylprednisolone Sodium Succinate (Solu-Medrol) 40 mg Q6 IV Last administered on 01/11/17 12:18; Admin Dose 40 MG; Start 01/06/17 at 12:00 Diagnostic Test (Pha) (Accu-Chek) 1 ea 02 XX ; Start 01/07/17 at 02:00 Miscellaneous Information 1 ea NOTE XX ; Start 01/06/17 at 14:00 Glucose (Glutose) 15 gm Q15M PRN PO DECREASED GLUCOSE; Start 01/06/17 at 14:00 Glucose (Glutose) 22.5 gm Q15M PRN PO DECREASED GLUCOSE; Start 01/06/17 at 14: 00 Dextrose (D50w Syringe) 25 ml Q15M PRN IV DECREASED GLUCOSE; Start 01/06/17 at 14:00 Dextrose (D50w Syringe) 50 ml Q15M PRN IV DECREASED GLUCOSE; Start 01/06/17 at 14:00 Glucagon (Glucagen) 1 mg Q15M PRN IM DECREASED GLUCOSE; Start 01/06/17 at 14: 00 Glucose (Glutose) 15 gm Q15M PRN BUCCAL DECREASED GLUCOSE; Start 01/06/17 at 14:00 Pantoprazole (Protonix Tab) 40 mg DAILY@06 PO Last administered on 01/11/17 05:48; Admin Dose 40 MG; Start 01/08/17 at 06:00 Hydromorphone HCl (Dilaudid) 2 mg Q4H PRN IV PAIN LEVEL 6-10 Last administered on 01/11/17 08:08; Admin Dose 2 MG; Start 01/08/17 at 15:00 Morphine Sulfate 5 mg 5 mg Q4H PRN SL PAIN LEVEL 1-5; Start 01/08/17 at 15:00 Levofloxacin/ Dextrose (Levaquin 500mg/ D5W 100 ml (Pmx)) 100 ml @ 100 mls/hr Q24H IVPB Last administered on 01/11/17t 12:15; Admin Dose 100 MLS/HR; Start 01/09/17 at 11:00 ALEX BULLARD MD Jan 11, 2017 14:57
--- NOTE | 2017-01-11 18:58 | CONS ---
Date/Time of Note Date/Time of Note DATE: 01/11/17 TIME: 18:55 Consult Date/Type/Reason Admit Date/Time Jan 01, 2017 at 21:48 Initial Consult Date 01/02/17 Type of Consultation: ID Objective Vital Signs Date Time Temp Pulse Resp B/P Pulse Ox O2 Delivery O2 Flow Rate FiO2 01/11/17 18:30 101 31 138/71 98 Nasal Cannula 4.0 01/11/17 16:00 99.1 01/09/17 20:03 100 Intake and Output 01/10/17 01/10/17 01/11/17 15:00 23:00 07:00 Intake Total 200 ml 1090 ml 1220 ml Output Total 800 ml 590 ml 620 ml Balance -600 ml 500 ml 600 ml Results/Medications Result Diagram: 01/11/17 0438 01/11/17 0438 Results 24 hrs Laboratory Tests Test 01/10/17 20:34 01/11/17 04:38 01/11/17 08:13 01/11/17 14:11 Bedside Glucose 159 323 H 241 H White Blood Count 21.8 H Red Blood Count 3.47 L Hemoglobin 7.8 L Hematocrit 25.2 L Mean Corpuscular Volume 72.6 L Mean Corpuscular Hemoglobin 22.5 L Mean Corpuscular Hemoglobin Concent 31.0 L Red Cell Distribution Width 24.2 H Platelet Count 328 Mean Platelet Volume 9.0 Neutrophils % 94.4 H Lymphocytes % 1.5 L Monocytes % 3.0 Eosinophils % 0.0 Basophils % 0.1 Nucleated Red Blood Cells % 0.0 Neutrophils # 20.6 H Lymphocytes # 0.3 L Monocytes # 0.7 Eosinophils # 0.0 Basophils # 0.0 Nucleated Red Blood Cells # 0.0 Sodium Level 130 L Potassium Level 4.5 Chloride Level 99 Carbon Dioxide Level 23 Anion Gap 13 Blood Urea Nitrogen 22 H Creatinine 0.86 Glucose Level 240 H Calcium Level 8.9 Test 01/11/17 17:10 Bedside Glucose 256 H Medications Current Medications Ondansetron HCl (Zofran Inj) 4 mg Q6H PRN IV NAUSEA AND/OR VOMITING Last administered on 01/02/17 01:44; Admin Dose 4 MG; Start 01/02/17 at 00:00 Acetaminophen (Tylenol Liquid) 650 mg Q6H PRN PO PAIN LEVEL 1-3 OR FEVER Last administered on 01/05/17 21:14; Admin Dose 650 MG; Start 01/02/17 at 00:00 Acetaminophen (Tylenol Supp) [address] PAIN LEVEL 1-3 OR FEVER; Start 01/02/17 at 00:00 Miscellaneous Information This patient morley... PRN PRN XX WOUND CARE; Start at 06:00 Fluconazole/ Sodium Chloride (Diflucan 100 Mg/ NS (Pmx)) 50 ml @ 50 mls/hr Q24H IVPB Last administered on 01/11/17 12:19; Admin Dose 50 MLS/HR; Start at 13:00 Miscellaneous Information (*Order Clarification Bulletin) MEDICATION REQUIRES CLARIFICATION: Q6H XX Last administered on 01/11/17 14:21; Admin Dose 1 EA; Start 01/04/17 at 14:00 Non-Formulary Medication 1 ea 1 ea DAILY PO Last administered on 01/11/17 08: 09; Admin Dose 1 EA; Start 01/05/17 at 09:00 Trimethoprim/ Sulfamethoxazole 20 ml/Dextrose 520 ml @ 350 mls/hr Q8 IVPB Last administered on 01/11/17 14:27; Admin Dose 350 MLS/HR; Start 01/05/17 at 14:00 Piperacillin Sod/ Tazobactam Sod (Zosyn 3.375gm/ 100 ml (Pmx)) 100 ml @ 200 mls /hr Q8 IVPB Last administered on 01/11/17 14:27; Admin Dose 200 MLS/HR; Start 01/05/17 at 14:00 Azithromycin (Zithromax) 1,200 mg Q7D PO Last administered on 01/05/17 14:25 ; Admin Dose 1,200 MG; Start 01/05/17 at 13:00 Acyclovir (Zovirax) 400 mg BID PO Last administered on 01/11/17 08:09; Admin Dose 400 MG; Start 01/05/17 at 21:00 Methylprednisolone Sodium Succinate (Solu-Medrol) 40 mg Q6 IV Last administered on 01/11/17 18:08; Admin Dose 40 MG; Start 01/06/17 at 12:00 Diagnostic Test (Pha) (Accu-Chek) 1 ea 02 XX ; Start 01/07/17 at 02:00 Miscellaneous Information 1 ea NOTE XX ; Start 01/06/17 at 14:00 Glucose (Glutose) 15 gm Q15M PRN PO DECREASED GLUCOSE; Start 01/06/17 at 14:00 Glucose (Glutose) 22.5 gm Q15M PRN PO DECREASED GLUCOSE; Start 01/06/17 at 14: 00 Dextrose (D50w Syringe) 25 ml Q15M PRN IV DECREASED GLUCOSE; Start 01/06/17 at 14:00 Dextrose (D50w Syringe) 50 ml Q15M PRN IV DECREASED GLUCOSE; Start 01/06/17 at 14:00 Glucagon (Glucagen) 1 mg Q15M PRN IM DECREASED GLUCOSE; Start 01/06/17 at 14: 00 Glucose (Glutose) 15 gm Q15M PRN BUCCAL DECREASED GLUCOSE; Start 01/06/17 at 14:00 Pantoprazole (Protonix Tab) 40 mg DAILY@06 PO Last administered on 01/11/17 05:48; Admin Dose 40 MG; Start 01/08/17 at 06:00 Hydromorphone HCl (Dilaudid) 2 mg Q4H PRN IV PAIN LEVEL 6-10 Last administered on 01/11/17 18:08; Admin Dose 2 MG; Start 01/08/17 at 15:00 Morphine Sulfate 5 mg 5 mg Q4H PRN SL PAIN LEVEL 1-5; Start 01/08/17 at 15:00 Levofloxacin/ Dextrose (Levaquin 500mg/ D5W 100 ml (Pmx)) 100 ml @ 100 mls/hr Q24H IVPB Last administered on 01/11/17 12:15; Admin Dose 100 MLS/HR; Start 01/09/17 at 11:00 Assessment/Plan Chief Complaint/Hosp Course SUBJECTIVE: No acute changes overnight. Patient is awake, looks comfortable, no fevers INDWELLINGS: Bilateral chest tube, right chest triple lumen catheter ANTIMICROBIALS: 1. Bactrim. 2. Zosyn. 3. Acyclovir 400 mg twice a day. 4. Zithromax 1200 mg weekly. 5. Fluconazole. 6. Triumeq and Viracept for HIV. 7. Levaquin MICROBIOLOGY: Right lower extremity wound culture grew Proteus mirabilis, E. coli and enterococcus species. PHYSICAL EXAMINATION: GENERAL: This is a well-developed, well-nourished, middle-aged man who is alert, in no distress. HEENT: Head atraumatic, normocephalic. Sclerae anicteric. Buccal mucosa pink , dry. NECK: Supple. CHEST: Rise symmetrical. Breath sounds diminished to bases. HEART: S1, S2. ABDOMEN: Soft, bowel tones present. EXTREMITIES: With right lower extremity dressing with drainage with significant swelling. ASSESSMENT: 1. Acute hypoxemic respiratory failure 2. 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 3. Acquired immunodeficiency syndrome. 4. 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 5. Bilateral pneumothorax, status post chest tubes placement. 6. Chronic obstructive pulmonary disease. 7. Anemia. PLAN: The patient remains stable. Pulmonary rec-s noted, continue present care , steroids/abx, f/u serology for cryptococcal Ag. Continue local wound care per podiatry rec-s [facility] staff Problems: ANDREY ENCINAS NP Jan 11, 2017 18:58
[2017-01-12] VITALS (22 sets, daily range): BP systolic 121–158; BP diastolic 52–81; PULSE 94–121; RESP 19–48
[2017-01-12] MEDS: METHYLPREDNISOLONE 40 MG INJ IV SCH ×4 (00:35→18:08)
[2017-01-12] MEDS: ALBUTEROL 0.083% (NEB) 2.5 MG/3 ML AMP HHN SCH ×4 (01:25→19:45)
[2017-01-12] MEDS: ACCU-CHEK XX SCH (02:00)
[2017-01-12] MEDS: [UNRECOGNIZED DRUG - REMARK] XX SCH ×4 (02:00→20:00)
[2017-01-12] MEDS: PIPER-TAZO 3.375 GM IV (PMX) 100 ML IVPB SCH ×3 (05:00→21:26)
[2017-01-12] MEDS: PANTOPRAZOLE (EC) 40 MG TAB PO SCH (05:00)
[2017-01-12] MEDS: TRIMETHOPRIM/SULFAMETHOXAZOLE 20 ML in DEXTROSE 5% 500 ML IVPB SCH ×3 (05:59→22:22)
--- NOTE | 2017-01-12 07:26 | RADRPT ---
PROCEDURE: XR Chest. CLINICAL INDICATION: Right pneumothorax. TECHNIQUE: Single frontal view. COMPARISON: 01/10/2017. FINDINGS: There is a right pneumothorax measuring approximately 30%, unchanged. There is a left pneumothorax m easuring approximately 5%. Dense consolidation bilaterally is unchanged. Bilateral chest tubes are n oted. Left subclavian implanted port central line and right subclavian central line are in satisfact ory position. Bilateral pulmonary nodules are unchanged. The heart size is normal. There are small bilateral pleural effusions. IMPRESSION: 1. Right pneumothorax measuring approximate 30%. 2. Left pneumothorax measuring approximately 5%. 3. No other change from 01/10/2017. RPTAT: QQ .Sergio Bergeron MD, MD Date Time Electronically viewed and signed by .Sergio Bergeron MD, on 01/12/2017 07:26 .R/
--- NOTE | 2017-01-12 07:39 | RADRPT ---
PROCEDURE: CT Chest with contrast. CLINICAL INDICATION: HIV with pulmonary parenchymal disease. TECHNIQUE: Helical axial sections were obtained through the chest with intravenous contrast enhanc ement. 90 ml of Omnipaque-300 was used for the intravenous contrast. Coronal and sagittal reformat cholo images were obtained from the axial source images. Total exam DLP is 311.74 mGy-cm. CTDIvol is 8.22 mGy. One or more of the following dose reduction techniques were used: Automated exposure cont rol, adjustment of the mA and/or kV according to patient size, use of iterative reconstruction techn ique. COMPARISON: None FINDINGS: The right subclavian vein catheter tip is in the mid superior vena cava. The left subclavian vein im planted port central venous catheter tip is in the mid superior vena cava. The right chest tube is i n the right pleural space anteriorly and the left chest tube is in the left pleural space posteriorl y. There is severe bilateral diffuse pulmonary air space disease. There are multiple bilateral pulmonar y nodules throughout both lungs measuring up to 2.7 cm on the right and 3.4 cm on the left. In addit ion to the solid pulmonary nodules, there are multiple cavitary lesions throughout both lungs with t he largest on the right superiorly measuring 3.2 cm and the largest on the left superiorly measuring 2.6 cm. There is a right pneumothorax measuring approximately 30% and a left pneumothorax measuring approxim ately 20%. There are small bilateral pleural effusions with right larger than left. There is no mediastinal or hilar lymphadenopathy or mass. There is no axillary, supraclavicular, or internal mammary lymphadenopathy. The thoracic aorta is not dilated. The heart size is normal. There is no pericardial effusion. Images through the upper abdomen demonstrate normal visualized portions of the liver, spleen, and ad renals. IMPRESSION: 1. Bilateral subclavian central lines in satisfactory position. 2. Bilateral chest tubes in satisfactory position. 3. Severe bilateral diffuse pulmonary air space disease consistent with pneumonia. 4. Multiple bilateral pulmonary nodules consistent with neoplasm or infection. 5. Multiple bilateral cavitary lesions consistent with infection or neoplasm. 6. Right pneumothorax measuring approximately 30% and left pneumothorax measuring approximately 20% . 7. Small bilateral pleural effusions with right larger than left. 8. No other abnormality. RPTAT: QQ .Sergio Bergeron MD, MD Date Time Electronically viewed and signed by .Sergio Bergeron MD, MD on 01/12/2017 07:39 .R/
[2017-01-12] MEDS: DULOXETINE 30 MG CAP DR PO SCH (08:24)
[2017-01-12] MEDS: VIRACEPT PO SCH ×2 (08:24→18:07)
[2017-01-12] MEDS: ALPRAZOLAM 0.25 MG TAB PO PRN ×2 (08:24→18:33)
[2017-01-12] MEDS: TRIUMEQ PO SCH (08:24)
[2017-01-12] MEDS: INSULIN ASPART [NOVOLOG] 3 ML PEN SC SCH ×4 (08:25→20:31)
[2017-01-12] MEDS: ACYCLOVIR 400 MG TAB PO SCH ×2 (09:00→20:32)
--- NOTE | 2017-01-12 09:43 | CONS ---
Date/Time of Note Date/Time of Note DATE: 01/12/17 TIME: 09:37 Assessment/Plan Assessment/Plan Chief Complaint/Hosp Course Problems: Additional Assessment/Plan Acute increasing shortness of breath Transferred back to the intensive care unit Acute on chronic pain syndrome Anxiety AIDS Bilateral pneumonia Bilateral chest tubes I have had a discussion with him he requests to be placed back on Cymbalta and something for his anxiety. However I spoke to nursing staff and he was confused last night so I will withhold the use of SSRIs or benzodiazepines. Will consider atypical antipsychotics if absolutely necessary. Pain syndrome is well controlled at this time. He is not Axon for increasing doses states his pain is 3/10 he has not been medicated throughout the night there are no side effects associated with his current pain meds including morphine for severe pain Dilaudid for moderate pain. Denies pruritus drowsiness fatigue, there is negative mood changes just appears to be somewhat anxious but is understandable. Does not appear to be oversedated. Consultation Date/Type/Reason Admit Date/Time Jan 01, 2017 at 21:48 Type of Consultation: Palliative care Hx of Present Illness Constitutional: requiring O2 Genitourinary: no complaints Musculoskeletal: no complaints Skin: no complaints Psychological: nl mood/affect, no complaints Past Surgical History Past Surgical Hx: no surgical history Social History Smoking Status: Never smoker Drug Use: none Exam/Review of Systems Vital Signs Vitals Vital Signs Date Time Temp Pulse Resp B/P Pulse Ox O2 Delivery O2 Flow Rate FiO2 01/12/17 09:31 95 5.0 01/12/17 04:00 100 01/12/17 03:00 40 156/81 01/12/17 01:25 Nasal Cannula 01/12/17 00:00 98.5 01/09/17 20:03 100 Intake and Output 01/11/17 01/11/17 01/12/17 15:00 23:00 07:00 Intake Total 490 ml 820 ml 1390 ml Output Total 500 ml 745 ml 250 ml Balance -10 ml 75 ml 1140 ml Exam Psych: anxiety Respiratory: congested cough, crackles/rales, diminished breath sounds, labored breathing Cardiovascular: nl pulses, regular rate and rhythm, No S3, No S4, No bruits, No diastolic murmur, No edema, No gallop, No irregular rhythm, No jugular venous distention (JVD), No murmurs/extra sounds, No other, No rub, No systolic murmur 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: COMPASS OPERATOR 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, nl mental status, nl speech, nl strength Results Result Diagram: 01/11/1743701/11/17437 Results 24 hrs Laboratory Tests Test 01/11/17 14:11 01/11/17 17:10 01/11/17 20:48 01/12/17 08:23 Bedside Glucose 241 H 256 H 218 225 H Medications Medications Current Medications Ondansetron HCl (Zofran Inj) 4 mg Q6H PRN IV NAUSEA AND/OR VOMITING Last administered on 01/02/17 01:44; Admin Dose 4 MG; Start 01/02/17 at 00:00 Acetaminophen (Tylenol Liquid) 650 mg Q6H PRN PO PAIN LEVEL 1-3 OR FEVER Last administered on 01/05/17 21:14; Admin Dose 650 MG; Start 01/02/17 at 00:00 Acetaminophen (Tylenol Supp) 650 mg Q4H PRN [place] PAIN LEVEL 1-3 OR FEVER; Start 01/02/17 at 00:00 Miscellaneous Information This patient morley... PRN PRN XX WOUND CARE; Start at 06:00 Fluconazole/ Sodium Chloride (Diflucan 100 Mg/ NS (Pmx)) 50 ml @ 50 mls/hr Q24H IVPB Last administered on 01/11/17 12:19; Admin Dose 50 MLS/HR; Start at 13:00 Miscellaneous Information (*Order Clarification Bulletin) MEDICATION REQUIRES CLARIFICATION: Q6H XX Last administered on 01/12/17 08:24; Admin Dose 1 EA; Start 01/04/17 at 14:00 Non-Formulary Medication 1 ea 1 ea DAILY PO Last administered on 01/12/17 08: 24; Admin Dose 1 EA; Start 01/05/17 at 09:00 Trimethoprim/ Sulfamethoxazole 20 ml/Dextrose 520 ml @ 350 mls/hr Q8 IVPB Last administered on 01/12/17 05:59; Admin Dose 350 MLS/HR; Start 01/05/17 at 14:00 Piperacillin Sod/ Tazobactam Sod (Zosyn 3.375gm/ 100 ml (Pmx)) 100 ml @ 200 mls /hr Q8 IVPB Last administered on 01/12/17 05:00; Admin Dose 200 MLS/HR; Start 01/05/17 at 14:00 Azithromycin (Zithromax) 1,200 mg Q7D PO Last administered on 01/05/17 14:25 ; Admin Dose 1,200 MG; Start 01/05/17 at 13:00 Acyclovir (Zovirax) 400 mg BID PO Last administered on 01/11/17 20:47; Admin Dose 400 MG; Start 01/05/17 at 21:00 Methylprednisolone Sodium Succinate (Solu-Medrol) 40 mg Q6 IV Last administered on 01/12/17 05:00; Admin Dose 40 MG; Start 01/06/17 at 12:00 Diagnostic Test (Pha) (Accu-Chek) 1 ea 02 XX ; Start 01/07/17 at 02:00 Miscellaneous Information 1 ea NOTE XX ; Start 01/06/17 at 14:00 Glucose (Glutose) 15 gm Q15M PRN PO DECREASED GLUCOSE; Start 01/06/17 at 14:00 Glucose (Glutose) 22.5 gm Q15M PRN PO DECREASED GLUCOSE; Start 01/06/17 at 14: 00 Dextrose (D50w Syringe) 25 ml Q15M PRN IV DECREASED GLUCOSE; Start 01/06/17 at 14:00 Dextrose (D50w Syringe) 50 ml Q15M PRN IV DECREASED GLUCOSE; Start 01/06/17 at 14:00 Glucagon (Glucagen) 1 mg Q15M PRN IM DECREASED GLUCOSE; Start 01/06/17 at 14: 00 Glucose (Glutose) 15 gm Q15M PRN BUCCAL DECREASED GLUCOSE; Start 01/06/17 at 14:00 Pantoprazole 40 mg 40 mg DAILY@06 PO Last administered on 01/12/17 05:00; Admin Dose 40 MG; Start 01/08/17 at 06:00 Levofloxacin/ Dextrose (Levaquin 500mg/ D5W 100 ml (Pmx)) 100 ml @ 100 mls/hr Q24H IVPB Last administered on 01/11/17 12:15; Admin Dose 100 MLS/HR; Start 01/09/17 at 11:00 Alprazolam (Xanax) 0.25 mg Q6H PRN PO ANXIETY Last administered on 01/12/17 08:24; Admin Dose 0.25 MG; Start 01/12/17 at 08:00 Duloxetine HCl (Cymbalta) 30 mg DAILY PO Last administered on 01/12/17 08:24 ; Admin Dose 30 MG; Start 01/12/17 at 09:00 Fentanyl (Sublimaze) 25 mcg Q4 PRN IV SEDATION; Start 01/12/17 at 08:00 PETER DIAS Jan 12, 2017 09:43
[2017-01-12] MEDS ORDERED: FENTAnyl 50 MCG/ML VIAL IV PRN (10:00)
--- NOTE | 2017-01-12 11:57 | PN ---
DATE: 01/09/2017 INFECTIOUS DISEASE PROGRESS NOTE SUBJECTIVE: The patient was transferred to ICU secondary to acute hypoxemia, currently on nonrebrea ther, saturating 100%. No fevers. Heart rate 96, respirations 30, blood pressure 127/65, saturatio n 100%. LABORATORY DATA: No labs this morning. INDWELLINGS: The patient has bilateral chest tubes, left subclavian Port-A-Cath, right subclavian t riple lumen catheter. DIAGNOSTIC DATA: Chest x-ray revealed right pneumothorax measuring approximately 50%, worse appeara nce of the lungs, no other changes. ANTIMICROBIALS: 1. Zosyn. 2. Bactrim. 3. Acyclovir p.o. 4. Zithromax 1200 mg weekly. 5. Fluconazole. PHYSICAL EXAMINATION: GENERAL: Well-developed, well-nourished, 56-year-old -[place] man who is alert, in no distr ess. HEENT: Head atraumatic, normocephalic. Sclerae anicteric. Buccal mucosa dry. NECK: Supple. CHEST: Rise symmetrical. Breath sounds diminished with scattered crackles. HEART: S1, S2. ABDOMEN: Soft, bowel tones present. EXTREMITIES: With right lower extremity dressing intact. ASSESSMENT: 1. Acute hypoxemic respiratory failure. 2. Worsening right-sided pneumothorax. 3. Probable PCP pneumonia. 4. Acquired immune deficiency syndrome. 5. 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 6. Anemia. 7. Chronic obstructive pulmonary disease. PLAN: We are going to add Levaquin to the regimen. Continue him on current antimicrobials. Contin ue HIV medications, prophylactic medications and steroids. Await for sputum PCP by DFA, I ordered i t 5 days ago. Follow pulmonary recommendations. Pending podiatry evaluation. Dictated By: ANDREY ENCINAS SQL BI DEVELOPER for [employer] Conf#: [id number] DID#: [id number]
[2017-01-12] MEDS: LEVOFLOXACIN 500MG/D5W (PMX) 100 ML IVPB SCH (12:09)
--- NOTE | 2017-01-12 12:55 | CONS ---
Date/Time of Note Date/Time of Note DATE: 01/12/17 TIME: 12:52 Consult Date/Type/Reason Admit Date/Time Jan 01, 2017 at 21:48 Initial Consult Date 01/02/17 Type of Consultation: Pulmonary Subjective Patient has mild dyspnea this morning. Awake alert and oriented. Confused at night. Objective Vital Signs Date Time Temp Pulse Resp B/P Pulse Ox O2 Delivery O2 Flow Rate FiO2 01/12/17 12:00 98.8 112 27 139/64 100 4.0 01/12/17 10:00 Nasal Cannula 01/09/17 20:03 100 Intake and Output 01/11/17 01/11/17 01/12/17 14:59 22:59 06:59 Intake Total 490 ml 820 ml 1390 ml Output Total 500 ml 745 ml 250 ml Balance -10 ml 75 ml 1140 ml Exam GENERAL: Well-nourished well-developed gentleman VITAL SIGNS: per chart NECK: Supple. No JVD or lymphadenopathy. CARDIAC EXAM: S1, S2. No added sounds or murmurs. CHEST: Diminished air entry bilaterally ABDOMEN: Soft, nontender. No guarding or rebound. EXTREMITIES: No cyanosis, clubbing or edema. NEUROLOGIC: Generalized weakness. No focal deficits. Results/Medications Result Diagram: 01/11/17 04301/11/17 0438 Results 24 hrs Chest x-ray There is a right pneumothorax measuring approximately 30%, unchanged. There is a left pneumothorax measuring approximately 5%. Dense consolidation bilaterally is unchanged. Bilateral chest tubes are noted. Left subclavian implanted port central line and right subclavian central line are in satisfactory position. Bilateral pulmonary nodules are unchanged. The heart size is normal. There are small bilateral pleural effusions. CT chest IMPRESSION: 1. Bilateral subclavian central lines in satisfactory position. 2. Bilateral chest tubes in satisfactory position. 3. Severe bilateral diffuse pulmonary air space disease consistent with pneumonia. 4. Multiple bilateral pulmonary nodules consistent with neoplasm or infection. 5. Multiple bilateral cavitary lesions consistent with infection or neoplasm. 6. Right pneumothorax measuring approximately 30% and left pneumothorax measuring approximately 20%. 7. Small bilateral pleural effusions with right larger than left. 8. No other abnormality. Laboratory Tests Test 01/11/17 14:11 01/11/17 17:10 01/11/17 20:48 01/12/17 08:23 Bedside Glucose 241 H 256 H 218 225 H Test 01/12/17 12:11 Bedside Glucose 118 Medications Current Medications Ondansetron HCl (Zofran Inj) 4 mg Q6H PRN IV NAUSEA AND/OR VOMITING Last administered on 01/02/17 01:44; Admin Dose 4 MG; Start 01/02/17 at 00:00 Acetaminophen (Tylenol Liquid) 650 mg Q6H PRN PO PAIN LEVEL 1-3 OR FEVER Last administered on 01/05/17 21:14; Admin Dose 650 MG; Start 01/02/17 at 00:00 Acetaminophen (Tylenol Supp) 650 mg Q4H PRN [place] PAIN LEVEL 1-3 OR FEVER; Start 01/02/17 at 00:00 Miscellaneous Information This patient morley... PRN PRN XX WOUND CARE; Start at 06:00 Fluconazole/ Sodium Chloride (Diflucan 100 Mg/ NS (Pmx)) 50 ml @ 50 mls/hr Q24H IVPB Last administered on 01/11/17 12:19; Admin Dose 50 MLS/HR; Start at 13:00 Miscellaneous Information (*Order Clarification Bulletin) MEDICATION REQUIRES CLARIFICATION: Q6H XX Last administered on 01/12/17 08:24; Admin Dose 1 EA; Start 01/04/17 at 14:00 Non-Formulary Medication 1 ea 1 ea DAILY PO Last administered on 01/12/17 08: 24; Admin Dose 1 EA; Start 01/05/17 at 09:00 Trimethoprim/ Sulfamethoxazole 20 ml/Dextrose 520 ml @ 350 mls/hr Q8 IVPB Last administered on 01/12/17 05:59; Admin Dose 350 MLS/HR; Start 01/05/17 at 14:00 Piperacillin Sod/ Tazobactam Sod (Zosyn 3.375gm/ 100 ml (Pmx)) 100 ml @ 200 mls /hr Q8 IVPB Last administered on 01/12/17 05:00; Admin Dose 200 MLS/HR; Start 01/05/17 at 14:00 Azithromycin (Zithromax) 1,200 mg Q7D PO Last administered on 01/05/17 14:25 ; Admin Dose 1,200 MG; Start 01/05/17 at 13:00 Acyclovir (Zovirax) 400 mg BID PO Last administered on 01/12/17 09:00; Admin Dose 400 MG; Start 01/05/17 at 21:00 Methylprednisolone Sodium Succinate (Solu-Medrol) 40 mg Q6 IV Last administered on 01/12/17 12:09; Admin Dose 40 MG; Start 01/06/17 at 12:00 Diagnostic Test (Pha) (Accu-Chek) 1 ea 02 XX ; Start 01/07/17 at 02:00 Miscellaneous Information 1 ea NOTE XX ; Start 01/06/17 at 14:00 Glucose (Glutose) 15 gm Q15M PRN PO DECREASED GLUCOSE; Start 01/06/17 at 14:00 Glucose (Glutose) 22.5 gm Q15M PRN PO DECREASED GLUCOSE; Start 01/06/17 at 14: 00 Dextrose (D50w Syringe) 25 ml Q15M PRN IV DECREASED GLUCOSE; Start 01/06/17 at 14:00 Dextrose (D50w Syringe) 50 ml Q15M PRN IV DECREASED GLUCOSE; Start 01/06/17 at 14:00 Glucagon (Glucagen) 1 mg Q15M PRN IM DECREASED GLUCOSE; Start 01/06/17 at 14: 00 Glucose (Glutose) 15 gm Q15M PRN BUCCAL DECREASED GLUCOSE; Start 01/06/17 at 14:00 Pantoprazole 40 mg 40 mg DAILY@06 PO Last administered on 01/12/17 05:00; Admin Dose 40 MG; Start 01/08/17 at 06:00 Levofloxacin/ Dextrose (Levaquin 500mg/ D5W 100 ml (Pmx)) 100 ml @ 100 mls/hr Q24H IVPB Last administered on 01/12/17 12:09; Admin Dose 100 MLS/HR; Start 01/09/17 at 11:00 Alprazolam (Xanax) 0.25 mg Q6H PRN PO ANXIETY Last administered on 01/12/17 08:24; Admin Dose 0.25 MG; Start 01/12/17 at 08:00 Duloxetine HCl (Cymbalta) 30 mg DAILY PO Last administered on 01/12/17 08:24 ; Admin Dose 30 MG; Start 01/12/17 at 09:00 Fentanyl (Sublimaze) 25 mcg Q4 PRN IV SEDATION; Start 01/12/17 at 08:00 Fentanyl (Sublimaze) 25 mcg Q4H PRN IV PAIN LEVEL 6-10; Start 01/12/17 at 10: 00 Assessment/Plan Chief Complaint/Hosp Course IMP: 1. Hypoxemic Resp Insufficiency 2. B/L Pneumothoraces--concern for underlying pneumatoceles associated with prior, or active PJP. 3. Progressive Pulm Parenchymal Opacities--with CT showing numerous B/L cysts, some cysts filled with low dense material, appearing mass-like, as well as GGO. Some of these findings are c/w PJP, however, co-existing infections such as crypto as well as lymphoproliferative d/o such as lymphoma can be present. 4. Persistent R and L secondary spontaneous PTX 5. [place] RECS: 1. CT chest noted. 2. Right CT to suction; Left to suction (20 cm H20) 3. Continue PJP Rx 4. Contacted thoracic surgery to adjust chest tubes given persistent pneumothoraces. Overall prognosis remains guarded. Problems: DANI LOPEZ MD, [facility] Jan 12, 2017 12:55
[2017-01-12] MEDS: AZITHROMYCIN 600 MG TAB PO SCH (13:00)
[2017-01-12] MEDS: FLUCONAZOLE 100 MG/NS (PMX) 50 ML IVPB SCH (13:28)
--- NOTE | 2017-01-12 13:59 | PN ---
DATE: 01/12/2017 SUBJECTIVE: No events overnight. The patient is awake but confused. He is in no distress, comfort able on 5 liters nasal cannula. VITAL SIGNS: Temperature 98.6, pulse 117, respirations 27, blood pressure 154/75, temperature 98.6, pulse 118, respirations 27, saturation 95%. No CBC this morning. DIAGNOSTICS: Chest x-ray revealed right pneumothorax approximately 30% and left pneumothorax 5%. INDWELLINGS: The patient has bilateral chest tubes. Left subclavian Port-A-Cath, right subclavian triple lumen catheter, Bailey catheter. ANTIMICROBIALS: The patient is on: 1. Acyclovir 400 mg twice a day. 2. IV Bactrim. 3. IV Zosyn. 4. Zithromax 1200 mg every 7 days. 5. Fluconazole IV daily. 6. Steroids. 7. HIV medications. PHYSICAL EXAMINATION: GENERAL: This is a fragile, cachectic, well-developed, middle-aged man who is awak e, confused, in no distress. HEENT: Head atraumatic, normocephalic. Sclerae anicteric. Buccal mucosa dry. NECK: Supple. CHEST: Rise symmetrical. Breath sounds diminished at bases with scattered crackles. HEART: S1, S2. ABDOMEN: Soft, bowel tones present. EXTREMITIES: Without cyanosis. Right lower extremity edema and dressing intact. ASSESSMENT: 1. Acute hypoxemic respiratory failure, status post extubated last week. 2. Acquired immunodeficiency syndrome. 3. Probable PCP pneumonia. 4. Bilateral pneumothorax, right more than left. 5. 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 coli and Proteus mirabilis, podiatry on case. 6. Anemia. 7. Cachexia. PLAN: The patient remains unchanged. He is being followed by multiple consultants pending cryptoco ccal antigen; sputum for PCP. Dictated By: ANDREY ENCINAS PLATFORM WORKER for [employer] Conf#: [id number] DID#: [id number]
--- NOTE | 2017-01-12 14:17 | PN ---
Date/Time of Note Date/Time of Note DATE: 01/12/17 TIME: 14:08 Assessment/Plan VTE Prophylaxis VTE Prophylaxis Intervention: SCD's Lines/Catheters IV Catheter Type (from Nrsg): Central Line Central line still needed: Yes (medication) Assessment/Plan Chief Complaint/Hosp Course Assessment: Severe anemia/Hgb 7.8 Respiratory failure * Due to PTX, s/p bilateral chest tube in place HIV Kaposi's sarcoma with right lower extremity Sepsis Plan: Monitor CBC daily Continue to monitor need for blood transfusion Continue PPI therapy Stool OB negative- no evidence of GI bleed Patient seen in collaboration with Dr. Padron Subjective: Course reviewed with nursing staff Patient interviewed and examined All labs, imaging and other results reviewed Increased sob, denies n/v or rectal bleeding chest tubes in place Anemia not likely related to GI bleed Problems: Exam/Review of Systems Vital Signs Vitals Vital Signs Date Time Temp Pulse Resp B/P Pulse Ox O2 Delivery O2 Flow Rate FiO2 01/12/17 12:00 98.8 112 27 139/64 100 4.0 01/12/17 10:00 Nasal Cannula 01/09/17 20:03 100 Intake and Output 01/11/17 01/11/17 01/12/17 15:00 23:00 07:00 Intake Total 490 ml 820 ml 1390 ml Output Total 500 ml 745 ml 250 ml Balance -10 ml 75 ml 1140 ml Results Result Diagram: 01/11/17 0438 01/11/17 0438 Results 24 hrs Laboratory Tests Test 01/11/17 14:11 01/11/17 17:10 01/11/17 20:48 01/12/17 08:23 Bedside Glucose 241 H 256 H 218 225 H Test 01/12/17 12:11 Bedside Glucose 118 Medications Medications Current Medications Ondansetron HCl (Zofran Inj) 4 mg Q6H PRN IV NAUSEA AND/OR VOMITING Last administered on 01/02/17 01:44; Admin Dose 4 MG; Start 01/02/17 at 00:00 Acetaminophen (Tylenol Liquid) 650 mg Q6H PRN PO PAIN LEVEL 1-3 OR FEVER Last administered on 01/05/17 21:14; Admin Dose 650 MG; Start 01/02/17 at 00:00 Acetaminophen (Tylenol Supp) 650 mg Q4H PRN [place] PAIN LEVEL 1-3 OR FEVER; Start 01/02/17 at 00:00 Miscellaneous Information This patient morley... PRN PRN XX WOUND CARE; Start at 06:00 Fluconazole/ Sodium Chloride (Diflucan 100 Mg/ NS (Pmx)) 50 ml @ 50 mls/hr Q24H IVPB Last administered on 01/12/17 13:28; Admin Dose 50 MLS/HR; Start at 13:00 Miscellaneous Information (*Order Clarification Bulletin) MEDICATION REQUIRES CLARIFICATION: Q6H XX Last administered on 01/12/17 08:24; Admin Dose 1 EA; Start 01/04/17 at 14:00 Non-Formulary Medication 1 ea 1 ea DAILY PO Last administered on 01/12/17 08: 24; Admin Dose 1 EA; Start 01/05/17 at 09:00 Trimethoprim/ Sulfamethoxazole 20 ml/Dextrose 520 ml @ 350 mls/hr Q8 IVPB Last administered on 01/12/17 05:59; Admin Dose 350 MLS/HR; Start 01/05/17 at 14:00 Piperacillin Sod/ Tazobactam Sod (Zosyn 3.375gm/ 100 ml (Pmx)) 100 ml @ 200 mls /hr Q8 IVPB Last administered on 01/12/17 13:28; Admin Dose 200 MLS/HR; Start 01/05/17 at 14:00 Azithromycin (Zithromax) 1,200 mg Q7D PO Last administered on 01/05/17 14:25 ; Admin Dose 1,200 MG; Start 01/05/17 at 13:00 Acyclovir (Zovirax) 400 mg BID PO Last administered on 01/12/17 09:00; Admin Dose 400 MG; Start 01/05/17 at 21:00 Methylprednisolone Sodium Succinate (Solu-Medrol) 40 mg Q6 IV Last administered on 01/12/17 12:09; Admin Dose 40 MG; Start 01/06/17 at 12:00 Diagnostic Test (Pha) (Accu-Chek) 1 ea 02 XX ; Start 01/07/17 at 02:00 Miscellaneous Information 1 ea NOTE XX ; Start 01/06/17 at 14:00 Glucose (Glutose) 15 gm Q15M PRN PO DECREASED GLUCOSE; Start 01/06/17 at 14:00 Glucose (Glutose) 22.5 gm Q15M PRN PO DECREASED GLUCOSE; Start 01/06/17 at 14: 00 Dextrose (D50w Syringe) 25 ml Q15M PRN IV DECREASED GLUCOSE; Start 01/06/17 at 14:00 Dextrose (D50w Syringe) 50 ml Q15M PRN IV DECREASED GLUCOSE; Start 01/06/17 at 14:00 Glucagon (Glucagen) 1 mg Q15M PRN IM DECREASED GLUCOSE; Start 01/06/17 at 14: 00 Glucose (Glutose) 15 gm Q15M PRN BUCCAL DECREASED GLUCOSE; Start 01/06/17 at 14:00 Pantoprazole 40 mg 40 mg DAILY@06 PO Last administered on 01/12/17 05:00; Admin Dose 40 MG; Start 01/08/17 at 06:00 Levofloxacin/ Dextrose (Levaquin 500mg/ D5W 100 ml (Pmx)) 100 ml @ 100 mls/hr Q24H IVPB Last administered on 01/12/17 12:09; Admin Dose 100 MLS/HR; Start 01/09/17 at 11:00 Alprazolam (Xanax) 0.25 mg Q6H PRN PO ANXIETY Last administered on 01/12/17 08:24; Admin Dose 0.25 MG; Start 01/12/17 at 08:00 Duloxetine HCl (Cymbalta) 30 mg DAILY PO Last administered on 01/12/17 08:24 ; Admin Dose 30 MG; Start 01/12/17 at 09:00 Fentanyl (Sublimaze) 25 mcg Q4 PRN IV SEDATION; Start 01/12/17 at 08:00 Fentanyl (Sublimaze) 25 mcg Q4H PRN IV PAIN LEVEL 6-10; Start 01/12/17 at 10: 00 JORDAN HAHN Jan 12, 2017 14:17
--- NOTE | 2017-01-12 15:23 | PN ---
Date/Time of Note Date/Time of Note DATE: 01/12/17 TIME: 15:20 Assessment/Plan Lines/Catheters IV Catheter Type (from Nrsg): Central Line Assessment/Plan Chief Complaint/Hosp Course Bilateral PTX with air leaks SP BL CT placement PTX improving to 30% right side will continue CT sxn FU CXR will need VATS if PTX discussed with the mother, sister and the Pt Problems: Subjective 24 Hr Interval Summary Constitutional: improved Pain Control: mild Exam/Review of Systems Vital Signs Vitals Vital Signs Date Time Temp Pulse Resp B/P Pulse Ox O2 Delivery O2 Flow Rate FiO2 01/12/17 14:20 107 24 100 Nasal Cannula 4.0 01/12/17 14:00 122/61 01/12/17 12:00 98.8 01/09/17 20:03 100 Intake and Output 01/11/17 01/11/17 01/12/17 15:00 23:00 07:00 Intake Total 490 ml 820 ml 1390 ml Output Total 500 ml 745 ml 250 ml Balance -10 ml 75 ml 1140 ml Exam ENMT: mucosa pink and moist, nl external ears & nose, nl lips & teeth, nl nasal mucosa & septum Neck: non-tender, supple Respiratory: clear to auscultation, normal air movement Cardiovascular: nl pulses, regular rate and rhythm Gastrointestinal: nl liver, spleen, non-tender, soft Results Result Diagram: 01/11/178 01/11/17437 JANIE BASILIO MD Jan 12, 2017 15:23
--- NOTE | 2017-01-12 15:56 | PN ---
Date/Time of Note Date/Time of Note DATE: 01/12/17 TIME: 15:40 Assessment/Plan VTE Prophylaxis VTE Prophylaxis Intervention: SCD's Assessment/Plan Chief Complaint/Hosp Course 1. Acute restaurant failure secondary to bilateral pneumothorax from pneumocystis pneumonia Patient extubated Chest tubes placed in both lungs Pulmonology and CT surgery following Await sputum results concerning for PCP, empirically treating for PCP w steroids and therapeutic dose bactrim Cefepime/vanco/levaquin 2. AIDS Continue ARVs PPx with bactrim, fluc, azithro, ID following 3. Kaposi sarcoma Wound care 4. ICU delirium Monitor Prophylaxis SCDs Problems: Subjective 24 Hr Interval Summary Constitutional: disoriented Exam/Review of Systems Vital Signs Vitals Vital Signs Date Time Temp Pulse Resp B/P Pulse Ox O2 Delivery O2 Flow Rate FiO2 01/12/17 14:20 107 24 100 Nasal Cannula 4.0 01/12/17 14:00 122/61 01/12/17 12:00 98.8 01/09/17 20:03 100 Intake and Output 01/11/17 01/11/17 01/12/17 15:00 23:00 07:00 Intake Total 490 ml 820 ml 1390 ml Output Total 500 ml 745 ml 250 ml Balance -10 ml 75 ml 1140 ml Exam Psych: confusion Respiratory: clear to auscultation Cardiovascular: regular rate and rhythm Gastrointestinal: soft, No distended Musculoskeletal: nl extremities to inspection Results Result Diagram: 01/11/17 0438 01/11/17 0438 Results 24 hrs Laboratory Tests Test 01/11/17 17:10 01/11/17 20:48 01/12/17 08:23 01/12/17 12:11 Bedside Glucose 256 H 218 225 H 118 Medications Medications Current Medications Ondansetron HCl (Zofran Inj) 4 mg Q6H PRN IV NAUSEA AND/OR VOMITING Last administered on 01/02/17 01:44; Admin Dose 4 MG; Start 01/02/17 at 00:00 Acetaminophen (Tylenol Liquid) 650 mg Q6H PRN PO PAIN LEVEL 1-3 OR FEVER Last administered on 01/05/17 21:14; Admin Dose 650 MG; Start 01/02/17 at 00:00 Acetaminophen (Tylenol Supp) 650 mg Q4H PRN [place] PAIN LEVEL 1-3 OR FEVER; Start 01/02/17 at 00:00 Miscellaneous Information This patient morley... PRN PRN XX WOUND CARE; Start at 06:00 Fluconazole/ Sodium Chloride (Diflucan 100 Mg/ NS (Pmx)) 50 ml @ 50 mls/hr Q24H IVPB Last administered on 01/12/17 13:28; Admin Dose 50 MLS/HR; Start at 13:00 Miscellaneous Information (*Order Clarification Bulletin) MEDICATION REQUIRES CLARIFICATION: Q6H XX Last administered on 01/12/17 14:29; Admin Dose 1 EA; Start 01/04/17 at 14:00 Non-Formulary Medication 1 ea 1 ea DAILY PO Last administered on 01/12/17 08: 24; Admin Dose 1 EA; Start 01/05/17 at 09:00 Trimethoprim/ Sulfamethoxazole 20 ml/Dextrose 520 ml @ 350 mls/hr Q8 IVPB Last administered on 01/12/17 15:35; Admin Dose 350 MLS/HR; Start 01/05/17 at 14:00 Piperacillin Sod/ Tazobactam Sod (Zosyn 3.375gm/ 100 ml (Pmx)) 100 ml @ 200 mls /hr Q8 IVPB Last administered on 01/12/17 13:28; Admin Dose 200 MLS/HR; Start 01/05/17 at 14:00 Azithromycin (Zithromax) 1,200 mg Q7D PO Last administered on 01/12/17 13:00 ; Admin Dose 1,200 MG; Start 01/05/17 at 13:00 Acyclovir (Zovirax) 400 mg BID PO Last administered on 01/12/17 09:00; Admin Dose 400 MG; Start 01/05/17 at 21:00 Methylprednisolone Sodium Succinate (Solu-Medrol) 40 mg Q6 IV Last administered on 01/12/17 12:09; Admin Dose 40 MG; Start 01/06/17 at 12:00 Diagnostic Test (Pha) (Accu-Chek) 1 ea 02 XX ; Start 01/07/17 at 02:00 Miscellaneous Information 1 ea NOTE XX ; Start 01/06/17 at 14:00 Glucose (Glutose) 15 gm Q15M PRN PO DECREASED GLUCOSE; Start 01/06/17 at 14:00 Glucose (Glutose) 22.5 gm Q15M PRN PO DECREASED GLUCOSE; Start 01/06/17 at 14: 00 Dextrose (D50w Syringe) 25 ml Q15M PRN IV DECREASED GLUCOSE; Start 01/06/17 at 14:00 Dextrose (D50w Syringe) 50 ml Q15M PRN IV DECREASED GLUCOSE; Start 01/06/17 at 14:00 Glucagon (Glucagen) 1 mg Q15M PRN IM DECREASED GLUCOSE; Start 01/06/17 at 14: 00 Glucose (Glutose) 15 gm Q15M PRN BUCCAL DECREASED GLUCOSE; Start 01/06/17 at 14:00 Pantoprazole 40 mg 40 mg DAILY@06 PO Last administered on 01/12/17 05:00; Admin Dose 40 MG; Start 01/08/17 at 06:00 Levofloxacin/ Dextrose (Levaquin 500mg/ D5W 100 ml (Pmx)) 100 ml @ 100 mls/hr Q24H IVPB Last administered on 01/12/17 12:09; Admin Dose 100 MLS/HR; Start 01/09/17 at 11:00 Alprazolam (Xanax) 0.25 mg Q6H PRN PO ANXIETY Last administered on 01/12/17 08:24; Admin Dose 0.25 MG; Start 01/12/17 at 08:00 Duloxetine HCl (Cymbalta) 30 mg DAILY PO Last administered on 01/12/17 08:24 ; Admin Dose 30 MG; Start 01/12/17 at 09:00 Fentanyl (Sublimaze) 25 mcg Q4 PRN IV SEDATION; Start 01/12/17 at 08:00 Fentanyl (Sublimaze) 25 mcg Q4H PRN IV PAIN LEVEL 6-10; Start 01/12/17 at 10: 00 ALBERT NGUYỄN Jan 12, 2017 15:55
[2017-01-13] VITALS (29 sets, daily range): BP systolic 84–161; BP diastolic 38–101; PULSE 79–124; RESP 14–47
[2017-01-13] MEDS: METHYLPREDNISOLONE 40 MG INJ IV SCH ×5 (00:08→23:24)
[2017-01-13] MEDS: FENTAnyl 50 MCG/ML VIAL IV PRN (00:48)
[2017-01-13] MEDS: ALBUTEROL 0.083% (NEB) 2.5 MG/3 ML AMP HHN SCH ×2 (01:47→08:00)
[2017-01-13] MEDS: ACCU-CHEK XX SCH (02:00)
[2017-01-13] MEDS: [UNRECOGNIZED DRUG - REMARK] XX SCH ×4 (02:00→20:00)
[2017-01-13] MEDS: ALPRAZOLAM 0.25 MG TAB PO PRN (02:04)
[2017-01-13] MEDS: ACETAMINOPHEN 650MG/20.3ML CUP PO PRN (02:05)
[2017-01-13] MEDS: PIPER-TAZO 3.375 GM IV (PMX) 100 ML IVPB SCH ×3 (05:20→22:17)
[2017-01-13] MEDS: TRIMETHOPRIM/SULFAMETHOXAZOLE 20 ML in DEXTROSE 5% 500 ML IVPB SCH ×3 (05:21→22:19)
[2017-01-13] MEDS: PANTOPRAZOLE (EC) 40 MG TAB PO SCH (06:00)
[2017-01-13 06:03] LABS: ABNORMAL IP MESSAGE 1; HEMATOCRIT 25.5 % (42.0-52.0); HEMOGLOBIN 8.1 g/dl (14.0-18.0); MEAN CORPUSCULAR HEMOGLOBIN 22.8 pg (29.0-33.0); MEAN CORPUSCULAR HGB CONC 31.8 g/dl (32.0-37.0); MEAN CORPUSCULAR VOLUME 71.8 fl (82.0-101.0); PLATELET COUNT 373 10^3/UL (140-415); POSITIVE DIFF @See below; RED BLOOD COUNT 3.55 10^6/ul (4.70-6.10); WHITE BLOOD COUNT 26.4 10^3/ul (4.8-10.8)
[2017-01-13 06:29] LABS: CREATININE 0.84 mg/dl (0.61-1.24); MAGNESIUM 1.9 mg/dl (1.7-2.5); PHOSPHORUS 3.4 mg/dl (2.5-4.9); POTASSIUM 4.5 mmol/L (3.5-5.1)
[2017-01-13] MEDS ORDERED: MINERAL OIL LIGHT 10 ML VIAL ONE (07:29)
[2017-01-13] MEDS ORDERED: ROCURONIUM 50 MG INJ ONE (07:33)
[2017-01-13] MEDS ORDERED: PROPOFOL 20 ML ONE ×2 (07:33→11:00)
[2017-01-13] MEDS ORDERED: DEXAMETHASONE 4 MG/ML 1 ML INJ ONE (07:34)
[2017-01-13] MEDS ORDERED: MIDAZOLAM 1 MG/ML 2 ML INJ ONE (07:34)
[2017-01-13] MEDS ORDERED: FENTAnyl 50 MCG/ML VIAL ONE (07:34)
[2017-01-13] MEDS ORDERED: ONDANSETRON 4 MG INJ ONE (07:34)
[2017-01-13] MEDS: VIRACEPT PO SCH ×2 (07:35→16:41)
[2017-01-13] MEDS: INSULIN ASPART [NOVOLOG] 3 ML PEN SC SCH ×4 (07:35→21:11)
[2017-01-13] MEDS: TRIUMEQ PO SCH (08:19)
[2017-01-13] MEDS: ACYCLOVIR 400 MG TAB PO SCH ×2 (08:20→21:07)
[2017-01-13] MEDS: DULOXETINE 30 MG CAP DR PO SCH (08:20)
[2017-01-13] MEDS ORDERED: PHENYLephrine (100 MCG/ML) 5ML SYG ONE (09:00)
[2017-01-13] MEDS ORDERED: METOPROLOL 5 MG INJ ONE (09:47)
[2017-01-13] MEDS ORDERED: NEOSTIGMINE 3 MG/3 ML SYRINGE ONE (10:22)
[2017-01-13] MEDS ORDERED: GLYCOPYRROLATE 0.4 MG INJ ONE (10:22)
[2017-01-13] MEDS ORDERED: SUGAMMADEX SODIUM 200 MG/2 ML VIAL IV ONE (10:39)
[2017-01-13 10:57] LABS: ANISOCYTOSIS 1+ (0-0); GIANT THROMBO% (M) 1 % (0-0); HYPOCHROMASIA 2+ (0-0); MONOCYTES % (M) 1 % (0-11); PLATELET ESTIMATE NORMAL; POLYCHROMASIA 3+ (0-0)
[2017-01-13] MEDS ORDERED: SUCCINYLCHOLINE CHLORIDE 100 MG/5 ML SYG IV ONE (11:00)
--- NOTE | 2017-01-13 11:15 | CONS ---
Date/Time of Note Date/Time of Note DATE: 01/13/17 TIME: 11:14 Consult Date/Type/Reason Admit Date/Time Jan 01, 2017 at 21:48 Initial Consult Date 01/02/17 Type of Consultation: Pulmonary Subjective Patient scheduled for VATS pleurodesis today. Objective Vital Signs Date Time Temp Pulse Resp B/P Pulse Ox O2 Delivery O2 Flow Rate FiO2 01/13/17 07:55 113 01/13/17 07:00 40 154/73 90 Nasal Cannula 4.0 01/13/17 04:00 98.7 01/09/17 20:03 100 Intake and Output 01/12/17 01/12/17 01/13/17 15:00 23:00 07:00 Intake Total 200 ml 1430 ml 0 ml Output Total 375 ml 690 ml 542 ml Balance -175 ml 740 ml -542 ml Exam GENERAL: Chronically ill-appearing gentleman on nasal cannula VITAL SIGNS: per chart NECK: Supple. No JVD or lymphadenopathy. CARDIAC EXAM: S1, S2. No added sounds or murmurs. CHEST: clear bilaterally, No added sounds, rales or wheezes ABDOMEN: Soft, nontender. No guarding or rebound. EXTREMITIES: No cyanosis, clubbing or edema. NEUROLOGIC: Generalized weakness. No focal deficits. Results/Medications Result Diagram: 01/13/17 0500 01/13/17 0500 Results 24 hrs Laboratory Tests Test 01/12/17 12:11 01/12/17 18:02 01/12/17 20:30 01/13/17 05:00 Bedside Glucose 118 208 171 White Blood Count 26.4 #H Red Blood Count 3.55 L Hemoglobin 8.1 L Hematocrit 25.5 L Mean Corpuscular Volume 71.8 L Mean Corpuscular Hemoglobin 22.8 L Mean Corpuscular Hemoglobin Concent 31.8 L Red Cell Distribution Width 25.0 H Platelet Count 373 Mean Platelet Volume 9.0 Neutrophils % Segmented Neutrophils % (Manual) 98 H Lymphocytes % Lymphocytes % (Manual) 1 L Monocytes % Monocytes % (Manual) 1 Eosinophils % Basophils % Nucleated Red Blood Cells % 0.0 Neutrophils # Absolute Lymphocytes (Manual) 0.2 L Lymphocytes # Monocytes # Absolute Monocytes (Manual) 0.2 L Eosinophils # Basophils # Nucleated Red Blood Cells # Platelet Estimate NORMAL Giant Platelets 1 H Polychromasia 3+ Hypochromasia 2+ Anisocytosis 1+ Sodium Level 128 L Potassium Level 4.5 Chloride Level 97 Carbon Dioxide Level 22 Anion Gap 14 Blood Urea Nitrogen 18 Creatinine 0.84 Glucose Level 209 Calcium Level 9.0 Phosphorus Level 3.4 Magnesium Level 1.9 Medications Current Medications Ondansetron HCl (Zofran Inj) 4 mg Q6H PRN IV NAUSEA AND/OR VOMITING Last administered on 01/02/17 01:44; Admin Dose 4 MG; Start 01/02/17 at 00:00 Acetaminophen (Tylenol Liquid) 650 mg Q6H PRN PO PAIN LEVEL 1-3 OR FEVER Last administered on 01/13/17 02:05; Admin Dose 650 MG; Start 01/02/17 at 00:00 Acetaminophen (Tylenol Supp) 650 mg Q4H PRN [place] PAIN LEVEL 1-3 OR FEVER; Start 01/02/17 at 00:00 Miscellaneous Information This patient morley... PRN PRN XX WOUND CARE; Start at 06:00 Fluconazole/ Sodium Chloride (Diflucan 100 Mg/ NS (Pmx)) 50 ml @ 50 mls/hr Q24H IVPB Last administered on 01/12/17 13:28; Admin Dose 50 MLS/HR; Start at 13:00 Miscellaneous Information (*Order Clarification Bulletin) MEDICATION REQUIRES CLARIFICATION: Q6H XX Last administered on 01/12/17 14:29; Admin Dose 1 EA; Start 01/04/17 at 14:00 Non-Formulary Medication 1 ea 1 ea DAILY PO Last administered on 01/12/17 08: 24; Admin Dose 1 EA; Start 01/05/17 at 09:00 Trimethoprim/ Sulfamethoxazole 20 ml/Dextrose 520 ml @ 350 mls/hr Q8 IVPB Last administered on 01/13/17 05:21; Admin Dose 350 MLS/HR; Start 01/05/17 at 14:00 Piperacillin Sod/ Tazobactam Sod (Zosyn 3.375gm/ 100 ml (Pmx)) 100 ml @ 200 mls /hr Q8 IVPB Last administered on 01/13/17 05:20; Admin Dose 200 MLS/HR; Start 01/05/17 at 14:00 Azithromycin (Zithromax) 1,200 mg Q7D PO Last administered on 01/12/17 13:00 ; Admin Dose 1,200 MG; Start 01/05/17 at 13:00 Acyclovir (Zovirax) 400 mg BID PO Last administered on 01/12/17 20:32; Admin Dose 400 MG; Start 01/05/17 at 21:00 Methylprednisolone Sodium Succinate (Solu-Medrol) 40 mg Q6 IV Last administered on 01/13/17 05:21; Admin Dose 40 MG; Start 01/06/17 at 12:00 Diagnostic Test (Pha) (Accu-Chek) 1 ea 02 XX ; Start 01/07/17 at 02:00 Miscellaneous Information 1 ea NOTE XX ; Start 01/06/17 at 14:00 Glucose (Glutose) 15 gm Q15M PRN PO DECREASED GLUCOSE; Start 01/06/17 at 14:00 Glucose (Glutose) 22.5 gm Q15M PRN PO DECREASED GLUCOSE; Start 01/06/17 at 14: 00 Dextrose (D50w Syringe) 25 ml Q15M PRN IV DECREASED GLUCOSE; Start 01/06/17 at 14:00 Dextrose (D50w Syringe) 50 ml Q15M PRN IV DECREASED GLUCOSE; Start 01/06/17 at 14:00 Glucagon (Glucagen) 1 mg Q15M PRN IM DECREASED GLUCOSE; Start 01/06/17 at 14: 00 Glucose (Glutose) 15 gm Q15M PRN BUCCAL DECREASED GLUCOSE; Start 01/06/17 at 14:00 Pantoprazole 40 mg 40 mg DAILY@06 PO Last administered on 01/12/17 05:00; Admin Dose 40 MG; Start 01/08/17 at 06:00 Levofloxacin/ Dextrose (Levaquin 500mg/ D5W 100 ml (Pmx)) 100 ml @ 100 mls/hr Q24H IVPB Last administered on 01/12/17 12:09; Admin Dose 100 MLS/HR; Start 01/09/17 at 11:00 Alprazolam (Xanax) 0.25 mg Q6H PRN PO ANXIETY Last administered on 01/13/17 02:04; Admin Dose 0.25 MG; Start 01/12/17 at 08:00 Duloxetine HCl (Cymbalta) 30 mg DAILY PO Last administered on 01/12/17 08:24 ; Admin Dose 30 MG; Start 01/12/17 at 09:00 Fentanyl (Sublimaze) 25 mcg Q4 PRN IV SEDATION Last administered on 01/13/17 00:48; Admin Dose 25 MCG; Start 01/12/17 at 08:00 Fentanyl (Sublimaze) 25 mcg Q4H PRN IV PAIN LEVEL 6-10 Last administered on 20:33; Admin Dose 25 MCG; Start 01/12/17 at 10:00 Assessment/Plan Chief Complaint/Hosp Course IMP: 1. Hypoxemic Resp Insufficiency 2. B/L Pneumothoraces--significant pneumatoceles noted on CT chest 3. Progressive Pulm Parenchymal Opacities--with CT showing numerous B/L cysts, some cysts filled with low dense material, appearing mass-like, as well as GGO. Some of these findings are c/w PJP, however, co-existing infections such as crypto as well as lymphoproliferative d/o such as lymphoma can be present. 4. Persistent R and L secondary spontaneous PTX 5. KS RECS: 1. CT chest noted. 2. Right CT to suction; Left to suction (20 cm H20) 3. Continue PJP Rx 4. Attempted VATS pleurodesis today. Overall prognosis remains guarded. Problems: DANI LOPEZ MD, [facility] Jan 13, 2017 11:15
[2017-01-13] MEDS ORDERED: PROPOFOL 100 ML ONE (11:32)
--- NOTE | 2017-01-13 12:11 | OPR ---
Date/Time of Note Date/Time of Note DATE: 01/13/17 TIME: 12:07 Operative Report Procedure Date: Jan 13, 2017 Preoperative Diagnosis Right pneumothorax Postoperative Diagnosis Same Operation/Procedure Performed Right video-assisted thoracic surgery Right pulmonary decortication Right lung wedge resection Bronchoscopy Surgeon see signature line Information Systems Planner None Anesthesia Type: general Estimated Blood Loss: 50 - 100 ml's Transfusion none Specimen Right lung Grafts/Implants None none Tubes/Drains Chest 2 Complications none Pt Condition Post Procedure: critical Disposition: other Indications Dictated Procedure Description Patient was taken to the operating room bronchoscopy was done minimal bleeding was noted in the tracheal tree which was aspirated Patient was placed in left lateral decubitus which is positioned right side up Timeout was called Thoracoscopy was started using 3 port thoracoscopy 212 mm ports one in the mid axillary line seventh intercostal space one in the anterior axillary line fifth intercostal space and a 5 mm trocar in the tip of the scapula Large amounts of adhesions were noted Lung was decorticated The peel was removed Large amounts of blebs were no 3 points of air leaks were noted after putting saline in the chest wall cavity and inflating the All 3 ports of the lung were resected Suture line was reinforced using Tisseel No evidence of any bleeding was noted 32 [place] chest tube was placed into the trochars position brought out through a lower stab wound secured to skin using silk suture The other 2 incisions were closed using a single 3-0 Vicryl suture in a running fashion Monae for the skin Tolerated procedure well JANIE BASILIO MD Jan 13, 2017 12:11
--- NOTE | 2017-01-13 12:26 | RADRPT ---
PROCEDURE: XR Chest. CLINICAL INDICATION: Follow up right pneumothorax. TECHNIQUE: Single AP portable chest. COMPARISON: 01/12/2017 chest x-ray FINDINGS: The cardiac silhouette is normal in size. Interval decrease size in the right pneumothorax now measu ring approximately 10-15 % as compared to 30 % on the previous study . Persistent approximately 5% l eft apical pneumothorax. Bilateral chest tube in place. Right MediPort catheter. Redemonstration of bilateral pulmonary nodules and masses. The osseous structures and soft tissues are unremarkable. IMPRESSION: 1. Slight interval decrease size of right apical pneumothorax now measuring approximately 10 15% as compared to 30% on the previous examination. 2. Stable left 5% apical pneumothorax. 3. Stable bilateral pulmonary nodules and masses. 4. Support devices in stable and satisfactory position. . RPTAT:AAJJ Physician Romeo Date Time Electronically viewed and signed by Physician Romeo on 01/13/2017 12:25 MIRIAM/
[2017-01-13] MEDS: LEVOFLOXACIN 500MG/D5W (PMX) 100 ML IVPB SCH (12:28)
[2017-01-13] MEDS: FLUCONAZOLE 100 MG/NS (PMX) 50 ML IVPB SCH (12:28)
[2017-01-13] MEDS: PROPOFOL 100 ML IV SCH ×3 (12:39→20:03)
--- NOTE | 2017-01-13 12:51 | CONS ---
Date/Time of Note Date/Time of Note DATE: 01/13/17 TIME: 12:48 Consult Date/Type/Reason Admit Date/Time Jan 01, 2017 at 21:48 Initial Consult Date 01/02/17 Type of Consultation: id Objective Vital Signs Date Time Temp Pulse Resp B/P Pulse Ox O2 Delivery O2 Flow Rate FiO2 01/13/17 07:55 113 01/13/17 07:00 40 154/73 90 Nasal Cannula 4.0 01/13/17 04:00 98.7 01/09/17 20:03 100 Intake and Output 01/12/17 01/12/17 01/13/17 15:00 23:00 07:00 Intake Total 200 ml 1430 ml 0 ml Output Total 375 ml 690 ml 542 ml Balance -175 ml 740 ml -542 ml Results/Medications Result Diagram: 01/13/17 0500 01/13/17 0500 Results 24 hrs Laboratory Tests Test 01/12/17 18:02 01/12/17 20:30 01/13/17 05:00 01/13/17 12:31 Bedside Glucose 208 171 279 H White Blood Count 26.4 #H Red Blood Count 3.55 L Hemoglobin 8.1 L Hematocrit 25.5 L Mean Corpuscular Volume 71.8 L Mean Corpuscular Hemoglobin 22.8 L Mean Corpuscular Hemoglobin Concent 31.8 L Red Cell Distribution Width 25.0 H Platelet Count 373 Mean Platelet Volume 9.0 Neutrophils % Segmented Neutrophils % (Manual) 98 H Lymphocytes % Lymphocytes % (Manual) 1 L Monocytes % Monocytes % (Manual) 1 Eosinophils % Basophils % Nucleated Red Blood Cells % 0.0 Neutrophils # Absolute Lymphocytes (Manual) 0.2 L Lymphocytes # Monocytes # Absolute Monocytes (Manual) 0.2 L Eosinophils # Basophils # Nucleated Red Blood Cells # Platelet Estimate NORMAL Giant Platelets 1 H Polychromasia 3+ Hypochromasia 2+ Anisocytosis 1+ Sodium Level 128 L Potassium Level 4.5 Chloride Level 97 Carbon Dioxide Level 22 Anion Gap 14 Blood Urea Nitrogen 18 Creatinine 0.84 Glucose Level 209 Calcium Level 9.0 Phosphorus Level 3.4 Magnesium Level 1.9 Medications Current Medications Ondansetron HCl (Zofran Inj) 4 mg Q6H PRN IV NAUSEA AND/OR VOMITING Last administered on 01/02/17t 01:44; Admin Dose 4 MG; Start 01/02/17 at 00:00 Acetaminophen (Tylenol Liquid) 650 mg Q6H PRN PO PAIN LEVEL 1-3 OR FEVER Last administered on 01/13/17 02:05; Admin Dose 650 MG; Start 01/02/17 at 00:00 Acetaminophen (Tylenol Supp) 650 mg Q4H PRN [place] PAIN LEVEL 1-3 OR FEVER; Start 01/02/17 at 00:00 Miscellaneous Information This patient morley... PRN PRN XX WOUND CARE; Start at 06:00 Fluconazole/ Sodium Chloride (Diflucan 100 Mg/ NS (Pmx)) 50 ml @ 50 mls/hr Q24H IVPB Last administered on 01/13/17 12:28; Admin Dose 50 MLS/HR; Start at 13:00 Miscellaneous Information (*Order Clarification Bulletin) MEDICATION REQUIRES CLARIFICATION: Q6H XX Last administered on 01/12/17 14:29; Admin Dose 1 EA; Start 01/04/17 at 14:00 Non-Formulary Medication 1 ea 1 ea DAILY PO Last administered on 01/12/17 08: 24; Admin Dose 1 EA; Start 01/05/17 at 09:00 Trimethoprim/ Sulfamethoxazole 20 ml/Dextrose 520 ml @ 350 mls/hr Q8 IVPB Last administered on 01/13/17 05:21; Admin Dose 350 MLS/HR; Start 01/05/17 at 14:00 Piperacillin Sod/ Tazobactam Sod (Zosyn 3.375gm/ 100 ml (Pmx)) 100 ml @ 200 mls /hr Q8 IVPB Last administered on 01/13/17 05:20; Admin Dose 200 MLS/HR; Start 01/05/17 at 14:00 Azithromycin (Zithromax) 1,200 mg Q7D PO Last administered on 01/12/17 13:00 ; Admin Dose 1,200 MG; Start 01/05/17 at 13:00 Acyclovir (Zovirax) 400 mg BID PO Last administered on 01/12/17 20:32; Admin Dose 400 MG; Start 01/05/17 at 21:00 Methylprednisolone Sodium Succinate (Solu-Medrol) 40 mg Q6 IV Last administered on 01/13/17 12:28; Admin Dose 40 MG; Start 01/06/17 at 12:00 Diagnostic Test (Pha) (Accu-Chek) 1 ea 02 XX ; Start 01/07/17 at 02:00 Miscellaneous Information 1 ea NOTE XX ; Start 01/06/17 at 14:00 Glucose (Glutose) 15 gm Q15M PRN PO DECREASED GLUCOSE; Start 01/06/17 at 14:00 Glucose (Glutose) 22.5 gm Q15M PRN PO DECREASED GLUCOSE; Start 01/06/17 at 14: 00 Dextrose (D50w Syringe) 25 ml Q15M PRN IV DECREASED GLUCOSE; Start 01/06/17 at 14:00 Dextrose (D50w Syringe) 50 ml Q15M PRN IV DECREASED GLUCOSE; Start 01/06/17 at 14:00 Glucagon (Glucagen) 1 mg Q15M PRN IM DECREASED GLUCOSE; Start 01/06/17 at 14: 00 Glucose (Glutose) 15 gm Q15M PRN BUCCAL DECREASED GLUCOSE; Start 01/06/17 at 14:00 Pantoprazole 40 mg 40 mg DAILY@06 PO Last administered on 01/12/17 05:00; Admin Dose 40 MG; Start 01/08/17 at 06:00 Levofloxacin/ Dextrose (Levaquin 500mg/ D5W 100 ml (Pmx)) 100 ml @ 100 mls/hr Q24H IVPB Last administered on 01/13/17 12:28; Admin Dose 100 MLS/HR; Start 01/09/17 at 11:00 Alprazolam (Xanax) 0.25 mg Q6H PRN PO ANXIETY Last administered on 01/13/17 02:04; Admin Dose 0.25 MG; Start 01/12/17 at 08:00 Duloxetine HCl (Cymbalta) 30 mg DAILY PO Last administered on 01/12/17 08:24 ; Admin Dose 30 MG; Start 01/12/17 at 09:00 Fentanyl (Sublimaze) 25 mcg Q4 PRN IV SEDATION Last administered on 01/13/17 00:48; Admin Dose 25 MCG; Start 01/12/17 at 08:00 Fentanyl 25 mcg 25 mcg Q4H PRN IV PAIN LEVEL 6-10 Last administered on 20:33; Admin Dose 25 MCG; Start 01/12/17 at 10:00 Propofol (Diprivan) 100 ml @ 1.835 mls/ hr Q12H IV Last administered on t 12:39; Admin Dose 18.354 MLS/HR; Start 01/13/17 at 12:30 Assessment/Plan Chief Complaint/Hosp Course SUBJECTIVE: S/p VATS earlier today, just came back to the room, intubated, sedated, looks comfortable, no fevers INDWELLINGS: Bilateral chest tube, right chest triple lumen catheter, L radial [place], [place], ETT ANTIMICROBIALS: 1. Bactrim. 2. Zosyn. 3. Acyclovir 400 mg twice a day. 4. Zithromax 1200 mg weekly. 5. Fluconazole. 6. Triumeq and Viracept for HIV. 7. Levaquin MICROBIOLOGY: Right lower extremity wound culture grew Proteus mirabilis, E. coli and enterococcus species. PHYSICAL EXAMINATION: GENERAL: This is a well-developed, middle-aged man who is in no distress. HEENT: Head atraumatic, normocephalic. Sclerae anicteric. Buccal mucosa dry. NECK: Supple. CHEST: Rise symmetrical. Breath sounds diminished to bases. HEART: S1, S2. ABDOMEN: Soft, bowel tones present. EXTREMITIES: With right lower extremity dressing intact. ASSESSMENT: 1. Acute hypoxemic respiratory failure 2. 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 3. Acquired immunodeficiency syndrome. 4. 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 5. Bilateral pneumothorax, status post chest tubes placement, s/p VATS. 6. Chronic obstructive pulmonary disease. 7. Anemia. PLAN: The patient remains stable. Continue abx, f/u intraoperative cx, CTS/ pulmonary rec-s noted Continue local wound care per podiatry rec-s [facility] staff Problems: ANDREY ENCINAS NP Jan 13, 2017 12:51
[2017-01-13 12:58] LABS: AADO2 Arterial 476.9 mmHg (7.0-24.0); Arterial Base Excess -8.1 mmol/L (-3.0-3); Arterial COHb 0.6 % (0.0-3.0); Arterial Fraction of Oxyhgb 97.2 % (93.0-99.0); Arterial HCO3 20.7 mmol/L (22.0-26.0); Arterial MetHb 0.7 % (0.0-1.5); Blood Gas Low PEEP Setting 0 cmH2O; MODE VENT - AC
[2017-01-13] MEDS ORDERED: ALTEPLASE (CATHFLO) 2 MG INJ CATHETER PRN (13:30)
[2017-01-13] MEDS ORDERED: ALBUTEROL 0.083% (NEB) 2.5 MG/3 ML AMP HHN SCH (14:00)
[2017-01-13] MEDS ORDERED: ALBUTEROL 18 GM INHALER INH PRN (14:00)
[2017-01-13] MEDS: ALBUTEROL 18 GM INHALER INH SCH ×2 (14:00→19:57)
--- NOTE | 2017-01-13 14:00 | PN ---
Date/Time of Note Date/Time of Note DATE: 01/13/17 TIME: 13:53 Assessment/Plan VTE Prophylaxis VTE Prophylaxis Intervention: SCD's Lines/Catheters IV C[facility]ter Type (from [facility]): Central Line Central line still needed: Yes (medication) Assessment/Plan Chief Complaint/Hosp Course Assessment: Severe anemia/received 2 units of blood Respiratory failure * Due to PTX, s/p bilateral chest tube in place * S/p VATS today HIV Kaposi's sarcoma with right lower extremity Sepsis Plan: Monitor CBC daily Continue to monitor need for blood transfusion Continue PPI therapy S/p VATS Will continue to monitor change in Gi status Patient seen in collaboration with Dr. Padron Subjective: Course reviewed with nursing staff Patient interviewed and examined All labs, imaging and other results reviewed S/p VATS today, intubated- received 2 units of blood during surgery no family at bedside. Problems: Exam/Review of Systems Vital Signs Vitals Vital Signs Date Time Temp Pulse Resp B/P Pulse Ox O2 Delivery O2 Flow Rate FiO2 01/13/17 07:55 113 01/13/17 07:00 40 154/73 90 Nasal Cannula 4.0 01/13/17 04:00 98.7 01/09/17 20:03 100 Intake and Output 01/12/17 01/12/17 01/13/17 15:00 23:00 07:00 Intake Total 200 ml 1430 ml 0 ml Output Total 375 ml 690 ml 542 ml Balance -175 ml 740 ml -542 ml Exam Constitutional: other (intubated ) Head: atraumatic, normocephalic Eyes: nl lids ENMT: intubated Neck: non-tender, supple Respiratory: crackles/rales, diminished breath sounds Gastrointestinal: bowel sounds, nl liver, spleen, non-tender, soft, No ascites, No distended, No firm, No hepatomegaly, No mass, No rebound or guarding, No splenomegaly Results Result Diagram: 01/13/17 0500 01/13/17 0500 Results 24 hrs Laboratory Tests Test 01/12/17 18:02 01/12/17 20:30 01/13/17 05:00 01/13/17 12:15 Bedside Glucose 208 171 White Blood Count 26.4 #H Red Blood Count 3.55 L Hemoglobin 8.1 L Hematocrit 25.5 L Mean Corpuscular Volume 71.8 L Mean Corpuscular Hemoglobin 22.8 L Mean Corpuscular Hemoglobin Concent 31.8 L Red Cell Distribution Width 25.0 H Platelet Count 373 Mean Platelet Volume 9.0 Neutrophils % Segmented Neutrophils % (Manual) 98 H Lymphocytes % Lymphocytes % (Manual) 1 L Monocytes % Monocytes % (Manual) 1 Eosinophils % Basophils % Nucleated Red Blood Cells % 0.0 Neutrophils # Absolute Lymphocytes (Manual) 0.2 L Lymphocytes # Monocytes # Absolute Monocytes (Manual) 0.2 L Eosinophils # Basophils # Nucleated Red Blood Cells # Platelet Estimate NORMAL Giant Platelets 1 H Polychromasia 3+ Hypochromasia 2+ Anisocytosis 1+ Sodium Level 128 L Potassium Level 4.5 Chloride Level 97 Carbon Dioxide Level 22 Anion Gap 14 Blood Urea Nitrogen 18 Creatinine 0.84 Glucose Level 209 Calcium Level 9.0 Phosphorus Level 3.4 Magnesium Level 1.9 Blood Gas Specimen Source Blood arterial Arterial Blood Date Drawn 01/13/2017 12:20:43 PM Arterial Blood pH (Temp corrected) 7.169 *L Arterial Blood pCO2 (Temp correct) 58.1 H Arterial Blood pO2 (Temp corrected) 178.0 H Arterial Blood HCO3 20.7 L Arterial Blood Base Excess -8.1 L Arterial Blood Oxygen Saturation 98.5 H Austin Test N/A Arterial Blood Gas Puncture Site A-Line Arterial Blood Carboxyhemoglobin 0.6 Arterial Blood Methemoglobin 0.7 Blood Gas A-a O2 Differential 476.9 H Oxyhemoglobin Percent 97.2 Total Hemoglobin 11.0 L Blood Gas Temperature 37.0 Blood Gas Respiration Rate 14.0 Blood Gas Actual Respiration Rate 23 Blood Gas Modality VENT - AC FiO2 100.0 Blood Gas Tidal Volume 450.0 Blood Gas Low PEEP Setting 0 Blood Gas Critical Value Read Back H KRAY ODELL Blood Gas Notified Whom DESTINY Blood Gas Notified Time 01/13/2017 12:58:16 PM Test 01/13/17 12:31 Bedside Glucose 279 H Medications Medications Current Medications Ondansetron HCl (Zofran Inj) 4 mg Q6H PRN IV NAUSEA AND/OR VOMITING Last administered on 01/02/17 01:44; Admin Dose 4 MG; Start 01/02/17 at 00:00 Acetaminophen (Tylenol Liquid) 650 mg Q6H PRN PO PAIN LEVEL 1-3 OR FEVER Last administered on 01/13/17 02:05; Admin Dose 650 MG; Start 01/02/17 at 00:00 Acetaminophen (Tylenol Supp) 650 mg Q4H PRN CO PAIN LEVEL 1-3 OR FEVER; Start 01/02/17 at 00:00 Miscellaneous Information This patient morley... PRN PRN XX WOUND CARE; Start at 06:00 Fluconazole/ Sodium Chloride (Diflucan 100 Mg/ NS (Pmx)) 50 ml @ 50 mls/hr Q24H IVPB Last administered on 01/13/17 12:28; Admin Dose 50 MLS/HR; Start at 13:00 Miscellaneous Information (*Order Clarification Bulletin) MEDICATION REQUIRES CLARIFICATION: Q6H XX Last administered on 01/12/17 14:29; Admin Dose 1 EA; Start 01/04/17 at 14:00 Non-Formulary Medication 1 ea 1 ea DAILY PO Last administered on 01/12/17 08: 24; Admin Dose 1 EA; Start 01/05/17 at 09:00 Trimethoprim/ Sulfamethoxazole 20 ml/Dextrose 520 ml @ 350 mls/hr Q8 IVPB Last administered on 01/13/17 05:21; Admin Dose 350 MLS/HR; Start 01/05/17 at 14:00 Piperacillin Sod/ Tazobactam Sod (Zosyn 3.375gm/ 100 ml (Pmx)) 100 ml @ 200 mls /hr Q8 IVPB Last administered on 01/13/17 05:20; Admin Dose 200 MLS/HR; Start 01/05/17 at 14:00 Azithromycin (Zithromax) 1,200 mg Q7D PO Last administered on 01/12/17 13:00 ; Admin Dose 1,200 MG; Start 01/05/17 at 13:00 Acyclovir (Zovirax) 400 mg BID PO Last administered on 01/12/17 20:32; Admin Dose 400 MG; Start 01/05/17 at 21:00 Methylprednisolone Sodium Succinate (Solu-Medrol) 40 mg Q6 IV Last administered on 01/13/17 12:28; Admin Dose 40 MG; Start 01/06/17 at 12:00 Diagnostic Test (Pha) (Accu-Chek) 1 ea 02 XX ; Start 01/07/17 at 02:00 Miscellaneous Information 1 ea NOTE XX ; Start 01/06/17 at 14:00 Glucose (Glutose) 15 gm Q15M PRN PO DECREASED GLUCOSE; Start 01/06/17 at 14:00 Glucose (Glutose) 22.5 gm Q15M PRN PO DECREASED GLUCOSE; Start 01/06/17 at 14: 00 Dextrose (D50w Syringe) 25 ml Q15M PRN IV DECREASED GLUCOSE; Start 01/06/17 at 14:00 Dextrose (D50w Syringe) 50 ml Q15M PRN IV DECREASED GLUCOSE; Start 01/06/17 at 14:00 Glucagon (Glucagen) 1 mg Q15M PRN IM DECREASED GLUCOSE; Start 01/06/17 at 14: 00 Glucose (Glutose) 15 gm Q15M PRN BUCCAL DECREASED GLUCOSE; Start 01/06/17 at 14:00 Pantoprazole 40 mg 40 mg DAILY@06 PO Last administered on 01/12/17 05:00; Admin Dose 40 MG; Start 01/08/17 at 06:00 Levofloxacin/ Dextrose (Levaquin 500mg/ D5W 100 ml (Pmx)) 100 ml @ 100 mls/hr Q24H IVPB Last administered on 01/13/17 12:28; Admin Dose 100 MLS/HR; Start 01/09/17 at 11:00 Alprazolam (Xanax) 0.25 mg Q6H PRN PO ANXIETY Last administered on 01/13/17 02:04; Admin Dose 0.25 MG; Start 01/12/17 at 08:00 Duloxetine HCl (Cymbalta) 30 mg DAILY PO Last administered on 01/12/17 08:24 ; Admin Dose 30 MG; Start 01/12/17 at 09:00 Fentanyl (Sublimaze) 25 mcg Q4 PRN IV SEDATION Last administered on 01/13/17 00:48; Admin Dose 25 MCG; Start 01/12/17 at 08:00 Fentanyl 25 mcg 25 mcg Q4H PRN IV PAIN LEVEL 6-10 Last administered on 20:33; Admin Dose 25 MCG; Start 01/12/17 at 10:00 Propofol (Diprivan) 100 ml @ 1.835 mls/ hr Q12H IV Last administered on 12:39; Admin Dose 18.354 MLS/HR; Start 01/13/17 at 12:30 JORDAN HAHN Jan 13, 2017 14:00
--- NOTE | 2017-01-13 14:08 | RADRPT ---
PROCEDURE: XR Chest. CLINICAL INDICATION: ETT placement/ chest tube placement TECHNIQUE: PA and Lateral views of the chest were obtained. COMPARISON: Earlier the same day FINDINGS: Interval placement of a right-sided chest tube with a reduction in the size of the pneumothorax whic h is not trace. The placement of an endotracheal tube at the level of the clavicles 6 cm above the c jonny. Stable left-sided chest tube. Stable right subclavian central venous catheter. Patchy bilater al airspace disease. No evidence of pleural effusion. IMPRESSION: Right-sided chest tube with a trace right-sided pneumothorax decreased in comparison to the prior st udy. Endotracheal tube 6 cm above the katherine. Stable left-sided chest tube with a trace left-sided pneumothorax. Stable right-sided subclavian central venous catheter with tip in SVC. Stable bilateral airspace disease, right and left. RPTAT: GG .Sonu Nix MD, MD Date Time Electronically viewed and signed by .Sonu Nix MD, on 01/13/2017 14:08 .G/
--- NOTE | 2017-01-13 15:19 | PN ---
Date/Time of Note Date/Time of Note DATE: 01/13/17 TIME: 15:16 Assessment/Plan VTE Prophylaxis VTE Prophylaxis Intervention: SCD's Assessment/Plan Chief Complaint/Hosp Course 1. Acute restaurant failure secondary to bilateral pneumothorax from pneumocystis pneumonia status post right VATS Continue chest tubes placed in both lungs Pulmonology and CT surgery following Await sputum results concerning for PCP, empirically treating for PCP w steroids and therapeutic dose bactrim Cefepime/vanco/levaquin 2. AIDS Continue ARVs PPx with bactrim, fluc, azithro, ID following 3. Kaposi sarcoma Wound care 4. ICU delirium Monitor Prophylaxis SCDs Problems: Subjective 24 Hr Interval Summary Subjective hx not possible: pt non-verbal Exam/Review of Systems Vital Signs Vitals Vital Signs Date Time Temp Pulse Resp B/P Pulse Ox O2 Delivery O2 Flow Rate FiO2 01/13/17 14:45 50 01/13/17 14:00 87 27 130/66 96 Mechanical Ventilator 01/13/17 12:00 98.7 01/13/17 07:00 4.0 Intake and Output 01/12/17 01/12/17 01/13/17 15:00 23:00 07:00 Intake Total 200 ml 1430 ml 0 ml Output Total 375 ml 690 ml 542 ml Balance -175 ml 740 ml -542 ml Exam Constitutional: non-verbal ENMT: intubated Respiratory: clear to auscultation Cardiovascular: regular rate and rhythm Gastrointestinal: soft, No distended Musculoskeletal: nl extremities to inspection Results Result Diagram: 01/13/17 0500 01/13/17 0500 Results 24 hrs Laboratory Tests Test 01/12/17 18:02 01/12/17 20:30 01/13/17 05:00 01/13/17 12:15 Bedside Glucose 208 171 White Blood Count 26.4 #H Red Blood Count 3.55 L Hemoglobin 8.1 L Hematocrit 25.5 L Mean Corpuscular Volume 71.8 L Mean Corpuscular Hemoglobin 22.8 L Mean Corpuscular Hemoglobin Concent 31.8 L Red Cell Distribution Width 25.0 H Platelet Count 373 Mean Platelet Volume 9.0 Neutrophils % Segmented Neutrophils % (Manual) 98 H Lymphocytes % Lymphocytes % (Manual) 1 L Monocytes % Monocytes % (Manual) 1 Eosinophils % Basophils % Nucleated Red Blood Cells % 0.0 Neutrophils # Absolute Lymphocytes (Manual) 0.2 L Lymphocytes # Monocytes # Absolute Monocytes (Manual) 0.2 L Eosinophils # Basophils # Nucleated Red Blood Cells # Platelet Estimate NORMAL Giant Platelets 1 H Polychromasia 3+ Hypochromasia 2+ Anisocytosis 1+ Sodium Level 128 L Potassium Level 4.5 Chloride Level 97 Carbon Dioxide Level 22 Anion Gap 14 Blood Urea Nitrogen 18 Creatinine 0.84 Glucose Level 209 Calcium Level 9.0 Phosphorus Level 3.4 Magnesium Level 1.9 Blood Gas Specimen Source Blood arterial Arterial Blood Date Drawn 01/13/2017 12:20:43 PM Arterial Blood pH (Temp corrected) 7.169 *L Arterial Blood pCO2 (Temp correct) 58.1 H Arterial Blood pO2 (Temp corrected) 178.0 H Arterial Blood HCO3 20.7 L Arterial Blood Base Excess -8.1 L Arterial Blood Oxygen Saturation 98.5 H Austin Test N/A Arterial Blood Gas Puncture Site A-Line Arterial Blood Carboxyhemoglobin 0.6 Arterial Blood Methemoglobin 0.7 Blood Gas A-a O2 Differential 476.9 H Oxyhemoglobin Percent 97.2 Total Hemoglobin 11.0 L Blood Gas Temperature 37.0 Blood Gas Respiration Rate 14.0 Blood Gas Actual Respiration Rate 23 Blood Gas Modality VENT - AC FiO2 100.0 Blood Gas Tidal Volume 450.0 Blood Gas Low PEEP Setting 0 Blood Gas Critical Value Read Back H KARY ODELL Blood Gas Notified Whom DEEPAD Blood Gas Notified Time 01/13/2017 12:58:16 PM Test 01/13/17 12:31 Bedside Glucose 279 H Medications Medications Current Medications Ondansetron HCl (Zofran Inj) 4 mg Q6H PRN IV NAUSEA AND/OR VOMITING Last administered on 01/02/17 01:44; Admin Dose 4 MG; Start 01/02/17 at 00:00 Acetaminophen (Tylenol Liquid) 650 mg Q6H PRN PO PAIN LEVEL 1-3 OR FEVER Last administered on 01/13/17 02:05; Admin Dose 650 MG; Start 01/02/17 at 00:00 Acetaminophen (Tylenol Supp) 650 mg Q4H PRN SC PAIN LEVEL 1-3 OR FEVER; Start 01/02/17 at 00:00 Miscellaneous Information This patient morley... PRN PRN XX WOUND CARE; Start at 06:00 Fluconazole/ Sodium Chloride (Diflucan 100 Mg/ NS (Pmx)) 50 ml @ 50 mls/hr Q24H IVPB Last administered on 01/13/17 12:28; Admin Dose 50 MLS/HR; Start at 13:00 Miscellaneous Information (*Order Clarification Bulletin) MEDICATION REQUIRES CLARIFICATION: Q6H XX Last administered on 01/12/17 14:29; Admin Dose 1 EA; Start 01/04/17 at 14:00 Non-Formulary Medication 1 ea 1 ea DAILY PO Last administered on 01/12/17 08: 24; Admin Dose 1 EA; Start 01/05/17 at 09:00 Trimethoprim/ Sulfamethoxazole 20 ml/Dextrose 520 ml @ 350 mls/hr Q8 IVPB Last administered on 01/13/17 14:40; Admin Dose 350 MLS/HR; Start 01/05/17 at 14:00 Piperacillin Sod/ Tazobactam Sod (Zosyn 3.375gm/ 100 ml (Pmx)) 100 ml @ 200 mls /hr Q8 IVPB Last administered on 01/13/17 14:40; Admin Dose 200 MLS/HR; Start 01/05/17 at 14:00 Azithromycin (Zithromax) 1,200 mg Q7D PO Last administered on 01/12/17 13:00 ; Admin Dose 1,200 MG; Start 01/05/17 at 13:00 Acyclovir (Zovirax) 400 mg BID PO Last administered on 01/12/17 20:32; Admin Dose 400 MG; Start 01/05/17 at 21:00 Methylprednisolone Sodium Succinate (Solu-Medrol) 40 mg Q6 IV Last administered on 01/13/17 12:28; Admin Dose 40 MG; Start 01/06/17 at 12:00 Diagnostic Test (Pha) (Accu-Chek) 1 ea 02 XX ; Start 01/07/17 at 02:00 Miscellaneous Information 1 ea NOTE XX ; Start 01/06/17 at 14:00 Glucose (Glutose) 15 gm Q15M PRN PO DECREASED GLUCOSE; Start 01/06/17 at 14:00 Glucose (Glutose) 22.5 gm Q15M PRN PO DECREASED GLUCOSE; Start 01/06/17 at 14: 00 Dextrose (D50w Syringe) 25 ml Q15M PRN IV DECREASED GLUCOSE; Start 01/06/17 at 14:00 Dextrose (D50w Syringe) 50 ml Q15M PRN IV DECREASED GLUCOSE; Start 01/06/17 at 14:00 Glucagon (Glucagen) 1 mg Q15M PRN IM DECREASED GLUCOSE; Start 01/06/17 at 14: 00 Glucose (Glutose) 15 gm Q15M PRN BUCCAL DECREASED GLUCOSE; Start 01/06/17 at 14:00 Pantoprazole 40 mg 40 mg DAILY@06 PO Last administered on 01/12/17 05:00; Admin Dose 40 MG; Start 01/08/17 at 06:00 Levofloxacin/ Dextrose (Levaquin 500mg/ D5W 100 ml (Pmx)) 100 ml @ 100 mls/hr Q24H IVPB Last administered on 01/13/17 12:28; Admin Dose 100 MLS/HR; Start 01/09/17 at 11:00 Alprazolam (Xanax) 0.25 mg Q6H PRN PO ANXIETY Last administered on 01/13/17 02:04; Admin Dose 0.25 MG; Start 01/12/17 at 08:00 Duloxetine HCl (Cymbalta) 30 mg DAILY PO Last administered on 01/12/17 08:24 ; Admin Dose 30 MG; Start 01/12/17 at 09:00 Fentanyl (Sublimaze) 25 mcg Q4 PRN IV SEDATION Last administered on 01/13/17 00:48; Admin Dose 25 MCG; Start 01/12/17 at 08:00 Fentanyl 25 mcg 25 mcg Q4H PRN IV PAIN LEVEL 6-10 Last administered on 20:33; Admin Dose 25 MCG; Start 01/12/17 at 10:00 Propofol (Diprivan) 100 ml @ 1.835 mls/ hr Q12H IV Last administered on 12:39; Admin Dose 18.354 MLS/HR; Start 01/13/17 at 12:30 ALBERT NGUYỄN Jan 13, 2017 15:19
--- NOTE | 2017-01-13 15:26 | RADRPT ---
PROCEDURE: XR Chest. CLINICAL INDICATION: Shortness of breath TECHNIQUE: Single portable view of the chest was obtained COMPARISON: January 13, 2017 FINDINGS: The trachea is midline. There is an ET tube with distal tip coursing below the thoracic inlet. NG tu be is noted with distal tip below the hemidiaphragms. A left-sided central line with distal tip in t he SVC. There is a right-sided PICC line with distal tip in the SVC. Cardiac silhouette vascularity are within normal limits. There are diffuse bilateral infiltrates. The costophrenic angles are sharp . Bilateral chest tubes are noted. There appears to be small bilateral apical pneumothoraces. IMPRESSION: 1. Unchanged lines and tubes. Bilateral chest tubes in place. Small apical pneumothoraces. 2. Diffuse bilateral infiltrates and pulmonary nodules. No change since prior exam. RPTAT: AARR Physician Ann Date Time Electronically viewed and signed by Physician Ann on 01/13/2017 15:26 DEEPA/
[2017-01-13] MEDS: FENTAnyl (DRIP) 1000 mcg/100mL 100 ML IV SCH ×2 (15:54→23:24)
[2017-01-13 16:11] LABS: Arterial Base Excess -6.4 mmol/L (-3.0-3); Arterial Fraction of Oxyhgb 90.8 % (93.0-99.0); Arterial HCO3 18.9 mmol/L (22.0-26.0); Arterial MetHb 0.4 % (0.0-1.5); Arterial Total Hemglobin 10.8 g/dl (12.0-18.0); MODE VENT - AC
[2017-01-13] MEDS: MIDAZOLAM (DRIP) 50 mg/50 mL 50 ML IV SCH ×2 (16:26→20:03)
[2017-01-14] VITALS (69 sets, daily range): BP systolic 87–146; BP diastolic 39–65; PULSE 85–113; RESP 16–29
[2017-01-14] MEDS: PROPOFOL 100 ML IV SCH ×4 (00:56→23:17)
[2017-01-14] MEDS: MIDAZOLAM (DRIP) 50 mg/50 mL 50 ML IV SCH ×4 (00:56→22:22)
[2017-01-14] MEDS: INSULIN ASPART [NOVOLOG] 3 ML PEN SC SCH ×6 (01:06→20:27)
[2017-01-14] MEDS: [UNRECOGNIZED DRUG - REMARK] XX SCH ×3 (02:00→14:00)
[2017-01-14] MEDS: ACCU-CHEK XX SCH (02:00)
[2017-01-14 05:00] LABS: ABNORMAL IP MESSAGE 1; BASOPHILS % 0.1 % (0.0-2.0); HEMATOCRIT 24.9 % (42.0-52.0); HEMOGLOBIN 8.1 g/dl (14.0-18.0); LYMPHOCYTES # 0.4 10^3/ul (0.8-2.9); LYMPHOCYTES % 1.5 % (15.0-51.0); MEAN CORPUSCULAR HEMOGLOBIN 25.3 pg (29.0-33.0); MEAN CORPUSCULAR HGB CONC 32.5 g/dl (32.0-37.0); MEAN CORPUSCULAR VOLUME 77.8 fl (82.0-101.0); MEAN PLATELET VOLUME 9.3 fl (7.4-10.4); MONOCYTE # 0.6 10^3/ul (0.3-0.9); MONOCYTES % 2.5 % (0.0-11.0); NEUTROPHIL # 22.3 10^3/ul (1.6-7.5); NEUTROPHILS % 94.9 % (39.0-77.0); PLATELET COUNT 265 10^3/UL (140-415); POSITIVE DIFF @See below; RED CELL DISTRIBUTION WIDTH 22.6 % (11.5-14.5); WHITE BLOOD COUNT 23.5 10^3/ul (4.8-10.8)
[2017-01-14 05:17] LABS: CALCIUM 8.1 mg/dl (8.4-10.2); POTASSIUM 5.6 mmol/L (3.5-5.1)
[2017-01-14] MEDS: METHYLPREDNISOLONE 40 MG INJ IV SCH ×3 (05:37→17:33)
[2017-01-14] MEDS: PIPER-TAZO 3.375 GM IV (PMX) 100 ML IVPB SCH ×3 (05:37→22:22)
[2017-01-14] MEDS: TRIMETHOPRIM/SULFAMETHOXAZOLE 20 ML in DEXTROSE 5% 500 ML IVPB SCH ×3 (05:37→23:16)
[2017-01-14] MEDS: PANTOPRAZOLE (EC) 40 MG TAB PO SCH (05:46)
[2017-01-14] MEDS: VIRACEPT PO SCH ×2 (07:35→17:33)
[2017-01-14 08:19] LABS: AADO2 Arterial 309.7 mmHg (7.0-24.0); Arterial Base Excess -5.2 mmol/L (-3.0-3); Arterial COHb 1.3 % (0.0-3.0); Arterial Fraction of Oxyhgb 90.9 % (93.0-99.0); Arterial HCO3 21.1 mmol/L (22.0-26.0); Arterial MetHb 0.5 % (0.0-1.5); Arterial Total Hemglobin 8.6 g/dl (12.0-18.0); Blood Gas Low PEEP Setting 0 cmH2O; MODE VENT - AC
[2017-01-14] MEDS: ALBUTEROL 18 GM INHALER INH SCH ×3 (08:24→19:04)
[2017-01-14] MEDS: TRIUMEQ PO SCH (09:05)
[2017-01-14] MEDS: DULOXETINE 30 MG CAP DR PO SCH (09:05)
[2017-01-14] MEDS: ACYCLOVIR 400 MG TAB PO SCH ×2 (09:05→20:24)
--- NOTE | 2017-01-14 09:09 | CONS ---
Date/Time of Note Date/Time of Note DATE: 01/14/17 TIME: 09:05 Consult Date/Type/Reason Admit Date/Time Jan 01, 2017 at 21:48 Initial Consult Date 01/02/17 Type of Consultation: Pulmonary Subjective Intubated sedated on mechanical ventilation. Chest tubes in place. Objective Vital Signs Date Time Temp Pulse Resp B/P Pulse Ox O2 Delivery O2 Flow Rate FiO2 01/14/17 07:00 94 18 94/52 99 Mechanical Ventilator 01/14/17 05:00 60 01/14/17 04:00 98.5 01/13/17 07:00 4.0 Intake and Output 01/13/17 01/13/17 01/14/17 15:00 23:00 07:00 Intake Total 2725.2 ml 1020.508 ml 864.807 ml Output Total 765 ml 1368 ml 650 ml Balance 1960.2 ml -347.492 ml 214.807 ml Exam GENERAL: Chronically ill-appearing gentleman on mechanical ventilation. VITAL SIGNS: per chart NECK: Supple. No JVD or lymphadenopathy. CARDIAC EXAM: S1, S2. No added sounds or murmurs. CHEST: Diminished air entry both lung tavarez with chest tubes in place. ABDOMEN: Soft, nontender. No guarding or rebound. EXTREMITIES: No cyanosis, clubbing or edema. NEUROLOGIC: Currently unable to assess. Results/Medications Result Diagram: 01/14/17 0400 01/14/17 0400 Results 24 hrs Laboratory Tests Test 01/13/17 12:15 01/13/17 12:31 01/13/17 16:00 01/13/17 16:39 Blood Gas Specimen Source Blood arterial Blood arterial Arterial Blood Date Drawn 01/13/2017 12:20:43 PM 01/13/2017 4:02:22 PM Arterial Blood pH (Temp corrected) 7.169 *L 7.328 L Arterial Blood pCO2 (Temp correct) 58.1 H 36.9 Arterial Blood pO2 (Temp corrected) 178.0 H 68.0 L Arterial Blood HCO3 20.7 L 18.9 L Arterial Blood Base Excess -8.1 L -6.4 L Arterial Blood Oxygen Saturation 98.5 H 92.1 L Austin Test N/A N/A Arterial Blood Gas Puncture Site A-Line A-Line Arterial Blood Carboxyhemoglobin 0.6 1.0 Arterial Blood Methemoglobin 0.7 0.4 Blood Gas A-a O2 Differential 476.9 H 247.0 H Oxyhemoglobin Percent 97.2 90.8 L Total Hemoglobin 11.0 L 10.8 L Blood Gas Temperature 37.0 37.0 Blood Gas Respiration Rate 14.0 20.0 Blood Gas Actual Respiration Rate 23 34 Blood Gas Modality VENT - AC VENT - AC FiO2 100.0 50.0 Blood Gas Tidal Volume 450.0 450.0 Blood Gas Low PEEP Setting 0 Blood Gas Critical Value Read Back H KARY ODELL Blood Gas Notified Whom DESTINY JO Blood Gas Notified Time 01/13/2017 12:58:16 PM 01/13/2017 4:11:16 PM Bedside Glucose 279 H 219 Test 01/13/17 21:08 01/14/17 01:03 01/14/17 04:00 01/14/17 05:36 Bedside Glucose 181 158 162 White Blood Count 23.5 H Red Blood Count 3.20 L Hemoglobin 8.1 L Hematocrit 24.9 L Mean Corpuscular Volume 77.8 L Mean Corpuscular Hemoglobin 25.3 L Mean Corpuscular Hemoglobin Concent 32.5 Red Cell Distribution Width 22.6 H Platelet Count 265 # Mean Platelet Volume 9.3 Neutrophils % 94.9 H Lymphocytes % 1.5 L Monocytes % 2.5 Eosinophils % 0.0 Basophils % 0.1 Nucleated Red Blood Cells % 0.0 Neutrophils # 22.3 H Lymphocytes # 0.4 L Monocytes # 0.6 Eosinophils # 0.0 Basophils # 0.0 Nucleated Red Blood Cells # 0.0 Sodium Level 128 L Potassium Level 5.6 H Chloride Level 99 Carbon Dioxide Level 21 Anion Gap 14 Blood Urea Nitrogen 24 H Creatinine 1.00 Glucose Level 160 Calcium Level 8.1 L Magnesium Level 2.0 Test 01/14/17 07:00 01/14/17 08:04 Blood Gas Specimen Source Blood arterial Arterial Blood Date Drawn 01/14/2017 7:50:53 AM Arterial Blood pH (Temp corrected) 7.287 *L Arterial Blood pCO2 (Temp correct) 45.3 H Arterial Blood pO2 (Temp corrected) 68.3 L Arterial Blood HCO3 21.1 L Arterial Blood Base Excess -5.2 L Arterial Blood Oxygen Saturation 92.6 L Austin Test N/A Arterial Blood Gas Puncture Site A-Line Arterial Blood Carboxyhemoglobin 1.3 Arterial Blood Methemoglobin 0.5 Blood Gas A-a O2 Differential 309.7 H Oxyhemoglobin Percent 90.9 L Total Hemoglobin 8.6 L Blood Gas Temperature 37.0 Blood Gas Respiration Rate 20.0 Blood Gas Actual Respiration Rate 24 Blood Gas Modality VENT - AC FiO2 60.0 Blood Gas Tidal Volume 450.0 Blood Gas Low PEEP Setting 0 Blood Gas Critical Value Read Back M TREY RN Blood Gas Notified Whom JLD Blood Gas Notified Time 01/14/2017 8:15:53 AM Bedside Glucose 193 Medications Current Medications Ondansetron HCl (Zofran Inj) 4 mg Q6H PRN IV NAUSEA AND/OR VOMITING Last administered on 01/02/17 01:44; Admin Dose 4 MG; Start 01/02/17 at 00:00 Acetaminophen (Tylenol Liquid) 650 mg Q6H PRN PO PAIN LEVEL 1-3 OR FEVER Last administered on 01/13/17 02:05; Admin Dose 650 MG; Start 01/02/17 at 00:00 Acetaminophen (Tylenol Supp) 650 mg Q4H PRN [place] PAIN LEVEL 1-3 OR FEVER; Start 01/02/17 at 00:00 Miscellaneous Information This patient morley... PRN PRN XX WOUND CARE; Start at 06:00 Fluconazole/ Sodium Chloride (Diflucan 100 Mg/ NS (Pmx)) 50 ml @ 50 mls/hr Q24H IVPB Last administered on 01/13/17 12:28; Admin Dose 50 MLS/HR; Start at 13:00 Miscellaneous Information (*Order Clarification Bulletin) MEDICATION REQUIRES CLARIFICATION: Q6H XX Last administered on 01/12/17 14:29; Admin Dose 1 EA; Start 01/04/17 at 14:00 Non-Formulary Medication 1 ea 1 ea DAILY PO Last administered on 01/12/17 08: 24; Admin Dose 1 EA; Start 01/05/17 at 09:00 Trimethoprim/ Sulfamethoxazole 20 ml/Dextrose 520 ml @ 350 mls/hr Q8 IVPB Last administered on 01/14/17 05:37; Admin Dose 350 MLS/HR; Start 01/05/17 at 14:00 Piperacillin Sod/ Tazobactam Sod (Zosyn 3.375gm/ 100 ml (Pmx)) 100 ml @ 200 mls /hr Q8 IVPB Last administered on 01/14/17 05:37; Admin Dose 200 MLS/HR; Start 01/05/17 at 14:00 Azithromycin (Zithromax) 1,200 mg Q7D PO Last administered on 01/12/17 13:00 ; Admin Dose 1,200 MG; Start 01/05/17 at 13:00 Acyclovir (Zovirax) 400 mg BID PO Last administered on 01/13/17 21:07; Admin Dose 400 MG; Start 01/05/17 at 21:00 Methylprednisolone Sodium Succinate (Solu-Medrol) 40 mg Q6 IV Last administered on 01/14/17 05:37; Admin Dose 40 MG; Start 01/06/17 at 12:00 Diagnostic Test (Pha) (Accu-Chek) 1 ea 02 XX ; Start 01/07/17 at 02:00 Miscellaneous Information 1 ea NOTE XX ; Start 01/06/17 at 14:00 Glucose (Glutose) 15 gm Q15M PRN PO DECREASED GLUCOSE; Start 01/06/17 at 14:00 Glucose (Glutose) 22.5 gm Q15M PRN PO DECREASED GLUCOSE; Start 01/06/17 at 14: 00 Dextrose (D50w Syringe) 25 ml Q15M PRN IV DECREASED GLUCOSE; Start 01/06/17 at 14:00 Dextrose (D50w Syringe) 50 ml Q15M PRN IV DECREASED GLUCOSE; Start 01/06/17 at 14:00 Glucagon (Glucagen) 1 mg Q15M PRN IM DECREASED GLUCOSE; Start 01/06/17 at 14: 00 Glucose (Glutose) 15 gm Q15M PRN BUCCAL DECREASED GLUCOSE; Start 01/06/17 at 14:00 Pantoprazole 40 mg 40 mg DAILY@06 PO Last administered on 01/14/17 05:46; Admin Dose 40 MG; Start 01/08/17 at 06:00 Levofloxacin/ Dextrose (Levaquin 500mg/ D5W 100 ml (Pmx)) 100 ml @ 100 mls/hr Q24H IVPB Last administered on 01/13/17 12:28; Admin Dose 100 MLS/HR; Start 01/09/17 at 11:00 Alprazolam (Xanax) 0.25 mg Q6H PRN PO ANXIETY Last administered on 01/13/17 02:04; Admin Dose 0.25 MG; Start 01/12/17 at 08:00 Duloxetine HCl (Cymbalta) 30 mg DAILY PO Last administered on 01/12/17 08:24 ; Admin Dose 30 MG; Start 01/12/17 at 09:00 Fentanyl (Sublimaze) 25 mcg Q4 PRN IV SEDATION Last administered on 01/13/17 00:48; Admin Dose 25 MCG; Start 01/12/17 at 08:00 Fentanyl 25 mcg 25 mcg Q4H PRN IV PAIN LEVEL 6-10 Last administered on 20:33; Admin Dose 25 MCG; Start 01/12/17 at 10:00 Propofol 100 ml @ 1.835 mls/ hr Q12H IV Last administered on 01/14/17 05:55 ; Admin Dose 14.683 MLS/HR; Start 01/13/17 at 12:30 Fentanyl 100 ml @ 2.5 mls/hr TITRATE IV Last administered on 01/13/17 23:24 ; Admin Dose 7.5 MLS/HR; Start 01/13/17 at 15:30 Midazolam HCl (Versed) 50 ml @ 1 mls/hr TITRATE IV Last administered on 05:46; Admin Dose 10 MLS/HR; Start 01/13/17 at 16:00 Insulin Aspart (Novolog Insulin Pen) NOVOLOG *MILD* ALGORITHM Q4 SC Last administered on 01/14/17 05:43; Admin Dose 1 UNIT; Start 01/13/17 at 21:00 Assessment/Plan Chief Complaint/Hosp Course IMP: 1. Hypoxemic Resp failure on mechanical ventilation. Status post right lung pleurodesis for persistent pneumothorax and air leak. 2. B/L Pneumothoraces--significant pneumatoceles noted on CT chest 3. Progressive Pulm Parenchymal Opacities--with CT showing numerous B/L cysts, some cysts filled with low dense material, appearing mass-like, as well as GGO. Some of these findings are c/w PJP, however, co-existing infections such as crypto as well as lymphoproliferative d/o such as lymphoma can be present. 4. Bilateral pneumothoraces with chest tubes in place. 5. [place] RECS: 1. Continue mechanical ventilation avoid elevated peak inspiratory pressures. 2. Continue chest tube to suction 3. Continue PJP Rx 4. We will discuss with thoracic surgery whether the patient will have left pleurodesis. Overall prognosis remains guarded. Problems: DANI LOPEZ MD, [facility] Jan 14, 2017 09:08
[2017-01-14] MEDS: LEVOFLOXACIN 500MG/D5W (PMX) 100 ML IVPB SCH (10:55)
--- NOTE | 2017-01-14 11:05 | PN ---
Date/Time of Note Date/Time of Note DATE: 01/14/17 TIME: 11:02 Assessment/Plan VTE Prophylaxis VTE Prophylaxis Intervention: SCD's Assessment/Plan Chief Complaint/Hosp Course 1. Acute restaurant failure secondary to bilateral pneumothorax from pneumocystis pneumonia status post right lung pleurodesis for persistent pneumothorax and air leak. Continue chest tubes placed in both lungs, possible L sided Pleurodesis in a few days Pulmonology and CT surgery following Await sputum results concerning for PCP, empirically treating for PCP w steroids and therapeutic dose bactrim Cefepime/vanco/levaquin 2. AIDS Continue ARVs PPx with bactrim, fluc, azithro, ID following 3. Kaposi sarcoma Wound care 4. ICU delirium Monitor Prophylaxis SCDs Problems: Subjective 24 Hr Interval Summary Subjective hx not possible: pt non-verbal Exam/Review of Systems Vital Signs Vitals Vital Signs Date Time Temp Pulse Resp B/P Pulse Ox O2 Delivery O2 Flow Rate FiO2 01/14/17 07:00 94 18 94/52 99 Mechanical Ventilator 01/14/17 05:00 60 01/14/17 04:00 98.5 01/13/17 07:00 4.0 Intake and Output 01/13/17 01/13/17 01/14/17 15:00 23:00 07:00 Intake Total 2725.2 ml 1020.508 ml 864.807 ml Output Total 765 ml 1368 ml 650 ml Balance 1960.2 ml -347.492 ml 214.807 ml Exam Constitutional: non-verbal ENMT: intubated Respiratory: clear to auscultation Cardiovascular: regular rate and rhythm Gastrointestinal: soft, No distended Musculoskeletal: nl extremities to inspection Results Result Diagram: 01/14/17 0400 01/14/17 0400 Results 24 hrs Laboratory Tests Test 01/13/17 12:15 01/13/17 12:31 01/13/17 16:00 01/13/17 16:39 Blood Gas Specimen Source Blood arterial Blood arterial Arterial Blood Date Drawn 01/13/2017 12:20:43 PM 01/13/2017 4:02:22 PM Arterial Blood pH (Temp corrected) 7.169 *L 7.328 L Arterial Blood pCO2 (Temp correct) 58.1 H 36.9 Arterial Blood pO2 (Temp corrected) 178.0 H 68.0 L Arterial Blood HCO3 20.7 L 18.9 L Arterial Blood Base Excess -8.1 L -6.4 L Arterial Blood Oxygen Saturation 98.5 H 92.1 L Austin Test N/A N/A Arterial Blood Gas Puncture Site A-Line A-Line Arterial Blood Carboxyhemoglobin 0.6 1.0 Arterial Blood Methemoglobin 0.7 0.4 Blood Gas A-a O2 Differential 476.9 H 247.0 H Oxyhemoglobin Percent 97.2 90.8 L Total Hemoglobin 11.0 L 10.8 L Blood Gas Temperature 37.0 37.0 Blood Gas Respiration Rate 14.0 20.0 Blood Gas Actual Respiration Rate 23 34 Blood Gas Modality VENT - AC VENT - AC FiO2 100.0 50.0 Blood Gas Tidal Volume 450.0 450.0 Blood Gas Low PEEP Setting 0 Blood Gas Critical Value Read Back H KARY RN Blood Gas Notified Whom DESTINY JO Blood Gas Notified Time 01/13/2017 12:58:16 PM 01/13/2017 4:11:16 PM Bedside Glucose 279 H 219 Test 01/13/17 21:08 01/14/17 01:03 01/14/17 04:00 01/14/17 05:36 Bedside Glucose 181 158 162 White Blood Count 23.5 H Red Blood Count 3.20 L Hemoglobin 8.1 L Hematocrit 24.9 L Mean Corpuscular Volume 77.8 L Mean Corpuscular Hemoglobin 25.3 L Mean Corpuscular Hemoglobin Concent 32.5 Red Cell Distribution Width 22.6 H Platelet Count 265 # Mean Platelet Volume 9.3 Neutrophils % 94.9 H Lymphocytes % 1.5 L Monocytes % 2.5 Eosinophils % 0.0 Basophils % 0.1 Nucleated Red Blood Cells % 0.0 Neutrophils # 22.3 H Lymphocytes # 0.4 L Monocytes # 0.6 Eosinophils # 0.0 Basophils # 0.0 Nucleated Red Blood Cells # 0.0 Sodium Level 128 L Potassium Level 5.6 H Chloride Level 99 Carbon Dioxide Level 21 Anion Gap 14 Blood Urea Nitrogen 24 H Creatinine 1.00 Glucose Level 160 Calcium Level 8.1 L Magnesium Level 2.0 Test 01/14/17 07:00 01/14/17 08:04 Blood Gas Specimen Source Blood arterial Arterial Blood Date Drawn 01/14/2017 7:50:53 AM Arterial Blood pH (Temp corrected) 7.287 *L Arterial Blood pCO2 (Temp correct) 45.3 H Arterial Blood pO2 (Temp corrected) 68.3 L Arterial Blood HCO3 21.1 L Arterial Blood Base Excess -5.2 L Arterial Blood Oxygen Saturation 92.6 L Austin Test N/A Arterial Blood Gas Puncture Site A-Line Arterial Blood Carboxyhemoglobin 1.3 Arterial Blood Methemoglobin 0.5 Blood Gas A-a O2 Differential 309.7 H Oxyhemoglobin Percent 90.9 L Total Hemoglobin 8.6 L Blood Gas Temperature 37.0 Blood Gas Respiration Rate 20.0 Blood Gas Actual Respiration Rate 24 Blood Gas Modality VENT - AC FiO2 60.0 Blood Gas Tidal Volume 450.0 Blood Gas Low PEEP Setting 0 Blood Gas Critical Value Read Back M TREY ODELL Blood Gas Notified Whom JLD Blood Gas Notified Time 01/14/2017 8:15:53 AM Bedside Glucose 193 Medications Medications Current Medications Ondansetron HCl (Zofran Inj) 4 mg Q6H PRN IV NAUSEA AND/OR VOMITING Last administered on 01/02/17 01:44; Admin Dose 4 MG; Start 01/02/17 at 00:00 Acetaminophen (Tylenol Liquid) 650 mg Q6H PRN PO PAIN LEVEL 1-3 OR FEVER Last administered on 01/13/17 02:05; Admin Dose 650 MG; Start 01/02/17 at 00:00 Acetaminophen (Tylenol Supp) 650 mg Q4H PRN [place] PAIN LEVEL 1-3 OR FEVER; Start 01/02/17 at 00:00 Miscellaneous Information This patient morley... PRN PRN XX WOUND CARE; Start at 06:00 Fluconazole/ Sodium Chloride (Diflucan 100 Mg/ NS (Pmx)) 50 ml @ 50 mls/hr Q24H IVPB Last administered on 01/13/17 12:28; Admin Dose 50 MLS/HR; Start at 13:00 Miscellaneous Information (*Order Clarification Bulletin) MEDICATION REQUIRES CLARIFICATION: Q6H XX Last administered on 01/12/17 14:29; Admin Dose 1 EA; Start 01/04/17 at 14:00 Non-Formulary Medication 1 ea 1 ea DAILY PO Last administered on 01/14/17 09: 05; Admin Dose 1 EA; Start 01/05/17 at 09:00 Trimethoprim/ Sulfamethoxazole 20 ml/Dextrose 520 ml @ 350 mls/hr Q8 IVPB Last administered on 01/14/17 05:37; Admin Dose 350 MLS/HR; Start 01/05/17 at 14:00 Piperacillin Sod/ Tazobactam Sod (Zosyn 3.375gm/ 100 ml (Pmx)) 100 ml @ 200 mls /hr Q8 IVPB Last administered on 01/14/17 05:37; Admin Dose 200 MLS/HR; Start 01/05/17 at 14:00 Azithromycin (Zithromax) 1,200 mg Q7D PO Last administered on 01/12/17 13:00 ; Admin Dose 1,200 MG; Start 01/05/17 at 13:00 Acyclovir (Zovirax) 400 mg BID PO Last administered on 01/14/17 09:05; Admin Dose 400 MG; Start 01/05/17 at 21:00 Methylprednisolone Sodium Succinate (Solu-Medrol) 40 mg Q6 IV Last administered on 01/14/17 10:55; Admin Dose 40 MG; Start 01/06/17 at 12:00 Diagnostic Test (Pha) (Accu-Chek) 1 ea 02 XX ; Start 01/07/17 at 02:00 Miscellaneous Information 1 ea NOTE XX ; Start 01/06/17 at 14:00 Glucose (Glutose) 15 gm Q15M PRN PO DECREASED GLUCOSE; Start 01/06/17 at 14:00 Glucose (Glutose) 22.5 gm Q15M PRN PO DECREASED GLUCOSE; Start 01/06/17 at 14: 00 Dextrose (D50w Syringe) 25 ml Q15M PRN IV DECREASED GLUCOSE; Start 01/06/17 at 14:00 Dextrose (D50w Syringe) 50 ml Q15M PRN IV DECREASED GLUCOSE; Start 01/06/17 at 14:00 Glucagon (Glucagen) 1 mg Q15M PRN IM DECREASED GLUCOSE; Start 01/06/17 at 14: 00 Glucose (Glutose) 15 gm Q15M PRN BUCCAL DECREASED GLUCOSE; Start 01/06/17 at 14:00 Pantoprazole 40 mg 40 mg DAILY@06 PO Last administered on 01/14/17 05:46; Admin Dose 40 MG; Start 01/08/17 at 06:00 Levofloxacin/ Dextrose (Levaquin 500mg/ D5W 100 ml (Pmx)) 100 ml @ 100 mls/hr Q24H IVPB Last administered on 01/14/17 10:55; Admin Dose 100 MLS/HR; Start 01/09/17 at 11:00 Alprazolam (Xanax) 0.25 mg Q6H PRN PO ANXIETY Last administered on 01/13/17 02:04; Admin Dose 0.25 MG; Start 01/12/17 at 08:00 Duloxetine HCl (Cymbalta) 30 mg DAILY PO Last administered on 01/14/17 09:05 ; Admin Dose 30 MG; Start 01/12/17 at 09:00 Fentanyl (Sublimaze) 25 mcg Q4 PRN IV SEDATION Last administered on 01/13/17 00:48; Admin Dose 25 MCG; Start 01/12/17 at 08:00 Fentanyl 25 mcg 25 mcg Q4H PRN IV PAIN LEVEL 6-10 Last administered on 20:33; Admin Dose 25 MCG; Start 01/12/17 at 10:00 Propofol 100 ml @ 1.835 mls/ hr Q12H IV Last administered on 01/14/17 05:55 ; Admin Dose 14.683 MLS/HR; Start 01/13/17 at 12:30 Fentanyl 100 ml @ 2.5 mls/hr TITRATE IV Last administered on 01/13/17 23:24 ; Admin Dose 7.5 MLS/HR; Start 01/13/17 at 15:30 Midazolam HCl (Versed) 50 ml @ 1 mls/hr TITRATE IV Last administered on 05:46; Admin Dose 10 MLS/HR; Start 01/13/17 at 16:00 Insulin Aspart (Novolog Insulin Pen) NOVOLOG *MILD* ALGORITHM Q4 SC Last administered on 01/14/17 09:07; Admin Dose 3 UNIT; Start 01/13/17 at 21:00 ALBERT NGUYỄN Jan 14, 2017 11:05
--- NOTE | 2017-01-14 12:32 | PN ---
Date/Time of Note Date/Time of Note DATE: 01/14/17 TIME: 12:27 Assessment/Plan VTE Prophylaxis VTE Prophylaxis Intervention: SCD's Assessment/Plan Chief Complaint/Hosp Course Assessment: Severe anemia/stable Respiratory failure * Due to PTX, s/p bilateral chest tube in place Right video-assisted thoracic surgery, Right pulmonary decortication, Right lung wedge resection 01/13 HIV Kaposi's sarcoma with right lower extremity Sepsis Plan: Monitor CBC daily Continue to monitor need for blood transfusion Will continue to monitor change in GI status Patient seen in collaboration with Dr. Padron Subjective: Course reviewed with nursing staff Patient interviewed and examined All labs, imaging and other results reviewed S/p Right video-assisted thoracic surgery, Right pulmonary decortication, Right lung wedge resection 01/13 Spoke with nurse, no major changes during the night, possible left VATS in near future. Patient remains intubated. Problems: Exam/Review of Systems Vital Signs Vitals Vital Signs Date Time Temp Pulse Resp B/P Pulse Ox O2 Delivery O2 Flow Rate FiO2 01/14/17 11:30 96 22 119/47 95 01/14/17 11:00 98.4 01/14/17 07:00 Mechanical Ventilator 01/14/17 05:00 60 01/13/17 07:00 4.0 Intake and Output 01/13/17 01/13/17 01/14/17 15:00 23:00 07:00 Intake Total 2725.2 ml 1020.508 ml 896.490 ml Output Total 765 ml 1368 ml 650 ml Balance 1960.2 ml -347.492 ml 246.490 ml Exam Constitutional: non-verbal ENMT: intubated Respiratory: clear to auscultation Gastrointestinal: bowel sounds, soft, No ascites, No distended, No firm, No hepatomegaly, No mass, No rebound or guarding, No splenomegaly Results Result Diagram: 01/14/17 0400 01/14/17 0400 Results 24 hrs Laboratory Tests Test 01/13/17 12:31 01/13/17 16:00 01/13/17 16:39 01/13/17 21:08 Bedside Glucose 279 H 219 181 Blood Gas Specimen Source Blood arterial Arterial Blood Date Drawn 01/13/2017 4:02:22 PM Arterial Blood pH (Temp corrected) 7.328 L Arterial Blood pCO2 (Temp correct) 36.9 Arterial Blood pO2 (Temp corrected) 68.0 L Arterial Blood HCO3 18.9 L Arterial Blood Base Excess -6.4 L Arterial Blood Oxygen Saturation 92.1 L Austin Test N/A Arterial Blood Gas Puncture Site A-Line Arterial Blood Carboxyhemoglobin 1.0 Arterial Blood Methemoglobin 0.4 Blood Gas A-a O2 Differential 247.0 H Oxyhemoglobin Percent 90.8 L Total Hemoglobin 10.8 L Blood Gas Temperature 37.0 Blood Gas Respiration Rate 20.0 Blood Gas Actual Respiration Rate 34 Blood Gas Modality VENT - AC FiO2 50.0 Blood Gas Tidal Volume 450.0 Blood Gas Notified Whom TM Blood Gas Notified Time 01/13/2017 4:11:16 PM Test 01/14/17 01:03 01/14/17 04:00 01/14/17 05:36 01/14/17 07:00 Bedside Glucose 158 162 White Blood Count 23.5 H Red Blood Count 3.20 L Hemoglobin 8.1 L Hematocrit 24.9 L Mean Corpuscular Volume 77.8 L Mean Corpuscular Hemoglobin 25.3 L Mean Corpuscular Hemoglobin Concent 32.5 Red Cell Distribution Width 22.6 H Platelet Count 265 # Mean Platelet Volume 9.3 Neutrophils % 94.9 H Lymphocytes % 1.5 L Monocytes % 2.5 Eosinophils % 0.0 Basophils % 0.1 Nucleated Red Blood Cells % 0.0 Neutrophils # 22.3 H Lymphocytes # 0.4 L Monocytes # 0.6 Eosinophils # 0.0 Basophils # 0.0 Nucleated Red Blood Cells # 0.0 Sodium Level 128 L Potassium Level 5.6 H Chloride Level 99 Carbon Dioxide Level 21 Anion Gap 14 Blood Urea Nitrogen 24 H Creatinine 1.00 Glucose Level 160 Calcium Level 8.1 L Magnesium Level 2.0 Blood Gas Specimen Source Blood arterial Arterial Blood Date Drawn 01/14/2017 7:50:53 AM Arterial Blood pH (Temp corrected) 7.287 *L Arterial Blood pCO2 (Temp correct) 45.3 H Arterial Blood pO2 (Temp corrected) 68.3 L Arterial Blood HCO3 21.1 L Arterial Blood Base Excess -5.2 L Arterial Blood Oxygen Saturation 92.6 L Austin Test N/A Arterial Blood Gas Puncture Site A-Line Arterial Blood Carboxyhemoglobin 1.3 Arterial Blood Methemoglobin 0.5 Blood Gas A-a O2 Differential 309.7 H Oxyhemoglobin Percent 90.9 L Total Hemoglobin 8.6 L Blood Gas Temperature 37.0 Blood Gas Respiration Rate 20.0 Blood Gas Actual Respiration Rate 24 Blood Gas Modality VENT - AC FiO2 60.0 Blood Gas Tidal Volume 450.0 Blood Gas Low PEEP Setting 0 Blood Gas Critical Value Read Back M TREY RN Blood Gas Notified Whom JLD Blood Gas Notified Time 01/14/2017 8:15:53 AM Test 01/14/17 08:04 Bedside Glucose 193 Medications Medications Current Medications Ondansetron HCl (Zofran Inj) 4 mg Q6H PRN IV NAUSEA AND/OR VOMITING Last administered on 01/02/17 01:44; Admin Dose 4 MG; Start 01/02/17 at 00:00 Acetaminophen (Tylenol Liquid) 650 mg Q6H PRN PO PAIN LEVEL 1-3 OR FEVER Last administered on 01/13/17 02:05; Admin Dose 650 MG; Start 01/02/17 at 00:00 Acetaminophen (Tylenol Supp) 650 mg Q4H PRN [place] PAIN LEVEL 1-3 OR FEVER; Start 01/02/17 at 00:00 Miscellaneous Information This patient morley... PRN PRN XX WOUND CARE; Start at 06:00 Fluconazole/ Sodium Chloride (Diflucan 100 Mg/ NS (Pmx)) 50 ml @ 50 mls/hr Q24H IVPB Last administered on 01/13/17 12:28; Admin Dose 50 MLS/HR; Start at 13:00 Miscellaneous Information (*Order Clarification Bulletin) MEDICATION REQUIRES CLARIFICATION: Q6H XX Last administered on 01/12/17 14:29; Admin Dose 1 EA; Start 01/04/17 at 14:00 Non-Formulary Medication 1 ea 1 ea DAILY PO Last administered on 01/14/17 09: 05; Admin Dose 1 EA; Start 01/05/17 at 09:00 Trimethoprim/ Sulfamethoxazole 20 ml/Dextrose 520 ml @ 350 mls/hr Q8 IVPB Last administered on 01/14/17 05:37; Admin Dose 350 MLS/HR; Start 01/05/17 at 14:00 Piperacillin Sod/ Tazobactam Sod (Zosyn 3.375gm/ 100 ml (Pmx)) 100 ml @ 200 mls /hr Q8 IVPB Last administered on 01/14/17 05:37; Admin Dose 200 MLS/HR; Start 01/05/17 at 14:00 Azithromycin (Zithromax) 1,200 mg Q7D PO Last administered on 01/12/17 13:00 ; Admin Dose 1,200 MG; Start 01/05/17 at 13:00 Acyclovir (Zovirax) 400 mg BID PO Last administered on 01/14/17 09:05; Admin Dose 400 MG; Start 01/05/17 at 21:00 Methylprednisolone Sodium Succinate (Solu-Medrol) 40 mg Q6 IV Last administered on 01/14/17 10:55; Admin Dose 40 MG; Start 01/06/17 at 12:00 Diagnostic Test (Pha) (Accu-Chek) 1 ea 02 XX ; Start 01/07/17 at 02:00 Miscellaneous Information 1 ea NOTE XX ; Start 01/06/17 at 14:00 Glucose (Glutose) 15 gm Q15M PRN PO DECREASED GLUCOSE; Start 01/06/17 at 14:00 Glucose (Glutose) 22.5 gm Q15M PRN PO DECREASED GLUCOSE; Start 01/06/17 at 14: 00 Dextrose (D50w Syringe) 25 ml Q15M PRN IV DECREASED GLUCOSE; Start 01/06/17 at 14:00 Dextrose (D50w Syringe) 50 ml Q15M PRN IV DECREASED GLUCOSE; Start 01/06/17 at 14:00 Glucagon (Glucagen) 1 mg Q15M PRN IM DECREASED GLUCOSE; Start 01/06/17 at 14: 00 Glucose (Glutose) 15 gm Q15M PRN BUCCAL DECREASED GLUCOSE; Start 01/06/17 at 14:00 Pantoprazole 40 mg 40 mg DAILY@06 PO Last administered on 01/14/17 05:46; Admin Dose 40 MG; Start 01/08/17 at 06:00 Levofloxacin/ Dextrose (Levaquin 500mg/ D5W 100 ml (Pmx)) 100 ml @ 100 mls/hr Q24H IVPB Last administered on 01/14/17 10:55; Admin Dose 100 MLS/HR; Start 01/09/17 at 11:00 Alprazolam (Xanax) 0.25 mg Q6H PRN PO ANXIETY Last administered on 01/13/17 02:04; Admin Dose 0.25 MG; Start 01/12/17 at 08:00 Duloxetine HCl (Cymbalta) 30 mg DAILY PO Last administered on 01/14/17 09:05 ; Admin Dose 30 MG; Start 01/12/17 at 09:00 Fentanyl (Sublimaze) 25 mcg Q4 PRN IV SEDATION Last administered on 01/13/17 00:48; Admin Dose 25 MCG; Start 01/12/17 at 08:00 Fentanyl 25 mcg 25 mcg Q4H PRN IV PAIN LEVEL 6-10 Last administered on 20:33; Admin Dose 25 MCG; Start 01/12/17 at 10:00 Propofol 100 ml @ 1.835 mls/ hr Q12H IV Last administered on 01/14/17 05:55 ; Admin Dose 14.683 MLS/HR; Start 01/13/17 at 12:30 Fentanyl 100 ml @ 2.5 mls/hr TITRATE IV Last administered on 01/13/17 23:24 ; Admin Dose 7.5 MLS/HR; Start 01/13/17 at 15:30 Midazolam HCl (Versed) 50 ml @ 1 mls/hr TITRATE IV Last administered on 05:46; Admin Dose 10 MLS/HR; Start 01/13/17 at 16:00 Insulin Aspart (Novolog Insulin Pen) NOVOLOG *MILD* ALGORITHM Q4 SC Last administered on 01/14/17 09:07; Admin Dose 3 UNIT; Start 01/13/17 at 21:00 JORDAN HAHN Jan 14, 2017 12:32
[2017-01-14] MEDS: FLUCONAZOLE 100 MG/NS (PMX) 50 ML IVPB SCH (12:40)
--- NOTE | 2017-01-14 13:27 | CONS ---
Date/Time of Note Date/Time of Note DATE: 01/14/17 TIME: :24 Consult Date/Type/Reason Admit Date/Time Jan 01, 2017 at 21:48 Initial Consult Date 01/02/17 Type of Consultation: ID Objective Vital Signs Date Time Temp Pulse Resp B/P Pulse Ox O2 Delivery O2 Flow Rate FiO2 01/14/17 12:00 40 01/14/17 11:30 96 22 119/47 95 01/14/17 11:00 98.4 01/14/17 07:00 Mechanical Ventilator 01/13/17 07:00 4.0 Intake and Output 01/13/17 01/13/17 01/14/17 15:00 23:00 07:00 Intake Total 2725.2 ml 1020.508 ml 896.490 ml Output Total 765 ml 1368 ml 650 ml Balance 1960.2 ml -347.492 ml 246.490 ml Results/Medications Result Diagram: 01/14/17 0400 01/14/17 0400 Results 24 hrs Laboratory Tests Test 01/13/17 16:00 01/13/17 16:39 01/13/17 21:08 01/14/17 01:03 Blood Gas Specimen Source Blood arterial Arterial Blood Date Drawn 01/13/2017 4:02:22 PM Arterial Blood pH (Temp corrected) 7.328 L Arterial Blood pCO2 (Temp correct) 36.9 Arterial Blood pO2 (Temp corrected) 68.0 L Arterial Blood HCO3 18.9 L Arterial Blood Base Excess -6.4 L Arterial Blood Oxygen Saturation 92.1 L Austin Test N/A Arterial Blood Gas Puncture Site A-Line Arterial Blood Carboxyhemoglobin 1.0 Arterial Blood Methemoglobin 0.4 Blood Gas A-a O2 Differential 247.0 H Oxyhemoglobin Percent 90.8 L Total Hemoglobin 10.8 L Blood Gas Temperature 37.0 Blood Gas Respiration Rate 20.0 Blood Gas Actual Respiration Rate 34 Blood Gas Modality VENT - AC FiO2 50.0 Blood Gas Tidal Volume 450.0 Blood Gas Notified Whom TM Blood Gas Notified Time 01/13/2017 4:11:16 PM Bedside Glucose 219 181 158 Test 01/14/17 04:00 01/14/17 05:36 01/14/17 07:00 01/14/17 08:04 White Blood Count 23.5 H Red Blood Count 3.20 L Hemoglobin 8.1 L Hematocrit 24.9 L Mean Corpuscular Volume 77.8 L Mean Corpuscular Hemoglobin 25.3 L Mean Corpuscular Hemoglobin Concent 32.5 Red Cell Distribution Width 22.6 H Platelet Count 265 # Mean Platelet Volume 9.3 Neutrophils % 94.9 H Lymphocytes % 1.5 L Monocytes % 2.5 Eosinophils % 0.0 Basophils % 0.1 Nucleated Red Blood Cells % 0.0 Neutrophils # 22.3 H Lymphocytes # 0.4 L Monocytes # 0.6 Eosinophils # 0.0 Basophils # 0.0 Nucleated Red Blood Cells # 0.0 Sodium Level 128 L Potassium Level 5.6 H Chloride Level 99 Carbon Dioxide Level 21 Anion Gap 14 Blood Urea Nitrogen 24 H Creatinine 1.00 Glucose Level 160 Calcium Level 8.1 L Magnesium Level 2.0 Bedside Glucose 162 193 Blood Gas Specimen Source Blood arterial Arterial Blood Date Drawn 01/14/2017 7:50:53 AM Arterial Blood pH (Temp corrected) 7.287 *L Arterial Blood pCO2 (Temp correct) 45.3 H Arterial Blood pO2 (Temp corrected) 68.3 L Arterial Blood HCO3 21.1 L Arterial Blood Base Excess -5.2 L Arterial Blood Oxygen Saturation 92.6 L Austin Test N/A Arterial Blood Gas Puncture Site A-Line Arterial Blood Carboxyhemoglobin 1.3 Arterial Blood Methemoglobin 0.5 Blood Gas A-a O2 Differential 309.7 H Oxyhemoglobin Percent 90.9 L Total Hemoglobin 8.6 L Blood Gas Temperature 37.0 Blood Gas Respiration Rate 20.0 Blood Gas Actual Respiration Rate 24 Blood Gas Modality VENT - AC FiO2 60.0 Blood Gas Tidal Volume 450.0 Blood Gas Low PEEP Setting 0 Blood Gas Critical Value Read Back M TREY RN Blood Gas Notified Whom DEEPAD Blood Gas Notified Time 01/14/2017 8:15:53 AM Test 01/14/17 12:25 Bedside Glucose 123 Medications Current Medications Ondansetron HCl (Zofran Inj) 4 mg Q6H PRN IV NAUSEA AND/OR VOMITING Last administered on 01/02/17 01:44; Admin Dose 4 MG; Start 01/02/17 at 00:00 Acetaminophen (Tylenol Liquid) 650 mg Q6H PRN PO PAIN LEVEL 1-3 OR FEVER Last administered on 01/13/17 02:05; Admin Dose 650 MG; Start 01/02/17 at 00:00 Acetaminophen (Tylenol Supp) 650 mg Q4H PRN [place] PAIN LEVEL 1-3 OR FEVER; Start 01/02/17 at 00:00 Miscellaneous Information This patient morley... PRN PRN XX WOUND CARE; Start at 06:00 Fluconazole/ Sodium Chloride (Diflucan 100 Mg/ NS (Pmx)) 50 ml @ 50 mls/hr Q24H IVPB Last administered on 01/14/17 12:40; Admin Dose 50 MLS/HR; Start at 13:00 Miscellaneous Information (*Order Clarification Bulletin) MEDICATION REQUIRES CLARIFICATION: Q6H XX Last administered on 01/12/17 14:29; Admin Dose 1 EA; Start 01/04/17 at 14:00 Non-Formulary Medication 1 ea 1 ea DAILY PO Last administered on 01/14/17 09: 05; Admin Dose 1 EA; Start 01/05/17 at 09:00 Trimethoprim/ Sulfamethoxazole 20 ml/Dextrose 520 ml @ 350 mls/hr Q8 IVPB Last administered on 01/14/17 05:37; Admin Dose 350 MLS/HR; Start 01/05/17 at 14:00 Piperacillin Sod/ Tazobactam Sod (Zosyn 3.375gm/ 100 ml (Pmx)) 100 ml @ 200 mls /hr Q8 IVPB Last administered on 01/14/17 05:37; Admin Dose 200 MLS/HR; Start 01/05/17 at 14:00 Azithromycin (Zithromax) 1,200 mg Q7D PO Last administered on 01/12/17 13:00 ; Admin Dose 1,200 MG; Start 01/05/17 at 13:00 Acyclovir (Zovirax) 400 mg BID PO Last administered on 01/14/17 09:05; Admin Dose 400 MG; Start 01/05/17 at 21:00 Methylprednisolone Sodium Succinate (Solu-Medrol) 40 mg Q6 IV Last administered on 01/14/17 10:55; Admin Dose 40 MG; Start 01/06/17 at 12:00 Diagnostic Test (Pha) (Accu-Chek) 1 ea 02 XX ; Start 01/07/17 at 02:00 Miscellaneous Information 1 ea NOTE XX ; Start 01/06/17 at 14:00 Glucose (Glutose) 15 gm Q15M PRN PO DECREASED GLUCOSE; Start 01/06/17 at 14:00 Glucose (Glutose) 22.5 gm Q15M PRN PO DECREASED GLUCOSE; Start 01/06/17 at 14: 00 Dextrose (D50w Syringe) 25 ml Q15M PRN IV DECREASED GLUCOSE; Start 01/06/17 at 14:00 Dextrose (D50w Syringe) 50 ml Q15M PRN IV DECREASED GLUCOSE; Start 01/06/17 at 14:00 Glucagon (Glucagen) 1 mg Q15M PRN IM DECREASED GLUCOSE; Start 01/06/17 at 14: 00 Glucose (Glutose) 15 gm Q15M PRN BUCCAL DECREASED GLUCOSE; Start 01/06/17 at 14:00 Pantoprazole 40 mg 40 mg DAILY@06 PO Last administered on 01/14/17 05:46; Admin Dose 40 MG; Start 01/08/17 at 06:00 Levofloxacin/ Dextrose (Levaquin 500mg/ D5W 100 ml (Pmx)) 100 ml @ 100 mls/hr Q24H IVPB Last administered on 01/14/17 10:55; Admin Dose 100 MLS/HR; Start 01/09/17 at 11:00 Alprazolam (Xanax) 0.25 mg Q6H PRN PO ANXIETY Last administered on 01/13/17 02:04; Admin Dose 0.25 MG; Start 01/12/17 at 08:00 Duloxetine HCl (Cymbalta) 30 mg DAILY PO Last administered on 01/14/17 09:05 ; Admin Dose 30 MG; Start 01/12/17 at 09:00 Fentanyl (Sublimaze) 25 mcg Q4 PRN IV SEDATION Last administered on 01/13/17 00:48; Admin Dose 25 MCG; Start 01/12/17 at 08:00 Fentanyl 25 mcg 25 mcg Q4H PRN IV PAIN LEVEL 6-10 Last administered on 20:33; Admin Dose 25 MCG; Start 01/12/17 at 10:00 Propofol 100 ml @ 1.835 mls/ hr Q12H IV Last administered on 01/14/17 05:55 ; Admin Dose 14.683 MLS/HR; Start 01/13/17 at 12:30 Fentanyl 100 ml @ 2.5 mls/hr TITRATE IV Last administered on 01/13/17 23:24 ; Admin Dose 7.5 MLS/HR; Start 01/13/17 at 15:30 Midazolam HCl (Versed) 50 ml @ 1 mls/hr TITRATE IV Last administered on 05:46; Admin Dose 10 MLS/HR; Start 01/13/17 at 16:00 Insulin Aspart (Novolog Insulin Pen) NOVOLOG *MILD* ALGORITHM Q4 SC Last administered on 01/14/17 09:07; Admin Dose 3 UNIT; Start 01/13/17 at 21:00 Assessment/Plan Chief Complaint/Hosp Course SUBJECTIVE: No events, intubated, sedated, looks comfortable, no fevers INDWELLINGS: Bilateral chest tubes, right chest triple lumen catheter, L radial Mariama, Bailey, ETT ANTIMICROBIALS: 1. Bactrim. 2. Zosyn. 3. Acyclovir 400 mg twice a day. 4. Zithromax 1200 mg weekly. 5. Fluconazole. 6. Triumeq and Viracept for HIV. 7. Levaquin MICROBIOLOGY: Right lower extremity wound culture grew Proteus mirabilis, E. coli and enterococcus species. PHYSICAL EXAMINATION: GENERAL: This is a well-developed, middle-aged man who is in no distress. HEENT: Head atraumatic, normocephalic. Sclerae anicteric. Buccal mucosa dry. NECK: Supple. CHEST: Rise symmetrical. Breath sounds diminished to bases. HEART: S1, S2. ABDOMEN: Soft, bowel tones present. EXTREMITIES: With right lower extremity dressing intact. ASSESSMENT: 1. Acute hypoxemic respiratory failure 2. 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 3. Acquired immunodeficiency syndrome. 4. 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 5. Bilateral pneumothorax, status post chest tubes placement, s/p VATS . 6. Chronic obstructive pulmonary disease. 7. Anemia. PLAN: The patient remains stable. Continue abx, f/u intraoperative cx, CTS/ pulmonary rec-s, local wound care per podiatry rec-s [facility] staff Problems: ANDREY ENCINAS NP Jan 14, 2017 13:27
[2017-01-14] MEDS: FENTAnyl (DRIP) 1000 mcg/100mL 100 ML IV SCH (16:04)
--- NOTE | 2017-01-14 19:15 | PN ---
Date/Time of Note Date/Time of Note DATE: 01/14/17 TIME: 19:13 Assessment/Plan Assessment/Plan Chief Complaint/Hosp Course Bilateral PTX with air leaks SP BL CT placement SP VATS if PTX 5 % PTX Pt with malignancy on path will cont supp care poor prognosis discussed with the mother, sister and the Pt Problems: Subjective 24 Hr Interval Summary Constitutional: improved Pain Control: mild Exam/Review of Systems Vital Signs Vitals Vital Signs Date Time Temp Pulse Resp B/P Pulse Ox O2 Delivery O2 Flow Rate FiO2 01/14/17 19:05 103 22 100 40 01/14/17 16:45 101/40 01/14/17 15:00 98.6 01/14/17 07:00 Mechanical Ventilator 01/13/17 07:00 4.0 Intake and Output 01/13/17 01/13/17 01/14/17 15:00 23:00 07:00 Intake Total 2725.2 ml 1020.508 ml 896.490 ml Output Total 765 ml 1368 ml 650 ml Balance 1960.2 ml -347.492 ml 246.490 ml Exam ENMT: mucosa pink and moist, nl external ears & nose, nl lips & teeth, nl nasal mucosa & septum Neck: non-tender, supple Respiratory: clear to auscultation, normal air movement Results Result Diagram: 01/14/1739901/14/17399 JANIE BASILIO MD Jan 14, 2017 19:15
[2017-01-15] VITALS (73 sets, daily range): BP systolic 88–131; BP diastolic 37–59; PULSE 88–113; RESP 14–29
[2017-01-15] MEDS: METHYLPREDNISOLONE 40 MG INJ IV SCH ×4 (00:39→17:35)
[2017-01-15] MEDS: INSULIN ASPART [NOVOLOG] 3 ML PEN SC SCH ×6 (00:41→20:39)
[2017-01-15] MEDS: ACCU-CHEK XX SCH (02:00)
[2017-01-15] MEDS: FENTAnyl (DRIP) 1000 mcg/100mL 100 ML IV SCH ×3 (04:20→16:08)
[2017-01-15] MEDS: PROPOFOL 100 ML IV SCH ×3 (04:20→18:12)
[2017-01-15] MEDS: MIDAZOLAM (DRIP) 50 mg/50 mL 50 ML IV SCH ×3 (04:22→18:15)
[2017-01-15 05:15] LABS: ABNORMAL IP MESSAGE 1; BASOPHILS % 0.1 % (0.0-2.0); HEMATOCRIT 25.2 % (42.0-52.0); LYMPHOCYTES # 0.2 10^3/ul (0.8-2.9); LYMPHOCYTES % 0.9 % (15.0-51.0); MEAN CORPUSCULAR HEMOGLOBIN 24.6 pg (29.0-33.0); MEAN CORPUSCULAR HGB CONC 31.7 g/dl (32.0-37.0); MEAN CORPUSCULAR VOLUME 77.5 fl (82.0-101.0); MONOCYTE # 0.5 10^3/ul (0.3-0.9); MONOCYTES % 2.1 % (0.0-11.0); NEUTROPHIL # 20.7 10^3/ul (1.6-7.5); NEUTROPHILS % 95.8 % (39.0-77.0); NUCLEATED RED BLOOD CELLS # 0.1 10^3/ul (0.0-0.0); NUCLEATED RED BLOOD CELLS% 0.2 /100WBC (0.0-0.0); PLATELET COUNT 246 10^3/UL (140-415); POSITIVE DIFF @See below; RED BLOOD COUNT 3.25 10^6/ul (4.70-6.10); RED CELL DISTRIBUTION WIDTH 23.9 % (11.5-14.5); WHITE BLOOD COUNT 21.6 10^3/ul (4.8-10.8)
[2017-01-15] MEDS: PIPER-TAZO 3.375 GM IV (PMX) 100 ML IVPB SCH ×3 (05:50→22:44)
[2017-01-15] MEDS: TRIMETHOPRIM/SULFAMETHOXAZOLE 20 ML in DEXTROSE 5% 500 ML IVPB SCH ×3 (05:50→22:44)
[2017-01-15] MEDS: PANTOPRAZOLE (EC) 40 MG TAB PO SCH (05:50)
[2017-01-15 05:53] LABS: CALCIUM 8.4 mg/dl (8.4-10.2); CREATININE 1.18 mg/dl (0.61-1.24); MAGNESIUM 2.2 mg/dl (1.7-2.5); PHOSPHORUS 4.3 mg/dl (2.5-4.9); POTASSIUM 5.1 mmol/L (3.5-5.1)
[2017-01-15 05:56] LABS: CRYPTOCOCCAL ANTIGEN - SOURCE Serum
--- NOTE | 2017-01-15 07:20 | CONS ---
Date/Time of Note Date/Time of Note DATE: 01/15/17 TIME: 07:16 Assessment/Plan Assessment/Plan Chief Complaint/Hosp Course Problems: Additional Assessment/Plan Respiratory failure AIDS Opportunistic pneumonia Status post bilateral chest tube placement Acute on chronic pain syndrome Family conference Consultation Date/Type/Reason Admit Date/Time Jan 01, 2017 at 21:48 Initial Consult Date 01/02/17 24 HR Interval Summary Free Text/Dictation Postdated note for visit 01/14/2017 patient remains intubated status post VAT procedure extensive note reviewed from . Exam/Review of Systems Vital Signs Vitals Vital Signs Date Time Temp Pulse Resp B/P Pulse Ox O2 Delivery O2 Flow Rate FiO2 01/15/17 06:30 90 21 110/45 100 01/15/17 06:00 Mechanical Ventilator 01/15/17 05:10 35 01/15/17 04:00 97.7 01/13/17 07:00 4.0 Intake and Output 01/14/17 01/14/17 01/15/17 15:00 23:00 07:00 Intake Total 903.768 ml 1122.71 ml 1402.15 ml Output Total 1160 ml 565 ml 625 ml Balance -256.232 ml 557.71 ml 777.15 ml Exam Constitutional: other (Intubated sedated) Respiratory: congested cough, crackles/rales, diminished breath sounds, wheezing Cardiovascular: nl pulses, regular rate and rhythm Results Result Diagram: 01/15/17 0430 01/15/17 0430 Results 24 hrs Laboratory Tests Test 01/14/17 08:04 01/14/17 12:25 01/14/17 16:00 01/14/17 20:26 Bedside Glucose 193 123 159 116 Test 01/15/17 00:38 01/15/17 04:30 01/15/17 04:32 Bedside Glucose 235 H 191 White Blood Count 21.6 H Red Blood Count 3.25 L Hemoglobin 8.0 L Hematocrit 25.2 L Mean Corpuscular Volume 77.5 L Mean Corpuscular Hemoglobin 24.6 L Mean Corpuscular Hemoglobin Concent 31.7 L Red Cell Distribution Width 23.9 H Platelet Count 246 Mean Platelet Volume 9.0 Neutrophils % 95.8 H Lymphocytes % 0.9 L Monocytes % 2.1 Eosinophils % 0.0 Basophils % 0.1 Nucleated Red Blood Cells % 0.2 H Neutrophils # 20.7 H Lymphocytes # 0.2 L Monocytes # 0.5 Eosinophils # 0.0 Basophils # 0.0 Nucleated Red Blood Cells # 0.1 H Sodium Level 130 L Potassium Level 5.1 Chloride Level 99 Carbon Dioxide Level 23 Anion Gap 13 Blood Urea Nitrogen 32 H Creatinine 1.18 Glucose Level 180 Calcium Level 8.4 Phosphorus Level 4.3 Magnesium Level 2.2 Medications Medications Current Medications Ondansetron HCl (Zofran Inj) 4 mg Q6H PRN IV NAUSEA AND/OR VOMITING Last administered on 01/02/17 01:44; Admin Dose 4 MG; Start 01/02/17 at 00:00 Acetaminophen (Tylenol Liquid) 650 mg Q6H PRN PO PAIN LEVEL 1-3 OR FEVER Last administered on 01/13/17 02:05; Admin Dose 650 MG; Start 01/02/17 at 00:00 Acetaminophen (Tylenol Supp) 650 mg Q4H PRN [place] PAIN LEVEL 1-3 OR FEVER; Start 01/02/17 at 00:00 Miscellaneous Information This patient morley... PRN PRN XX WOUND CARE; Start at 06:00 Fluconazole/ Sodium Chloride (Diflucan 100 Mg/ NS (Pmx)) 50 ml @ 50 mls/hr Q24H IVPB Last administered on 01/14/17 12:40; Admin Dose 50 MLS/HR; Start at 13:00 Non-Formulary Medication 1 ea 1 ea DAILY PO Last administered on 01/14/17 09: 05; Admin Dose 1 EA; Start 01/05/17 at 09:00 Trimethoprim/ Sulfamethoxazole 20 ml/Dextrose 520 ml @ 350 mls/hr Q8 IVPB Last administered on 01/15/17 05:50; Admin Dose 350 MLS/HR; Start 01/05/17 at 14:00 Piperacillin Sod/ Tazobactam Sod (Zosyn 3.375gm/ 100 ml (Pmx)) 100 ml @ 200 mls /hr Q8 IVPB Last administered on 01/15/17 05:50; Admin Dose 200 MLS/HR; Start 01/05/17 at 14:00 Azithromycin (Zithromax) 1,200 mg Q7D PO Last administered on 01/12/17 13:00 ; Admin Dose 1,200 MG; Start 01/05/17 at 13:00 Acyclovir (Zovirax) 400 mg BID PO Last administered on 01/14/17 20:24; Admin Dose 400 MG; Start 01/05/17 at 21:00 Methylprednisolone Sodium Succinate (Solu-Medrol) 40 mg Q6 IV Last administered on 01/15/17 05:50; Admin Dose 40 MG; Start 01/06/17 at 12:00 Diagnostic Test (Pha) (Accu-Chek) 1 ea 02 XX ; Start 01/07/17 at 02:00 Miscellaneous Information 1 ea NOTE XX ; Start 01/06/17 at 14:00 Glucose (Glutose) 15 gm Q15M PRN PO DECREASED GLUCOSE; Start 01/06/17 at 14:00 Glucose (Glutose) 22.5 gm Q15M PRN PO DECREASED GLUCOSE; Start 01/06/17 at 14: 00 Dextrose (D50w Syringe) 25 ml Q15M PRN IV DECREASED GLUCOSE; Start 01/06/17 at 14:00 Dextrose (D50w Syringe) 50 ml Q15M PRN IV DECREASED GLUCOSE; Start 01/06/17 at 14:00 Glucagon (Glucagen) 1 mg Q15M PRN IM DECREASED GLUCOSE; Start 01/06/17 at 14: 00 Glucose (Glutose) 15 gm Q15M PRN BUCCAL DECREASED GLUCOSE; Start 01/06/17 at 14:00 Pantoprazole 40 mg 40 mg DAILY@06 PO Last administered on 01/15/17 05:50; Admin Dose 40 MG; Start 01/08/17 at 06:00 Levofloxacin/ Dextrose (Levaquin 500mg/ D5W 100 ml (Pmx)) 100 ml @ 100 mls/hr Q24H IVPB Last administered on 01/14/17 10:55; Admin Dose 100 MLS/HR; Start 01/09/17 at 11:00 Alprazolam (Xanax) 0.25 mg Q6H PRN PO ANXIETY Last administered on 01/13/17 02:04; Admin Dose 0.25 MG; Start 01/12/17 at 08:00 Duloxetine HCl (Cymbalta) 30 mg DAILY PO Last administered on 01/14/17 09:05 ; Admin Dose 30 MG; Start 01/12/17 at 09:00 Fentanyl (Sublimaze) 25 mcg Q4 PRN IV SEDATION Last administered on 01/13/17 00:48; Admin Dose 25 MCG; Start 01/12/17 at 08:00 Fentanyl 25 mcg 25 mcg Q4H PRN IV PAIN LEVEL 6-10 Last administered on 20:33; Admin Dose 25 MCG; Start 01/12/17 at 10:00 Propofol 100 ml @ 1.835 mls/ hr Q12H IV Last administered on 01/15/17 04:20 ; Admin Dose 12.848 MLS/HR; Start 01/13/17 at 12:30 Fentanyl 100 ml @ 2.5 mls/hr TITRATE IV Last administered on 01/15/17 04:20 ; Admin Dose 8 MLS/HR; Start 01/13/17 at 15:30 Midazolam HCl (Versed) 50 ml @ 1 mls/hr TITRATE IV Last administered on 04:22; Admin Dose 8 MLS/HR; Start 01/13/17 at 16:00 Insulin Aspart (Novolog Insulin Pen) NOVOLOG *MILD* ALGORITHM Q4 SC Last administered on 01/15/17 04:53; Admin Dose 2 UNIT; Start 01/13/17 at 21:00 PETER DIAS Jan 15, 2017 07:20
[2017-01-15] MEDS: ALBUTEROL 18 GM INHALER INH SCH ×3 (07:27→19:29)
[2017-01-15 07:55] LABS: AADO2 Arterial 155.3 mmHg (7.0-24.0); Arterial Base Excess -5.3 mmol/L (-3.0-3); Arterial COHb 0.8 % (0.0-3.0); Arterial Fraction of Oxyhgb 85.1 % (93.0-99.0); Arterial HCO3 19.4 mmol/L (22.0-26.0); Arterial MetHb 0.7 % (0.0-1.5); Arterial Total Hemglobin 8.7 g/dl (12.0-18.0); Blood Gas Low PEEP Setting 0 cmH2O; MODE VENT - AC
--- NOTE | 2017-01-15 08:42 | RADRPT ---
PROCEDURE: XR Chest. CLINICAL INDICATION: Shortness of breath. TECHNIQUE: Single frontal view. COMPARISON: 01/13/2017. FINDINGS: The endotracheal tube, nasogastric tube, right subclavian vein catheter, left subclavian vein cathet er, and bilateral chest tubes remain in satisfactory position. Extensive bilateral pulmonary air spa ce disease with right worse than left is unchanged. The heart size is normal. There is no pleural effusion. There are small bilateral pneumothoraces measuring approximately 5%. IMPRESSION: 1. No change from 01/13/2017. RPTAT: QQ .Sergio Bergeron MD, MD Date Time Electronically viewed and signed by .Sergio Bergeron MD, MD on 01/15/2017 08:24 .R/
[2017-01-15] MEDS: DULOXETINE 30 MG CAP DR PO SCH (08:44)
[2017-01-15] MEDS: ACYCLOVIR 400 MG TAB PO SCH ×2 (08:44→20:39)
[2017-01-15] MEDS: TRIUMEQ PO SCH (08:44)
[2017-01-15] MEDS: VIRACEPT PO SCH ×2 (08:45→17:29)
--- NOTE | 2017-01-15 09:54 | CONS ---
Date/Time of Note Date/Time of Note DATE: 01/15/17 TIME: 09:52 Assessment/Plan Assessment/Plan Chief Complaint/Hosp Course Problems: Additional Assessment/Plan Intubated no change in overall clinical condition. We will schedule family conference. Consultation Date/Type/Reason Admit Date/Time Jan 01, 2017 at 21:48 Hx of Present Illness Constitutional: disoriented Genitourinary: no complaints Musculoskeletal: no complaints Skin: no complaints Psychological: confusion Past Surgical History Past Surgical Hx: no surgical history Social History Smoking Status: Never smoker Drug Use: none Exam/Review of Systems Vital Signs Vitals Vital Signs Date Time Temp Pulse Resp B/P Pulse Ox O2 Delivery O2 Flow Rate FiO2 01/15/17 09:30 95 21 103/43 100 01/15/17 08:00 35 01/15/17 07:30 98.5 01/15/17 06:00 Mechanical Ventilator 01/13/17 07:00 4.0 Intake and Output 01/14/17 01/14/17 01/15/17 15:00 23:00 07:00 Intake Total 903.768 ml 1122.71 ml 1402.15 ml Output Total 1160 ml 565 ml 625 ml Balance -256.232 ml 557.71 ml 777.15 ml Exam Constitutional: other (Sedated) Respiratory: congested cough, crackles/rales, labored breathing, wheezing Cardiovascular: nl pulses, regular rate and rhythm, No S3, No S4, No bruits, No diastolic murmur, No edema, No gallop, No irregular rhythm, No jugular venous distention (JVD), No murmurs/extra sounds, No other, No rub, No systolic murmur Results Result Diagram: 01/15/17 0430 01/15/17 0430 Results 24 hrs Laboratory Tests Test 01/14/17 12:25 01/14/17 16:00 01/14/17 20:26 01/15/17 00:38 Bedside Glucose 123 159 116 235 H Test 01/15/17 04:30 01/15/17 04:32 01/15/17 07:00 01/15/17 08:39 White Blood Count 21.6 H Red Blood Count 3.25 L Hemoglobin 8.0 L Hematocrit 25.2 L Mean Corpuscular Volume 77.5 L Mean Corpuscular Hemoglobin 24.6 L Mean Corpuscular Hemoglobin Concent 31.7 L Red Cell Distribution Width 23.9 H Platelet Count 246 Mean Platelet Volume 9.0 Neutrophils % 95.8 H Lymphocytes % 0.9 L Monocytes % 2.1 Eosinophils % 0.0 Basophils % 0.1 Nucleated Red Blood Cells % 0.2 H Neutrophils # 20.7 H Lymphocytes # 0.2 L Monocytes # 0.5 Eosinophils # 0.0 Basophils # 0.0 Nucleated Red Blood Cells # 0.1 H Sodium Level 130 L Potassium Level 5.1 Chloride Level 99 Carbon Dioxide Level 23 Anion Gap 13 Blood Urea Nitrogen 32 H Creatinine 1.18 Glucose Level 180 Calcium Level 8.4 Phosphorus Level 4.3 Magnesium Level 2.2 Bedside Glucose 191 254 H Blood Gas Specimen Source Blood arterial Arterial Blood Date Drawn 01/15/2017 7:40:03 AM Arterial Blood pH (Temp corrected) 7.367 Arterial Blood pCO2 (Temp correct) 34.6 L Arterial Blood pO2 (Temp corrected) 54.0 *L Arterial Blood HCO3 19.4 L Arterial Blood Base Excess -5.3 L Arterial Blood Oxygen Saturation 86.4 L Austin Test N/A Arterial Blood Gas Puncture Site A-Line Arterial Blood Carboxyhemoglobin 0.8 Arterial Blood Methemoglobin 0.7 Blood Gas A-a O2 Differential 155.3 H Oxyhemoglobin Percent 85.1 L Total Hemoglobin 8.7 L Blood Gas Temperature 37.0 Blood Gas Respiration Rate 20.0 Blood Gas Actual Respiration Rate 22 Blood Gas Modality VENT - AC FiO2 35.0 Blood Gas Tidal Volume 450.0 Blood Gas Low PEEP Setting 0 Blood Gas Critical Value Read Back R ALONSO RN Blood Gas Notified Whom DESTINY Blood Gas Notified Time 01/15/2017 7:55:21 AM Medications Medications Current Medications Ondansetron HCl (Zofran Inj) 4 mg Q6H PRN IV NAUSEA AND/OR VOMITING Last administered on 01/02/17 01:44; Admin Dose 4 MG; Start 01/02/17 at 00:00 Acetaminophen (Tylenol Liquid) 650 mg Q6H PRN PO PAIN LEVEL 1-3 OR FEVER Last administered on 01/13/17 02:05; Admin Dose 650 MG; Start 01/02/17 at 00:00 Acetaminophen (Tylenol Supp) 650 mg Q4H PRN DC PAIN LEVEL 1-3 OR FEVER; Start 01/02/17 at 00:00 Miscellaneous Information This patient morley... PRN PRN XX WOUND CARE; Start at 06:00 Fluconazole/ Sodium Chloride (Diflucan 100 Mg/ NS (Pmx)) 50 ml @ 50 mls/hr Q24H IVPB Last administered on 01/14/17 12:40; Admin Dose 50 MLS/HR; Start at 13:00 Non-Formulary Medication 1 ea 1 ea DAILY PO Last administered on 01/15/17 08: 44; Admin Dose 1 EA; Start 01/05/17 at 09:00 Trimethoprim/ Sulfamethoxazole 20 ml/Dextrose 520 ml @ 350 mls/hr Q8 IVPB Last administered on 01/15/17 05:50; Admin Dose 350 MLS/HR; Start 01/05/17 at 14:00 Piperacillin Sod/ Tazobactam Sod (Zosyn 3.375gm/ 100 ml (Pmx)) 100 ml @ 200 mls /hr Q8 IVPB Last administered on 01/15/17 05:50; Admin Dose 200 MLS/HR; Start 01/05/17 at 14:00 Azithromycin (Zithromax) 1,200 mg Q7D PO Last administered on 01/12/17 13:00 ; Admin Dose 1,200 MG; Start 01/05/17 at 13:00 Acyclovir (Zovirax) 400 mg BID PO Last administered on 01/15/17 08:44; Admin Dose 400 MG; Start 01/05/17 at 21:00 Methylprednisolone Sodium Succinate (Solu-Medrol) 40 mg Q6 IV Last administered on 01/15/17 05:50; Admin Dose 40 MG; Start 01/06/17 at 12:00 Diagnostic Test (Pha) (Accu-Chek) 1 ea 02 XX ; Start 01/07/17 at 02:00 Miscellaneous Information 1 ea NOTE XX ; Start 01/06/17 at 14:00 Glucose (Glutose) 15 gm Q15M PRN PO DECREASED GLUCOSE; Start 01/06/17 at 14:00 Glucose (Glutose) 22.5 gm Q15M PRN PO DECREASED GLUCOSE; Start 01/06/17 at 14: 00 Dextrose (D50w Syringe) 25 ml Q15M PRN IV DECREASED GLUCOSE; Start 01/06/17 at 14:00 Dextrose (D50w Syringe) 50 ml Q15M PRN IV DECREASED GLUCOSE; Start 01/06/17 at 14:00 Glucagon (Glucagen) 1 mg Q15M PRN IM DECREASED GLUCOSE; Start 01/06/17 at 14: 00 Glucose (Glutose) 15 gm Q15M PRN BUCCAL DECREASED GLUCOSE; Start 01/06/17 at 14:00 Pantoprazole 40 mg 40 mg DAILY@06 PO Last administered on 01/15/17 05:50; Admin Dose 40 MG; Start 01/08/17 at 06:00 Levofloxacin/ Dextrose (Levaquin 500mg/ D5W 100 ml (Pmx)) 100 ml @ 100 mls/hr Q24H IVPB Last administered on 01/14/17 10:55; Admin Dose 100 MLS/HR; Start 01/09/17 at 11:00 Alprazolam (Xanax) 0.25 mg Q6H PRN PO ANXIETY Last administered on 01/13/17 02:04; Admin Dose 0.25 MG; Start 01/12/17 at 08:00 Duloxetine HCl (Cymbalta) 30 mg DAILY PO Last administered on 01/15/17 08:44 ; Admin Dose 30 MG; Start 01/12/17 at 09:00 Fentanyl (Sublimaze) 25 mcg Q4 PRN IV SEDATION Last administered on 01/13/17 00:48; Admin Dose 25 MCG; Start 01/12/17 at 08:00 Fentanyl 25 mcg 25 mcg Q4H PRN IV PAIN LEVEL 6-10 Last administered on 20:33; Admin Dose 25 MCG; Start 01/12/17 at 10:00 Propofol 100 ml @ 1.835 mls/ hr Q12H IV Last administered on 01/15/17 04:20 ; Admin Dose 12.848 MLS/HR; Start 01/13/17 at 12:30 Fentanyl 100 ml @ 2.5 mls/hr TITRATE IV Last administered on 01/15/17 04:20 ; Admin Dose 8 MLS/HR; Start 01/13/17 at 15:30 Midazolam HCl (Versed) 50 ml @ 1 mls/hr TITRATE IV Last administered on 04:22; Admin Dose 8 MLS/HR; Start 01/13/17 at 16:00 Insulin Aspart (Novolog Insulin Pen) NOVOLOG *MILD* ALGORITHM Q4 SC Last administered on 01/15/17 08:48; Admin Dose 10 UNIT; Start 01/13/17 at 21:00 PETER DIAS Jan 15, 2017 09:54
--- NOTE | 2017-01-15 10:33 | PN ---
Date/Time of Note Date/Time of Note DATE: 01/15/17 TIME: 10:32 Assessment/Plan Lines/Catheters IV Catheter Type (from Nrsg): Central Line Bailey in Place (from Nrsg): Yes Assessment/Plan Chief Complaint/Hosp Course Bilateral PTX with air leaks SP BL CT placement SP VATS if PTX 5 % PTX Pt with malignancy on path will cont supp care poor prognosis discussed with Dr Willard discussed with the mother, sister and the Pt Problems: Subjective 24 Hr Interval Summary Constitutional: improved Pain Control: mild Exam/Review of Systems Vital Signs Vitals Vital Signs Date Time Temp Pulse Resp B/P Pulse Ox O2 Delivery O2 Flow Rate FiO2 01/15/17 09:30 95 21 103/43 100 01/15/17 09:29 50 01/15/17 07:30 98.5 01/15/17 06:00 Mechanical Ventilator 01/13/17 07:00 4.0 Intake and Output 01/14/17 01/14/17 01/15/17 15:00 23:00 07:00 Intake Total 903.768 ml 1122.71 ml 1949.16 ml Output Total 1160 ml 565 ml 625 ml Balance -256.232 ml 557.71 ml 1324.16 ml Exam Neck: non-tender, supple Respiratory: clear to auscultation, normal air movement Cardiovascular: nl pulses, regular rate and rhythm Gastrointestinal: nl liver, spleen, non-tender, soft Results Result Diagram: 01/15/17 0430 01/15/17 043 JANIE BASILIO MD Jan 15, 2017 10:33
--- NOTE | 2017-01-15 10:37 | CONS ---
Date/Time of Note Date/Time of Note DATE: 01/15/17 TIME: 10:35 Consult Date/Type/Reason Admit Date/Time Jan 01, 2017 at 21:48 Initial Consult Date 01/02/17 Type of Consultation: Pulmonary Subjective Patient remains intubated on mechanical ventilation. Still has a leaks. Still hypoxemic and agitated off sedation. Objective Vital Signs Date Time Temp Pulse Resp B/P Pulse Ox O2 Delivery O2 Flow Rate FiO2 01/15/17 09:30 95 21 103/43 100 01/15/17 09:29 50 01/15/17 07:30 98.5 01/15/17 06:00 Mechanical Ventilator 01/13/17 07:00 4.0 Intake and Output 01/14/17 01/14/17 01/15/17 15:00 23:00 07:00 Intake Total 903.768 ml 1122.71 ml 1949.16 ml Output Total 1160 ml 565 ml 625 ml Balance -256.232 ml 557.71 ml 1324.16 ml Exam Exam GENERAL: Chronically ill-appearing gentleman on mechanical ventilation. VITAL SIGNS: per chart NECK: Supple. No JVD or lymphadenopathy. CARDIAC EXAM: S1, S2. No added sounds or murmurs. CHEST: Diminished air entry both lung tavarez with chest tubes in place. ABDOMEN: Soft, nontender. No guarding or rebound. EXTREMITIES: No cyanosis, clubbing or edema. NEUROLOGIC: Currently unable to assess. Results/Medications Result Diagram: 01/15/17 0430 01/15/17 0430 Results 24 hrs Laboratory Tests Test 01/14/17 12:25 01/14/17 16:00 01/14/17 20:26 01/15/17 00:38 Bedside Glucose 123 159 116 235 H Test 01/15/17 04:30 01/15/17 04:32 01/15/17 07:00 01/15/17 08:39 White Blood Count 21.6 H Red Blood Count 3.25 L Hemoglobin 8.0 L Hematocrit 25.2 L Mean Corpuscular Volume 77.5 L Mean Corpuscular Hemoglobin 24.6 L Mean Corpuscular Hemoglobin Concent 31.7 L Red Cell Distribution Width 23.9 H Platelet Count 246 Mean Platelet Volume 9.0 Neutrophils % 95.8 H Lymphocytes % 0.9 L Monocytes % 2.1 Eosinophils % 0.0 Basophils % 0.1 Nucleated Red Blood Cells % 0.2 H Neutrophils # 20.7 H Lymphocytes # 0.2 L Monocytes # 0.5 Eosinophils # 0.0 Basophils # 0.0 Nucleated Red Blood Cells # 0.1 H Sodium Level 130 L Potassium Level 5.1 Chloride Level 99 Carbon Dioxide Level 23 Anion Gap 13 Blood Urea Nitrogen 32 H Creatinine 1.18 Glucose Level 180 Calcium Level 8.4 Phosphorus Level 4.3 Magnesium Level 2.2 Bedside Glucose 191 254 H Blood Gas Specimen Source Blood arterial Arterial Blood Date Drawn 01/15/2017 7:40:03 AM Arterial Blood pH (Temp corrected) 7.367 Arterial Blood pCO2 (Temp correct) 34.6 L Arterial Blood pO2 (Temp corrected) 54.0 *L Arterial Blood HCO3 19.4 L Arterial Blood Base Excess -5.3 L Arterial Blood Oxygen Saturation 86.4 L Austin Test N/A Arterial Blood Gas Puncture Site A-Line Arterial Blood Carboxyhemoglobin 0.8 Arterial Blood Methemoglobin 0.7 Blood Gas A-a O2 Differential 155.3 H Oxyhemoglobin Percent 85.1 L Total Hemoglobin 8.7 L Blood Gas Temperature 37.0 Blood Gas Respiration Rate 20.0 Blood Gas Actual Respiration Rate 22 Blood Gas Modality VENT - AC FiO2 35.0 Blood Gas Tidal Volume 450.0 Blood Gas Low PEEP Setting 0 Blood Gas Critical Value Read Back R ALONSO RN Blood Gas Notified Whom JLD Blood Gas Notified Time 01/15/2017 7:55:21 AM Medications Current Medications Ondansetron HCl (Zofran Inj) 4 mg Q6H PRN IV NAUSEA AND/OR VOMITING Last administered on 01/02/17 01:44; Admin Dose 4 MG; Start 01/02/17 at 00:00 Acetaminophen (Tylenol Liquid) 650 mg Q6H PRN PO PAIN LEVEL 1-3 OR FEVER Last administered on 01/13/17 02:05; Admin Dose 650 MG; Start 01/02/17 at 00:00 Acetaminophen (Tylenol Supp) 650 mg Q4H PRN GA PAIN LEVEL 1-3 OR FEVER; Start 01/02/17 at 00:00 Miscellaneous Information This patient morley... PRN PRN XX WOUND CARE; Start at 06:00 Fluconazole/ Sodium Chloride (Diflucan 100 Mg/ NS (Pmx)) 50 ml @ 50 mls/hr Q24H IVPB Last administered on 01/14/17 12:40; Admin Dose 50 MLS/HR; Start at 13:00 Non-Formulary Medication 1 ea 1 ea DAILY PO Last administered on 01/15/17 08: 44; Admin Dose 1 EA; Start 01/05/17 at 09:00 Trimethoprim/ Sulfamethoxazole 20 ml/Dextrose 520 ml @ 350 mls/hr Q8 IVPB Last administered on 01/15/17 05:50; Admin Dose 350 MLS/HR; Start 01/05/17 at 14:00 Piperacillin Sod/ Tazobactam Sod (Zosyn 3.375gm/ 100 ml (Pmx)) 100 ml @ 200 mls /hr Q8 IVPB Last administered on 01/15/17 05:50; Admin Dose 200 MLS/HR; Start 01/05/17 at 14:00 Azithromycin (Zithromax) 1,200 mg Q7D PO Last administered on 01/12/17 13:00 ; Admin Dose 1,200 MG; Start 01/05/17 at 13:00 Acyclovir (Zovirax) 400 mg BID PO Last administered on 01/15/17 08:44; Admin Dose 400 MG; Start 01/05/17 at 21:00 Methylprednisolone Sodium Succinate (Solu-Medrol) 40 mg Q6 IV Last administered on 01/15/17 05:50; Admin Dose 40 MG; Start 01/06/17 at 12:00 Diagnostic Test (Pha) (Accu-Chek) 1 ea 02 XX ; Start 01/07/17 at 02:00 Miscellaneous Information 1 ea NOTE XX ; Start 01/06/17 at 14:00 Glucose (Glutose) 15 gm Q15M PRN PO DECREASED GLUCOSE; Start 01/06/17 at 14:00 Glucose (Glutose) 22.5 gm Q15M PRN PO DECREASED GLUCOSE; Start 01/06/17 at 14: 00 Dextrose (D50w Syringe) 25 ml Q15M PRN IV DECREASED GLUCOSE; Start 01/06/17 at 14:00 Dextrose (D50w Syringe) 50 ml Q15M PRN IV DECREASED GLUCOSE; Start 01/06/17 at 14:00 Glucagon (Glucagen) 1 mg Q15M PRN IM DECREASED GLUCOSE; Start 01/06/17 at 14: 00 Glucose (Glutose) 15 gm Q15M PRN BUCCAL DECREASED GLUCOSE; Start 01/06/17 at 14:00 Pantoprazole 40 mg 40 mg DAILY@06 PO Last administered on 01/15/17 05:50; Admin Dose 40 MG; Start 01/08/17 at 06:00 Levofloxacin/ Dextrose (Levaquin 500mg/ D5W 100 ml (Pmx)) 100 ml @ 100 mls/hr Q24H IVPB Last administered on 01/14/17 10:55; Admin Dose 100 MLS/HR; Start 01/09/17 at 11:00 Alprazolam (Xanax) 0.25 mg Q6H PRN PO ANXIETY Last administered on 01/13/17 02:04; Admin Dose 0.25 MG; Start 01/12/17 at 08:00 Duloxetine HCl (Cymbalta) 30 mg DAILY PO Last administered on 01/15/17 08:44 ; Admin Dose 30 MG; Start 01/12/17 at 09:00 Fentanyl (Sublimaze) 25 mcg Q4 PRN IV SEDATION Last administered on 01/13/17 00:48; Admin Dose 25 MCG; Start 01/12/17 at 08:00 Fentanyl 25 mcg 25 mcg Q4H PRN IV PAIN LEVEL 6-10 Last administered on 20:33; Admin Dose 25 MCG; Start 01/12/17 at 10:00 Propofol 100 ml @ 1.835 mls/ hr Q12H IV Last administered on 01/15/17 04:20 ; Admin Dose 12.848 MLS/HR; Start 01/13/17 at 12:30 Fentanyl 100 ml @ 2.5 mls/hr TITRATE IV Last administered on 01/15/17 04:20 ; Admin Dose 8 MLS/HR; Start 01/13/17 at 15:30 Midazolam HCl (Versed) 50 ml @ 1 mls/hr TITRATE IV Last administered on 04:22; Admin Dose 8 MLS/HR; Start 01/13/17 at 16:00 Insulin Aspart (Novolog Insulin Pen) NOVOLOG *MILD* ALGORITHM Q4 SC Last administered on 01/15/17 08:48; Admin Dose 10 UNIT; Start 10/24/17 at 21:00 Assessment/Plan Chief Complaint/Hosp Course IMP: 1. Hypoxemic Resp failure on mechanical ventilation. Status post right lung pleurodesis for persistent pneumothorax and air leak. 2. B/L Pneumothoraces--significant pneumatoceles noted on CT chest 3. Progressive Pulm Parenchymal Opacities--with CT showing numerous B/L cysts, some cysts filled with low dense material, appearing mass-like, as well as GGO. Some of these findings are c/w PJP, however, co-existing infections such as crypto as well as lymphoproliferative d/o such as lymphoma can be present. 4. Bilateral pneumothoraces with chest tubes in place. 5. KS RECS: 1. Continue mechanical ventilation avoid elevated peak inspiratory pressures. 2. Continue chest tube to suction 3. Continue PJP Rx 4. Hold off on further thoracic surgery given pathology findings. 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 Overall prognosis remains guarded. Palliative care input and discussion with family regarding goals of care. Problems: DANI LOPEZ MD, [facility] Jan 15, 2017 10:37
[2017-01-15] MEDS: LEVOFLOXACIN 500MG/D5W (PMX) 100 ML IVPB SCH (11:30)
[2017-01-15] MEDS: FLUCONAZOLE 100 MG/NS (PMX) 50 ML IVPB SCH (13:09)
--- NOTE | 2017-01-15 13:40 | PN ---
DATE: 01/15/2017 SUBJECTIVE: No acute changes. The patient remains intubated and sedated, in no distress. He has 2 chest tubes, right chest triple lumen catheter, left radial A-line, Bailey catheter. ANTIMICROBIALS: The patient remains on: 1. Levaquin. 2. Zosyn. 3. IV Bactrim. 4. Acyclovir. 5. Zithromax 1200 mg weekly. 6. Fluconazole. Chest x-ray this morning revealed no change LABORATORY DATA: WBC 21.6, H and H 8 and 25.2, platelets 246, neutrophils 95.8. BUN 32, creatinine 1.18. PHYSICAL EXAMINATION: GENERAL: Well-developed, middle-aged -[place]izen [place] man in no distress. HEENT: Head atraumatic, normocephalic. Sclerae anicteric. Buccal mucosa dry. NECK: Supple. CHEST: Rise symmetrical. Breath sounds diminished to bases. HEART: S1, S2. ABDOMEN: Soft. Bowel sounds present. EXTREMITIES: Without cyanosis. Right lower extremity edematous with dressing intact. ASSESSMENT: 1. Acute hypoxemic respiratory failure with significant noted on CT, patient remains on treat ment for PCP. 2. Bilateral pneumothorax status post video-assisted thoracic surgery with pathology revealing dyana gnancy. 3. 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 4. Acquired immunodeficiency syndrome, antiretroviral medications and prophylactic medications. 5. Anemia. PLAN: The patient remains hemodynamically stable, clinically unchanged. He is on appropriate antib iotics. He is on steroids. He is on antiretroviral therapy. Prognosis guarded given new pathology report for malignancy. Dictated By: ANDREY ENCINAS QUALITY ASSURANCE ASSOCIATE for SOLE GARCIA/MELANIE Conf#: [id number] DID#: [id number]
--- NOTE | 2017-01-15 15:12 | CONS ---
Date/Time of Note Date/Time of Note DATE: 01/15/17 TIME: 15:05 Assessment/Plan Assessment/Plan Chief Complaint/Hosp Course Problems: Additional Assessment/Plan Have had an extensive discussion with patient's sister who is the agent for his ongoing level of care. I informed her that with biopsy was consistent with sarcoma and that his health care providers do not believe there any options for further aggressive treatment. Including patient cannot be extubated and is sedated on propofol fentanyl and Versed. Therefore be very difficult to back off on sedation without him becoming either very dyspneic, in pain but in all probably both. Options discussed continue this level of care and hope that he improves even on eventually enough that he can communicate with healthcare team and family. The chance of that are remote because he was encephalopathic prior to intubation. Next option is compassionate extubation and comfort measures. I have spoken to his brother also who lives on the [facility] he is 2 days from being able to arrive here. Two sisters on vacation in [place] there is another [place]. Patient's sister who is the DPOA does not want to make a summary decision to either discontinue this level of care or change CODE STATUS. Given her my cell phone number to either call me or call other physician members of his healthcare team and discuss at least code change. Consultation Date/Type/Reason Admit Date/Time Jan 01, 2017 at 21:48 Hx of Present Illness Constitutional: disoriented Genitourinary: no complaints Musculoskeletal: no complaints Skin: no complaints Psychological: confusion Past Surgical History Past Surgical Hx: no surgical history Social History Smoking Status: Never smoker Drug Use: none Exam/Review of Systems Vital Signs Vitals Vital Signs Date Time Temp Pulse Resp B/P Pulse Ox O2 Delivery O2 Flow Rate FiO2 01/15/17 13:04 99 26 100 50 01/15/17 12:15 99/44 01/15/17 11:15 98.9 01/15/17 06:00 Mechanical Ventilator 01/13/17 07:00 4.0 Intake and Output 01/14/17 01/14/17 01/15/17 15:00 23:00 07:00 Intake Total 903.768 ml 1122.71 ml 1949.16 ml Output Total 1160 ml 565 ml 625 ml Balance -256.232 ml 557.71 ml 1324.16 ml Results Result Diagram: 01/15/17 0430 01/15/17 0430 Results 24 hrs Laboratory Tests Test 01/14/17 16:00 01/14/17 20:26 01/15/17 00:38 01/15/17 04:30 Bedside Glucose 159 116 235 H White Blood Count 21.6 H Red Blood Count 3.25 L Hemoglobin 8.0 L Hematocrit 25.2 L Mean Corpuscular Volume 77.5 L Mean Corpuscular Hemoglobin 24.6 L Mean Corpuscular Hemoglobin Concent 31.7 L Red Cell Distribution Width 23.9 H Platelet Count 246 Mean Platelet Volume 9.0 Neutrophils % 95.8 H Lymphocytes % 0.9 L Monocytes % 2.1 Eosinophils % 0.0 Basophils % 0.1 Nucleated Red Blood Cells % 0.2 H Neutrophils # 20.7 H Lymphocytes # 0.2 L Monocytes # 0.5 Eosinophils # 0.0 Basophils # 0.0 Nucleated Red Blood Cells # 0.1 H Sodium Level 130 L Potassium Level 5.1 Chloride Level 99 Carbon Dioxide Level 23 Anion Gap 13 Blood Urea Nitrogen 32 H Creatinine 1.18 Glucose Level 180 Calcium Level 8.4 Phosphorus Level 4.3 Magnesium Level 2.2 Test 01/15/17 04:32 01/15/17 07:00 01/15/17 08:39 01/15/17 11:42 Bedside Glucose 191 254 H 171 Blood Gas Specimen Source Blood arterial Arterial Blood Date Drawn 01/15/2017 7:40:03 AM Arterial Blood pH (Temp corrected) 7.367 Arterial Blood pCO2 (Temp correct) 34.6 L Arterial Blood pO2 (Temp corrected) 54.0 *L Arterial Blood HCO3 19.4 L Arterial Blood Base Excess -5.3 L Arterial Blood Oxygen Saturation 86.4 L Austin Test N/A Arterial Blood Gas Puncture Site A-Line Arterial Blood Carboxyhemoglobin 0.8 Arterial Blood Methemoglobin 0.7 Blood Gas A-a O2 Differential 155.3 H Oxyhemoglobin Percent 85.1 L Total Hemoglobin 8.7 L Blood Gas Temperature 37.0 Blood Gas Respiration Rate 20.0 Blood Gas Actual Respiration Rate 22 Blood Gas Modality VENT - AC FiO2 35.0 Blood Gas Tidal Volume 450.0 Blood Gas Low PEEP Setting 0 Blood Gas Critical Value Read Back R CELESTE ODELL Blood Gas Notified Whom DESTINY Blood Gas Notified Time 01/15/2017 7:55:21 AM Medications Medications Current Medications Ondansetron HCl (Zofran Inj) 4 mg Q6H PRN IV NAUSEA AND/OR VOMITING Last administered on 01/02/17 01:44; Admin Dose 4 MG; Start 01/02/17 at 00:00 Acetaminophen (Tylenol Liquid) 650 mg Q6H PRN PO PAIN LEVEL 1-3 OR FEVER Last administered on 01/13/17 02:05; Admin Dose 650 MG; Start 01/02/17 at 00:00 Acetaminophen (Tylenol Supp) 650 mg Q4H PRN [place] PAIN LEVEL 1-3 OR FEVER; Start 01/02/17 at 00:00 Miscellaneous Information This patient morley... PRN PRN XX WOUND CARE; Start at 06:00 Fluconazole/ Sodium Chloride (Diflucan 100 Mg/ NS (Pmx)) 50 ml @ 50 mls/hr Q24H IVPB Last administered on 01/15/17 13:09; Admin Dose 50 MLS/HR; Start at 13:00 Non-Formulary Medication 1 ea 1 ea DAILY PO Last administered on 01/15/17 08: 44; Admin Dose 1 EA; Start 01/05/17 at 09:00 Trimethoprim/ Sulfamethoxazole 20 ml/Dextrose 520 ml @ 350 mls/hr Q8 IVPB Last administered on 01/15/17 05:50; Admin Dose 350 MLS/HR; Start 01/05/17 at 14:00 Piperacillin Sod/ Tazobactam Sod (Zosyn 3.375gm/ 100 ml (Pmx)) 100 ml @ 200 mls /hr Q8 IVPB Last administered on 01/15/17 05:50; Admin Dose 200 MLS/HR; Start 01/05/17 at 14:00 Azithromycin (Zithromax) 1,200 mg Q7D PO Last administered on 01/12/17 13:00 ; Admin Dose 1,200 MG; Start 01/05/17 at 13:00 Acyclovir (Zovirax) 400 mg BID PO Last administered on 01/15/17 08:44; Admin Dose 400 MG; Start 01/05/17 at 21:00 Methylprednisolone Sodium Succinate (Solu-Medrol) 40 mg Q6 IV Last administered on 01/15/17 11:30; Admin Dose 40 MG; Start 01/06/17 at 12:00 Diagnostic Test (Pha) (Accu-Chek) 1 ea 02 XX ; Start 01/07/17 at 02:00 Miscellaneous Information 1 ea NOTE XX ; Start 01/06/17 at 14:00 Glucose (Glutose) 15 gm Q15M PRN PO DECREASED GLUCOSE; Start 01/06/17 at 14:00 Glucose (Glutose) 22.5 gm Q15M PRN PO DECREASED GLUCOSE; Start 01/06/17 at 14: 00 Dextrose (D50w Syringe) 25 ml Q15M PRN IV DECREASED GLUCOSE; Start 01/06/17 at 14:00 Dextrose (D50w Syringe) 50 ml Q15M PRN IV DECREASED GLUCOSE; Start 01/06/17 at 14:00 Glucagon (Glucagen) 1 mg Q15M PRN IM DECREASED GLUCOSE; Start 01/06/17 at 14: 00 Glucose (Glutose) 15 gm Q15M PRN BUCCAL DECREASED GLUCOSE; Start 01/06/17 at 14:00 Pantoprazole 40 mg 40 mg DAILY@06 PO Last administered on 01/15/17 05:50; Admin Dose 40 MG; Start 01/08/17 at 06:00 Levofloxacin/ Dextrose (Levaquin 500mg/ D5W 100 ml (Pmx)) 100 ml @ 100 mls/hr Q24H IVPB Last administered on 01/15/17 11:30; Admin Dose 100 MLS/HR; Start 01/09/17 at 11:00 Alprazolam (Xanax) 0.25 mg Q6H PRN PO ANXIETY Last administered on 01/13/17 02:04; Admin Dose 0.25 MG; Start 01/12/17 at 08:00 Duloxetine HCl (Cymbalta) 30 mg DAILY PO Last administered on 01/15/17 08:44 ; Admin Dose 30 MG; Start 01/12/17 at 09:00 Fentanyl (Sublimaze) 25 mcg Q4 PRN IV SEDATION Last administered on 01/13/17 00:48; Admin Dose 25 MCG; Start 01/12/17 at 08:00 Fentanyl 25 mcg 25 mcg Q4H PRN IV PAIN LEVEL 6-10 Last administered on 20:33; Admin Dose 25 MCG; Start 01/12/17 at 10:00 Propofol 100 ml @ 1.835 mls/ hr Q12H IV Last administered on 01/15/17 12:11 ; Admin Dose 14.683 MLS/HR; Start 01/13/17 at 12:30 Fentanyl 100 ml @ 2.5 mls/hr TITRATE IV Last administered on 01/15/17 11:33 ; Admin Dose 8 MLS/HR; Start 01/13/17 at 15:30 Midazolam HCl (Versed) 50 ml @ 1 mls/hr TITRATE IV Last administered on 11:31; Admin Dose 8 MLS/HR; Start 01/13/17 at 16:00 Insulin Aspart (Novolog Insulin Pen) NOVOLOG *MILD* ALGORITHM Q4 SC Last administered on 01/15/17 12:05; Admin Dose 3 UNIT; Start 01/13/17 at 21:00 PETER DIAS Jan 15, 2017 15:12
--- NOTE | 2017-01-15 16:32 | PN ---
Date/Time of Note Date/Time of Note DATE: 01/15/17 TIME: 16:29 Assessment/Plan VTE Prophylaxis VTE Prophylaxis Intervention: SCD's Lines/Catheters IV Catheter Type (from Nrsg): Central Line Central line still needed: Yes (medication) Urinary Cath still in place: Yes Reason Cath still needed: skin wounds contaminated by urine, terminal illness/ intractable pain Assessment/Plan Chief Complaint/Hosp Course Assessment: Severe anemia/stable Respiratory failure * Due to PTX, s/p bilateral chest tube in place Right video-assisted thoracic surgery, Right pulmonary decortication, Right lung wedge resection 01/13 HIV Kaposi's sarcoma with right lower extremity Sepsis Plan: Pathology consistent with sarcoma Dr. Phillips spoke with family- of now no change to code status or plan of care Continue to monitor need for blood transfusion Will continue to monitor change in GI status Patient seen in collaboration with Dr. Padron Subjective: Course reviewed with nursing staff Patient interviewed and examined All labs, imaging and other results reviewed S/p Right video-assisted thoracic surgery, Right pulmonary decortication, Right lung wedge resection 01/13 Pathology positive for sarcoma. Pt remains intubated and sedated, with poor prognosis Problems: Exam/Review of Systems Vital Signs Vitals Vital Signs Date Time Temp Pulse Resp B/P Pulse Ox O2 Delivery O2 Flow Rate FiO2 01/15/17 15:29 96 24 100 50 01/15/17 12:15 99/44 01/15/17 11:15 98.9 01/15/17 06:00 Mechanical Ventilator 01/13/17 07:00 4.0 Intake and Output 01/14/17 01/14/17 01/15/17 15:00 23:00 07:00 Intake Total 903.768 ml 1122.71 ml 1949.16 ml Output Total 1160 ml 565 ml 625 ml Balance -256.232 ml 557.71 ml 1324.16 ml Exam Constitutional: non-verbal ENMT: intubated Neck: supple Respiratory: crackles/rales, diminished breath sounds Gastrointestinal: nl liver, spleen, soft Results Result Diagram: 01/15/17 0430 01/15/17 0430 Results 24 hrs Laboratory Tests Test 01/14/17 20:26 01/15/17 00:38 01/15/17 04:30 01/15/17 04:32 Bedside Glucose 116 235 H 191 White Blood Count 21.6 H Red Blood Count 3.25 L Hemoglobin 8.0 L Hematocrit 25.2 L Mean Corpuscular Volume 77.5 L Mean Corpuscular Hemoglobin 24.6 L Mean Corpuscular Hemoglobin Concent 31.7 L Red Cell Distribution Width 23.9 H Platelet Count 246 Mean Platelet Volume 9.0 Neutrophils % 95.8 H Lymphocytes % 0.9 L Monocytes % 2.1 Eosinophils % 0.0 Basophils % 0.1 Nucleated Red Blood Cells % 0.2 H Neutrophils # 20.7 H Lymphocytes # 0.2 L Monocytes # 0.5 Eosinophils # 0.0 Basophils # 0.0 Nucleated Red Blood Cells # 0.1 H Sodium Level 130 L Potassium Level 5.1 Chloride Level 99 Carbon Dioxide Level 23 Anion Gap 13 Blood Urea Nitrogen 32 H Creatinine 1.18 Glucose Level 180 Calcium Level 8.4 Phosphorus Level 4.3 Magnesium Level 2.2 Test 01/15/17 07:00 01/15/17 08:39 01/15/17 11:42 Blood Gas Specimen Source Blood arterial Arterial Blood Date Drawn 01/15/2017 7:40:03 AM Arterial Blood pH (Temp corrected) 7.367 Arterial Blood pCO2 (Temp correct) 34.6 L Arterial Blood pO2 (Temp corrected) 54.0 *L Arterial Blood HCO3 19.4 L Arterial Blood Base Excess -5.3 L Arterial Blood Oxygen Saturation 86.4 L Austin Test N/A Arterial Blood Gas Puncture Site A-Line Arterial Blood Carboxyhemoglobin 0.8 Arterial Blood Methemoglobin 0.7 Blood Gas A-a O2 Differential 155.3 H Oxyhemoglobin Percent 85.1 L Total Hemoglobin 8.7 L Blood Gas Temperature 37.0 Blood Gas Respiration Rate 20.0 Blood Gas Actual Respiration Rate 22 Blood Gas Modality VENT - AC FiO2 35.0 Blood Gas Tidal Volume 450.0 Blood Gas Low PEEP Setting 0 Blood Gas Critical Value Read Back R ALONSO RN Blood Gas Notified Whom DEEPAD Blood Gas Notified Time 01/15/2017 7:55:21 AM Bedside Glucose 254 H 171 Medications Medications Current Medications Ondansetron HCl (Zofran Inj) 4 mg Q6H PRN IV NAUSEA AND/OR VOMITING Last administered on 01/02/17t 01:44; Admin Dose 4 MG; Start 01/02/17 at 00:00 Acetaminophen (Tylenol Liquid) 650 mg Q6H PRN PO PAIN LEVEL 1-3 OR FEVER Last administered on 01/13/17 02:05; Admin Dose 650 MG; Start 01/02/17 at 00:00 Acetaminophen (Tylenol Supp) 650 mg Q4H PRN [place] PAIN LEVEL 1-3 OR FEVER; Start 01/02/17 at 00:00 Miscellaneous Information This patient morley... PRN PRN XX WOUND CARE; Start at 06:00 Fluconazole/ Sodium Chloride (Diflucan 100 Mg/ NS (Pmx)) 50 ml @ 50 mls/hr Q24H IVPB Last administered on 01/15/17 13:09; Admin Dose 50 MLS/HR; Start at 13:00 Non-Formulary Medication 1 ea 1 ea DAILY PO Last administered on 01/15/17 08: 44; Admin Dose 1 EA; Start 01/05/17 at 09:00 Trimethoprim/ Sulfamethoxazole 20 ml/Dextrose 520 ml @ 350 mls/hr Q8 IVPB Last administered on 01/15/17 16:05; Admin Dose 350 MLS/HR; Start 01/05/17 at 14:00 Piperacillin Sod/ Tazobactam Sod (Zosyn 3.375gm/ 100 ml (Pmx)) 100 ml @ 200 mls /hr Q8 IVPB Last administered on 01/15/17 15:23; Admin Dose 200 MLS/HR; Start 01/05/17 at 14:00 Azithromycin (Zithromax) 1,200 mg Q7D PO Last administered on 01/12/17 13:00 ; Admin Dose 1,200 MG; Start 01/05/17 at 13:00 Acyclovir (Zovirax) 400 mg BID PO Last administered on 01/15/17 08:44; Admin Dose 400 MG; Start 01/05/17 at 21:00 Methylprednisolone Sodium Succinate (Solu-Medrol) 40 mg Q6 IV Last administered on 01/15/17 11:30; Admin Dose 40 MG; Start 01/06/17 at 12:00 Diagnostic Test (Pha) (Accu-Chek) 1 ea 02 XX ; Start 01/07/17 at 02:00 Miscellaneous Information 1 ea NOTE XX ; Start 01/06/17 at 14:00 Glucose (Glutose) 15 gm Q15M PRN PO DECREASED GLUCOSE; Start 01/06/17 at 14:00 Glucose (Glutose) 22.5 gm Q15M PRN PO DECREASED GLUCOSE; Start 01/06/17 at 14: 00 Dextrose (D50w Syringe) 25 ml Q15M PRN IV DECREASED GLUCOSE; Start 01/06/17 at 14:00 Dextrose (D50w Syringe) 50 ml Q15M PRN IV DECREASED GLUCOSE; Start 01/06/17 at 14:00 Glucagon (Glucagen) 1 mg Q15M PRN IM DECREASED GLUCOSE; Start 01/06/17 at 14: 00 Glucose (Glutose) 15 gm Q15M PRN BUCCAL DECREASED GLUCOSE; Start 01/06/17 at 14:00 Pantoprazole 40 mg 40 mg DAILY@06 PO Last administered on 01/15/17 05:50; Admin Dose 40 MG; Start 01/08/17 at 06:00 Levofloxacin/ Dextrose (Levaquin 500mg/ D5W 100 ml (Pmx)) 100 ml @ 100 mls/hr Q24H IVPB Last administered on 01/15/17 11:30; Admin Dose 100 MLS/HR; Start 01/09/17 at 11:00 Alprazolam (Xanax) 0.25 mg Q6H PRN PO ANXIETY Last administered on 01/13/17 02:04; Admin Dose 0.25 MG; Start 01/12/17 at 08:00 Duloxetine HCl (Cymbalta) 30 mg DAILY PO Last administered on 01/15/17 08:44 ; Admin Dose 30 MG; Start 01/12/17 at 09:00 Fentanyl (Sublimaze) 25 mcg Q4 PRN IV SEDATION Last administered on 01/13/17 00:48; Admin Dose 25 MCG; Start 01/12/17 at 08:00 Fentanyl 25 mcg 25 mcg Q4H PRN IV PAIN LEVEL 6-10 Last administered on 20:33; Admin Dose 25 MCG; Start 01/12/17 at 10:00 Propofol 100 ml @ 1.835 mls/ hr Q12H IV Last administered on 01/15/17 12:11 ; Admin Dose 14.683 MLS/HR; Start 01/13/17 at 12:30 Fentanyl 100 ml @ 2.5 mls/hr TITRATE IV Last administered on 01/15/17 16:08 ; Admin Dose 8 MLS/HR; Start 01/13/17 at 15:30 Midazolam HCl (Versed) 50 ml @ 1 mls/hr TITRATE IV Last administered on 11:31; Admin Dose 8 MLS/HR; Start 01/13/17 at 16:00 Insulin Aspart (Novolog Insulin Pen) NOVOLOG *MILD* ALGORITHM Q4 SC Last administered on 01/15/17 12:05; Admin Dose 3 UNIT; Start 01/13/17 at 21:00 JORDAN HAHN Jan 15, 2017 16:32
--- NOTE | 2017-01-15 16:53 | PN ---
Date/Time of Note Date/Time of Note DATE: 01/15/17 TIME: 16:51 Assessment/Plan VTE Prophylaxis VTE Prophylaxis Intervention: SCD's Assessment/Plan Chief Complaint/Hosp Course 1. Acute respiratory failure secondary to bilateral pneumothorax from pneumocystis pneumonia and high-grade sarcoma status post right lung pleurodesis for persistent pneumothorax and air leak Pathology from pleurodesis shows high-grade sarcoma, patient with poor prognosis Palliative care consultation appreciated Continue chest tubes Pulmonology and CT surgery following Empirically treating for PCP w steroids and therapeutic dose bactrim Cefepime/vanco/levaquin 2. AIDS Continue ARVs PPx with bactrim, fluc, azithro, ID following 3. Kaposi sarcoma Wound care 4. ICU delirium Monitor Prophylaxis SCDs Problems: Subjective 24 Hr Interval Summary Subjective hx not possible: pt non-verbal Exam/Review of Systems Vital Signs Vitals Vital Signs Date Time Temp Pulse Resp B/P Pulse Ox O2 Delivery O2 Flow Rate FiO2 01/15/17 16:00 97 01/15/17 15:29 24 100 50 01/15/17 12:15 99/44 01/15/17 11:15 98.9 01/15/17 06:00 Mechanical Ventilator 01/13/17 07:00 4.0 Intake and Output 01/14/17 01/14/17 01/15/17 15:00 23:00 07:00 Intake Total 903.768 ml 1122.71 ml 1949.16 ml Output Total 1160 ml 565 ml 625 ml Balance -256.232 ml 557.71 ml 1324.16 ml Exam Constitutional: non-verbal Respiratory: clear to auscultation Cardiovascular: regular rate and rhythm Gastrointestinal: soft, No distended Musculoskeletal: nl extremities to inspection Results Result Diagram: 01/15/17 0430 01/15/17 0430 Results 24 hrs Laboratory Tests Test 01/14/17 20:26 01/15/17 00:38 01/15/17 04:30 01/15/17 04:32 Bedside Glucose 116 235 H 191 White Blood Count 21.6 H Red Blood Count 3.25 L Hemoglobin 8.0 L Hematocrit 25.2 L Mean Corpuscular Volume 77.5 L Mean Corpuscular Hemoglobin 24.6 L Mean Corpuscular Hemoglobin Concent 31.7 L Red Cell Distribution Width 23.9 H Platelet Count 246 Mean Platelet Volume 9.0 Neutrophils % 95.8 H Lymphocytes % 0.9 L Monocytes % 2.1 Eosinophils % 0.0 Basophils % 0.1 Nucleated Red Blood Cells % 0.2 H Neutrophils # 20.7 H Lymphocytes # 0.2 L Monocytes # 0.5 Eosinophils # 0.0 Basophils # 0.0 Nucleated Red Blood Cells # 0.1 H Sodium Level 130 L Potassium Level 5.1 Chloride Level 99 Carbon Dioxide Level 23 Anion Gap 13 Blood Urea Nitrogen 32 H Creatinine 1.18 Glucose Level 180 Calcium Level 8.4 Phosphorus Level 4.3 Magnesium Level 2.2 Test 01/15/17 07:00 01/15/17 08:39 01/15/17 11:42 Blood Gas Specimen Source Blood arterial Arterial Blood Date Drawn 01/15/2017 7:40:03 AM Arterial Blood pH (Temp corrected) 7.367 Arterial Blood pCO2 (Temp correct) 34.6 L Arterial Blood pO2 (Temp corrected) 54.0 *L Arterial Blood HCO3 19.4 L Arterial Blood Base Excess -5.3 L Arterial Blood Oxygen Saturation 86.4 L Austin Test N/A Arterial Blood Gas Puncture Site A-Line Arterial Blood Carboxyhemoglobin 0.8 Arterial Blood Methemoglobin 0.7 Blood Gas A-a O2 Differential 155.3 H Oxyhemoglobin Percent 85.1 L Total Hemoglobin 8.7 L Blood Gas Temperature 37.0 Blood Gas Respiration Rate 20.0 Blood Gas Actual Respiration Rate 22 Blood Gas Modality VENT - AC FiO2 35.0 Blood Gas Tidal Volume 450.0 Blood Gas Low PEEP Setting 0 Blood Gas Critical Value Read Back R ALONSO RN Blood Gas Notified Whom JLD Blood Gas Notified Time 01/15/2017 7:55:21 AM Bedside Glucose 254 H 171 Medications Medications Current Medications Ondansetron HCl (Zofran Inj) 4 mg Q6H PRN IV NAUSEA AND/OR VOMITING Last administered on 01/02/17 01:44; Admin Dose 4 MG; Start 01/02/17 at 00:00 Acetaminophen (Tylenol Liquid) 650 mg Q6H PRN PO PAIN LEVEL 1-3 OR FEVER Last administered on 01/13/17 02:05; Admin Dose 650 MG; Start 01/02/17 at 00:00 Acetaminophen (Tylenol Supp) 650 mg Q4H PRN [place] PAIN LEVEL 1-3 OR FEVER; Start 01/02/17 at 00:00 Miscellaneous Information This patient morley... PRN PRN XX WOUND CARE; Start at 06:00 Fluconazole/ Sodium Chloride (Diflucan 100 Mg/ NS (Pmx)) 50 ml @ 50 mls/hr Q24H IVPB Last administered on 01/15/17 13:09; Admin Dose 50 MLS/HR; Start at 13:00 Non-Formulary Medication 1 ea 1 ea DAILY PO Last administered on 01/15/17 08: 44; Admin Dose 1 EA; Start 01/05/17 at 09:00 Trimethoprim/ Sulfamethoxazole 20 ml/Dextrose 520 ml @ 350 mls/hr Q8 IVPB Last administered on 01/15/17 16:05; Admin Dose 350 MLS/HR; Start 01/05/17 at 14:00 Piperacillin Sod/ Tazobactam Sod (Zosyn 3.375gm/ 100 ml (Pmx)) 100 ml @ 200 mls /hr Q8 IVPB Last administered on 01/15/17 15:23; Admin Dose 200 MLS/HR; Start 01/05/17 at 14:00 Azithromycin (Zithromax) 1,200 mg Q7D PO Last administered on 01/12/17 13:00 ; Admin Dose 1,200 MG; Start 01/05/17 at 13:00 Acyclovir (Zovirax) 400 mg BID PO Last administered on 01/15/17 08:44; Admin Dose 400 MG; Start 01/05/17 at 21:00 Methylprednisolone Sodium Succinate (Solu-Medrol) 40 mg Q6 IV Last administered on 01/15/17 11:30; Admin Dose 40 MG; Start 01/06/17 at 12:00 Diagnostic Test (Pha) (Accu-Chek) 1 ea 02 XX ; Start 01/07/17 at 02:00 Miscellaneous Information 1 ea NOTE XX ; Start 01/06/17 at 14:00 Glucose (Glutose) 15 gm Q15M PRN PO DECREASED GLUCOSE; Start 01/06/17 at 14:00 Glucose (Glutose) 22.5 gm Q15M PRN PO DECREASED GLUCOSE; Start 01/06/17 at 14: 00 Dextrose (D50w Syringe) 25 ml Q15M PRN IV DECREASED GLUCOSE; Start 01/06/17 at 14:00 Dextrose (D50w Syringe) 50 ml Q15M PRN IV DECREASED GLUCOSE; Start 01/06/17 at 14:00 Glucagon (Glucagen) 1 mg Q15M PRN IM DECREASED GLUCOSE; Start 01/06/17 at 14: 00 Glucose (Glutose) 15 gm Q15M PRN BUCCAL DECREASED GLUCOSE; Start 01/06/17 at 14:00 Pantoprazole 40 mg 40 mg DAILY@06 PO Last administered on 01/15/17 05:50; Admin Dose 40 MG; Start 01/08/17 at 06:00 Levofloxacin/ Dextrose (Levaquin 500mg/ D5W 100 ml (Pmx)) 100 ml @ 100 mls/hr Q24H IVPB Last administered on 01/15/17 11:30; Admin Dose 100 MLS/HR; Start 01/09/17 at 11:00 Alprazolam (Xanax) 0.25 mg Q6H PRN PO ANXIETY Last administered on 01/13/17 02:04; Admin Dose 0.25 MG; Start 01/12/17 at 08:00 Duloxetine HCl (Cymbalta) 30 mg DAILY PO Last administered on 01/15/17 08:44 ; Admin Dose 30 MG; Start 01/12/17 at 09:00 Fentanyl (Sublimaze) 25 mcg Q4 PRN IV SEDATION Last administered on 01/13/17 00:48; Admin Dose 25 MCG; Start 01/12/17 at 08:00 Fentanyl 25 mcg 25 mcg Q4H PRN IV PAIN LEVEL 6-10 Last administered on 20:33; Admin Dose 25 MCG; Start 01/12/17 at 10:00 Propofol 100 ml @ 1.835 mls/ hr Q12H IV Last administered on 01/15/17 12:11 ; Admin Dose 14.683 MLS/HR; Start 01/13/17 at 12:30 Fentanyl 100 ml @ 2.5 mls/hr TITRATE IV Last administered on 01/15/17 16:08 ; Admin Dose 8 MLS/HR; Start 01/13/17 at 15:30 Midazolam HCl (Versed) 50 ml @ 1 mls/hr TITRATE IV Last administered on 11:31; Admin Dose 8 MLS/HR; Start 01/13/17 at 16:00 Insulin Aspart (Novolog Insulin Pen) NOVOLOG *MILD* ALGORITHM Q4 SC Last administered on 01/15/17t 12:05; Admin Dose 3 UNIT; Start 01/13/17 at 21:00 ALBERT NGUYỄN Jan 15, 2017 16:53
[2017-01-16] VITALS (81 sets, daily range): BP systolic 95–152; BP diastolic 32–62; PULSE 79–116; RESP 13–30
[2017-01-16] MEDS: METHYLPREDNISOLONE 40 MG INJ IV SCH ×4 (00:14→17:57)
[2017-01-16] MEDS: MIDAZOLAM (DRIP) 50 mg/50 mL 50 ML IV SCH ×3 (00:15→21:31)
[2017-01-16] MEDS: PROPOFOL 100 ML IV SCH ×4 (00:15→23:28)
[2017-01-16] MEDS: INSULIN ASPART [NOVOLOG] 3 ML PEN SC SCH ×6 (01:08→21:35)
[2017-01-16] MEDS: ACCU-CHEK XX SCH (02:00)
[2017-01-16] MEDS: FENTAnyl (DRIP) 1000 mcg/100mL 100 ML IV SCH ×2 (03:53→17:55)
[2017-01-16] MEDS: PIPER-TAZO 3.375 GM IV (PMX) 100 ML IVPB SCH ×3 (05:14→21:31)
[2017-01-16] MEDS: PANTOPRAZOLE (EC) 40 MG TAB PO SCH (05:15)
[2017-01-16 05:41] LABS: ABNORMAL IP MESSAGE 1; BASOPHILS % 0.1 % (0.0-2.0); HEMATOCRIT 24.3 % (42.0-52.0); HEMOGLOBIN 7.7 g/dl (14.0-18.0); LYMPHOCYTES # 0.2 10^3/ul (0.8-2.9); LYMPHOCYTES % 0.9 % (15.0-51.0); MEAN CORPUSCULAR HEMOGLOBIN 24.8 pg (29.0-33.0); MEAN CORPUSCULAR HGB CONC 31.7 g/dl (32.0-37.0); MEAN CORPUSCULAR VOLUME 78.1 fl (82.0-101.0); MONOCYTE # 0.5 10^3/ul (0.3-0.9); MONOCYTES % 2.3 % (0.0-11.0); NEUTROPHIL # 19.2 10^3/ul (1.6-7.5); NEUTROPHILS % 95.8 % (39.0-77.0); NUCLEATED RED BLOOD CELLS% 0.1 /100WBC (0.0-0.0); PLATELET COUNT 234 10^3/UL (140-415); POSITIVE DIFF @See below; RED BLOOD COUNT 3.11 10^6/ul (4.70-6.10); RED CELL DISTRIBUTION WIDTH 24.6 % (11.5-14.5); WHITE BLOOD COUNT 20.1 10^3/ul (4.8-10.8)
[2017-01-16] MEDS: TRIMETHOPRIM/SULFAMETHOXAZOLE 20 ML in DEXTROSE 5% 500 ML IVPB SCH ×3 (05:50→21:31)
[2017-01-16 06:16] LABS: CALCIUM 8.3 mg/dl (8.4-10.2); CREATININE 1.01 mg/dl (0.61-1.24); MAGNESIUM 2.3 mg/dl (1.7-2.5); PHOSPHORUS 4.1 mg/dl (2.5-4.9); POTASSIUM 5.2 mmol/L (3.5-5.1)
[2017-01-16 07:45] LABS: AADO2 Arterial 238.7 mmHg (7.0-24.0); Arterial Base Excess -4.4 mmol/L (-3.0-3); Arterial COHb 0.5 % (0.0-3.0); Arterial Fraction of Oxyhgb 93.3 % (93.0-99.0); Arterial HCO3 20.5 mmol/L (22.0-26.0); Arterial MetHb 0.8 % (0.0-1.5); Arterial Total Hemglobin 7.9 g/dl (12.0-18.0); Blood Gas Low PEEP Setting 0 cmH2O; MODE VENT - AC
[2017-01-16] MEDS: ACYCLOVIR 400 MG TAB PO SCH ×2 (08:38→21:31)
[2017-01-16] MEDS: TRIUMEQ PO SCH (08:38)
[2017-01-16] MEDS: DULOXETINE 30 MG CAP DR PO SCH (08:38)
[2017-01-16] MEDS: VIRACEPT PO SCH ×2 (08:39→17:57)
--- NOTE | 2017-01-16 08:54 | RADRPT ---
PROCEDURE: XR Chest 1 view. CLINICAL INDICATION: Shortness of breath. TECHNIQUE: AP views of the chest was obtained. COMPARISON: Yesterday FINDINGS: The heart is large. Calcified atherosclerosis is noted in the aorta. Endotracheal and nasogastric t ubes are stable and appear in grossly appropriate location. Right-sided central line has been retrac cholo. Tip is now identified in the expected location of the distal superior vena cava. Left-sided leif st port is stable. Bilateral chest tubes are stable. No pneumothorax as visualized. Patchy infiltrat es throughout both lungs are unchanged. Subcutaneous emphysema over the lateral aspect of the right chest appears to have mildly increased. The osseous structures are unchanged. IMPRESSION: Cardiomegaly with calcified atherosclerosis in the aorta. Stable bilateral chest tubes. No visualized pneumothorax. Stable patchy infiltrates throughout both lungs. Mild interval increase in subcutaneous emphysema over the right chest. RPTAT: AA .Mario Kelley MD, Date Time Electronically viewed and signed by .Mario Kelley MD, MD on 01/16/2017 08:54 .P/
[2017-01-16] MEDS: ALBUTEROL 18 GM INHALER INH SCH ×3 (09:03→20:09)
[2017-01-16] MEDS: SOD CHLORIDE 0.9% 1,000 ML IV SCH (09:45)
--- NOTE | 2017-01-16 09:57 | CONS ---
Date/Time of Note Date/Time of Note DATE: 01/16/17 TIME: 09:56 Consult Date/Type/Reason Admit Date/Time Jan 01, 2017 at 21:48 Initial Consult Date 01/02/17 Type of Consultation: Pulmonary Subjective Patient remains intubated on mechanical ventilation appears comfortable at rest. Objective Vital Signs Date Time Temp Pulse Resp B/P Pulse Ox O2 Delivery O2 Flow Rate FiO2 01/16/17 09:00 83 16 129/47 Mechanical Ventilator 01/16/17 08:45 100 01/16/17 08:00 35 01/16/17 07:30 98.0 01/13/17 07:00 4.0 Intake and Output 01/15/17 01/15/17 01/16/17 15:00 23:00 07:00 Intake Total 684.052 ml 735.52 ml 1699.048 ml Output Total 540 ml 455 ml 460 ml Balance 144.052 ml 280.52 ml 1239.048 ml Exam ENERAL: Chronically ill-appearing gentleman on mechanical ventilation. VITAL SIGNS: per chart NECK: Supple. No JVD or lymphadenopathy. CARDIAC EXAM: S1, S2. No added sounds or murmurs. CHEST: Diminished air entry both lung tavarez with chest tubes in place. ABDOMEN: Soft, nontender. No guarding or rebound. EXTREMITIES: No cyanosis, clubbing or edema. NEUROLOGIC: Currently unable to assess. Results/Medications Result Diagram: 01/16/17 0340 01/16/17 0340 Results 24 hrs Laboratory Tests Test 01/15/17 11:42 01/15/17 17:28 01/15/17 20:39 01/16/17 01:05 Bedside Glucose 171 224 H 135 205 Test 01/16/17 03:40 01/16/17 05:13 01/16/17 07:00 01/16/17 08:54 White Blood Count 20.1 H Red Blood Count 3.11 L Hemoglobin 7.7 L Hematocrit 24.3 L Mean Corpuscular Volume 78.1 L Mean Corpuscular Hemoglobin 24.8 L Mean Corpuscular Hemoglobin Concent 31.7 L Red Cell Distribution Width 24.6 H Platelet Count 234 Mean Platelet Volume 9.0 Neutrophils % 95.8 H Lymphocytes % 0.9 L Monocytes % 2.3 Eosinophils % 0.0 Basophils % 0.1 Nucleated Red Blood Cells % 0.1 H Neutrophils # 19.2 H Lymphocytes # 0.2 L Monocytes # 0.5 Eosinophils # 0.0 Basophils # 0.0 Nucleated Red Blood Cells # 0.0 Sodium Level 129 L Potassium Level 5.2 H Chloride Level 98 Carbon Dioxide Level 23 Anion Gap 13 Blood Urea Nitrogen 35 H Creatinine 1.01 Glucose Level 161 Calcium Level 8.3 L Phosphorus Level 4.1 Magnesium Level 2.3 Bedside Glucose 170 273 H Blood Gas Specimen Source Blood arterial Arterial Blood Date Drawn 01/16/2017 7:30:36 AM Arterial Blood pH (Temp corrected) 7.363 Arterial Blood pCO2 (Temp correct) 36.9 Arterial Blood pO2 (Temp corrected) 76.3 L Arterial Blood HCO3 20.5 L Arterial Blood Base Excess -4.4 L Arterial Blood Oxygen Saturation 94.5 L Austin Test N/A Arterial Blood Gas Puncture Site A-Line Arterial Blood Carboxyhemoglobin 0.5 Arterial Blood Methemoglobin 0.8 Blood Gas A-a O2 Differential 238.7 H Oxyhemoglobin Percent 93.3 Total Hemoglobin 7.9 L Blood Gas Temperature 37.0 Blood Gas Respiration Rate 20.0 Blood Gas Actual Respiration Rate 21 Blood Gas Modality VENT - AC FiO2 50.0 Blood Gas Tidal Volume 450.0 Blood Gas Low PEEP Setting 0 Blood Gas Notified Whom JLD Blood Gas Notified Time 01/16/2017 7:45:46 AM Medications Current Medications Ondansetron HCl (Zofran Inj) 4 mg Q6H PRN IV NAUSEA AND/OR VOMITING Last administered on 01/02/17 01:44; Admin Dose 4 MG; Start 01/02/17 at 00:00 Acetaminophen (Tylenol Liquid) 650 mg Q6H PRN PO PAIN LEVEL 1-3 OR FEVER Last administered on 01/13/17 02:05; Admin Dose 650 MG; Start 01/02/17 at 00:00 Acetaminophen (Tylenol Supp) 650 mg Q4H PRN [place] PAIN LEVEL 1-3 OR FEVER; Start 01/02/17 at 00:00 Miscellaneous Information This patient morley... PRN PRN XX WOUND CARE; Start at 06:00 Fluconazole/ Sodium Chloride (Diflucan 100 Mg/ NS (Pmx)) 50 ml @ 50 mls/hr Q24H IVPB Last administered on 01/15/17 13:09; Admin Dose 50 MLS/HR; Start at 13:00 Non-Formulary Medication 1 ea 1 ea DAILY PO Last administered on 01/16/17 08: 38; Admin Dose 1 EA; Start 01/05/17 at 09:00 Trimethoprim/ Sulfamethoxazole 20 ml/Dextrose 520 ml @ 350 mls/hr Q8 IVPB Last administered on 01/16/17 05:50; Admin Dose 350 MLS/HR; Start 01/05/17 at 14:00 Piperacillin Sod/ Tazobactam Sod (Zosyn 3.375gm/ 100 ml (Pmx)) 100 ml @ 200 mls /hr Q8 IVPB Last administered on 01/16/17 05:14; Admin Dose 200 MLS/HR; Start 01/05/17 at 14:00 Azithromycin (Zithromax) 1,200 mg Q7D PO Last administered on 01/12/17 13:00 ; Admin Dose 1,200 MG; Start 01/05/17 at 13:00 Acyclovir (Zovirax) 400 mg BID PO Last administered on 01/16/17 08:38; Admin Dose 400 MG; Start 01/05/17 at 21:00 Methylprednisolone Sodium Succinate (Solu-Medrol) 40 mg Q6 IV Last administered on 01/16/17 05:14; Admin Dose 40 MG; Start 01/06/17 at 12:00 Diagnostic Test (Pha) (Accu-Chek) 1 ea 02 XX ; Start 01/07/17 at 02:00 Miscellaneous Information 1 ea NOTE XX ; Start 01/06/17 at 14:00 Glucose (Glutose) 15 gm Q15M PRN PO DECREASED GLUCOSE; Start 01/06/17 at 14:00 Glucose (Glutose) 22.5 gm Q15M PRN PO DECREASED GLUCOSE; Start 01/06/17 at 14: 00 Dextrose (D50w Syringe) 25 ml Q15M PRN IV DECREASED GLUCOSE; Start 01/06/17 at 14:00 Dextrose (D50w Syringe) 50 ml Q15M PRN IV DECREASED GLUCOSE; Start 01/06/17 at 14:00 Glucagon (Glucagen) 1 mg Q15M PRN IM DECREASED GLUCOSE; Start 01/06/17 at 14: 00 Glucose (Glutose) 15 gm Q15M PRN BUCCAL DECREASED GLUCOSE; Start 01/06/17 at 14:00 Pantoprazole 40 mg 40 mg DAILY@06 PO Last administered on 01/16/17 05:15; Admin Dose 40 MG; Start 01/08/17 at 06:00 Levofloxacin/ Dextrose (Levaquin 500mg/ D5W 100 ml (Pmx)) 100 ml @ 100 mls/hr Q24H IVPB Last administered on 01/15/17 11:30; Admin Dose 100 MLS/HR; Start 01/09/17 at 11:00 Alprazolam (Xanax) 0.25 mg Q6H PRN PO ANXIETY Last administered on 01/13/17 02:04; Admin Dose 0.25 MG; Start 01/12/17 at 08:00 Duloxetine HCl (Cymbalta) 30 mg DAILY PO Last administered on 01/16/17 08:38 ; Admin Dose 30 MG; Start 01/12/17 at 09:00 Fentanyl (Sublimaze) 25 mcg Q4 PRN IV SEDATION Last administered on 01/13/17 00:48; Admin Dose 25 MCG; Start 01/12/17 at 08:00 Fentanyl 25 mcg 25 mcg Q4H PRN IV PAIN LEVEL 6-10 Last administered on 20:33; Admin Dose 25 MCG; Start 01/12/17 at 10:00 Propofol 100 ml @ 1.835 mls/ hr Q12H IV Last administered on 01/16/17 05:14 ; Admin Dose 11.012 MLS/HR; Start 01/13/17 at 12:30 Fentanyl 100 ml @ 2.5 mls/hr TITRATE IV Last administered on 01/16/17 03:53 ; Admin Dose 8 MLS/HR; Start 01/13/17 at 15:30 Midazolam HCl (Versed) 50 ml @ 1 mls/hr TITRATE IV Last administered on 07:44; Admin Dose 7 MLS/HR; Start 01/13/17 at 16:00 Insulin Aspart NOVOLOG *MILD* ALGORITHM Q4 SC Last administered on 01/16/17 08:58; Admin Dose 4 UNIT; Start 01/13/17 at 21:00 Sodium Chloride (NS) 1,000 ml @ 100 mls/hr Q10H IV Last administered on 10/27/ 17at 09:45; Admin Dose 100 MLS/HR; Start 01/16/17 at 09:30 Assessment/Plan Chief Complaint/Hosp Course IMP: 1. Hypoxemic Resp failure on mechanical ventilation. Status post right lung pleurodesis for persistent pneumothorax and air leak. 2. B/L Pneumothoraces--significant pneumatoceles noted on CT chest 3. Progressive Pulm Parenchymal Opacities--pathology findings noted. Patient still has persistent air leak in the right lung. 4. Bilateral pneumothoraces with chest tubes in place. 5. [place] RECS: 1. Continue mechanical ventilation avoid elevated peak inspiratory pressures. 2. Continue chest tube to suction 3. Continue PJP Rx 4. Hold off on further thoracic surgery given pathology findings. 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 Overall prognosis remains guarded. Palliative care input and discussion with family regarding goals of care. Problems: DANI LOPEZ MD, [facility] Jan 16, 2017 09:57
[2017-01-16] MEDS: FLUCONAZOLE 100 MG/NS (PMX) 50 ML IVPB SCH (10:04)
[2017-01-16] MEDS: LEVOFLOXACIN 500MG/D5W (PMX) 100 ML IVPB SCH (10:59)
--- NOTE | 2017-01-16 11:10 | PN ---
Date/Time of Note Date/Time of Note DATE: 01/16/17 TIME: 11:06 Assessment/Plan VTE Prophylaxis VTE Prophylaxis Intervention: SCD's Assessment/Plan Chief Complaint/Hosp Course 1. Acute respiratory failure secondary to bilateral pneumothorax from pneumocystis pneumonia and high-grade sarcoma status post right lung pleurodesis for persistent pneumothorax and air leak Pathology from pleurodesis shows high-grade sarcoma, patient with poor prognosis Palliative care consultation appreciated Continue chest tubes Pulmonology and CT surgery following Empirically treating for PCP w steroids and therapeutic dose bactrim Cefepime/vanco/levaquin 2. AIDS Continue ARVs PPx with bactrim, fluc, azithro, ID following 3. Kaposi sarcoma Wound care 4. ICU delirium Monitor Prophylaxis SCDs Problems: Subjective 24 Hr Interval Summary Subjective hx not possible: pt non-verbal Exam/Review of Systems Vital Signs Vitals Vital Signs Date Time Temp Pulse Resp B/P Pulse Ox O2 Delivery O2 Flow Rate FiO2 01/16/17 10:30 84 22 134/48 97 Mechanical Ventilator 01/16/17 08:00 35 01/16/17 07:30 98.0 01/13/17 07:00 4.0 Intake and Output 01/15/17 01/15/17 01/16/17 15:00 23:00 07:00 Intake Total 684.052 ml 735.52 ml 1699.048 ml Output Total 540 ml 455 ml 460 ml Balance 144.052 ml 280.52 ml 1239.048 ml Exam ENMT: intubated Respiratory: clear to auscultation Cardiovascular: regular rate and rhythm Gastrointestinal: soft, No distended Musculoskeletal: nl extremities to inspection Results Result Diagram: 01/16/17 0340 01/16/17 0340 Results 24 hrs Laboratory Tests Test 01/15/17 11:42 01/15/17 17:28 01/15/17 20:39 01/16/17 01:05 Bedside Glucose 171 224 H 135 205 Test 01/16/17 03:40 01/16/17 05:13 01/16/17 07:00 01/16/17 08:54 White Blood Count 20.1 H Red Blood Count 3.11 L Hemoglobin 7.7 L Hematocrit 24.3 L Mean Corpuscular Volume 78.1 L Mean Corpuscular Hemoglobin 24.8 L Mean Corpuscular Hemoglobin Concent 31.7 L Red Cell Distribution Width 24.6 H Platelet Count 234 Mean Platelet Volume 9.0 Neutrophils % 95.8 H Lymphocytes % 0.9 L Monocytes % 2.3 Eosinophils % 0.0 Basophils % 0.1 Nucleated Red Blood Cells % 0.1 H Neutrophils # 19.2 H Lymphocytes # 0.2 L Monocytes # 0.5 Eosinophils # 0.0 Basophils # 0.0 Nucleated Red Blood Cells # 0.0 Sodium Level 129 L Potassium Level 5.2 H Chloride Level 98 Carbon Dioxide Level 23 Anion Gap 13 Blood Urea Nitrogen 35 H Creatinine 1.01 Glucose Level 161 Calcium Level 8.3 L Phosphorus Level 4.1 Magnesium Level 2.3 Bedside Glucose 170 273 H Blood Gas Specimen Source Blood arterial Arterial Blood Date Drawn 01/16/2017 7:30:36 AM Arterial Blood pH (Temp corrected) 7.363 Arterial Blood pCO2 (Temp correct) 36.9 Arterial Blood pO2 (Temp corrected) 76.3 L Arterial Blood HCO3 20.5 L Arterial Blood Base Excess -4.4 L Arterial Blood Oxygen Saturation 94.5 L Austin Test N/A Arterial Blood Gas Puncture Site A-Line Arterial Blood Carboxyhemoglobin 0.5 Arterial Blood Methemoglobin 0.8 Blood Gas A-a O2 Differential 238.7 H Oxyhemoglobin Percent 93.3 Total Hemoglobin 7.9 L Blood Gas Temperature 37.0 Blood Gas Respiration Rate 20.0 Blood Gas Actual Respiration Rate 21 Blood Gas Modality VENT - AC FiO2 50.0 Blood Gas Tidal Volume 450.0 Blood Gas Low PEEP Setting 0 Blood Gas Notified Whom JLD Blood Gas Notified Time 01/16/2017 7:45:46 AM Medications Medications Current Medications Ondansetron HCl (Zofran Inj) 4 mg Q6H PRN IV NAUSEA AND/OR VOMITING Last administered on 01/02/17 01:44; Admin Dose 4 MG; Start 01/02/17 at 00:00 Acetaminophen (Tylenol Liquid) 650 mg Q6H PRN PO PAIN LEVEL 1-3 OR FEVER Last administered on 01/13/17 02:05; Admin Dose 650 MG; Start 01/02/17 at 00:00 Acetaminophen (Tylenol Supp) 650 mg Q4H PRN [place] PAIN LEVEL 1-3 OR FEVER; Start 01/02/17 at 00:00 Miscellaneous Information This patient morley... PRN PRN XX WOUND CARE; Start at 06:00 Fluconazole/ Sodium Chloride (Diflucan 100 Mg/ NS (Pmx)) 50 ml @ 50 mls/hr Q24H IVPB Last administered on 01/16/17 10:04; Admin Dose 50 MLS/HR; Start at 13:00 Non-Formulary Medication 1 ea 1 ea DAILY PO Last administered on 01/16/17 08: 38; Admin Dose 1 EA; Start 01/05/17 at 09:00 Trimethoprim/ Sulfamethoxazole 20 ml/Dextrose 520 ml @ 350 mls/hr Q8 IVPB Last administered on 01/16/17 05:50; Admin Dose 350 MLS/HR; Start 01/05/17 at 14:00 Piperacillin Sod/ Tazobactam Sod (Zosyn 3.375gm/ 100 ml (Pmx)) 100 ml @ 200 mls /hr Q8 IVPB Last administered on 01/16/17 05:14; Admin Dose 200 MLS/HR; Start 01/05/17 at 14:00 Azithromycin (Zithromax) 1,200 mg Q7D PO Last administered on 01/12/17 13:00 ; Admin Dose 1,200 MG; Start 01/05/17 at 13:00 Acyclovir (Zovirax) 400 mg BID PO Last administered on 01/16/17 08:38; Admin Dose 400 MG; Start 01/05/17 at 21:00 Methylprednisolone Sodium Succinate (Solu-Medrol) 40 mg Q6 IV Last administered on 01/16/17 05:14; Admin Dose 40 MG; Start 01/06/17 at 12:00 Diagnostic Test (Pha) (Accu-Chek) 1 ea 02 XX ; Start 01/07/17 at 02:00 Miscellaneous Information 1 ea NOTE XX ; Start 01/06/17 at 14:00 Glucose (Glutose) 15 gm Q15M PRN PO DECREASED GLUCOSE; Start 01/06/17 at 14:00 Glucose (Glutose) 22.5 gm Q15M PRN PO DECREASED GLUCOSE; Start 01/06/17 at 14: 00 Dextrose (D50w Syringe) 25 ml Q15M PRN IV DECREASED GLUCOSE; Start 01/06/17 at 14:00 Dextrose (D50w Syringe) 50 ml Q15M PRN IV DECREASED GLUCOSE; Start 01/06/17 at 14:00 Glucagon (Glucagen) 1 mg Q15M PRN IM DECREASED GLUCOSE; Start 01/06/17 at 14: 00 Glucose (Glutose) 15 gm Q15M PRN BUCCAL DECREASED GLUCOSE; Start 01/06/17 at 14:00 Pantoprazole 40 mg 40 mg DAILY@06 PO Last administered on 01/16/17 05:15; Admin Dose 40 MG; Start 01/08/17 at 06:00 Levofloxacin/ Dextrose (Levaquin 500mg/ D5W 100 ml (Pmx)) 100 ml @ 100 mls/hr Q24H IVPB Last administered on 01/16/17 10:59; Admin Dose 100 MLS/HR; Start 01/09/17 at 11:00 Alprazolam (Xanax) 0.25 mg Q6H PRN PO ANXIETY Last administered on 01/13/17 02:04; Admin Dose 0.25 MG; Start 01/12/17 at 08:00 Duloxetine HCl (Cymbalta) 30 mg DAILY PO Last administered on 01/16/17 08:38 ; Admin Dose 30 MG; Start 01/12/17 at 09:00 Fentanyl (Sublimaze) 25 mcg Q4 PRN IV SEDATION Last administered on 01/13/17 00:48; Admin Dose 25 MCG; Start 01/12/17 at 08:00 Fentanyl 25 mcg 25 mcg Q4H PRN IV PAIN LEVEL 6-10 Last administered on 20:33; Admin Dose 25 MCG; Start 01/12/17 at 10:00 Propofol 100 ml @ 1.835 mls/ hr Q12H IV Last administered on 01/16/17 05:14 ; Admin Dose 11.012 MLS/HR; Start 01/13/17 at 12:30 Fentanyl 100 ml @ 2.5 mls/hr TITRATE IV Last administered on 01/16/17 03:53 ; Admin Dose 8 MLS/HR; Start 01/13/17 at 15:30 Midazolam HCl (Versed) 50 ml @ 1 mls/hr TITRATE IV Last administered on 07:44; Admin Dose 7 MLS/HR; Start 01/13/17 at 16:00 Insulin Aspart NOVOLOG *MILD* ALGORITHM Q4 SC Last administered on 01/16/17 08:58; Admin Dose 4 UNIT; Start 01/13/17 at 21:00 Sodium Chloride (NS) 1,000 ml @ 100 mls/hr Q10H IV Last administered on 09:45; Admin Dose 100 MLS/HR; Start 01/16/17 at 09:30 ALBERT NGUYỄN Jan 16, 2017 11:10
--- NOTE | 2017-01-16 11:58 | CONS ---
Date/Time of Note Date/Time of Note DATE: 01/16/17 TIME: 11:56 Consult Date/Type/Reason Admit Date/Time Jan 01, 2017 at 21:48 Initial Consult Date 01/02/17 Type of Consultation: ID Objective Vital Signs Date Time Temp Pulse Resp B/P Pulse Ox O2 Delivery O2 Flow Rate FiO2 01/16/17 11:15 82 20 129/48 91 Mechanical Ventilator 01/16/17 08:00 35 01/16/17 07:30 98.0 01/13/17 07:00 4.0 Intake and Output 01/15/17 01/15/17 01/16/17 14:59 22:59 06:59 Intake Total 1135.062 ml 573.72 ml 1899.00 ml Output Total 540 ml 425 ml 480 ml Balance 595.062 ml 148.72 ml 1419.00 ml Results/Medications Result Diagram: 01/16/17 0340 01/16/17 0340 Results 24 hrs Laboratory Tests Test 01/15/17 17:28 01/15/17 20:39 01/16/17 01:05 01/16/17 03:40 Bedside Glucose 224 H 135 205 White Blood Count 20.1 H Red Blood Count 3.11 L Hemoglobin 7.7 L Hematocrit 24.3 L Mean Corpuscular Volume 78.1 L Mean Corpuscular Hemoglobin 24.8 L Mean Corpuscular Hemoglobin Concent 31.7 L Red Cell Distribution Width 24.6 H Platelet Count 234 Mean Platelet Volume 9.0 Neutrophils % 95.8 H Lymphocytes % 0.9 L Monocytes % 2.3 Eosinophils % 0.0 Basophils % 0.1 Nucleated Red Blood Cells % 0.1 H Neutrophils # 19.2 H Lymphocytes # 0.2 L Monocytes # 0.5 Eosinophils # 0.0 Basophils # 0.0 Nucleated Red Blood Cells # 0.0 Sodium Level 129 L Potassium Level 5.2 H Chloride Level 98 Carbon Dioxide Level 23 Anion Gap 13 Blood Urea Nitrogen 35 H Creatinine 1.01 Glucose Level 161 Calcium Level 8.3 L Phosphorus Level 4.1 Magnesium Level 2.3 Test 01/16/17 05:13 01/16/17 07:00 01/16/17 08:54 Bedside Glucose 170 273 H Blood Gas Specimen Source Blood arterial Arterial Blood Date Drawn 01/16/2017 7:30:36 AM Arterial Blood pH (Temp corrected) 7.363 Arterial Blood pCO2 (Temp correct) 36.9 Arterial Blood pO2 (Temp corrected) 76.3 L Arterial Blood HCO3 20.5 L Arterial Blood Base Excess -4.4 L Arterial Blood Oxygen Saturation 94.5 L Austin Test N/A Arterial Blood Gas Puncture Site A-Line Arterial Blood Carboxyhemoglobin 0.5 Arterial Blood Methemoglobin 0.8 Blood Gas A-a O2 Differential 238.7 H Oxyhemoglobin Percent 93.3 Total Hemoglobin 7.9 L Blood Gas Temperature 37.0 Blood Gas Respiration Rate 20.0 Blood Gas Actual Respiration Rate 21 Blood Gas Modality VENT - AC FiO2 50.0 Blood Gas Tidal Volume 450.0 Blood Gas Low PEEP Setting 0 Blood Gas Notified Whom JLD Blood Gas Notified Time 01/16/2017 7:45:46 AM Medications Current Medications Ondansetron HCl (Zofran Inj) 4 mg Q6H PRN IV NAUSEA AND/OR VOMITING Last administered on 01/02/17 01:44; Admin Dose 4 MG; Start 01/02/17 at 00:00 Acetaminophen (Tylenol Liquid) 650 mg Q6H PRN PO PAIN LEVEL 1-3 OR FEVER Last administered on 01/13/17 02:05; Admin Dose 650 MG; Start 01/02/17 at 00:00 Acetaminophen (Tylenol Supp) 650 mg Q4H PRN [place] PAIN LEVEL 1-3 OR FEVER; Start 01/02/17 at 00:00 Miscellaneous Information This patient morley... PRN PRN XX WOUND CARE; Start at 06:00 Fluconazole/ Sodium Chloride (Diflucan 100 Mg/ NS (Pmx)) 50 ml @ 50 mls/hr Q24H IVPB Last administered on 01/16/17 10:04; Admin Dose 50 MLS/HR; Start at 13:00 Non-Formulary Medication 1 ea 1 ea DAILY PO Last administered on 01/16/17 08: 38; Admin Dose 1 EA; Start 01/05/17 at 09:00 Trimethoprim/ Sulfamethoxazole 20 ml/Dextrose 520 ml @ 350 mls/hr Q8 IVPB Last administered on 01/16/17 05:50; Admin Dose 350 MLS/HR; Start 01/05/17 at 14:00 Piperacillin Sod/ Tazobactam Sod (Zosyn 3.375gm/ 100 ml (Pmx)) 100 ml @ 200 mls /hr Q8 IVPB Last administered on 01/16/17 05:14; Admin Dose 200 MLS/HR; Start 01/05/17 at 14:00 Azithromycin (Zithromax) 1,200 mg Q7D PO Last administered on 01/12/17 13:00 ; Admin Dose 1,200 MG; Start 01/05/17 at 13:00 Acyclovir (Zovirax) 400 mg BID PO Last administered on 01/16/17 08:38; Admin Dose 400 MG; Start 01/05/17 at 21:00 Methylprednisolone Sodium Succinate (Solu-Medrol) 40 mg Q6 IV Last administered on 01/16/17 05:14; Admin Dose 40 MG; Start 01/06/17 at 12:00 Diagnostic Test (Pha) (Accu-Chek) 1 ea 02 XX ; Start 01/07/17 at 02:00 Miscellaneous Information 1 ea NOTE XX ; Start 01/06/17 at 14:00 Glucose (Glutose) 15 gm Q15M PRN PO DECREASED GLUCOSE; Start 01/06/17 at 14:00 Glucose (Glutose) 22.5 gm Q15M PRN PO DECREASED GLUCOSE; Start 01/06/17 at 14: 00 Dextrose (D50w Syringe) 25 ml Q15M PRN IV DECREASED GLUCOSE; Start 01/06/17 at 14:00 Dextrose (D50w Syringe) 50 ml Q15M PRN IV DECREASED GLUCOSE; Start 01/06/17 at 14:00 Glucagon (Glucagen) 1 mg Q15M PRN IM DECREASED GLUCOSE; Start 01/06/17 at 14: 00 Glucose (Glutose) 15 gm Q15M PRN BUCCAL DECREASED GLUCOSE; Start 01/06/17 at 14:00 Pantoprazole 40 mg 40 mg DAILY@06 PO Last administered on 01/16/17 05:15; Admin Dose 40 MG; Start 01/08/17 at 06:00 Levofloxacin/ Dextrose (Levaquin 500mg/ D5W 100 ml (Pmx)) 100 ml @ 100 mls/hr Q24H IVPB Last administered on 01/16/17 10:59; Admin Dose 100 MLS/HR; Start 01/09/17 at 11:00 Alprazolam (Xanax) 0.25 mg Q6H PRN PO ANXIETY Last administered on 01/13/17 02:04; Admin Dose 0.25 MG; Start 01/12/17 at 08:00 Duloxetine HCl (Cymbalta) 30 mg DAILY PO Last administered on 01/16/17 08:38 ; Admin Dose 30 MG; Start 01/12/17 at 09:00 Fentanyl (Sublimaze) 25 mcg Q4 PRN IV SEDATION Last administered on 01/13/17 00:48; Admin Dose 25 MCG; Start 01/12/17 at 08:00 Fentanyl 25 mcg 25 mcg Q4H PRN IV PAIN LEVEL 6-10 Last administered on 20:33; Admin Dose 25 MCG; Start 01/12/17 at 10:00 Propofol 100 ml @ 1.835 mls/ hr Q12H IV Last administered on 01/16/17 05:14 ; Admin Dose 11.012 MLS/HR; Start 01/13/17 at 12:30 Fentanyl 100 ml @ 2.5 mls/hr TITRATE IV Last administered on 01/16/17 03:53 ; Admin Dose 8 MLS/HR; Start 01/13/17 at 15:30 Midazolam HCl (Versed) 50 ml @ 1 mls/hr TITRATE IV Last administered on 07:44; Admin Dose 7 MLS/HR; Start 01/13/17 at 16:00 Insulin Aspart NOVOLOG *MILD* ALGORITHM Q4 SC Last administered on 01/16/17 08:58; Admin Dose 4 UNIT; Start 01/13/17 at 21:00 Sodium Chloride (NS) 1,000 ml @ 100 mls/hr Q10H IV Last administered on 09:45; Admin Dose 100 MLS/HR; Start 01/16/17 at 09:30 Assessment/Plan Chief Complaint/Hosp Course SUBJECTIVE: No acute changes. The patient remains intubated and sedated, in no distress. He has 2 chest tubes, right chest triple lumen catheter, left radial A-line, Bailey catheter. ANTIMICROBIALS: The patient remains on: 1. Levaquin. 2. Zosyn. 3. IV Bactrim. 4. Acyclovir. 5. Zithromax 1200 mg weekly. 6. Fluconazole. Chest x-ray this morning revealed no change PHYSICAL EXAMINATION: GENERAL: Well-developed, cachectic, middle-aged -[place] man in no distress. HEENT: Head atraumatic, normocephalic. Sclerae anicteric. Buccal mucosa dry. NECK: Supple. CHEST: Rise symmetrical. Breath sounds diminished to bases. HEART: S1, S2. ABDOMEN: Soft. Bowel sounds present. EXTREMITIES: Without cyanosis. Right lower extremity edematous with dressing intact. ASSESSMENT: 1. Acute hypoxemic respiratory failure with significant pneumatoceles noted on CT, patient remains on treatment for PCP per pulmonary rec-s. 2. Bilateral pneumothorax status post video-assisted thoracic surgery with pathology revealing sarcoma. 3. 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 4. Acquired immunodeficiency syndrome, antiretroviral medications and prophylactic medications. 5. Anemia. PLAN: The patient remains hemodynamically stable, clinically unchanged. He is on appropriate antibiotics. He is on steroids. He is on antiretroviral therapy. Prognosis guarded given new pathology report for malignancy, palliative care on case, ongoing discussions with family members in process. [facility] staff Problems: ANDREY ENCINAS NP Jan 16, 2017 11:58
--- NOTE | 2017-01-16 12:22 | PN ---
Date/Time of Note Date/Time of Note DATE: 01/16/17 TIME: 12:16 Assessment/Plan VTE Prophylaxis VTE Prophylaxis Intervention: SCD's Assessment/Plan Chief Complaint/Hosp Course Assessment: Severe anemia/stable Respiratory failure * Due to PTX, s/p bilateral chest tube in place Right video-assisted thoracic surgery, Right pulmonary decortication, Right lung wedge resection 01/13 HIV Kaposi's sarcoma with right lower extremity Sepsis Plan: Pathology consistent with sarcoma No change to code status Hemodynamically stable, clinically unchanged Will continue to monitor change in GI status Patient seen in collaboration with Dr. Padron Subjective: Course reviewed with nursing staff Patient interviewed and examined All labs, imaging and other results reviewed Pt intubated and sedated- no significant change with results of pathology prognosis is poor No changes to code status as of yet, family to meet and discuss intermediate frame tender plan of care Problems: Exam/Review of Systems Vital Signs Vitals Vital Signs Date Time Temp Pulse Resp B/P Pulse Ox O2 Delivery O2 Flow Rate FiO2 01/16/17 11:15 82 20 129/48 91 Mechanical Ventilator 01/16/17 08:00 35 01/16/17 07:30 98.0 01/13/17 07:00 4.0 Intake and Output 01/15/17 01/15/17 01/16/17 15:00 23:00 07:00 Intake Total 684.052 ml 735.52 ml 1699.048 ml Output Total 540 ml 455 ml 460 ml Balance 144.052 ml 280.52 ml 1239.048 ml Exam ENMT: intubated Respiratory: crackles/rales Cardiovascular: regular rate and rhythm Gastrointestinal: bowel sounds, soft, surgical scars, No distended, No firm, No hepatomegaly, No mass, No rebound or guarding, No splenomegaly, No tender Results Result Diagram: 01/16/17 0340 01/16/17 0340 Results 24 hrs Laboratory Tests Test 01/15/17 17:28 01/15/17 20:39 01/16/17 01:05 01/16/17 03:40 Bedside Glucose 224 H 135 205 White Blood Count 20.1 H Red Blood Count 3.11 L Hemoglobin 7.7 L Hematocrit 24.3 L Mean Corpuscular Volume 78.1 L Mean Corpuscular Hemoglobin 24.8 L Mean Corpuscular Hemoglobin Concent 31.7 L Red Cell Distribution Width 24.6 H Platelet Count 234 Mean Platelet Volume 9.0 Neutrophils % 95.8 H Lymphocytes % 0.9 L Monocytes % 2.3 Eosinophils % 0.0 Basophils % 0.1 Nucleated Red Blood Cells % 0.1 H Neutrophils # 19.2 H Lymphocytes # 0.2 L Monocytes # 0.5 Eosinophils # 0.0 Basophils # 0.0 Nucleated Red Blood Cells # 0.0 Sodium Level 129 L Potassium Level 5.2 H Chloride Level 98 Carbon Dioxide Level 23 Anion Gap 13 Blood Urea Nitrogen 35 H Creatinine 1.01 Glucose Level 161 Calcium Level 8.3 L Phosphorus Level 4.1 Magnesium Level 2.3 Test 01/16/17 05:13 01/16/17 07:00 01/16/17 08:54 Bedside Glucose 170 273 H Blood Gas Specimen Source Blood arterial Arterial Blood Date Drawn 01/16/2017 7:30:36 AM Arterial Blood pH (Temp corrected) 7.363 Arterial Blood pCO2 (Temp correct) 36.9 Arterial Blood pO2 (Temp corrected) 76.3 L Arterial Blood HCO3 20.5 L Arterial Blood Base Excess -4.4 L Arterial Blood Oxygen Saturation 94.5 L Austin Test N/A Arterial Blood Gas Puncture Site A-Line Arterial Blood Carboxyhemoglobin 0.5 Arterial Blood Methemoglobin 0.8 Blood Gas A-a O2 Differential 238.7 H Oxyhemoglobin Percent 93.3 Total Hemoglobin 7.9 L Blood Gas Temperature 37.0 Blood Gas Respiration Rate 20.0 Blood Gas Actual Respiration Rate 21 Blood Gas Modality VENT - AC FiO2 50.0 Blood Gas Tidal Volume 450.0 Blood Gas Low PEEP Setting 0 Blood Gas Notified Whom JLD Blood Gas Notified Time 01/16/2017 7:45:46 AM Medications Medications Current Medications Ondansetron HCl (Zofran Inj) 4 mg Q6H PRN IV NAUSEA AND/OR VOMITING Last administered on 01/02/17 01:44; Admin Dose 4 MG; Start 01/02/17 at 00:00 Acetaminophen (Tylenol Liquid) 650 mg Q6H PRN PO PAIN LEVEL 1-3 OR FEVER Last administered on 01/13/17 02:05; Admin Dose 650 MG; Start 01/02/17 at 00:00 Acetaminophen (Tylenol Supp) 650 mg Q4H PRN [place] PAIN LEVEL 1-3 OR FEVER; Start 01/02/17 at 00:00 Miscellaneous Information This patient morley... PRN PRN XX WOUND CARE; Start at 06:00 Fluconazole/ Sodium Chloride (Diflucan 100 Mg/ NS (Pmx)) 50 ml @ 50 mls/hr Q24H IVPB Last administered on 01/16/17 10:04; Admin Dose 50 MLS/HR; Start at 13:00 Non-Formulary Medication 1 ea 1 ea DAILY PO Last administered on 01/16/17 08: 38; Admin Dose 1 EA; Start 01/05/17 at 09:00 Trimethoprim/ Sulfamethoxazole 20 ml/Dextrose 520 ml @ 350 mls/hr Q8 IVPB Last administered on 01/16/17 05:50; Admin Dose 350 MLS/HR; Start 01/05/17 at 14:00 Piperacillin Sod/ Tazobactam Sod (Zosyn 3.375gm/ 100 ml (Pmx)) 100 ml @ 200 mls /hr Q8 IVPB Last administered on 01/16/17 05:14; Admin Dose 200 MLS/HR; Start 01/05/17 at 14:00 Azithromycin (Zithromax) 1,200 mg Q7D PO Last administered on 01/12/17 13:00 ; Admin Dose 1,200 MG; Start 01/05/17 at 13:00 Acyclovir (Zovirax) 400 mg BID PO Last administered on 01/16/17 08:38; Admin Dose 400 MG; Start 01/05/17 at 21:00 Methylprednisolone Sodium Succinate (Solu-Medrol) 40 mg Q6 IV Last administered on 01/16/17 05:14; Admin Dose 40 MG; Start 01/06/17 at 12:00 Diagnostic Test (Pha) (Accu-Chek) 1 ea 02 XX ; Start 01/07/17 at 02:00 Miscellaneous Information 1 ea NOTE XX ; Start 01/06/17 at 14:00 Glucose (Glutose) 15 gm Q15M PRN PO DECREASED GLUCOSE; Start 01/06/17 at 14:00 Glucose (Glutose) 22.5 gm Q15M PRN PO DECREASED GLUCOSE; Start 01/06/17 at 14: 00 Dextrose (D50w Syringe) 25 ml Q15M PRN IV DECREASED GLUCOSE; Start 01/06/17 at 14:00 Dextrose (D50w Syringe) 50 ml Q15M PRN IV DECREASED GLUCOSE; Start 01/06/17 at 14:00 Glucagon (Glucagen) 1 mg Q15M PRN IM DECREASED GLUCOSE; Start 01/06/17 at 14: 00 Glucose (Glutose) 15 gm Q15M PRN BUCCAL DECREASED GLUCOSE; Start 01/06/17 at 14:00 Pantoprazole 40 mg 40 mg DAILY@06 PO Last administered on 01/16/17 05:15; Admin Dose 40 MG; Start 01/08/17 at 06:00 Levofloxacin/ Dextrose (Levaquin 500mg/ D5W 100 ml (Pmx)) 100 ml @ 100 mls/hr Q24H IVPB Last administered on 01/16/17 10:59; Admin Dose 100 MLS/HR; Start 01/09/17 at 11:00 Alprazolam (Xanax) 0.25 mg Q6H PRN PO ANXIETY Last administered on 01/13/17 02:04; Admin Dose 0.25 MG; Start 01/12/17 at 08:00 Duloxetine HCl (Cymbalta) 30 mg DAILY PO Last administered on 01/16/17 08:38 ; Admin Dose 30 MG; Start 01/12/17 at 09:00 Fentanyl (Sublimaze) 25 mcg Q4 PRN IV SEDATION Last administered on 01/13/17 00:48; Admin Dose 25 MCG; Start 01/12/17 at 08:00 Fentanyl 25 mcg 25 mcg Q4H PRN [place] PAIN LEVEL 6-10 Last administered on 20:33; Admin Dose 25 MCG; Start 01/12/17 at 10:00 Propofol 100 ml @ 1.835 mls/ hr Q12H IV Last administered on 01/16/17 05:14 ; Admin Dose 11.012 MLS/HR; Start 01/13/17 at 12:30 Fentanyl 100 ml @ 2.5 mls/hr TITRATE IV Last administered on 01/16/17 03:53 ; Admin Dose 8 MLS/HR; Start 01/13/17 at 15:30 Midazolam HCl (Versed) 50 ml @ 1 mls/hr TITRATE IV Last administered on 07:44; Admin Dose 7 MLS/HR; Start 01/13/17 at 16:00 Insulin Aspart NOVOLOG *MILD* ALGORITHM Q4 SC Last administered on 01/16/17 08:58; Admin Dose 4 UNIT; Start 01/13/17 at 21:00 Sodium Chloride (NS) 1,000 ml @ 100 mls/hr Q10H IV Last administered on 09:45; Admin Dose 100 MLS/HR; Start 01/16/17 at 09:30 JORDAN HAHN Jan 16, 2017 12:22
--- NOTE | 2017-01-16 14:21 | PN ---
Date/Time of Note Date/Time of Note DATE: 01/16/17 TIME: 14:21 Assessment/Plan Assessment/Plan Chief Complaint/Hosp Course Bilateral PTX with air leaks SP BL CT placement SP VATS if PTX 5 % PTX Pt with malignancy on path will cont supp care poor prognosis discussed with Dr Willard discussed with the mother, sister and the Pt Problems: Subjective 24 Hr Interval Summary Constitutional: improved Pain Control: mild Exam/Review of Systems Vital Signs Vitals Vital Signs Date Time Temp Pulse Resp B/P Pulse Ox O2 Delivery O2 Flow Rate FiO2 01/16/17 14:00 91 21 152/55 100 Mechanical Ventilator 01/16/17 13:00 50 01/16/17 12:00 98.5 01/13/17 07:00 4.0 Intake and Output 01/15/17 01/15/17 01/16/17 15:00 23:00 07:00 Intake Total 684.052 ml 735.52 ml 1699.048 ml Output Total 540 ml 455 ml 460 ml Balance 144.052 ml 280.52 ml 1239.048 ml Exam ENMT: mucosa pink and moist, nl external ears & nose, nl lips & teeth, nl nasal mucosa & septum Neck: non-tender, supple Respiratory: clear to auscultation, normal air movement Cardiovascular: nl pulses, regular rate and rhythm Gastrointestinal: nl liver, spleen, non-tender, soft Results Result Diagram: 01/16/17 0340 01/16/17339 JANIE BASILIO MD Jan 16, 2017 14:21
[2017-01-16] MEDS ORDERED: SOD CHLORIDE 0.9% 500 ML IV ONE (21:30)
[2017-01-17] VITALS (71 sets, daily range): BP systolic 95–166; BP diastolic 43–67; PULSE 77–122; RESP 14–39
[2017-01-17] MEDS: METHYLPREDNISOLONE 40 MG INJ IV SCH ×5 (01:12→23:59)
[2017-01-17] MEDS: INSULIN ASPART [NOVOLOG] 3 ML PEN SC SCH ×6 (01:19→20:45)
[2017-01-17] MEDS: FENTAnyl (DRIP) 1000 mcg/100mL 100 ML IV SCH ×3 (01:25→20:41)
[2017-01-17] MEDS: ACCU-CHEK XX SCH (02:00)
[2017-01-17] MEDS: SOD CHLORIDE 0.9% 1,000 ML IV SCH ×3 (02:47→20:07)
[2017-01-17] MEDS: PROPOFOL 100 ML IV SCH ×5 (03:51→21:44)
[2017-01-17] MEDS: MIDAZOLAM (DRIP) 50 mg/50 mL 50 ML IV SCH ×4 (03:52→20:41)
[2017-01-17 04:50] LABS: ABNORMAL IP MESSAGE 1; BASOPHILS % 0.1 % (0.0-2.0); HEMATOCRIT 23.5 % (42.0-52.0); HEMOGLOBIN 7.6 g/dl (14.0-18.0); LYMPHOCYTES # 0.2 10^3/ul (0.8-2.9); LYMPHOCYTES % 1.1 % (15.0-51.0); MEAN CORPUSCULAR HEMOGLOBIN 25.8 pg (29.0-33.0); MEAN CORPUSCULAR HGB CONC 32.3 g/dl (32.0-37.0); MEAN CORPUSCULAR VOLUME 79.7 fl (82.0-101.0); MEAN PLATELET VOLUME 8.7 fl (7.4-10.4); MONOCYTE # 0.6 10^3/ul (0.3-0.9); MONOCYTES % 2.7 % (0.0-11.0); NEUTROPHIL # 19.6 10^3/ul (1.6-7.5); NUCLEATED RED BLOOD CELLS% 0.1 /100WBC (0.0-0.0); PLATELET COUNT 194 10^3/UL (140-415); POSITIVE DIFF @See below; RED BLOOD COUNT 2.95 10^6/ul (4.70-6.10); RED CELL DISTRIBUTION WIDTH 25.2 % (11.5-14.5); WHITE BLOOD COUNT 20.7 10^3/ul (4.8-10.8)
[2017-01-17 05:01] LABS: NEUTROPHILS % 94.7 % (39.0-77.0)
[2017-01-17 05:09] LABS: CALCIUM 8.2 mg/dl (8.4-10.2); CREATININE 0.82 mg/dl (0.61-1.24)
[2017-01-17] MEDS: PANTOPRAZOLE (EC) 40 MG TAB PO SCH (05:47)
[2017-01-17] MEDS: PIPER-TAZO 3.375 GM IV (PMX) 100 ML IVPB SCH ×3 (05:47→21:39)
[2017-01-17] MEDS: METOCLOPRAMIDE 10 MG INJ IV SCH ×4 (05:48→23:59)
[2017-01-17 06:00] LABS: AADO2 Arterial 242.7 mmHg (7.0-24.0); Arterial Base Excess -2.4 mmol/L (-3.0-3); Arterial COHb 0.5 % (0.0-3.0); Arterial Fraction of Oxyhgb 92.6 % (93.0-99.0); Arterial HCO3 22.2 mmol/L (22.0-26.0); Arterial MetHb 0.7 % (0.0-1.5); Blood Gas Low PEEP Setting 0 cmH2O; MODE VENT - AC
[2017-01-17] MEDS: ALBUTEROL 18 GM INHALER INH SCH ×3 (07:31→21:14)
[2017-01-17] MEDS: TRIMETHOPRIM/SULFAMETHOXAZOLE 20 ML in DEXTROSE 5% 500 ML IVPB SCH ×3 (07:34→21:39)
--- NOTE | 2017-01-17 08:17 | CONS ---
Date/Time of Note Date/Time of Note DATE: 01/17/17 TIME: 08:14 Assessment/Plan Assessment/Plan Additional Assessment/Plan Ventilator setting; AC of 20, tidal volume 450, PEEP of 0, 50% FiO2. Assessment and recommendations; 1. Patient admitted with bilateral pneumothoraces status post bilateral chest tube placement. 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 2. History of Kaposi's sarcoma. 3. HIV positive. 4. Persistent hypoxemia. 5. Possibly superimposed pneumonia. However the clinical findings are consistent with significant lymphangitic intrapulmonary spread of angiosarcoma. 6. Persistent air leak in the right Pleurx chamber due to pneumothorax. Continue current supportive care. Prognosis is extremely poor. Palliative care should be strongly considered. Consultation Date/Type/Reason Admit Date/Time Jan 01, 2017 at 21:48 Initial Consult Date 01/02/17 Type of Consultation: Pulmonary/critical care 24 HR Interval Summary Free Text/Dictation Patient's condition remains critical. Patient however is completely awake. Has remained hemodynamically stable. General exam; middle-aged male, orally intubated, awake, currently in no distress. Exam/Review of Systems Vital Signs Vitals Vital Signs Date Time Temp Pulse Resp B/P Pulse Ox O2 Delivery O2 Flow Rate FiO2 01/17/17 07:30 105 23 146/53 100 01/17/17 06:30 Mechanical Ventilator 01/17/17 06:14 50 01/17/17 00:00 98.5 01/13/17 07:00 4.0 Intake and Output 01/16/17 01/16/17 01/17/17 15:00 23:00 07:00 Intake Total 2319.457 ml 1710.845 ml 1161.478 ml Output Total 790 ml 225 ml 800 ml Balance 1529.457 ml 1485.845 ml 361.478 ml Exam HEENT exam; supple neck, no JVD. No lymphadenopathy. Midline trachea. No thyromegaly. Orally intubated. Patient has fair dentition. Pupils are small bilaterally. Chest exam; diminished breath sounds bilaterally. S1-S2 audible, no murmurs. Regular rhythm. Bilateral chest tubes are in place. There is persistent air leak in the right Pleur-evac chamber. Abdomen exam; soft, nondistended. No organomegaly. Bowel sounds audible. Extremity exam; there is chronic edema involving right lower extremity. 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 Results Result Diagram: 01/17/17 0430 01/17/17 0430 Results 24 hrs Laboratory Tests Test 01/16/17 08:54 01/16/17 12:38 01/16/17 17:49 01/16/17 21:27 Bedside Glucose 273 H 198 190 160 Test 01/17/17 01:17 01/17/17 04:30 01/17/17 05:00 01/17/17 05:49 Bedside Glucose 205 197 White Blood Count 20.7 H Red Blood Count 2.95 L Hemoglobin 7.6 L Hematocrit 23.5 L Mean Corpuscular Volume 79.7 L Mean Corpuscular Hemoglobin 25.8 L Mean Corpuscular Hemoglobin Concent 32.3 Red Cell Distribution Width 25.2 H Platelet Count 194 Mean Platelet Volume 8.7 Neutrophils % 94.7 H Lymphocytes % 1.1 L Monocytes % 2.7 Eosinophils % 0.0 Basophils % 0.1 Nucleated Red Blood Cells % 0.1 H Neutrophils # 19.6 H Lymphocytes # 0.2 L Monocytes # 0.6 Eosinophils # 0.0 Basophils # 0.0 Nucleated Red Blood Cells # 0.0 Sodium Level 129 L Potassium Level 5.0 Chloride Level 101 Carbon Dioxide Level 24 Anion Gap 9 Blood Urea Nitrogen 28 H Creatinine 0.82 Glucose Level 172 Calcium Level 8.2 L Blood Gas Specimen Source Blood arterial Arterial Blood Date Drawn 01/17/2017 5:50:04 AM Arterial Blood pH (Temp corrected) 7.399 Arterial Blood pCO2 (Temp correct) 36.7 Arterial Blood pO2 (Temp corrected) 72.5 L Arterial Blood HCO3 22.2 Arterial Blood Base Excess -2.4 Arterial Blood Oxygen Saturation 93.7 L Austin Test N/A Arterial Blood Gas Puncture Site A-Line Arterial Blood Carboxyhemoglobin 0.5 Arterial Blood Methemoglobin 0.7 Blood Gas A-a O2 Differential 242.7 H Oxyhemoglobin Percent 92.6 L Total Hemoglobin 8.0 L Blood Gas Temperature 37.0 Blood Gas Respiration Rate 20.0 Blood Gas Actual Respiration Rate 22 Blood Gas Modality VENT - AC FiO2 50.0 Blood Gas Tidal Volume 450.0 Blood Gas Low PEEP Setting 0 Blood Gas Notified Mcihell DIAS RCP Blood Gas Notified Time 01/17/2017 6:00:44 AM Medications Medications Current Medications Ondansetron HCl (Zofran Inj) 4 mg Q6H PRN IV NAUSEA AND/OR VOMITING Last administered on 01/02/17 01:44; Admin Dose 4 MG; Start 01/02/17 at 00:00 Acetaminophen (Tylenol Liquid) 650 mg Q6H PRN PO PAIN LEVEL 1-3 OR FEVER Last administered on 01/13/17 02:05; Admin Dose 650 MG; Start 01/02/17 at 00:00 Acetaminophen (Tylenol Supp) 650 mg Q4H PRN [place] PAIN LEVEL 1-3 OR FEVER; Start 01/02/17 at 00:00 Miscellaneous Information This patient morley... PRN PRN XX WOUND CARE; Start at 06:00 Fluconazole/ Sodium Chloride (Diflucan 100 Mg/ NS (Pmx)) 50 ml @ 50 mls/hr Q24H IVPB Last administered on 01/16/17 10:04; Admin Dose 50 MLS/HR; Start at 13:00 Non-Formulary Medication 1 ea 1 ea DAILY PO Last administered on 01/16/17 08: 38; Admin Dose 1 EA; Start 01/05/17 at 09:00 Trimethoprim/ Sulfamethoxazole 20 ml/Dextrose 520 ml @ 350 mls/hr Q8 IVPB Last administered on 01/17/17 07:34; Admin Dose 350 MLS/HR; Start 01/05/17 at 14:00 Piperacillin Sod/ Tazobactam Sod (Zosyn 3.375gm/ 100 ml (Pmx)) 100 ml @ 200 mls /hr Q8 IVPB Last administered on 01/17/17 05:47; Admin Dose 200 MLS/HR; Start 01/05/17 at 14:00 Azithromycin (Zithromax) 1,200 mg Q7D PO Last administered on 01/12/17 13:00 ; Admin Dose 1,200 MG; Start 01/05/17 at 13:00 Acyclovir (Zovirax) 400 mg BID PO Last administered on 01/16/17 21:31; Admin Dose 400 MG; Start 01/05/17 at 21:00 Methylprednisolone Sodium Succinate (Solu-Medrol) 40 mg Q6 IV Last administered on 01/17/17 05:48; Admin Dose 40 MG; Start 01/06/17 at 12:00 Diagnostic Test (Pha) (Accu-Chek) 1 ea 02 XX ; Start 01/07/17 at 02:00 Miscellaneous Information 1 ea NOTE XX ; Start 01/06/17 at 14:00 Glucose (Glutose) 15 gm Q15M PRN PO DECREASED GLUCOSE; Start 01/06/17 at 14:00 Glucose (Glutose) 22.5 gm Q15M PRN PO DECREASED GLUCOSE; Start 01/06/17 at 14: 00 Dextrose (D50w Syringe) 25 ml Q15M PRN IV DECREASED GLUCOSE; Start 01/06/17 at 14:00 Dextrose (D50w Syringe) 50 ml Q15M PRN IV DECREASED GLUCOSE; Start 01/06/17 at 14:00 Glucagon (Glucagen) 1 mg Q15M PRN IM DECREASED GLUCOSE; Start 01/06/17 at 14: 00 Glucose (Glutose) 15 gm Q15M PRN BUCCAL DECREASED GLUCOSE; Start 01/06/17 at 14:00 Pantoprazole 40 mg 40 mg DAILY@06 PO Last administered on 01/17/17 05:47; Admin Dose 40 MG; Start 01/08/17 at 06:00 Levofloxacin/ Dextrose (Levaquin 500mg/ D5W 100 ml (Pmx)) 100 ml @ 100 mls/hr Q24H IVPB Last administered on 01/16/17 10:59; Admin Dose 100 MLS/HR; Start 01/09/17 at 11:00 Alprazolam (Xanax) 0.25 mg Q6H PRN PO ANXIETY Last administered on 01/13/17 02:04; Admin Dose 0.25 MG; Start 01/12/17 at 08:00 Duloxetine HCl (Cymbalta) 30 mg DAILY PO Last administered on 01/16/17 08:38 ; Admin Dose 30 MG; Start 01/12/17 at 09:00 Fentanyl (Sublimaze) 25 mcg Q4 PRN IV SEDATION Last administered on 01/13/17 00:48; Admin Dose 25 MCG; Start 01/12/17 at 08:00 Fentanyl 25 mcg 25 mcg Q4H PRN IV PAIN LEVEL 6-10 Last administered on 20:33; Admin Dose 25 MCG; Start 01/12/17 at 10:00 Propofol 100 ml @ 1.835 mls/ hr Q12H IV Last administered on 01/17/17 03:51 ; Admin Dose 18.354 MLS/HR; Start 01/13/17 at 12:30 Fentanyl 100 ml @ 2.5 mls/hr TITRATE IV Last administered on 01/17/17 01:25 ; Admin Dose 10 MLS/HR; Start 01/13/17 at 15:30 Midazolam HCl (Versed) 50 ml @ 1 mls/hr TITRATE IV Last administered on 03:52; Admin Dose 9 MLS/HR; Start 01/13/17 at 16:00 Insulin Aspart NOVOLOG *MILD* ALGORITHM Q4 SC Last administered on 01/17/17 06:21; Admin Dose 2 UNIT; Start 01/13/17 at 21:00 Sodium Chloride (NS) 1,000 ml @ 100 mls/hr Q10H IV Last administered on 02:47; Admin Dose 100 MLS/HR; Start 01/16/17 at 09:30 Metoclopramide HCl (Reglan) 5 mg Q6 IV Last administered on 01/17/17 05:48; Admin Dose 5 MG; Start 01/17/17 at 06:00 FRANCES HATFIELD Jan 17, 2017 08:17
--- NOTE | 2017-01-17 08:31 | RADRPT ---
PROCEDURE: XR Chest. CLINICAL INDICATION: Shortness of breath. TECHNIQUE: Single frontal view. COMPARISON: 01/16/2017. FINDINGS: The endotracheal tube, nasogastric tube, implanted port and left subclavian vein catheter, right sub clavian vein catheter, and bilateral chest tubes remain in satisfactory position. 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 Right lateral skin dalton are noted. Extensive bilateral pulmonary a ir space disease is unchanged. Bilateral pulmonary nodules are faintly seen. The heart size is normal. There is no pleural effusion. There are small bilateral pneumothoraces measuring approximately 5%. IMPRESSION: 1. No change from 01/16/2017. RPTAT: QQ .Sergio Bergeron MD, MD Date Time Electronically viewed and signed by .Sergio Bergeron MD, on 01/17/2017 08:31 .R/
[2017-01-17] MEDS: DULOXETINE 30 MG CAP DR PO SCH (08:56)
[2017-01-17] MEDS: TRIUMEQ PO SCH (08:56)
[2017-01-17] MEDS: VIRACEPT PO SCH ×2 (08:56→18:14)
[2017-01-17] MEDS: ACYCLOVIR 400 MG TAB PO SCH ×2 (08:56→20:42)
--- NOTE | 2017-01-17 10:57 | PN ---
Date/Time of Note Date/Time of Note DATE: 01/17/17 TIME: 10:56 Assessment/Plan VTE Prophylaxis VTE Prophylaxis Intervention: SCD's Lines/Catheters Urinary Cath still in place: No Assessment/Plan Chief Complaint/Hosp Course 1. 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 AIDS Continue ARVs PPx with bactrim, fluc, azithro, ID following 3. Kaposi sarcoma Wound care 4. ICU delirium Monitor Prophylaxis SCDs Problems: Subjective 24 Hr Interval Summary Subjective hx not possible: pt non-verbal Exam/Review of Systems Vital Signs Vitals Vital Signs Date Time Temp Pulse Resp B/P Pulse Ox O2 Delivery O2 Flow Rate FiO2 01/17/17 08:00 50 01/17/17 07:30 105 23 146/53 100 01/17/17 06:30 Mechanical Ventilator 01/17/17 00:00 98.5 01/13/17 07:00 4.0 Intake and Output 01/16/17 01/16/17 01/17/17 15:00 23:00 07:00 Intake Total 2319.457 ml 1710.845 ml 1161.478 ml Output Total 790 ml 225 ml 800 ml Balance 1529.457 ml 1485.845 ml 361.478 ml Exam Constitutional: non-verbal Respiratory: clear to auscultation Cardiovascular: regular rate and rhythm Gastrointestinal: soft, No distended Musculoskeletal: nl extremities to inspection Results Result Diagram: 01/17/17 0430 01/17/17 0430 Results 24 hrs Laboratory Tests Test 01/16/17 12:38 01/16/17 17:49 01/16/17 21:27 01/17/17 01:17 Bedside Glucose 198 190 160 205 Test 01/17/17 04:30 01/17/17 05:00 01/17/17 05:49 01/17/17 09:05 White Blood Count 20.7 H Red Blood Count 2.95 L Hemoglobin 7.6 L Hematocrit 23.5 L Mean Corpuscular Volume 79.7 L Mean Corpuscular Hemoglobin 25.8 L Mean Corpuscular Hemoglobin Concent 32.3 Red Cell Distribution Width 25.2 H Platelet Count 194 Mean Platelet Volume 8.7 Neutrophils % 94.7 H Lymphocytes % 1.1 L Monocytes % 2.7 Eosinophils % 0.0 Basophils % 0.1 Nucleated Red Blood Cells % 0.1 H Neutrophils # 19.6 H Lymphocytes # 0.2 L Monocytes # 0.6 Eosinophils # 0.0 Basophils # 0.0 Nucleated Red Blood Cells # 0.0 Sodium Level 129 L Potassium Level 5.0 Chloride Level 101 Carbon Dioxide Level 24 Anion Gap 9 Blood Urea Nitrogen 28 H Creatinine 0.82 Glucose Level 172 Calcium Level 8.2 L Blood Gas Specimen Source Blood arterial Arterial Blood Date Drawn 01/17/2017 5:50:04 AM Arterial Blood pH (Temp corrected) 7.399 Arterial Blood pCO2 (Temp correct) 36.7 Arterial Blood pO2 (Temp corrected) 72.5 L Arterial Blood HCO3 22.2 Arterial Blood Base Excess -2.4 Arterial Blood Oxygen Saturation 93.7 L Austin Test N/A Arterial Blood Gas Puncture Site A-Line Arterial Blood Carboxyhemoglobin 0.5 Arterial Blood Methemoglobin 0.7 Blood Gas A-a O2 Differential 242.7 H Oxyhemoglobin Percent 92.6 L Total Hemoglobin 8.0 L Blood Gas Temperature 37.0 Blood Gas Respiration Rate 20.0 Blood Gas Actual Respiration Rate 22 Blood Gas Modality VENT - AC FiO2 50.0 Blood Gas Tidal Volume 450.0 Blood Gas Low PEEP Setting 0 Blood Gas Notified Whom Ramón DIAS [employer] Blood Gas Notified Time 01/17/2017 6:00:44 AM Bedside Glucose 197 260 H Medications Medications Current Medications Ondansetron HCl (Zofran Inj) 4 mg Q6H PRN IV NAUSEA AND/OR VOMITING Last administered on 01/02/17 01:44; Admin Dose 4 MG; Start 01/02/17 at 00:00 Acetaminophen (Tylenol Liquid) 650 mg Q6H PRN PO PAIN LEVEL 1-3 OR FEVER Last administered on 01/13/17 02:05; Admin Dose 650 MG; Start 01/02/17 at 00:00 Acetaminophen (Tylenol Supp) 650 mg Q4H PRN [place] PAIN LEVEL 1-3 OR FEVER; Start 01/02/17 at 00:00 Miscellaneous Information This patient morley... PRN PRN XX WOUND CARE; Start at 06:00 Fluconazole/ Sodium Chloride (Diflucan 100 Mg/ NS (Pmx)) 50 ml @ 50 mls/hr Q24H IVPB Last administered on 01/16/17 10:04; Admin Dose 50 MLS/HR; Start at 13:00 Non-Formulary Medication 1 ea 1 ea DAILY PO Last administered on 01/17/17 08: 56; Admin Dose 1 EA; Start 01/05/17 at 09:00 Trimethoprim/ Sulfamethoxazole 20 ml/Dextrose 520 ml @ 350 mls/hr Q8 IVPB Last administered on 01/17/17 07:34; Admin Dose 350 MLS/HR; Start 01/05/17 at 14:00 Piperacillin Sod/ Tazobactam Sod (Zosyn 3.375gm/ 100 ml (Pmx)) 100 ml @ 200 mls /hr Q8 IVPB Last administered on 01/17/17 05:47; Admin Dose 200 MLS/HR; Start 01/05/17 at 14:00 Azithromycin (Zithromax) 1,200 mg Q7D PO Last administered on 01/12/17 13:00 ; Admin Dose 1,200 MG; Start 01/05/17 at 13:00 Acyclovir (Zovirax) 400 mg BID PO Last administered on 01/17/17 08:56; Admin Dose 400 MG; Start 01/05/17 at 21:00 Methylprednisolone Sodium Succinate (Solu-Medrol) 40 mg Q6 IV Last administered on 01/17/17 05:48; Admin Dose 40 MG; Start 01/06/17 at 12:00 Diagnostic Test (Pha) (Accu-Chek) 1 ea 02 XX ; Start 01/07/17 at 02:00 Miscellaneous Information 1 ea NOTE XX ; Start 01/06/17 at 14:00 Glucose (Glutose) 15 gm Q15M PRN PO DECREASED GLUCOSE; Start 01/06/17 at 14:00 Glucose (Glutose) 22.5 gm Q15M PRN PO DECREASED GLUCOSE; Start 01/06/17 at 14: 00 Dextrose (D50w Syringe) 25 ml Q15M PRN IV DECREASED GLUCOSE; Start 01/06/17 at 14:00 Dextrose (D50w Syringe) 50 ml Q15M PRN IV DECREASED GLUCOSE; Start 01/06/17 at 14:00 Glucagon (Glucagen) 1 mg Q15M PRN IM DECREASED GLUCOSE; Start 01/06/17 at 14: 00 Glucose (Glutose) 15 gm Q15M PRN BUCCAL DECREASED GLUCOSE; Start 01/06/17 at 14:00 Pantoprazole 40 mg 40 mg DAILY@06 PO Last administered on 01/17/17 05:47; Admin Dose 40 MG; Start 01/08/17 at 06:00 Levofloxacin/ Dextrose (Levaquin 500mg/ D5W 100 ml (Pmx)) 100 ml @ 100 mls/hr Q24H IVPB Last administered on 01/16/17 10:59; Admin Dose 100 MLS/HR; Start 01/09/17 at 11:00 Alprazolam (Xanax) 0.25 mg Q6H PRN PO ANXIETY Last administered on 01/13/17 02:04; Admin Dose 0.25 MG; Start 01/12/17 at 08:00 Duloxetine HCl (Cymbalta) 30 mg DAILY PO Last administered on 01/17/17 08:56 ; Admin Dose 30 MG; Start 01/12/17 at 09:00 Fentanyl (Sublimaze) 25 mcg Q4 PRN IV SEDATION Last administered on 01/13/17 00:48; Admin Dose 25 MCG; Start 01/12/17 at 08:00 Fentanyl 25 mcg 25 mcg Q4H PRN IV PAIN LEVEL 6-10 Last administered on 20:33; Admin Dose 25 MCG; Start 01/12/17 at 10:00 Propofol 100 ml @ 1.835 mls/ hr Q12H IV Last administered on 01/17/17 08:37 ; Admin Dose 18.354 MLS/HR; Start 01/13/17 at 12:30 Fentanyl 100 ml @ 2.5 mls/hr TITRATE IV Last administered on 01/17/17 01:25 ; Admin Dose 10 MLS/HR; Start 01/13/17 at 15:30 Midazolam HCl (Versed) 50 ml @ 1 mls/hr TITRATE IV Last administered on 09:07; Admin Dose 9 MLS/HR; Start 01/13/17 at 16:00 Insulin Aspart NOVOLOG *MILD* ALGORITHM Q4 SC Last administered on 01/17/17 09:15; Admin Dose 3 UNIT; Start 01/13/17 at 21:00 Sodium Chloride (NS) 1,000 ml @ 100 mls/hr Q10H IV Last administered on 02:47; Admin Dose 100 MLS/HR; Start 01/16/17 at 09:30 Metoclopramide HCl (Reglan) 5 mg Q6 IV Last administered on 01/17/17 05:48; Admin Dose 5 MG; Start 01/17/17 at 06:00 ALBERT NGUYỄN Jan 17, 2017 10:57
--- NOTE | 2017-01-17 11:47 | CONS ---
Date/Time of Note Date/Time of Note DATE: 01/17/17 TIME: Assessment/Plan Assessment/Plan Chief Complaint/Hosp Course ID PROGRESS NOTE CURRENT ABX: DAY # 17 => Bactrim IV + Levaquin + Zosyn + Diflucan + Acyclovir + Azith (q-7D) HIV ARV MEDS: Triumeq (600mg/50mg/300mg) + Viracept 625mg (Nelfinavir mesylate) 24H INTERVAL SUMMARY = POD #4 -> S/P VATS * AIDS patient w/multiple medical problems due to this condition -> critically ill, noncommunicative, orally intubated/Vented * 01/17/17 CXR: right subcutaneous emphysema, improved. Right lateral skin dalton are noted. Extensive bilateral pulmonary air space disease is unchanged. Bilateral pulmonary nodules are faintly seen. There is no pleural effusion. There are small bilateral pneumothoraces measuring approximately 5%. * Large open wound RLEXT thigh to foot -> complication of DM non-healing wound superimposed on Kaposi's Sarcoma Physical Exam Physical Exam Constitutional: Critically ill, orally intubated/vented, non-communicative, pressors HEENT: ETT-> Secure to Vent Neck: Supple, no JVD Respiratory: Vented, Chest tube draining serosanguineous Cardiovascular: nl pulses, regular rate and rhythm, tachy Gastrointestinal: Soft, NT Extremities: Warm, extensive RLEXT open wound thigh to foot ID ASSESSMENT 56 yo M admit with: 1. (+) AIDS w/01/02/17 T-cells: 69 CD4# & 9 CD4%, HIV VL <20 * CURRENT ARV MEDS: Triumeq (600mg/50mg/300mg) + Viracept 625mg (Nelfinavir mesylate) * Hx of Noncompliance w/HIV medications 2. Bilateral pneumothoraces => CXR w/suspicion Kaposi's metastases to lung * POD # 01/13/17 => S/P VATS * Pathology from pleurodesis shows high-grade sarcoma, patient with poor prognosis 3. Acute hypoxic respiratory failure, secondary to above=> orally intubated VDRF 4. Sepsis, as evidenced by leukocytosis w/bandemia, tachycardia, secondary to right foot wound/infection 5. RLEXT cellulitis w/extensive diabetic RLEXT & foot ulcer w/exposed fat * Infected large open wound superimposed on Kaposi's sarcoma of right lower extremity * 01/02/17 WOUND CULTURE Organism 1 PROTEUS MIRABILIS Organism 2 ESCHERICHIA COLI Organism 3 ENTEROCOCCUS SPECIES 7. Probable history of type 2 diabetes 8. Microcytic anemia -> s/p PRBCs Tx 9. COPD 10. Heavy Tobacco user (- )MRSA Nares INVASIVES: Port-A-Cath, ETT, NGT, FC, bilateral chest tubes ABX ALLERGIES: KNDA CURRENT ABX: DAY # 17 => Bactrim IV + Levaquin + Zosyn + Diflucan + Acyclovir + Azith (q-7D) HIV ARV MEDS: Triumeq (600mg/50mg/300mg) + Viracept 625mg (Nelfinavir mesylate) ID RECOMMENDATIONS 1. Continue current ABX & ARV meds; however continued ABX & ARV Meds not likely to reverse extremely poor prognosis 2. Palliative/Comfort care appropriate . . Problems: Consultation Date/Type/Reason Admit Date/Time Jan 01, 2017 at 21:48 Initial Consult Date 01/02/17 Type of Consultation: ID Exam/Review of Systems Vital Signs Vitals Vital Signs Date Time Temp Pulse Resp B/P Pulse Ox O2 Delivery O2 Flow Rate FiO2 01/17/17 08:00 50 01/17/17 07:30 105 23 146/53 100 01/17/17 06:30 Mechanical Ventilator 01/17/17 00:00 98.5 01/13/17 07:00 4.0 Intake and Output 01/16/17 01/16/17 01/17/17 15:00 23:00 07:00 Intake Total 2319.457 ml 1710.845 ml 1161.478 ml Output Total 790 ml 225 ml 800 ml Balance 1529.457 ml 1485.845 ml 361.478 ml Results Result Diagram: 01/17/17 0430 01/17/17 0430 Results 24 hrs Laboratory Tests Test 01/16/17 12:38 01/16/17 17:49 01/16/17 21:27 01/17/17 01:17 Bedside Glucose 198 190 160 205 Test 01/17/17 04:30 01/17/17 05:00 01/17/17 05:49 01/17/17 09:05 White Blood Count 20.7 H Red Blood Count 2.95 L Hemoglobin 7.6 L Hematocrit 23.5 L Mean Corpuscular Volume 79.7 L Mean Corpuscular Hemoglobin 25.8 L Mean Corpuscular Hemoglobin Concent 32.3 Red Cell Distribution Width 25.2 H Platelet Count 194 Mean Platelet Volume 8.7 Neutrophils % 94.7 H Lymphocytes % 1.1 L Monocytes % 2.7 Eosinophils % 0.0 Basophils % 0.1 Nucleated Red Blood Cells % 0.1 H Neutrophils # 19.6 H Lymphocytes # 0.2 L Monocytes # 0.6 Eosinophils # 0.0 Basophils # 0.0 Nucleated Red Blood Cells # 0.0 Sodium Level 129 L Potassium Level 5.0 Chloride Level 101 Carbon Dioxide Level 24 Anion Gap 9 Blood Urea Nitrogen 28 H Creatinine 0.82 Glucose Level 172 Calcium Level 8.2 L Blood Gas Specimen Source Blood arterial Arterial Blood Date Drawn 01/17/2017 5:50:04 AM Arterial Blood pH (Temp corrected) 7.399 Arterial Blood pCO2 (Temp correct) 36.7 Arterial Blood pO2 (Temp corrected) 72.5 L Arterial Blood HCO3 22.2 Arterial Blood Base Excess -2.4 Arterial Blood Oxygen Saturation 93.7 L Austin Test N/A Arterial Blood Gas Puncture Site A-Line Arterial Blood Carboxyhemoglobin 0.5 Arterial Blood Methemoglobin 0.7 Blood Gas A-a O2 Differential 242.7 H Oxyhemoglobin Percent 92.6 L Total Hemoglobin 8.0 L Blood Gas Temperature 37.0 Blood Gas Respiration Rate 20.0 Blood Gas Actual Respiration Rate 22 Blood Gas Modality VENT - AC FiO2 50.0 Blood Gas Tidal Volume 450.0 Blood Gas Low PEEP Setting 0 Blood Gas Notified Michell DIAS RCP Blood Gas Notified Time 01/17/2017 6:00:44 AM Bedside Glucose 197 260 H Medications Medications Current Medications Ondansetron HCl (Zofran Inj) 4 mg Q6H PRN IV NAUSEA AND/OR VOMITING Last administered on 01/02/17 01:44; Admin Dose 4 MG; Start 01/02/17 at 00:00 Acetaminophen (Tylenol Liquid) 650 mg Q6H PRN PO PAIN LEVEL 1-3 OR FEVER Last administered on 01/13/17 02:05; Admin Dose 650 MG; Start 01/02/17 at 00:00 Acetaminophen (Tylenol Supp) 650 mg Q4H PRN [place] PAIN LEVEL 1-3 OR FEVER; Start 01/02/17 at 00:00 Miscellaneous Information This patient morley... PRN PRN XX WOUND CARE; Start at 06:00 Fluconazole/ Sodium Chloride (Diflucan 100 Mg/ NS (Pmx)) 50 ml @ 50 mls/hr Q24H IVPB Last administered on 01/16/17 10:04; Admin Dose 50 MLS/HR; Start at 13:00 Non-Formulary Medication 1 ea 1 ea DAILY PO Last administered on 01/17/17 08: 56; Admin Dose 1 EA; Start 01/05/17 at 09:00 Trimethoprim/ Sulfamethoxazole 20 ml/Dextrose 520 ml @ 350 mls/hr Q8 IVPB Last administered on 01/17/17 07:34; Admin Dose 350 MLS/HR; Start 01/05/17 at 14:00 Piperacillin Sod/ Tazobactam Sod (Zosyn 3.375gm/ 100 ml (Pmx)) 100 ml @ 200 mls /hr Q8 IVPB Last administered on 01/17/17 05:47; Admin Dose 200 MLS/HR; Start 01/05/17 at 14:00 Azithromycin (Zithromax) 1,200 mg Q7D PO Last administered on 01/12/17 13:00 ; Admin Dose 1,200 MG; Start 01/05/17 at 13:00 Acyclovir (Zovirax) 400 mg BID PO Last administered on 01/17/17 08:56; Admin Dose 400 MG; Start 01/05/17 at 21:00 Methylprednisolone Sodium Succinate (Solu-Medrol) 40 mg Q6 IV Last administered on 01/17/17 05:48; Admin Dose 40 MG; Start 01/06/17 at 12:00 Diagnostic Test (Pha) (Accu-Chek) 1 ea 02 XX ; Start 01/07/17 at 02:00 Miscellaneous Information 1 ea NOTE XX ; Start 01/06/17 at 14:00 Glucose (Glutose) 15 gm Q15M PRN PO DECREASED GLUCOSE; Start 01/06/17 at 14:00 Glucose (Glutose) 22.5 gm Q15M PRN PO DECREASED GLUCOSE; Start 01/06/17 at 14: 00 Dextrose (D50w Syringe) 25 ml Q15M PRN IV DECREASED GLUCOSE; Start 01/06/17 at 14:00 Dextrose (D50w Syringe) 50 ml Q15M PRN IV DECREASED GLUCOSE; Start 01/06/17 at 14:00 Glucagon (Glucagen) 1 mg Q15M PRN IM DECREASED GLUCOSE; Start 01/06/17 at 14: 00 Glucose (Glutose) 15 gm Q15M PRN BUCCAL DECREASED GLUCOSE; Start 01/06/17 at 14:00 Pantoprazole 40 mg 40 mg DAILY@06 PO Last administered on 01/17/17 05:47; Admin Dose 40 MG; Start 01/08/17 at 06:00 Levofloxacin/ Dextrose (Levaquin 500mg/ D5W 100 ml (Pmx)) 100 ml @ 100 mls/hr Q24H IVPB Last administered on 01/16/17 10:59; Admin Dose 100 MLS/HR; Start 01/09/17 at 11:00 Alprazolam (Xanax) 0.25 mg Q6H PRN PO ANXIETY Last administered on 01/13/17 02:04; Admin Dose 0.25 MG; Start 01/12/17 at 08:00 Duloxetine HCl (Cymbalta) 30 mg DAILY PO Last administered on 01/17/17 08:56 ; Admin Dose 30 MG; Start 01/12/17 at 09:00 Fentanyl (Sublimaze) 25 mcg Q4 PRN IV SEDATION Last administered on 01/13/17 00:48; Admin Dose 25 MCG; Start 01/12/17 at 08:00 Fentanyl 25 mcg 25 mcg Q4H PRN IV PAIN LEVEL 6-10 Last administered on 20:33; Admin Dose 25 MCG; Start 01/12/17 at 10:00 Propofol 100 ml @ 1.835 mls/ hr Q12H IV Last administered on 01/17/17 08:37 ; Admin Dose 18.354 MLS/HR; Start 01/13/17 at 12:30 Fentanyl 100 ml @ 2.5 mls/hr TITRATE IV Last administered on 01/17/17 01:25 ; Admin Dose 10 MLS/HR; Start 01/13/17 at 15:30 Midazolam HCl (Versed) 50 ml @ 1 mls/hr TITRATE IV Last administered on 09:07; Admin Dose 9 MLS/HR; Start 01/13/17 at 16:00 Insulin Aspart NOVOLOG *MILD* ALGORITHM Q4 SC Last administered on 01/17/17 09:15; Admin Dose 3 UNIT; Start 01/13/17 at 21:00 Sodium Chloride (NS) 1,000 ml @ 100 mls/hr Q10H IV Last administered on 02:47; Admin Dose 100 MLS/HR; Start 01/16/17 at 09:30 Metoclopramide HCl (Reglan) 5 mg Q6 IV Last administered on 01/17/17 05:48; Admin Dose 5 MG; Start 01/17/17 at 06:00 SABINE LUNA NP Jan 17, 2017 11:39
[2017-01-17] MEDS: LEVOFLOXACIN 500MG/D5W (PMX) 100 ML IVPB SCH (11:56)
[2017-01-17] MEDS: FLUCONAZOLE 100 MG/NS (PMX) 50 ML IVPB SCH (14:42)
[2017-01-17] MEDS: FENTAnyl 50 MCG/ML VIAL IV PRN (19:51)
[2017-01-18] VITALS (103 sets, daily range): BP systolic 37–155; BP diastolic 22–64; PULSE 93–133; RESP 14–38
[2017-01-18] MEDS: INSULIN ASPART [NOVOLOG] 3 ML PEN SC SCH ×6 (00:46→20:39)
[2017-01-18] MEDS: SOD CHLORIDE 0.9% 1,000 ML IV SCH ×3 (01:33→18:15)
[2017-01-18] MEDS: ACCU-CHEK XX SCH (02:34)
[2017-01-18] MEDS: MIDAZOLAM (DRIP) 50 mg/50 mL 50 ML IV SCH ×4 (02:41→18:03)
[2017-01-18] MEDS: PROPOFOL 100 ML IV SCH ×6 (02:41→21:07)
[2017-01-18] MEDS: METHYLPREDNISOLONE 40 MG INJ IV SCH ×3 (05:32→18:03)
[2017-01-18] MEDS: METOCLOPRAMIDE 10 MG INJ IV SCH ×3 (05:32→18:04)
[2017-01-18] MEDS: PIPER-TAZO 3.375 GM IV (PMX) 100 ML IVPB SCH ×3 (05:33→21:49)
[2017-01-18] MEDS: PANTOPRAZOLE (EC) 40 MG TAB PO SCH (05:33)
[2017-01-18] MEDS: TRIMETHOPRIM/SULFAMETHOXAZOLE 20 ML in DEXTROSE 5% 500 ML IVPB SCH ×3 (05:59→21:50)
[2017-01-18] MEDS: FENTAnyl (DRIP) 1000 mcg/100mL 100 ML IV SCH ×2 (08:37→17:29)
[2017-01-18] MEDS: ALBUTEROL 18 GM INHALER INH SCH ×3 (08:54→19:33)
[2017-01-18] MEDS: VIRACEPT PO SCH ×2 (10:07→18:00)
[2017-01-18] MEDS: TRIUMEQ PO SCH (10:07)
[2017-01-18] MEDS: ACYCLOVIR 400 MG TAB PO SCH ×2 (10:08→20:35)
[2017-01-18] MEDS: DULOXETINE 30 MG CAP DR PO SCH (10:08)
--- NOTE | 2017-01-18 10:34 | CONS ---
Date/Time of Note Date/Time of Note DATE: 01/18/17 TIME: 10:31 Assessment/Plan Assessment/Plan Additional Assessment/Plan Ventilator setting; AC of 20, tidal volume 450, PEEP of 0, 90% FiO2. Patient is currently on propofol at 40 mics per kilogram per minute. Versed 10 mg/h. Assessment and recommendations; 1. 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 2. History of HIV positive with history of Kaposi's sarcoma. 3. Worsening hypoxemia. 4. Anemia and thrombocytopenia. Continue current supportive care. Prognosis is extremely poor. Hospice should be considered. Consultation Date/Type/Reason Admit Date/Time Jan 01, 2017 at 21:48 Initial Consult Date 01/02/17 Type of Consultation: Pulmonary/critical care 24 HR Interval Summary Free Text/Dictation Patient's condition remains critical. Now requiring increasing FiO2 for O2 saturation maintenance. Patient however has remained hemodynamically stable. General exam; middle-aged male, orally intubated, sedated, currently in no distress. Exam/Review of Systems Vital Signs Vitals Vital Signs Date Time Temp Pulse Resp B/P Pulse Ox O2 Delivery O2 Flow Rate FiO2 01/18/17 06:45 126 19 138/58 90 01/18/17 06:00 98.1 Mechanical Ventilator 01/18/17 05:04 90 Intake and Output 01/17/17 01/17/17 01/18/17 15:00 23:00 07:00 Intake Total 1464.018 ml 2116.662 ml 1258.8 ml Output Total 1000 ml 960 ml 420 ml Balance 464.018 ml 1156.662 ml 838.8 ml Exam HEENT exam; supple neck, no JVD. No lymphadenopathy. Midline trachea. No thyromegaly. Orally intubated. Pupils are small bilaterally. Patient has fair dentition. Chest exam; bilateral crackles. S1-S2 audible, no murmurs. Bilateral chest tubes are in place. Abdomen exam; soft, bowel sounds are sluggish. No organomegaly. Extremity exam; chronic appearing edema involving right lower extremity. DUPLICATION SPECIALIST exam; patient is sedated. Results Result Diagram: 01/17/17 0430 01/17/17 0430 Results 24 hrs Laboratory Tests Test 01/17/17 12:01 01/17/17 18:07 01/17/17 20:43 01/18/17 00:44 Bedside Glucose 177 222 H 195 275 H Test 01/18/17 01:41 01/18/17 04:51 01/18/17 09:36 Bedside Glucose 241 H 226 H 238 H Medications Medications Current Medications Ondansetron HCl (Zofran Inj) 4 mg Q6H PRN IV NAUSEA AND/OR VOMITING Last administered on 01/02/17 01:44; Admin Dose 4 MG; Start 01/02/17 at 00:00 Acetaminophen (Tylenol Liquid) 650 mg Q6H PRN PO PAIN LEVEL 1-3 OR FEVER Last administered on 01/13/17 02:05; Admin Dose 650 MG; Start 01/02/17 at 00:00 Acetaminophen (Tylenol Supp) 650 mg Q4H PRN [place] PAIN LEVEL 1-3 OR FEVER; Start 01/02/17 at 00:00 Miscellaneous Information This patient morley... PRN PRN XX WOUND CARE; Start at 06:00 Fluconazole/ Sodium Chloride (Diflucan 100 Mg/ NS (Pmx)) 50 ml @ 50 mls/hr Q24H IVPB Last administered on 01/17/17 14:42; Admin Dose 50 MLS/HR; Start at 13:00 Non-Formulary Medication 1 ea 1 ea DAILY PO Last administered on 01/18/17 10: 07; Admin Dose 1 EA; Start 01/05/17 at 09:00 Trimethoprim/ Sulfamethoxazole 20 ml/Dextrose 520 ml @ 350 mls/hr Q8 IVPB Last administered on 01/18/17 05:59; Admin Dose 350 MLS/HR; Start 01/05/17 at 14:00 Piperacillin Sod/ Tazobactam Sod (Zosyn 3.375gm/ 100 ml (Pmx)) 100 ml @ 200 mls /hr Q8 IVPB Last administered on 01/18/17 05:33; Admin Dose 200 MLS/HR; Start 01/05/17 at 14:00 Azithromycin (Zithromax) 1,200 mg Q7D PO Last administered on 01/12/17 13:00 ; Admin Dose 1,200 MG; Start 01/05/17 at 13:00 Acyclovir (Zovirax) 400 mg BID PO Last administered on 01/18/17 10:08; Admin Dose 400 MG; Start 01/05/17 at 21:00 Methylprednisolone Sodium Succinate (Solu-Medrol) 40 mg Q6 IV Last administered on 01/18/17 05:32; Admin Dose 40 MG; Start 01/06/17 at 12:00 Diagnostic Test (Pha) (Accu-Chek) 1 ea 02 XX Last administered on 01/18/17 02 :34; Admin Dose 1 EA; Start 01/07/17 at 02:00 Miscellaneous Information 1 ea NOTE XX ; Start 01/06/17 at 14:00 Glucose (Glutose) 15 gm Q15M PRN PO DECREASED GLUCOSE; Start 01/06/17 at 14:00 Glucose (Glutose) 22.5 gm Q15M PRN PO DECREASED GLUCOSE; Start 01/06/17 at 14: 00 Dextrose (D50w Syringe) 25 ml Q15M PRN IV DECREASED GLUCOSE; Start 01/06/17 at 14:00 Dextrose (D50w Syringe) 50 ml Q15M PRN IV DECREASED GLUCOSE; Start 01/06/17 at 14:00 Glucagon (Glucagen) 1 mg Q15M PRN IM DECREASED GLUCOSE; Start 01/06/17 at 14: 00 Glucose (Glutose) 15 gm Q15M PRN BUCCAL DECREASED GLUCOSE; Start 01/06/17 at 14:00 Pantoprazole 40 mg 40 mg DAILY@06 PO Last administered on 01/18/17 05:33; Admin Dose 40 MG; Start 01/08/17 at 06:00 Levofloxacin/ Dextrose (Levaquin 500mg/ D5W 100 ml (Pmx)) 100 ml @ 100 mls/hr Q24H IVPB Last administered on 01/17/17 11:56; Admin Dose 100 MLS/HR; Start 01/09/17 at 11:00 Alprazolam (Xanax) 0.25 mg Q6H PRN PO ANXIETY Last administered on 01/13/17 02:04; Admin Dose 0.25 MG; Start 01/12/17 at 08:00 Duloxetine HCl (Cymbalta) 30 mg DAILY PO Last administered on 01/18/17 10:08 ; Admin Dose 30 MG; Start 01/12/17 at 09:00 Fentanyl (Sublimaze) 25 mcg Q4 PRN IV SEDATION Last administered on 01/17/17 19:51; Admin Dose 25 MCG; Start 01/12/17 at 08:00 Fentanyl 25 mcg 25 mcg Q4H PRN IV PAIN LEVEL 6-10 Last administered on 20:33; Admin Dose 25 MCG; Start 01/12/17 at 10:00 Propofol 100 ml @ 1.835 mls/ hr Q12H IV Last administered on 01/18/17 08:17 ; Admin Dose 18.354 MLS/HR; Start 01/13/17 at 12:30 Fentanyl 100 ml @ 2.5 mls/hr TITRATE IV Last administered on 01/18/17 08:37 ; Admin Dose 10 MLS/HR; Start 01/13/17 at 15:30 Midazolam HCl (Versed) 50 ml @ 1 mls/hr TITRATE IV Last administered on 08:41; Admin Dose 10 MLS/HR; Start 01/13/17 at 16:00 Insulin Aspart NOVOLOG *MILD* ALGORITHM Q4 SC Last administered on 01/18/17 10:15; Admin Dose 3 UNIT; Start 01/13/17 at 21:00 Sodium Chloride (NS) 1,000 ml @ 100 mls/hr Q10H IV Last administered on 01:33; Admin Dose 100 MLS/HR; Start 01/16/17 at 09:30 Metoclopramide HCl (Reglan) 5 mg Q6 IV Last administered on 01/18/17 05:32; Admin Dose 5 MG; Start 01/17/17 at 06:00 FRANCES HATFIELD Jan 18, 2017 10:34
[2017-01-18] MEDS: LEVOFLOXACIN 500MG/D5W (PMX) 100 ML IVPB SCH (10:43)
[2017-01-18] MEDS: FLUCONAZOLE 100 MG/NS (PMX) 50 ML IVPB SCH (12:49)
--- NOTE | 2017-01-18 17:59 | PN ---
Date/Time of Note Date/Time of Note DATE: 01/18/17 TIME: 17:56 Assessment/Plan VTE Prophylaxis VTE Prophylaxis Intervention: SCD's Assessment/Plan Chief Complaint/Hosp Course 1. 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 AIDS On prophylactic antibiotics, ID following 3. Kaposi sarcoma Wound care Prophylaxis SCDs Problems: Subjective 24 Hr Interval Summary Subjective hx not possible: pt non-verbal Exam/Review of Systems Vital Signs Vitals Vital Signs Date Time Temp Pulse Resp B/P Pulse Ox O2 Delivery O2 Flow Rate FiO2 01/18/17 17:15 124 20 71 100 01/18/17 14:00 103/49 Mechanical Ventilator 01/18/17 12:00 98.4 Intake and Output 01/17/17 01/17/17 01/18/17 15:00 23:00 07:00 Intake Total 1464.018 ml 2116.662 ml 1427.154 ml Output Total 1000 ml 960 ml 435 ml Balance 464.018 ml 1156.662 ml 992.154 ml Exam Constitutional: non-verbal ENMT: intubated Respiratory: clear to auscultation Cardiovascular: regular rate and rhythm Gastrointestinal: soft, No distended Musculoskeletal: nl extremities to inspection Results Result Diagram: 01/17/17 0430 01/17/17 0430 Results 24 hrs Laboratory Tests Test 01/17/17 18:07 01/17/17 20:43 01/18/17 00:44 01/18/17 01:41 Bedside Glucose 222 H 195 275 H 241 H Test 01/18/17 04:51 01/18/17 09:36 01/18/17 13:35 Bedside Glucose 226 H 238 H 279 H Medications Medications Current Medications Ondansetron HCl (Zofran Inj) 4 mg Q6H PRN IV NAUSEA AND/OR VOMITING Last administered on 01/02/17t 01:44; Admin Dose 4 MG; Start 01/02/17 at 00:00 Acetaminophen (Tylenol Liquid) 650 mg Q6H PRN PO PAIN LEVEL 1-3 OR FEVER Last administered on 01/13/17 02:05; Admin Dose 650 MG; Start 01/02/17 at 00:00 Acetaminophen (Tylenol Supp) 650 mg Q4H PRN [place] PAIN LEVEL 1-3 OR FEVER; Start 01/02/17 at 00:00 Miscellaneous Information This patient morley... PRN PRN XX WOUND CARE; Start at 06:00 Fluconazole/ Sodium Chloride (Diflucan 100 Mg/ NS (Pmx)) 50 ml @ 50 mls/hr Q24H IVPB Last administered on 01/18/17 12:49; Admin Dose 50 MLS/HR; Start at 13:00 Non-Formulary Medication 1 ea 1 ea DAILY PO Last administered on 01/18/17 10: 07; Admin Dose 1 EA; Start 01/05/17 at 09:00 Trimethoprim/ Sulfamethoxazole 20 ml/Dextrose 520 ml @ 350 mls/hr Q8 IVPB Last administered on 01/18/17 13:42; Admin Dose 350 MLS/HR; Start 01/05/17 at 14:00 Piperacillin Sod/ Tazobactam Sod (Zosyn 3.375gm/ 100 ml (Pmx)) 100 ml @ 200 mls /hr Q8 IVPB Last administered on 01/18/17 15:51; Admin Dose 200 MLS/HR; Start 01/05/17 at 14:00 Azithromycin (Zithromax) 1,200 mg Q7D PO Last administered on 01/12/17 13:00 ; Admin Dose 1,200 MG; Start 01/05/17 at 13:00 Acyclovir (Zovirax) 400 mg BID PO Last administered on 01/18/17 10:08; Admin Dose 400 MG; Start 01/05/17 at 21:00 Methylprednisolone Sodium Succinate (Solu-Medrol) 40 mg Q6 IV Last administered on 01/18/17 12:48; Admin Dose 40 MG; Start 01/06/17 at 12:00 Diagnostic Test (Pha) (Accu-Chek) 1 ea 02 XX Last administered on 01/18/17 02 :34; Admin Dose 1 EA; Start 01/07/17 at 02:00 Miscellaneous Information 1 ea NOTE XX ; Start 01/06/17 at 14:00 Glucose (Glutose) 15 gm Q15M PRN PO DECREASED GLUCOSE; Start 01/06/17 at 14:00 Glucose (Glutose) 22.5 gm Q15M PRN PO DECREASED GLUCOSE; Start 01/06/17 at 14: 00 Dextrose (D50w Syringe) 25 ml Q15M PRN IV DECREASED GLUCOSE; Start 01/06/17 at 14:00 Dextrose (D50w Syringe) 50 ml Q15M PRN IV DECREASED GLUCOSE; Start 01/06/17 at 14:00 Glucagon (Glucagen) 1 mg Q15M PRN IM DECREASED GLUCOSE; Start 01/06/17 at 14: 00 Glucose (Glutose) 15 gm Q15M PRN BUCCAL DECREASED GLUCOSE; Start 01/06/17 at 14:00 Pantoprazole 40 mg 40 mg DAILY@06 PO Last administered on 01/18/17 05:33; Admin Dose 40 MG; Start 01/08/17 at 06:00 Levofloxacin/ Dextrose (Levaquin 500mg/ D5W 100 ml (Pmx)) 100 ml @ 100 mls/hr Q24H IVPB Last administered on 01/18/17 10:43; Admin Dose 100 MLS/HR; Start 01/09/17 at 11:00 Alprazolam (Xanax) 0.25 mg Q6H PRN PO ANXIETY Last administered on 01/13/17 02:04; Admin Dose 0.25 MG; Start 01/12/17 at 08:00 Duloxetine HCl (Cymbalta) 30 mg DAILY PO Last administered on 01/18/17 10:08 ; Admin Dose 30 MG; Start 01/12/17 at 09:00 Fentanyl (Sublimaze) 25 mcg Q4 PRN IV SEDATION Last administered on 01/17/17 19:51; Admin Dose 25 MCG; Start 01/12/17 at 08:00 Fentanyl 25 mcg 25 mcg Q4H PRN IV PAIN LEVEL 6-10 Last administered on 20:33; Admin Dose 25 MCG; Start 01/12/17 at 10:00 Propofol 100 ml @ 1.835 mls/ hr Q12H IV Last administered on 01/18/17 15:50 ; Admin Dose 18.354 MLS/HR; Start 01/13/17 at 12:30 Fentanyl 100 ml @ 2.5 mls/hr TITRATE IV Last administered on 01/18/17 17:29 ; Admin Dose 10 MLS/HR; Start 01/13/17 at 15:30 Midazolam HCl (Versed) 50 ml @ 1 mls/hr TITRATE IV Last administered on 13:18; Admin Dose 10 MLS/HR; Start 01/13/17 at 16:00 Insulin Aspart NOVOLOG *MILD* ALGORITHM Q4 SC Last administered on 01/18/17 13:40; Admin Dose 4 UNIT; Start 01/13/17 at 21:00 Sodium Chloride (NS) 1,000 ml @ 100 mls/hr Q10H IV Last administered on 01:33; Admin Dose 100 MLS/HR; Start 01/16/17 at 09:30 Metoclopramide HCl (Reglan) 5 mg Q6 IV Last administered on 01/18/17 12:49; Admin Dose 5 MG; Start 01/17/17 at 06:00 ALBERT NGUYỄN Jan 18, 2017 17:59
--- NOTE | 2017-01-18 18:04 | CONS ---
Date/Time of Note Date/Time of Note DATE: 01/18/17 TIME: 18:03 Assessment/Plan Assessment/Plan Chief Complaint/Hosp Course ID PROGRESS NOTE CURRENT ABX: DAY # 18 => Bactrim IV + Levaquin + Zosyn + Diflucan + Acyclovir + Azith (q-7D) HIV ARV MEDS: Triumeq (600mg/50mg/300mg) + Viracept 625mg (Nelfinavir mesylate) 24H INTERVAL SUMMARY = POD #5 -> S/P VATS * CLINCALLY STATUS QUO == NO NEW ISSUES AIDS patient w/multiple medical problems due to this condition -> critically ill, noncommunicative, orally intubated/Vented . * Large open wound RLEXT thigh to foot -> complication of DM non-healing wound superimposed on Kaposi's Sarcoma Physical Exam Physical Exam Constitutional: Critically ill, orally intubated/vented, non-communicative, pressors HEENT: ETT-> Secure to Vent Neck: Supple, no JVD Respiratory: Vented, Chest tube draining serosanguineous Cardiovascular: nl pulses, regular rate and rhythm, tachy Gastrointestinal: Soft, NT Extremities: Warm, extensive RLEXT open wound thigh to foot ID ASSESSMENT 56 yo M admit with: 1. (+) AIDS w/01/02/17 T-cells: 69 CD4# & 9 CD4%, HIV VL <20 * CURRENT ARV MEDS: Triumeq (600mg/50mg/300mg) + Viracept 625mg (Nelfinavir mesylate) * Hx of Noncompliance w/HIV medications 2. Bilateral pneumothoraces => CXR w/suspicion Kaposi's metastases to lung * POD # 01/13/17 => S/P VATS * Pathology from pleurodesis shows high-grade sarcoma, patient with poor prognosis 3. Acute hypoxic respiratory failure, secondary to above=> orally intubated VDRF 4. Sepsis, as evidenced by leukocytosis w/bandemia, tachycardia, secondary to right foot wound/infection 5. RLEXT cellulitis w/extensive diabetic RLEXT & foot ulcer w/exposed fat * Infected large open wound superimposed on Kaposi's sarcoma of right lower extremity * 01/02/17 WOUND CULTURE Organism 1 PROTEUS MIRABILIS Organism 2 ESCHERICHIA COLI Organism 3 ENTEROCOCCUS SPECIES 7. Probable history of type 2 diabetes 8. Microcytic anemia -> s/p PRBCs Tx 9. COPD 10. Heavy Tobacco user (- )MRSA Nares INVASIVES: Port-A-Cath, ETT, NGT, FC, bilateral chest tubes ABX ALLERGIES: KNDA CURRENT ABX: DAY # 18 => Bactrim IV + Levaquin + Zosyn + Diflucan + Acyclovir + Azith (q-7D) HIV ARV MEDS: Triumeq (600mg/50mg/300mg) + Viracept 625mg (Nelfinavir mesylate) ID RECOMMENDATIONS 1. Continue current ABX & ARV meds; however continued ABX & ARV Meds not likely to reverse extremely poor prognosis 2. Palliative/Comfort care appropriate . . Problems: Consultation Date/Type/Reason Admit Date/Time Jan 01, 2017 at 21:48 Initial Consult Date 01/02/17 Type of Consultation: ID Exam/Review of Systems Vital Signs Vitals Vital Signs Date Time Temp Pulse Resp B/P Pulse Ox O2 Delivery O2 Flow Rate FiO2 01/18/17 17:15 124 20 71 100 01/18/17 14:00 103/49 Mechanical Ventilator 01/18/17 12:00 98.4 Intake and Output 01/17/17 01/17/17 01/18/17 14:59 22:59 06:59 Intake Total 1484.018 ml 1545.616 ml 1947.2 ml Output Total 1000 ml 920 ml 460 ml Balance 484.018 ml 625.616 ml 1487.2 ml Results Result Diagram: 01/17/17 0430 01/17/17 0430 Results 24 hrs Laboratory Tests Test 01/17/17 18:07 01/17/17 20:43 01/18/17 00:44 01/18/17 01:41 Bedside Glucose 222 H 195 275 H 241 H Test 01/18/17 04:51 01/18/17 09:36 01/18/17 13:35 Bedside Glucose 226 H 238 H 279 H Medications Medications Current Medications Ondansetron HCl (Zofran Inj) 4 mg Q6H PRN IV NAUSEA AND/OR VOMITING Last administered on 01/02/17t 01:44; Admin Dose 4 MG; Start 01/02/17 at 00:00 Acetaminophen (Tylenol Liquid) 650 mg Q6H PRN PO PAIN LEVEL 1-3 OR FEVER Last administered on 01/13/17 02:05; Admin Dose 650 MG; Start 01/02/17 at 00:00 Acetaminophen (Tylenol Supp) 650 mg Q4H PRN ME PAIN LEVEL 1-3 OR FEVER; Start 01/02/17 at 00:00 Miscellaneous Information This patient morley... PRN PRN XX WOUND CARE; Start at 06:00 Fluconazole/ Sodium Chloride (Diflucan 100 Mg/ NS (Pmx)) 50 ml @ 50 mls/hr Q24H IVPB Last administered on 01/18/17 12:49; Admin Dose 50 MLS/HR; Start at 13:00 Non-Formulary Medication 1 ea 1 ea DAILY PO Last administered on 01/18/17 10: 07; Admin Dose 1 EA; Start 01/05/17 at 09:00 Trimethoprim/ Sulfamethoxazole 20 ml/Dextrose 520 ml @ 350 mls/hr Q8 IVPB Last administered on 01/18/17 13:42; Admin Dose 350 MLS/HR; Start 01/05/17 at 14:00 Piperacillin Sod/ Tazobactam Sod (Zosyn 3.375gm/ 100 ml (Pmx)) 100 ml @ 200 mls /hr Q8 IVPB Last administered on 01/18/17 15:51; Admin Dose 200 MLS/HR; Start 01/05/17 at 14:00 Azithromycin (Zithromax) 1,200 mg Q7D PO Last administered on 01/12/17 13:00 ; Admin Dose 1,200 MG; Start 01/05/17 at 13:00 Acyclovir (Zovirax) 400 mg BID PO Last administered on 01/18/17 10:08; Admin Dose 400 MG; Start 01/05/17 at 21:00 Methylprednisolone Sodium Succinate (Solu-Medrol) 40 mg Q6 IV Last administered on 01/18/17 12:48; Admin Dose 40 MG; Start 01/06/17 at 12:00 Diagnostic Test (Pha) (Accu-Chek) 1 ea 02 XX Last administered on 01/18/17 02 :34; Admin Dose 1 EA; Start 01/07/17 at 02:00 Miscellaneous Information 1 ea NOTE XX ; Start 01/06/17 at 14:00 Glucose (Glutose) 15 gm Q15M PRN PO DECREASED GLUCOSE; Start 01/06/17 at 14:00 Glucose (Glutose) 22.5 gm Q15M PRN PO DECREASED GLUCOSE; Start 01/06/17 at 14: 00 Dextrose (D50w Syringe) 25 ml Q15M PRN IV DECREASED GLUCOSE; Start 01/06/17 at 14:00 Dextrose (D50w Syringe) 50 ml Q15M PRN IV DECREASED GLUCOSE; Start 01/06/17 at 14:00 Glucagon (Glucagen) 1 mg Q15M PRN IM DECREASED GLUCOSE; Start 01/06/17 at 14: 00 Glucose (Glutose) 15 gm Q15M PRN BUCCAL DECREASED GLUCOSE; Start 01/06/17 at 14:00 Pantoprazole 40 mg 40 mg DAILY@06 PO Last administered on 01/18/17 05:33; Admin Dose 40 MG; Start 01/08/17 at 06:00 Levofloxacin/ Dextrose (Levaquin 500mg/ D5W 100 ml (Pmx)) 100 ml @ 100 mls/hr Q24H IVPB Last administered on 01/18/17 10:43; Admin Dose 100 MLS/HR; Start 01/09/17 at 11:00 Alprazolam (Xanax) 0.25 mg Q6H PRN PO ANXIETY Last administered on 01/13/17 02:04; Admin Dose 0.25 MG; Start 01/12/17 at 08:00 Duloxetine HCl (Cymbalta) 30 mg DAILY PO Last administered on 01/18/17 10:08 ; Admin Dose 30 MG; Start 01/12/17 at 09:00 Fentanyl (Sublimaze) 25 mcg Q4 PRN IV SEDATION Last administered on 01/17/17 19:51; Admin Dose 25 MCG; Start 01/12/17 at 08:00 Fentanyl 25 mcg 25 mcg Q4H PRN IV PAIN LEVEL 6-10 Last administered on 20:33; Admin Dose 25 MCG; Start 01/12/17 at 10:00 Propofol 100 ml @ 1.835 mls/ hr Q12H IV Last administered on 01/18/17 15:50 ; Admin Dose 18.354 MLS/HR; Start 01/13/17 at 12:30 Fentanyl 100 ml @ 2.5 mls/hr TITRATE IV Last administered on 01/18/17 17:29 ; Admin Dose 10 MLS/HR; Start 01/13/17 at 15:30 Midazolam HCl (Versed) 50 ml @ 1 mls/hr TITRATE IV Last administered on 13:18; Admin Dose 10 MLS/HR; Start 01/13/17 at 16:00 Insulin Aspart NOVOLOG *MILD* ALGORITHM Q4 SC Last administered on 01/18/17 13:40; Admin Dose 4 UNIT; Start 01/13/17 at 21:00 Sodium Chloride (NS) 1,000 ml @ 100 mls/hr Q10H IV Last administered on 01:33; Admin Dose 100 MLS/HR; Start 01/16/17 at 09:30 Metoclopramide HCl (Reglan) 5 mg Q6 IV Last administered on 01/18/17 12:49; Admin Dose 5 MG; Start 01/17/17 at 06:00 SABINE LUNA NP Jan 18, 2017 18:04
[2017-01-19] VITALS (35 sets, daily range): BP systolic 16–43; BP diastolic 9–25; PULSE 0–101; RESP 18–23
[2017-01-19] MEDS: METHYLPREDNISOLONE 40 MG INJ IV SCH ×2 (00:06→05:30)
[2017-01-19] MEDS: METOCLOPRAMIDE 10 MG INJ IV SCH ×2 (00:06→05:30)
[2017-01-19] MEDS: INSULIN ASPART [NOVOLOG] 3 ML PEN SC SCH ×2 (00:32→05:30)
[2017-01-19] MEDS: ACCU-CHEK XX SCH (02:34)
[2017-01-19] MEDS: SOD CHLORIDE 0.9% 1,000 ML IV SCH (04:17)
[2017-01-19] MEDS: PIPER-TAZO 3.375 GM IV (PMX) 100 ML IVPB SCH (05:30)
[2017-01-19] MEDS: PANTOPRAZOLE (EC) 40 MG TAB PO SCH (05:30)
[2017-01-19] MEDS: TRIMETHOPRIM/SULFAMETHOXAZOLE 20 ML in DEXTROSE 5% 500 ML IVPB SCH (05:51)
--- NOTE | 2017-01-19 07:27 | CONS ---
Date/Time of Note Date/Time of Note DATE: 01/19/17 TIME: 07:21 Assessment/Plan Assessment/Plan Chief Complaint/Hosp Course Problems: Additional Assessment/Plan Discussed ongoing level of care with patient's sister yesterday. She has spoken all family members they have decided to change CODE STATUS to DO NOT RESUSCITATE. Is clear they do not want him to suffer or have a prolonged period of time suffering on a ventilator. I have discussed with her the findings that he has lung biopsy consider with sarcoma in is being treated for underlying opportunistic infection also. Family was suspicious of his underlying diagnosis and clinical condition prior to this hospitalization. We discussed having another conference with patient's brother on the or . Addressed hopes desires acceptable quality of life which is not to be maintained on artificial life support. They have taken responsibility for the patient's surrogate decision maker. Address family strength cultural issues spiritual issues and past experience with patient's illnesses. It was clear that one year ago he was deteriorating and did tell family he had an sarcoma which was probably Kaposi sarcoma of his lower extremities. He did not tell them more about his underlying clinical condition my impressions are this is very close family and they will do what is best for patient's interest. Patient prognosis is extremely poor. We have discussed options also which are few patient may not tolerate extubation and may require terminal extubation. Family members have been appraised of this possibility that he may have to make a very painful decision on his behalf. Pain and symptom management has been addressed ethical issues have been addressed all family members are involved with the decision making. Consultation Date/Type/Reason Admit Date/Time Jan 01, 2017 at 21:48 Initial Consult Date 01/02/17 Type of Consultation: ID Exam/Review of Systems Vital Signs Vitals Vital Signs Date Time Temp Pulse Resp B/P Pulse Ox O2 Delivery O2 Flow Rate FiO2 01/19/17 06:30 80 20 25/14 01/19/17 06:00 97.0 Mechanical Ventilator 01/19/17 05:13 100 01/19/17 01:07 63 Intake and Output 01/18/17 01/18/17 01/19/17 15:00 23:00 07:00 Intake Total 1625.978 ml 1509.41 ml 875 ml Output Total 180 ml 505 ml 340 ml Balance 1445.978 ml 1004.41 ml 535 ml Exam Constitutional: other (Intubated sedated) Respiratory: congested cough, crackles/rales, diminished breath sounds Cardiovascular: nl pulses, regular rate and rhythm Results Result Diagram: 01/17/17 0430 01/17/17 0430 Results 24 hrs Laboratory Tests Test 01/18/17 09:36 01/18/17 13:35 01/18/17 18:11 01/18/17 20:36 Bedside Glucose 238 H 279 H 298 H 302 H Test 01/19/17 00:28 01/19/17 02:04 01/19/17 05:27 Bedside Glucose 339 H 307 H 249 H Medications Medications Current Medications Ondansetron HCl (Zofran Inj) 4 mg Q6H PRN IV NAUSEA AND/OR VOMITING Last administered on 01/02/17 01:44; Admin Dose 4 MG; Start 01/02/17 at 00:00 Acetaminophen (Tylenol Liquid) 650 mg Q6H PRN PO PAIN LEVEL 1-3 OR FEVER Last administered on 01/13/17 02:05; Admin Dose 650 MG; Start 01/02/17 at 00:00 Acetaminophen (Tylenol Supp) 650 mg Q4H PRN [place] PAIN LEVEL 1-3 OR FEVER; Start 01/02/17 at 00:00 Miscellaneous Information This patient morley... PRN PRN XX WOUND CARE; Start at 06:00 Fluconazole/ Sodium Chloride (Diflucan 100 Mg/ NS (Pmx)) 50 ml @ 50 mls/hr Q24H IVPB Last administered on 01/18/17 12:49; Admin Dose 50 MLS/HR; Start at 13:00 Non-Formulary Medication 1 ea 1 ea DAILY PO Last administered on 01/18/17 10: 07; Admin Dose 1 EA; Start 01/05/17 at 09:00 Trimethoprim/ Sulfamethoxazole 20 ml/Dextrose 520 ml @ 350 mls/hr Q8 IVPB Last administered on 01/19/17 05:51; Admin Dose 350 MLS/HR; Start 01/05/17 at 14:00 Piperacillin Sod/ Tazobactam Sod (Zosyn 3.375gm/ 100 ml (Pmx)) 100 ml @ 200 mls /hr Q8 IVPB Last administered on 01/19/17 05:30; Admin Dose 200 MLS/HR; Start 01/05/17 at 14:00 Azithromycin (Zithromax) 1,200 mg Q7D PO Last administered on 01/12/17 13:00 ; Admin Dose 1,200 MG; Start 01/05/17 at 13:00 Acyclovir (Zovirax) 400 mg BID PO Last administered on 01/18/17 20:35; Admin Dose 400 MG; Start 01/05/17 at 21:00 Methylprednisolone Sodium Succinate (Solu-Medrol) 40 mg Q6 IV Last administered on 01/19/17 05:30; Admin Dose 40 MG; Start 01/06/17 at 12:00 Diagnostic Test (Pha) (Accu-Chek) 1 ea 02 XX Last administered on 01/19/17 02 :34; Admin Dose 1 EA; Start 01/07/17 at 02:00 Miscellaneous Information 1 ea NOTE XX ; Start 01/06/17 at 14:00 Glucose (Glutose) 15 gm Q15M PRN PO DECREASED GLUCOSE; Start 01/06/17 at 14:00 Glucose (Glutose) 22.5 gm Q15M PRN PO DECREASED GLUCOSE; Start 01/06/17 at 14: 00 Dextrose (D50w Syringe) 25 ml Q15M PRN IV DECREASED GLUCOSE; Start 01/06/17 at 14:00 Dextrose (D50w Syringe) 50 ml Q15M PRN IV DECREASED GLUCOSE; Start 01/06/17 at 14:00 Glucagon (Glucagen) 1 mg Q15M PRN IM DECREASED GLUCOSE; Start 01/06/17 at 14: 00 Glucose (Glutose) 15 gm Q15M PRN BUCCAL DECREASED GLUCOSE; Start 01/06/17 at 14:00 Pantoprazole 40 mg 40 mg DAILY@06 PO Last administered on 01/19/17 05:30; Admin Dose 40 MG; Start 01/08/17 at 06:00 Levofloxacin/ Dextrose (Levaquin 500mg/ D5W 100 ml (Pmx)) 100 ml @ 100 mls/hr Q24H IVPB Last administered on 01/18/17 10:43; Admin Dose 100 MLS/HR; Start 01/09/17 at 11:00 Alprazolam (Xanax) 0.25 mg Q6H PRN PO ANXIETY Last administered on 01/13/17 02:04; Admin Dose 0.25 MG; Start 01/12/17 at 08:00 Duloxetine HCl (Cymbalta) 30 mg DAILY PO Last administered on 01/18/17 10:08 ; Admin Dose 30 MG; Start 01/12/17 at 09:00 Fentanyl (Sublimaze) 25 mcg Q4 PRN IV SEDATION Last administered on 01/17/17 19:51; Admin Dose 25 MCG; Start 01/12/17 at 08:00 Fentanyl 25 mcg 25 mcg Q4H PRN IV PAIN LEVEL 6-10 Last administered on 20:33; Admin Dose 25 MCG; Start 01/12/17 at 10:00 Propofol 100 ml @ 1.835 mls/ hr Q12H IV Last administered on 01/18/17 21:07 ; Admin Dose 18.354 MLS/HR; Start 01/13/17 at 12:30 Fentanyl 100 ml @ 2.5 mls/hr TITRATE IV Last administered on 01/18/17 17:29 ; Admin Dose 10 MLS/HR; Start 01/13/17 at 15:30 Midazolam HCl (Versed) 50 ml @ 1 mls/hr TITRATE IV Last administered on 18:03; Admin Dose 10 MLS/HR; Start 01/13/17 at 16:00 Insulin Aspart NOVOLOG *MILD* ALGORITHM Q4 SC Last administered on 01/19/17 05:30; Admin Dose 3 UNIT; Start 01/13/17 at 21:00 Sodium Chloride (NS) 1,000 ml @ 100 mls/hr Q10H IV Last administered on 04:17; Admin Dose 100 MLS/HR; Start 01/16/17 at 09:30 Metoclopramide HCl (Reglan) 5 mg Q6 IV Last administered on 01/19/17 05:30; Admin Dose 5 MG; Start 01/17/17 at 06:00 PETER DIAS Jan 19, 2017 07:27
--- NOTE | 2017-01-19 09:15 | EN ---
Date/Time of Note Date/Time of Note DATE: 01/19/17 TIME: 09:13 Event Note Medicine Medicine Event Note I was called and told by nursing staff that Mr. Hudson Jo has unfortunately . He was DNR/DNI. On physical examination, he had no pulse, no gag or corneal reflex, unresponsive to painful stimuli. Telemetry monitoring showing asystole. He was pronounced at 19:30 on 01/19/2017. Family was at the bedside. . NICHOLE GARCIA MD Jan 19, 2017 09:15
== END 2017-01-19 07:30 | disposition expired | DRG 163 ==
LOC: E/R 17:45 → ICU 21:48 → TEL 01-06 23:13 → ICU 01-09 09:10
PROVIDERS: ADMIT Internal Medicine; ATTEND Internal Medicine
PROC: 0W9B30Z Drainage of Left Pleural Cavity with Drainage Device, Percutaneous Approach (ICD-10-PCS; 2017-01-01)
PROC: 02HV33Z Insertion of Infusion Device into Superior Vena Cava, Percutaneous Approach (ICD-10-PCS; 2017-01-01)
PROC: 0W9930Z Drainage of Right Pleural Cavity with Drainage Device, Percutaneous Approach (ICD-10-PCS; 2017-01-01)
PROC: 5A1945Z Respiratory Ventilation, 24-96 Consecutive Hours (ICD-10-PCS; 2017-01-01)
PROC: 0BH17EZ Insertion of Endotracheal Airway into Trachea, Via Natural or Artificial Opening (ICD-10-PCS; 2017-01-01)
PROC: 30233N1 Transfusion of Nonautologous Red Blood Cells into Peripheral Vein, Percutaneous Approach (ICD-10-PCS; 2017-01-02)
PROC: 0W9B00Z Drainage of Left Pleural Cavity with Drainage Device, Open Approach (ICD-10-PCS; 2017-01-04)
PROC: 5A1955Z Respiratory Ventilation, Greater than 96 Consecutive Hours (ICD-10-PCS; 2017-01-13)
PROC: 0BBK4ZX Excision of Right Lung, Percutaneous Endoscopic Approach, Diagnostic (ICD-10-PCS; 2017-01-13)
PROC: 0BNK8ZZ Release Right Lung, Via Natural or Artificial Opening Endoscopic (ICD-10-PCS; principal; 2017-01-13 07:30)
DX: J93.83 Other pneumothorax (principal); B20 Human immunodeficiency virus [HIV] disease; J96.01 Acute respiratory failure with hypoxia; B59 Pneumocystosis; A41.9 Sepsis, unspecified organism; R64 Cachexia; C34.91 Malignant neoplasm of unspecified part of right bronchus or lung; L03.115 Cellulitis of right lower limb; C46.7 Kaposi's sarcoma of other sites; J44.9 Chronic obstructive pulmonary disease, unspecified; D50.9 Iron deficiency anemia, unspecified; G89.29 Other chronic pain; B96.20 Unspecified Escherichia coli [E. coli] as the cause of diseases classified elsewhere; B96.4 Proteus (mirabilis) (morganii) as the cause of diseases classified elsewhere; R41.0 Disorientation, unspecified; L97.519 Non-pressure chronic ulcer of other part of right foot with unspecified severity; Z66 Do not resuscitate; Z68.21 Body mass index [BMI] 21.0-21.9, adult
CPT/HCPCS: 31500; 36415; 36430; 36600; 71010; 71260; 80048; 80053; 80202; 82270; 82728; 82803; 82962; 83036; 83540; 83605; 83615; 83690; 83735; 83880; 84100; 84484; 85014; 85018; 85025; 85610; 86360; 86641; 86850; 86900; 86901; 86920; 87015; 87070; 87075; 87081; 87281; 87536; 92526; 92610; 93005; 93971; 94002; 94003; 94640; 94644; 94664; 94770; 96374; 96375; C9113; J0692; J0696; J1100; J1170; J1450; J1644; J1815; J1956; J2060; J2250; J2270; J2370; J2405; J2543; J2710; J2765; J2920; J2997; J3010; J3370; J7030; J7040; J7042; J7050; J7060; P9016; Q9967